=== PATIENT | male | born 1980 | race Caucasian/White ===

== ENCOUNTER → 2020-02-12 | Outpatient (CLI) | payer BC ==
[2020-02-12 13:46] LABS: HCT 36.1 % (39.0-53.0); HGB 11.9 gm/dL (13.0-17.5); MCH 27.1 pg (25.0-35.0); Mean Platelet Volume 7.3; Platelet Count 232 k/uL (150-450); Poikilocytosis Slight; RBC 4.41 m/uL (4.30-5.90); RDW 15.6 % (11.5-15.5); WBC 8.8 k/uL (3.8-10.6)
[2020-02-12 19:16] LABS: ALT 18 U/L (10-49); AST 19 U/L (14-35); African American GFR (CKD) 129.5 (60.0-200.0); Albumin/Globulin Ratio 1.13 (1.60-3.17); Alkaline Phosphatase 65 U/L (41-126); BUN/Creat Ratio 13.75 Ratio (12.00-20.00); C Reactive Protein <0.4 mg/dL (0.0-0.8); Calcium 8.6 mg/dL (8.7-10.3); Carbon Dioxide 27.2 mmol/L (21.6-31.8); Chloride 102 mmol/L (96-109); Chol/HDL Ratio 6.91; Cholesterol 242 mg/dL (0-200); Globulin 3.1 g/dL (1.6-3.3); Glucose 248 mg/dL (70-110); LDL Cholesterol,Calculated 166.8 mg/dL (0.0-131.0); Magnesium 1.7 mg/dL (1.5-2.4); Non-African American GFR(CKD) 111.7 (60.0-200.0); Potassium 4.1 mmol/L (3.5-5.5); Sodium 136 mmol/L (135-145); Total Bilirubin 0.4 mg/dL (0.2-1.2); Total Protein 6.6 g/dL (6.2-8.2)
== END | disposition home or self-care (01) ==
LOC: LABWHC1 12:15
PROVIDERS: ATTEND Family Medicine
DX: T81.89XA Other complications of procedures, not elsewhere classified, initial encounter (principal)
CPT/HCPCS: 36415; 80053; 80061; 83036; 83735; 84443; 84481; 85027; 86038; 86140

== ENCOUNTER 2020-04-01 08:09 | Emergency (ER) | payer BC ==
[2020-04-01 08:17] VITALS: BP 196/96; PULSE 102; RESP 18; TEMP 97.7
[2020-04-01] MEDS ORDERED: HYDROmorphone 1 MG/ML 1 ML SYRINGE IVP STA (08:32)
[2020-04-01] MEDS ORDERED: hydrOXYzine HCL 25 MG TAB PO STA (08:32)
--- NOTE | 2020-04-01 08:36 | ED ---
General Adult HPI - General Chief complaint: Extremity Problem,Nontraumatic Stated complaint: Leg pain Time Seen by Provider: 04/01/20 08:19 Source: patient, RN notes reviewed Mode of arrival: wheelchair Limitations: physical limitation - History of Present Illness Initial comments: Patient is a pleasant 39-year-old male presenting to the emergency Department with complaints of bilateral leg pain. Symptoms have been present for over year. 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 Patient was also recently diagnosed with erythema nodosum. Patient has been on 3 courses of antibiotics now including doxycycline and Augmentin and another. Patient has also recently in the event steroids. Patient complains of discomfort and burning, some itching. No fevers. Bilateral lower legs are involved. - Related Data Allergies Allergy/AdvReac Type Severity Reaction Status Date / Time No Known Allergies Allergy Verified 04/01/20 08:17 Review of Systems ROS Statement: Those systems with pertinent positive or pertinent negative responses have been documented in the HPI. ROS Other: All systems not noted in ROS Statement are negative. Constitutional: Denies: fever Eyes: Denies: eye pain ENT: Denies: ear pain Respiratory: Denies: cough Cardiovascular: Denies: chest pain Endocrine: Denies: fatigue Gastrointestinal: Denies: abdominal pain Genitourinary: Denies: dysuria Musculoskeletal: Denies: back pain Skin: Reports: as per HPI, rash, lesions Neurological: Denies: weakness Past Medical History Past Medical History: Diabetes Mellitus Additional Past Medical History / Comment(s): Behcets disease(auto immune) History of Any Multi-Drug Resistant Organisms: None Reported Additional Past Surgical History / Comment(s): I/D of skin lesions, colostomy reversal Past Psychological History: Anxiety Smoking Status: Never smoker Past Alcohol Use History: None Reported Past Drug Use History: None Reported General Exam Limitations: physical limitation General appearance: alert, in no apparent distress Head exam: Present: normocephalic Eye exam: Present: normal appearance Neck exam: Present: normal inspection Respiratory exam: Present: normal lung sounds bilaterally Cardiovascular Exam: Present: regular rate, normal rhythm GI/Abdominal exam: Present: soft. Absent: tenderness Extremities exam: Present: pedal edema Neurological exam: Present: alert Psychiatric exam: Present: normal affect, normal mood Skin exam: Present: other (Bilateral lower leg with lesions anywhere from mild erythematous macules to stage II ulcers up to 3 cm.) Course Vital Signs 04/01/20 08:11 Temperature 97.7 F Pulse Rate 102 H Respiratory 18 Rate Blood Pressure 196/96 O2 Sat by Pulse 97 Oximetry Medical Decision Making - Medical Decision Making Patient and family aware of plan. Case was discussed with Dr. Dwyer, who will admit for Dr. Velázquez. He does agree with IV steroids and antibiotics. - Lab Data Lab Results 04/01/20 Range/Units 08:42 Plasma Lactic Acid Jamarcus 1.1 (0.7-2.0) mmol/L Disposition Clinical Impression: Vasculitis Disposition: ADMITTED IP TO THIS HOSP Condition: Serious Is patient prescribed a controlled substance at d/c from ED?: No Referrals: Veronica Duarte MD [Primary Care Provider] - 1-2 days Decision Time: 09:32
[2020-04-01] MEDS ORDERED: SODIUM CHLORIDE 0.9% 1,000 ML IV SCH (08:45)
[2020-04-01] MEDS ORDERED: HYDROmorphone 0.5 MG/0.5 ML SYRINGE IVP PRN (09:32)
[2020-04-01] MEDS ORDERED: ACETAMINOPHEN TAB 325 MG TAB PO PRN (09:32)
[2020-04-01] MEDS ORDERED: NALOXONE 0.4 MG/ML 1 ML VIAL IV PRN (09:32)
[2020-04-01] MEDS ORDERED: HYDROmorphone 1 MG/ML 1 ML SYRINGE IVP PRN (09:32)
[2020-04-01 09:37] LABS: INR 0.9 (<1.2); Prothrombin Time 9.5 sec (9.0-12.0)
[2020-04-01 09:38] LABS: Basophils % (A) 0 %; Eosinophils % (A) 0 %; HCT 39.8 % (39.0-53.0); HGB 12.9 gm/dL (13.0-17.5); Lymphocytes # (A) 1.1 k/uL (1.0-4.8); Lymphocytes % (A) 9 %; MCH 28.3 pg (25.0-35.0); MCHC 32.6 g/dL (31.0-37.0); MCV 86.9 fL (80.0-100.0); Mean Platelet Volume 7.1; Monocytes # (A) 0.4 k/uL (0-1.0); Monocytes % (A) 3 %; Neutrophils # (A) 11.5 k/uL (1.3-7.7); Neutrophils % (A) 87 %; Platelet Count 362 k/uL (150-450); RBC 4.57 m/uL (4.30-5.90); RDW 15.6 % (11.5-15.5); WBC 13.1 k/uL (3.8-10.6)
[2020-04-01 09:39] LABS: ALT 23 U/L (4-49); AST 19 U/L (17-59); African American GFR (CKD) >90 (>60 ml/min/1.73 sqM); Alkaline Phosphatase 85 U/L (38-126); Anion Gap 11 mmol/L; Blood Urea Nitrogen 32 mg/dL (9-20); C Reactive Protein 26.4 mg/L (<10.0); Calcium 10.1 mg/dL (8.4-10.2); Carbon Dioxide 21 mmol/L (22-30); Chloride 97 mmol/L (98-107); Non-African American GFR(CKD) >90 (>60 ml/min/1.73 sqM); Potassium 5.1 mmol/L (3.5-5.1); Sodium 129 mmol/L (137-145); Total Bilirubin 0.4 mg/dL (0.2-1.3); Total Protein 8.3 g/dL (6.3-8.2)
[2020-04-01 09:47] LABS: Partial Thromboplastin Time 21.2 sec (22.0-30.0)
[2020-04-01 09:53] LABS: Glucose 625 mg/dL (74-99)
[2020-04-01 10:21] LABS: Erythrocyte Sedimentation Rate 93 mm/hr (0-15)
[2020-04-01] MEDS ORDERED: INSULIN REGULAR 100 UNIT/ML VIAL IV ONE (10:45)
[2020-04-01] MEDS ORDERED: AMPICILLIN-SULBACTAM 3 GM in SODIUM CHLORIDE 0.9% 100 ML IVPB STA (11:00)
[2020-04-01] MEDS ORDERED: VANCOMYCIN IV PER PHARMACY 1 EACH MISC MISCELLANE PRN (11:01)
[2020-04-01] MEDS ORDERED: VANCOMYCIN 1,500 MG in SODIUM CHLORIDE 0.9% 250 ML IVPB ONE (11:15)
[2020-04-01] MEDS ORDERED: methylPREDNISolone SOD SUCCI 125 MG/2 ML VIAL IV SCH (12:00)
[2020-04-01] MEDS ORDERED: INSULIN REGULAR 100 UNIT/ML VIAL SQ ONE (12:15)
[2020-04-01] MEDS ORDERED: INSULIN ASPART (NovoLOG) 100 UNIT/ML VIAL SQ SCH (12:30)
[2020-04-01 12:32] LABS: Glucose,Whole Blood 558 mg/dL (75-99)
[2020-04-01] MEDS ORDERED: hydrOXYzine HCL 25 MG TAB PO SCH (16:00)
[2020-04-01] MEDS ORDERED: AMPICILLIN-SULBACTAM 1.5 GM in SODIUM CHLORIDE 0.9% 50 ML IVPB SCH (18:00)
[2020-04-01] MEDS ORDERED: FAMOTIDINE 20 MG TAB PO SCH (21:00)
== END 2020-04-01 11:17 | disposition left against medical advice (07) ==
LOC: EC 08:09 → 6NMEDSUR 09:33 → UNDOADMIN 09:33 → 6NMEDSUR 10:20 → UNDODISIN 11:17 → EC 11:17
DX: I77.6 Arteritis, unspecified (principal); M35.2 Behcet's disease; L52 Erythema nodosum
CPT/HCPCS: 99284; 96361; 96365; 96375; 36415; 80053; 85652; 82009; 83605; 85025; 85610; 85730; 86140; 87040; 87070; 87205; 87077; 87186; J2930; J1170; J0295

== ENCOUNTER 2020-04-02 13:28 | Inpatient (IN) | payer BC ==
[2020-04-02] MEDS ORDERED: GENTAMICIN PER PHARMACY MISCELLANE SCH (14:00)
[2020-04-02] MEDS ORDERED: VANCOMYCIN IV PER PHARMACY 1 EACH MISC MISCELLANE PRN ×2 (14:00→15:34)
[2020-04-02] MEDS ORDERED: HYDROmorphone 1 MG/ML 1 ML SYRINGE IVP STA (14:02)
--- NOTE | 2020-04-02 14:06 | ED ---
General Adult HPI - General Chief complaint: Skin/Abscess/Foreign Body Stated complaint: Rash Time Seen by Provider: 04/02/20 13:35 Source: patient, family, RN notes reviewed Mode of arrival: ambulatory Limitations: no limitations - History of Present Illness Initial comments: Patient is a pleasant 39-year-old male presenting to the emergency Department with complaints of rash. Symptoms have been ongoing for a year. Patient was recently diagnosed with bechet's vasculitis. Patient is having increased pain with leg swelling and sores. Patient has had some discharge or drainage. No fevers. Pain is severe at this time. Patient did have a fall on the steps this morning with some discomfort to his right ribs. No dyspnea. Patient does not believe he broke anything. No head injury or loss of consciousness. Patient was in the ER yesterday and was advised to stay however left AGAINST MEDICAL ADVICE secondary to personal issues. Those have been taken care of at this time and patient is agreeable to admission at this time. - Related Data Home Medications Medication Instructions Recorded Confirmed Acetaminophen [Tylenol] 975 mg PO Q6H PRN 04/01/20 04/02/20 Doxycycline Hyclate 100 mg PO BID 04/01/20 04/02/20 Gabapentin 300 mg PO TID 04/01/20 04/02/20 Ibuprofen [Motrin Ib] 800 mg PO Q6H PRN 04/01/20 04/02/20 Insulin Glargine,Hum.rec.anlog 30 units SQ HS 04/01/20 04/02/20 [Toujeo Solostar] diphenhydrAMINE HCL [Benadryl] 50 mg PO Q6H PRN 04/01/20 04/02/20 predniSONE [Deltasone] See Taper PO DAILY 04/01/20 04/02/20 Allergies Allergy/AdvReac Type Severity Reaction Status Date / Time No Known Allergies Allergy Verified 04/02/20 13:36 Review of Systems ROS Statement: Those systems with pertinent positive or pertinent negative responses have been documented in the HPI. ROS Other: All systems not noted in ROS Statement are negative. Constitutional: Denies: fever Eyes: Denies: eye pain ENT: Denies: ear pain Respiratory: Denies: cough, dyspnea Cardiovascular: Reports: as per HPI Endocrine: Denies: fatigue Gastrointestinal: Denies: abdominal pain Genitourinary: Denies: urgency Musculoskeletal: Denies: back pain Skin: Reports: rash, lesions Neurological: Denies: weakness Past Medical History Past Medical History: Diabetes Mellitus Additional Past Medical History / Comment(s): Behcets disease(auto immune) History of Any Multi-Drug Resistant Organisms: None Reported Additional Past Surgical History / Comment(s): I/D of skin lesions, colostomy reversal Past Psychological History: Anxiety Smoking Status: Never smoker Past Alcohol Use History: None Reported Past Drug Use History: None Reported General Exam Limitations: no limitations General appearance: alert, in no apparent distress Head exam: Present: atraumatic Eye exam: Present: normal appearance Neck exam: Present: normal inspection. Absent: tenderness Respiratory exam: Present: normal lung sounds bilaterally. Absent: chest wall tenderness Cardiovascular Exam: Present: regular rate, normal rhythm GI/Abdominal exam: Present: soft. Absent: tenderness Extremities exam: Present: other (Bilateral lower leg wounds) Back exam: Present: normal inspection. Absent: vertebral tenderness Neurological exam: Present: alert. Absent: motor sensory deficit Psychiatric exam: Present: normal affect, normal mood Skin exam: Present: other (Bilateral lower legs with multiple lesions of varying sizes, up to 3-4 cm stage II ulcers with dark discoloration. There are also multiple small macular papules) Course Vital Signs 04/02/20 13:34 Temperature 97.9 F Pulse Rate 87 Respiratory 20 Rate Blood Pressure 101/77 O2 Sat by Pulse 99 Oximetry EKG Findings - EKG Comments: EKG Findings:: Sinus tachycardia 1:15. NH 154. QRS 88. QT 322. QTC 445. Normal axis. Normal QRS. No acute ST change. Medical Decision Making - Medical Decision Making Dr. Gonzalez was notified who requests admission to [facility] for the weekend. Case was discussed with Dr. del cid, who will admit. - Lab Data Lab Results 04/02/20 04/02/20 Range/Units 14:07 14:08 POC Glucose (mg/dL) >600 H >600 H (75-99) mg/dL POC Glu Routing Machine Operator ID Rosalina Argueta Alisha - Radiology Data Radiology results: image reviewed (Chest x-ray shows no acute process) Disposition Clinical Impression: Vasculitis, Cellulitis, Hyperglycemia Disposition: ADMITTED IP TO THIS HOSP Is patient prescribed a controlled substance at d/c from ED?: No Referrals: Veronica Duarte MD [Primary Care Provider] - 1-2 days Decision Time: 14:28
[2020-04-02 14:09] LABS: Glucose,Whole Blood >600 mg/dL (75-99)
[2020-04-02 14:09] LABS: Glucose,Whole Blood >600 mg/dL (75-99)
[2020-04-02] MEDS ORDERED: INSULIN REGULAR 100 UNIT/ML VIAL IV ONE (14:09)
[2020-04-02] MEDS ORDERED: VANCOMYCIN 1,750 MG in SODIUM CHLORIDE 0.9% 500 ML 500 ML IVPB STA (14:13)
[2020-04-02] MEDS ORDERED: VANCOMYCIN 1,750 MG in SODIUM CHLORIDE 0.9% 250 ML IVPB ONE (14:15)
--- NOTE | 2020-04-02 14:21 | XR ---
EXAMINATION TYPE: XR chest 2V DATE OF EXAM: 04/02/2020 COMPARISON: NONE HISTORY: Falling injury today with pain. TECHNIQUE: Frontal and lateral views of the chest are obtained. FINDINGS: Low lung volumes are present. There is no focal air space opacity, pleural effusion, or pne umothorax seen. The cardiac silhouette size is within normal limits. The osseous structures are in tact. IMPRESSION: No acute cardiopulmonary process.
[2020-04-02] MEDS: INSULIN ASPART (NovoLOG) 100 UNIT/ML VIAL SQ SCH ×2 (14:26→18:43)
[2020-04-02] MEDS ORDERED: HYDROmorphone 0.5 MG/0.5 ML SYRINGE IVP PRN (14:29)
[2020-04-02] MEDS ORDERED: NALOXONE 0.4 MG/ML 1 ML VIAL IV PRN (14:29)
[2020-04-02] MEDS ORDERED: ACETAMINOPHEN TAB 325 MG TAB PO PRN (14:29)
[2020-04-02] MEDS ORDERED: methylPREDNISolone SOD SUCCI 125 MG/2 ML VIAL IV STA (14:30)
[2020-04-02] MEDS: SODIUM CHLORIDE 0.9% 1,000 ML IV SCH (14:32)
[2020-04-02] MEDS ORDERED: GENTAMICIN 560 MG in SODIUM CHLORIDE 0.9% 100 ML IVPB ONE (15:00)
[2020-04-02 15:05] LABS: Basophils # (A) 0.1 k/uL (0-0.2); Basophils % (A) 1 %; Eosinophils % (A) 0 %; HCT 39.3 % (39.0-53.0); HGB 13.1 gm/dL (13.0-17.5); Lymphocytes # (A) 0.9 k/uL (1.0-4.8); Lymphocytes % (A) 7 %; MCH 29.1 pg (25.0-35.0); MCHC 33.2 g/dL (31.0-37.0); MCV 87.5 fL (80.0-100.0); Mean Platelet Volume 7.1; Monocytes # (A) 0.3 k/uL (0-1.0); Monocytes % (A) 2 %; Neutrophils # (A) 11.4 k/uL (1.3-7.7); Neutrophils % (A) 90 %; Platelet Count 319 k/uL (150-450); RBC 4.49 m/uL (4.30-5.90); RDW 15.4 % (11.5-15.5); WBC 12.8 k/uL (3.8-10.6)
[2020-04-02 15:13] LABS: ALT 21 U/L (4-49); AST 19 U/L (17-59); African American GFR (CKD) >90 (>60 ml/min/1.73 sqM); Albumin 3.6 g/dL (3.5-5.0); Alkaline Phosphatase 73 U/L (38-126); Calcium 9.8 mg/dL (8.4-10.2); Carbon Dioxide 21 mmol/L (22-30); Non-African American GFR(CKD) >90 (>60 ml/min/1.73 sqM); Potassium 5.4 mmol/L (3.5-5.1); Total Bilirubin 0.4 mg/dL (0.2-1.3)
[2020-04-02 15:22] LABS: Glucose,Whole Blood 563 mg/dL (75-99)
[2020-04-02 15:22] LABS: INR 0.9 (<1.2); Prothrombin Time 9.6 sec (9.0-12.0)
[2020-04-02 15:24] LABS: Partial Thromboplastin Time 20.6 sec (22.0-30.0)
[2020-04-02 15:30] LABS: Anion Gap 11 mmol/L; Blood Urea Nitrogen 38 mg/dL (9-20); Chloride 96 mmol/L (98-107); Sodium 128 mmol/L (137-145); Total Protein 7.5 g/dL (6.3-8.2)
--- NOTE | 2020-04-02 15:33 | P.HPIM ---
History of Present Illness On-call hospitalist covering for Dr. Gonzalez This is a pleasant 39 years old male with past medical history of Bahget disease, diagnosed and treated by his PCP nicci Ivey. 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 He follow-up with his PCP who started him on steroids about 2 weeks ago, his sugars now is uncontrolled Also at home he was going down stairs when he tripped and fell and he hurt the right side of his chest when he has pain and tenderness, however he denies headache trauma, he denies pain anywhere else, he has history of injury to his left foot few weeks ago, with trauma to the left big toe and the second toe there is some ulceration with purulent discharge. Patient is hemodynamically stable and vitals looks stable, patient is afebrile.Labs from yesterday and today were reviewedShowing mild leukocytosis of 13.1 and 12.8 K, rest of CBC is unremarkable, elevated ESR of 93, INR is normal, sugars elevated more than 600, sodium is 129 probably pseudohyponatremia secondary to high glucose. Creatinine is normal at 0.92, potassium 5.1, liver enzymes not elevated. C-reactive protein is elevated at 26.4 Once culture from yesterday showing group D enterococcus, final results is pending Chest x-ray showing no acute process. EKG showing sinus tachycardia at 1:[address]-T changes and QTC 45. Other chronic medical problems including diabetes on Trajento , he got postural lesions frequently, some of them in the left shoulder and left neck which are healed scar tissue, also in the groin Patient has been complaining of from blurry vision and floating spots for about a month and he was referred to supposed to follow up with an senior housekeeper He denies smoking, alcohol or illicit drugs, he feels somewhat depressed however he denies suicidal ideation and he does not think he needs to see a psychiatrist In the emergency room patient received IV vancomycin and IV gentamicin, also he was started on Solu-Medrol, normal saline at 1 30 mL/h. Review of Systems CONSTITUTIONAL: No fever, no malaise, no fatigue. HEENT: No recent hearing problems. Denied any sore throat. CARDIOVASCULAR: No orthopnea, PND, no palpitations, no syncope. PULMONARY: No shortness of breath, no cough, no hemoptysis. GASTROINTESTINAL: No diarrhea, no nausea, no vomiting, no abdominal pain. Normoactive bowel sounds. NEUROLOGICAL: No headaches, no weakness, no numbness. HEMATOLOGICAL: Denies any bleeding or petechiae. GENITOURINARY: Denies any burning micturition, frequency, or urgency. MUSCULOSKELETAL/RHEUMATOLOGICAL: Denies any joint pain, swelling, or any muscle pain. ENDOCRINE: Denies any polyuria or polydipsia. Past Medical History Past Medical History: Diabetes Mellitus Additional Past Medical History / Comment(s): Behcets disease(auto immune) History of Any Multi-Drug Resistant Organisms: None Reported Additional Past Surgical History / Comment(s): I/D of skin lesions, colostomy reversal Past Psychological History: Anxiety Smoking Status: Never smoker Past Alcohol Use History: None Reported Past Drug Use History: None Reported Medications and Allergies Home Medications Medication Instructions Recorded Confirmed Type Acetaminophen [Tylenol] 975 mg PO Q6H PRN 04/01/20 04/02/20 History Doxycycline Hyclate 100 mg PO BID 04/01/20 04/02/20 History Gabapentin 300 mg PO TID 04/01/20 04/02/20 History Ibuprofen [Motrin Ib] 800 mg PO Q6H PRN 04/01/20 04/02/20 History Insulin Glargine,Hum.rec.anlog 30 units SQ HS 04/01/20 04/02/20 History [Toujeo Solostar] diphenhydrAMINE HCL [Benadryl] 50 mg PO Q6H PRN 04/01/20 04/02/20 History predniSONE [Deltasone] See Taper PO DAILY 04/01/20 04/02/20 History Allergies Allergy/AdvReac Type Severity Reaction Status Date / Time No Known Allergies Allergy Verified 04/02/20 13:36 Physical Exam Vitals: Vital Signs Temp Pulse Resp BP Pulse Ox 04/02/20 13:34 97.9 F 87 20 101/77 99 Intake and Output 04/02/20 04/02/20 04/02/20 06:59 14:59 22:59 Other: Weight 102.965 kg GENERAL: The patient is alert and oriented x3, not in any acute distress. Well developed, well nourished. HEENT: Pupils are round and equally reacting to light. EOMI. No scleral icterus. No conjunctival pallor. Normocephalic, atraumatic. No pharyngeal erythema. No thyromegaly. CARDIOVASCULAR: S1 and S2 present. No murmurs, rubs, or gallops. -PULMONARY: Chest is clear to auscultation, no wheezing or crackles. Lateral chest wall tenderness ABDOMEN: Soft, nontender, nondistended, normoactive bowel sounds. No palpable organomegaly. MUSCULOSKELETAL: No joint swelling or deformity. -EXTREMITIES: No cyanosis, clubbing, or pedal edema. About (15+/-) Multiple circular cutaneous ulceration on both legs, about 0.5-2 inches in diameter, some of them are open with purulent base, others are with black eschar, mild surrounding erythema in between them. Also there is ulceration of the left second toe and first toe from recent trauma. Both legs are very sensitive to touch causing pain NEUROLOGICAL: Gross neurological examination did not reveal any focal deficits. SKIN: No rashes. No petechiae Results CBC & Chem 7: 04/02/20 14:35 Labs: Abnormal Lab Results - Last 24 Hours (Table) 04/02/20 04/02/20 04/02/20 Range/Units 14:07 14:08 14:35 WBC 12.8 H (3.8-10.6) k/uL Neutrophils # 11.4 H (1.3-7.7) k/uL Lymphocytes # 0.9 L (1.0-4.8) k/uL POC Glucose (mg/dL) >600 H >600 H (75-99) mg/dL Assessment and Plan Assessment: Bilateral lower extremity multiple ulceration and cellulitis Bahget disease, on steroids at home prior to admission to the hospital with complications including frequent skin pustules, and bilateral lower extremity ulceration, with blurred vision significant pain of both legs, his skin is very sensitive to touch causing pain 1 month history of blurred vision and floating spots Fall with right chest trauma Recent history of left foot trauma, mainly involving the left first toes Diabetes mellitus, uncontrolled with hyperglycemia Plan: This is a pleasant 39 years old male who presents with bilateral lower extremity ulceration and cellulitis, fall with trauma to the right chest and left foot, hyperglycemia and pain. We'll continue with IV vancomycin, follow-up once culture final results, we will call infectious disease consult however is not available today or over the weekend. Continue with steroids. Pain management Because of uncontrolled diabetes and patient is started on steroids, we will start the patient on insulin drip for now We'll check ultrasound of the lower extremity to rule out DVT We'll consult ophthalmology service Labs and medication were reviewed.. Continue same treatment. Continue with symptomatic treatment. Resume home medication. Monitor lytes and vitals. DVT and GI prophylaxis. Further recommendations depends on the clinical course of the patient DVT prophylaxis: SubcutaneouLovenox GI Prophylaxis: Pepcid PT/OT: Pending Prognosis is guarded patient was instructed to follow up with her special effects specialist upon discharge, he agrees and contact information for Dr. sim was provided
[2020-04-02 15:47] LABS: Glucose 671 mg/dL (74-99)
[2020-04-02 17:28] LABS: Glucose,Whole Blood 512 mg/dL (75-99)
--- NOTE | 2020-04-02 17:31 | US ---
EXAMINATION TYPE: US venous doppler duplex LE DATE OF EXAM: 04/02/2020 3:56 PM COMPARISON: NONE CLINICAL HISTORY: Rule out DVT Bilateral swelling. Behcet's disease. SIDE PERFORMED: Bilateral TECHNIQUE: The lower extremity deep venous system is examined utilizing real time linear array sonog ankita with graded compression, doppler sonography and color-flow sonography. VESSELS IMAGED: External Iliac Vein (EIV) Common Femoral Vein Deep Femoral Vein Greater Saphenous Vein * Femoral Vein Popliteal Vein Small Saphenous Vein * Proximal Calf Veins (* superficial vessels) Right Leg: Negative for DVT Left Leg: Negative for DVT IMPRESSION: No sign of deep vein thrombosis in both legs.
--- NOTE | 2020-04-02 17:46 | P.CON ---
Consult Note - . Consult date: 04/02/20 Assessment/Plan:: This is a 39 y/o male who's been recently diagnosed with Bechet's disease. He's been experiencing a number of vasculopathies which not seem to be totally answered by his long stand and poorly controlled diabetes. He has been experiencing poor vision since at least December 2019. He realizes taht he's not had an appropriate eye exam for many years and simply uses OTC readers as his get-by for vision. There is no known surgical interventions on the eyes and hs is unawware of any uveitis problems caused by the Bechet's disease itself. Va: uncorrected 20/25 -3 OD, 20/40 OS EOM full Pupils w/o APD Nondilated examination: Eyelid/adnexa unremarkable Cornea clear Conjunctiva white & clear AC Deep & quiet Iris no pathology Lens clear Vitreous clear Optic nerve S/F/P C:D 0.30 x 0.40 OU Retina multiple dot and blot and preproliferative findings throughout OU with CSME especially involving OS foveola A: poorly controlled DM with preproliferative and early proliferative findings with clinically significant macular edema OS>OD Hx Bechet's without overt ocular findings, needs full dilated examination with good peripheral examination and IVFA. P: recommend on release to seek ophthalmological care to begin proper diagnosis and interventional treatment as needed to preserve remaining vision. Additionally, needs to drop A-1-C < 7.0; stated was 9 now and recently 13 - most likely cause of current eye findings. Once the A-1-C is better stabilized recommend updated glasses about 3 months after stabilization. Thank yo for this consultation.
[2020-04-02] MEDS: HYDROmorphone 1 MG/ML 1 ML SYRINGE IVP PRN ×2 (17:59→20:49)
[2020-04-02] MEDS: INSULIN REGULAR 100 UNIT in SODIUM CHLORIDE 0.9% 100 ML IV SCH (18:02)
[2020-04-02] MEDS: methylPREDNISolone SOD SUCCI 125 MG/2 ML VIAL IV SCH (18:10)
[2020-04-02 19:30] LABS: Glucose,Whole Blood 457 mg/dL (75-99)
[2020-04-02] MEDS: FAMOTIDINE 20 MG TAB PO SCH (20:47)
[2020-04-02 21:10] LABS: Glucose,Whole Blood 391 mg/dL (75-99)
[2020-04-02 21:38] LABS: Glucose,Whole Blood 410 mg/dL (75-99)
--- NOTE | 2020-04-02 21:43 | XR ---
EXAMINATION TYPE: XR foot limited LT DATE OF EXAM: 04/02/2020 COMPARISON: NONE HISTORY: Foot infection. Pain. TECHNIQUE: 2 views FINDINGS: There is soft tissue swelling of the forefoot. I see no fracture nor dislocation. Metatarsa ls are intact. There is Achilles calcaneal spurring. IMPRESSION: Soft tissue swelling. No fracture seen.
[2020-04-02 23:33] LABS: Glucose,Whole Blood 333 mg/dL (75-99)
[2020-04-03] MEDS: HYDROmorphone 1 MG/ML 1 ML SYRINGE IVP PRN ×7 (00:22→21:51)
[2020-04-03] MEDS: methylPREDNISolone SOD SUCCI 125 MG/2 ML VIAL IV SCH ×4 (00:26→17:27)
[2020-04-03] MEDS: SODIUM CHLORIDE 0.9% 1,000 ML IV SCH ×3 (00:28→12:30)
[2020-04-03 01:23] LABS: Glucose,Whole Blood 280 mg/dL (75-99)
[2020-04-03] MEDS ORDERED: GENTAMICIN TROUGH DUE 1 EACH MISC MISCELLANE ONE (02:00)
[2020-04-03 02:58] LABS: Basophils % (A) 0 %; Eosinophils # (A) 0.1 k/uL (0-0.7); Eosinophils % (A) 1 %; HCT 34.2 % (39.0-53.0); Lymphocytes % (A) 10 %; MCH 28.1 pg (25.0-35.0); MCHC 32.3 g/dL (31.0-37.0); MCV 86.9 fL (80.0-100.0); Monocytes # (A) 0.2 k/uL (0-1.0); Monocytes % (A) 2 %; Neutrophils # (A) 8.3 k/uL (1.3-7.7); Neutrophils % (A) 86 %; Platelet Count 290 k/uL (150-450); RBC 3.93 m/uL (4.30-5.90); RDW 15.9 % (11.5-15.5); WBC 9.7 k/uL (3.8-10.6)
[2020-04-03] MEDS ORDERED: VANCOMYCIN 1,750 MG in SODIUM CHLORIDE 0.9% 250 ML IVPB SCH (03:00)
[2020-04-03 03:40] LABS: Glucose,Whole Blood 220 mg/dL (75-99)
[2020-04-03] MEDS: VANCOMYCIN 1,750 MG in SODIUM CHLORIDE 0.9% 500 ML 500 ML IVPB SCH ×2 (03:46→14:21)
[2020-04-03] MEDS: INSULIN REGULAR 100 UNIT in SODIUM CHLORIDE 0.9% 100 ML IV SCH (04:32)
[2020-04-03 04:48] LABS: Glucose,Whole Blood 212 mg/dL (75-99)
[2020-04-03 06:30] LABS: Glucose,Whole Blood 188 mg/dL (75-99)
--- NOTE | 2020-04-03 06:55 | XR ---
EXAMINATION TYPE: XR ribs RT DATE OF EXAM: 04/03/2020 COMPARISON: Chest x-ray from yesterday. HISTORY: Fall injury with right-sided rib pain. TECHNIQUE: A frontal and oblique images right-sided ribs. FINDINGS: No acute displaced right-sided rib fracture is seen. Visualized right lung remains clear. O verlying soft tissue is unremarkable. IMPRESSION: No acute displaced right-sided rib fracture.
[2020-04-03 07:39] LABS: Glucose,Whole Blood 183 mg/dL (75-99)
[2020-04-03 08:57] LABS: African American GFR (CKD) 129.5 (60.0-200.0); Anion Gap 8.2 mmol/L (4.00-12.00); BUN/Creat Ratio 42.5 Ratio (12.00-20.00); Calcium 8.5 mg/dL (8.7-10.3); Carbon Dioxide 21.8 mmol/L (21.6-31.8); Non-African American GFR(CKD) 111.7 (60.0-200.0)
[2020-04-03] MEDS: FAMOTIDINE 20 MG TAB PO SCH ×2 (10:00→20:02)
[2020-04-03 10:23] LABS: Glucose,Whole Blood 251 mg/dL (75-99)
[2020-04-03 11:55] LABS: Glucose,Whole Blood 213 mg/dL (75-99)
[2020-04-03] MEDS: ENOXAPARIN 40 MG/0.4 ML SYRINGE SQ SCH (12:19)
[2020-04-03] MEDS: INSULIN ASPART (NovoLOG) 100 UNIT/ML VIAL SQ SCH ×3 (12:19→21:11)
[2020-04-03 17:18] LABS: Glucose,Whole Blood 327 mg/dL (75-99)
[2020-04-03] MEDS: GENTAMICIN 560 MG in SODIUM CHLORIDE 0.9% 100 ML IVPB SCH (17:27)
[2020-04-03 20:51] LABS: Glucose,Whole Blood 376 mg/dL (75-99)
[2020-04-04] MEDS: HYDROmorphone 1 MG/ML 1 ML SYRINGE IVP PRN ×8 (00:49→22:18)
[2020-04-04] MEDS: methylPREDNISolone SOD SUCCI 125 MG/2 ML VIAL IV SCH ×3 (00:52→11:36)
[2020-04-04] MEDS: SODIUM CHLORIDE 0.9% 1,000 ML IV SCH ×4 (00:54→19:17)
--- NOTE | 2020-04-04 01:15 | P.PN ---
Subjective Progress Note Date: 04/03/20 Principal diagnosis: Infected LE ulcers Mr. 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 Patient was also recently started on steroids for worsening of his ulcers and so his blood sugars have been uncontrolled. Patient also had a fall at home when he tripped and hurt on the right side of the chest. Patient had x-rays of his ribs and foot that was not showing any acute fractures patient also had lower extremity Dopplers done that was negative for DVT. Patient's wound culture from 1028 is shown to grow Enterococcus faecalis. Blood cultures from no growth till date. On 04/03/2020-patient is comfortably lying in bed. He states that his also has a painful. He also has some purulent discharge from his lower extremity ulcers. Patient does not complain of any any fevers chills or rigors. No chest pain or palpitations. No cough or difficulty in breathing. No not been nausea vomiting or diarrhea. No dysuria or hematuria. Patient's vitals have been reviewed temperature 97.7 heart rate 79 respiratory rate 18, blood pressure 128/74, saturating at 98% on room air. Patient's labs have been reviewed from this morning showing white count of 9.7 hemoglobin of 11 platelets of 190. Sodium 133, potassium 4, chloride 103, BUN 34, creatinine 0.8. Blood sugars have been running between 200s to 300s. Active Medications Acetaminophen (Acetaminophen Tab 325 Mg Tab) 650 mg PO Q6HR PRN PRN Reason: Mild Pain or Fever > 100.5 Enoxaparin Sodium (Enoxaparin 40 Mg/0.4 Ml Syringe) 40 mg SQ DAILY [facility] Last Admin: 04/03/20 12:19 Dose: 40 mg Documented by: Famotidine (Famotidine 20 Mg Tab) 20 mg PO BID [facility] Last Admin: 04/03/20 20:02 Dose: 20 mg Documented by: Hydromorphone HCl (Hydromorphone 0.5 Mg/0.5 Ml Syringe) 0.5 mg IVP Q3HR PRN PRN Reason: Moderate Pain Hydromorphone HCl (Hydromorphone 1 Mg/Ml 1 Ml Syringe) 1 mg IVP Q3HR PRN PRN Reason: Severe Pain Last Admin: 04/04/20 00:49 Dose: 1 mg Documented by: Sodium Chloride (Saline 0.9%) 1,000 mls @ 130 mls/hr IV .Q7H42M [facility] Last Admin: 04/04/20 00:54 Dose: 130 mls/hr Documented by: Vancomycin HCl 1,750 mg/ (Sodium Chloride) 500 mls @ 167 mls/hr IVPB Q12H [facility] Last Admin: 04/03/20 14:21 Dose: 167 mls/hr Documented by: Gentamicin Sulfate 560 mg/ (Sodium Chloride) 114 mls @ 114 mls/hr IVPB Q24H [facility] Last Admin: 04/03/20 17:27 Dose: 114 mls/hr Documented by: Insulin Aspart (Insulin Aspart (Novolog) 100 Unit/Ml Vial) 0 unit SQ [facility]; Protocol Last Admin: 04/03/20 21:11 Dose: 11 unit Documented by: Methylprednisolone Sodium Succinate (Methylprednisolone Sod Succi 125 Mg/2 Ml Vial) 60 mg IV Q6HR [facility] Last Admin: 04/04/20 00:52 Dose: 60 mg Documented by: Miscellaneous Information (Vancomycin Trough Due 1 Each Misc) 1 each MISCELLANE ONCE ONE Stop: 04/04/20 14:01 Naloxone HCl (Naloxone 0.4 Mg/Ml 1 Ml Vial) 0.2 mg IV Q2M PRN PRN Reason: Opioid Reversal Objective - Vital Signs Vital signs: Vital Signs Temp 97.5 F L 04/03/20 04:43 Pulse 75 04/03/20 04:43 Resp 16 04/03/20 04:43 BP 128/74 04/03/20 04:43 Pulse Ox 98 04/03/20 04:43 Intake & Output 04/02/20 04/03/20 04/03/20 18:59 06:59 18:59 Intake Total 528.938 16.652 Balance 528.938 16.652 Weight 102.965 kg Intake: Intake, IV Titration 528.938 16.652 Amount Gentamicin 560 mg In 20.6 Sodium Chloride 0.9% 100 ml @ 114 mls/hr IVPB Q24H [facility] Rx#:[id number] Insulin Regular 100 unit 118.338 16.652 In Sodium Chloride 0.9% 100 ml @ 0.1 UNITS/KG/HR 10.399 mls/hr IV .Q9H43M [facility] Rx#:[id number] Sodium Chloride 0.9% 1, 390 000 ml @ 130 mls/hr IV . Q7H42M [facility] Rx#:[id number] Other: # Bowel Movements 0 - Exam GENERAL: The patient is alert and oriented x3, not in any acute distress. Well developed, well nourished. HEENT: Pupils are round and equally reacting to light. EOMI. No scleral icterus. No conjunctival pallor. Normocephalic, atraumatic. No pharyngeal erythema. No thyromegaly. No oral ulcers . CARDIOVASCULAR: S1 and S2 present. No murmurs, rubs, or gallops. -PULMONARY: Chest is clear to auscultation, no wheezing or crackles. Lateral chest wall tenderness ABDOMEN: Soft, nontender, nondistended, normoactive bowel sounds. No palpable organomegaly. MUSCULOSKELETAL: No joint swelling or deformity. -EXTREMITIES: No cyanosis, clubbing, or pedal edema. Multiple circular cutaneous ulceration on both legs, about 0.5-2 inches in diameter, some of them are open with purulent base, others are with black eschar, mild surrounding erythema in between them. Also there is ulceration of the left second toe and first toe from recent trauma. Both legs are very sensitive to touch causing pain NEUROLOGICAL: Gross neurological examination did not reveal any focal deficits. - Labs CBC & Chem 7: 04/03/20 02:40 04/03/20 02:40 Labs: Abnormal Lab Results - Last 24 Hours (Table) 04/02/20 04/02/20 04/02/20 Range/Units 14:07 14:08 14:35 WBC 12.8 H (3.8-10.6) k/uL RBC (4.30-5.90) m/uL Hgb (13.0-17.5) gm/dL Hct (39.0-53.0) % RDW (11.5-15.5) % Neutrophils # 11.4 H (1.3-7.7) k/uL Lymphocytes # 0.9 L (1.0-4.8) k/uL APTT (22.0-30.0) sec Sodium (137-145) mmol/L Potassium (3.5-5.1) mmol/L Chloride (98-107) mmol/L Carbon Dioxide (22-30) mmol/L BUN (9-20) mg/dL BUN/Creatinine Ratio (12.00-20.00) Ratio Glucose (74-99) mg/dL POC Glucose (mg/dL) >600 H >600 H (75-99) mg/dL Calcium (8.7-10.3) mg/dL 04/02/20 04/02/20 04/02/20 Range/Units 14:35 14:35 15:21 WBC (3.8-10.6) k/uL RBC (4.30-5.90) m/uL Hgb (13.0-17.5) gm/dL Hct (39.0-53.0) % RDW (11.5-15.5) % Neutrophils # (1.3-7.7) k/uL Lymphocytes # (1.0-4.8) k/uL APTT 20.6 L (22.0-30.0) sec Sodium 128 L (137-145) mmol/L Potassium 5.4 H (3.5-5.1) mmol/L Chloride 96 L (98-107) mmol/L Carbon Dioxide 21 L (22-30) mmol/L BUN 38 H (9-20) mg/dL BUN/Creatinine Ratio (12.00-20.00) Ratio Glucose 671 H* (74-99) mg/dL POC Glucose (mg/dL) 563 H (75-99) mg/dL Calcium (8.7-10.3) mg/dL 04/02/20 04/02/20 04/02/20 Range/Units 17:20 19:28 20:50 WBC (3.8-10.6) k/uL RBC (4.30-5.90) m/uL Hgb (13.0-17.5) gm/dL Hct (39.0-53.0) % RDW (11.5-15.5) % Neutrophils # (1.3-7.7) k/uL Lymphocytes # (1.0-4.8) k/uL APTT (22.0-30.0) sec Sodium (137-145) mmol/L Potassium (3.5-5.1) mmol/L Chloride (98-107) mmol/L Carbon Dioxide (22-30) mmol/L BUN (9-20) mg/dL BUN/Creatinine Ratio (12.00-20.00) Ratio Glucose (74-99) mg/dL POC Glucose (mg/dL) 512 H 457 H 391 H (75-99) mg/dL Calcium (8.7-10.3) mg/dL 04/02/20 04/02/20 04/03/20 Range/Units 21:25 23:31 01:22 WBC (3.8-10.6) k/uL RBC (4.30-5.90) m/uL Hgb (13.0-17.5) gm/dL Hct (39.0-53.0) % RDW (11.5-15.5) % Neutrophils # (1.3-7.7) k/uL Lymphocytes # (1.0-4.8) k/uL APTT (22.0-30.0) sec Sodium (137-145) mmol/L Potassium (3.5-5.1) mmol/L Chloride (98-107) mmol/L Carbon Dioxide (22-30) mmol/L BUN (9-20) mg/dL BUN/Creatinine Ratio (12.00-20.00) Ratio Glucose (74-99) mg/dL POC Glucose (mg/dL) 410 H 333 H 280 H (75-99) mg/dL Calcium (8.7-10.3) mg/dL 04/03/20 04/03/20 04/03/20 Range/Units 02:40 02:40 03:20 WBC (3.8-10.6) k/uL RBC 3.93 L (4.30-5.90) m/uL Hgb 11.0 L (13.0-17.5) gm/dL Hct 34.2 L (39.0-53.0) % RDW 15.9 H (11.5-15.5) % Neutrophils # 8.3 H (1.3-7.7) k/uL Lymphocytes # (1.0-4.8) k/uL APTT (22.0-30.0) sec Sodium 133 L (137-145) mmol/L Potassium (3.5-5.1) mmol/L Chloride (98-107) mmol/L Carbon Dioxide (22-30) mmol/L BUN 34.0 H (9-20) mg/dL BUN/Creatinine Ratio 42.50 H (12.00-20.00) Ratio Glucose 243 H (74-99) mg/dL POC Glucose (mg/dL) 220 H (75-99) mg/dL Calcium 8.5 L (8.7-10.3) mg/dL 04/03/20 04/03/20 04/03/20 Range/Units 04:45 06:11 07:37 WBC (3.8-10.6) k/uL RBC (4.30-5.90) m/uL Hgb (13.0-17.5) gm/dL Hct (39.0-53.0) % RDW (11.5-15.5) % Neutrophils # (1.3-7.7) k/uL Lymphocytes # (1.0-4.8) k/uL APTT (22.0-30.0) sec Sodium (137-145) mmol/L Potassium (3.5-5.1) mmol/L Chloride (98-107) mmol/L Carbon Dioxide (22-30) mmol/L BUN (9-20) mg/dL BUN/Creatinine Ratio (12.00-20.00) Ratio Glucose (74-99) mg/dL POC Glucose (mg/dL) 212 H 188 H 183 H (75-99) mg/dL Calcium (8.7-10.3) mg/dL 04/03/20 04/03/20 Range/Units 10:21 11:54 WBC (3.8-10.6) k/uL RBC (4.30-5.90) m/uL Hgb (13.0-17.5) gm/dL Hct (39.0-53.0) % RDW (11.5-15.5) % Neutrophils # (1.3-7.7) k/uL Lymphocytes # (1.0-4.8) k/uL APTT (22.0-30.0) sec Sodium (137-145) mmol/L Potassium (3.5-5.1) mmol/L Chloride (98-107) mmol/L Carbon Dioxide (22-30) mmol/L BUN (9-20) mg/dL BUN/Creatinine Ratio (12.00-20.00) Ratio Glucose (74-99) mg/dL POC Glucose (mg/dL) 251 H 213 H (75-99) mg/dL Calcium (8.7-10.3) mg/dL Assessment and Plan Assessment: ASSESSMENT Bilateral lower extremity multiple ulceration and cellulitis Bahcet's disease, on steroids Significant pain of both legs, his skin is very sensitive to touch causing pain Blurred vision and floating spots Fall with right chest trauma Recent history of left foot trauma, mainly involving the left first toes Diabetes mellitus, uncontrolled with hyperglycemia PLAN: Patient's wound cultures from 1029 growing Enterococcus faecalis. Patient is on vancomycin and gentamicin. Wound care has been consulted for debridement as few of the ulcers serous discharge few of them have eschar formation. Patient was evaluated by ophthalmology and recommended outpatient follow-up for a dilated retinal exam. Patient's blood sugars continue to be running high, will continue on insulin drip for now. Patient had lower extremity Doppler that was negative for DVT. Continue with the current medication regimen. Further recommendations depending on the progress of the patient.
[2020-04-04 02:00] LABS: Glucose,Whole Blood 319 mg/dL (75-99)
[2020-04-04] MEDS: VANCOMYCIN 1,750 MG in SODIUM CHLORIDE 0.9% 500 ML 500 ML IVPB SCH (02:47)
[2020-04-04 07:12] LABS: Glucose,Whole Blood 330 mg/dL (75-99)
[2020-04-04 07:15] LABS: Basophils % (A) 0 %; Eosinophils % (A) 0 %; HCT 39.1 % (39.0-53.0); HGB 12.6 gm/dL (13.0-17.5); Lymphocytes # (A) 0.9 k/uL (1.0-4.8); Lymphocytes % (A) 6 %; MCH 28.5 pg (25.0-35.0); MCHC 32.3 g/dL (31.0-37.0); MCV 88.2 fL (80.0-100.0); Mean Platelet Volume 6.8; Monocytes # (A) 0.5 k/uL (0-1.0); Monocytes % (A) 4 %; Neutrophils % (A) 89 %; Platelet Count 359 k/uL (150-450); RBC 4.44 m/uL (4.30-5.90); RDW 15.6 % (11.5-15.5); WBC 14.6 k/uL (3.8-10.6)
[2020-04-04] MEDS: ENOXAPARIN 40 MG/0.4 ML SYRINGE SQ SCH (08:16)
[2020-04-04] MEDS: INSULIN ASPART (NovoLOG) 100 UNIT/ML VIAL SQ SCH ×3 (08:17→17:49)
[2020-04-04] MEDS: FAMOTIDINE 20 MG TAB PO SCH ×2 (08:17→20:20)
[2020-04-04 10:42] LABS: African American GFR (CKD) 129.5 (60.0-200.0); Anion Gap 7.6 mmol/L (4.00-12.00); BUN/Creat Ratio 37.5 Ratio (12.00-20.00); Calcium 8.4 mg/dL (8.7-10.3); Carbon Dioxide 25.4 mmol/L (21.6-31.8); Non-African American GFR(CKD) 111.7 (60.0-200.0); Potassium 4.5 mmol/L (3.5-5.5)
[2020-04-04 11:10] LABS: Glucose,Whole Blood 319 mg/dL (75-99)
[2020-04-04] MEDS: INSULIN DETEMIR (LEVEMIR) 100 UNIT/ML SYR SQ SCH (11:36)
[2020-04-04] MEDS: predniSONE 20 MG TAB PO SCH (11:48)
--- NOTE | 2020-04-04 11:49 | P.PN ---
Subjective Progress Note Date: 04/04/20 Principal diagnosis: Infected LE ulcers Mr. 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 Patient was also recently started on steroids for worsening of his ulcers and so his blood sugars have been uncontrolled. Patient also had a fall at home when he tripped and hurt on the right side of the chest. Patient had x-rays of his ribs and foot that was not showing any acute fractures patient also had lower extremity Dopplers done that was negative for DVT. Patient's wound culture from 1028 is shown to grow Enterococcus faecalis. Blood cultures from no growth till date. On 04/03/2020-patient is comfortably lying in bed. He states that his also has a painful. He also has some purulent discharge from his lower extremity ulcers. Patient does not complain of any any fevers chills or rigors. No chest pain or palpitations. No cough or difficulty in breathing. No not been nausea vomiting or diarrhea. No dysuria or hematuria. Patient's vitals have been reviewed temperature 97.7 heart rate 79 respiratory rate 18, blood pressure 128/74, saturating at 98% on room air. Patient's labs have been reviewed from this morning showing white count of 9.7 hemoglobin of 11 platelets of 190. Sodium 133, potassium 4, chloride 103, BUN 34, creatinine 0.8. Blood sugars have been running between 200s to 300s. On 04/04/2020 - patient is comfortably sitting up in the bed. He complains of pain in both of his lower extremities. He still has some discharge coming out f rom his lower extremity ulcers. Patient denies having any fevers chills or rigors. No chest pain or palpitations. No cough or difficulty in breathing. No abdominal pain nausea vomiting or diarrhea. No dysuria or hematuria. On reviewing the patient's vitals his temperature is 97.5, heart rate 92, respiratory rate 16, blood pressure 174/93, saturating at 97% on room air. On reviewing his labs from this morning white count of 14.6, hemoglobin 12.6. Sodium 135, potassium 4.5, periorbital, but 25, BUN 30, creatinine 0.8 blood sugars have been running high around 300s to 350s. Active Medications Acetaminophen (Acetaminophen Tab 325 Mg Tab) 650 mg PO Q6HR PRN PRN Reason: Mild Pain or Fever > 100.5 Enoxaparin Sodium (Enoxaparin 40 Mg/0.4 Ml Syringe) 40 mg SQ DAILY [facility] Last Admin: 04/04/20 08:16 Dose: 40 mg Documented by: Famotidine (Famotidine 20 Mg Tab) 20 mg PO BID [facility] Last Admin: 04/04/20 08:17 Dose: 20 mg Documented by: Hydromorphone HCl (Hydromorphone 0.5 Mg/0.5 Ml Syringe) 0.5 mg IVP Q3HR PRN PRN Reason: Moderate Pain Hydromorphone HCl (Hydromorphone 1 Mg/Ml 1 Ml Syringe) 1 mg IVP Q3HR PRN PRN Reason: Severe Pain Last Admin: 04/04/20 09:57 Dose: 1 mg Documented by: Sodium Chloride (Saline 0.9%) 1,000 mls @ 130 mls/hr IV .Q7H42M [facility] Last Admin: 04/04/20 05:38 Dose: Not Given Documented by: Gentamicin Sulfate 560 mg/ (Sodium Chloride) 114 mls @ 114 mls/hr IVPB Q24H [facility] Last Admin: 04/03/20 17:27 Dose: 114 mls/hr Documented by: Insulin Aspart (Insulin Aspart (Novolog) 100 Unit/Ml Vial) 0 unit SQ AC-TID [facility]; Protocol Last Admin: 04/04/20 11:35 Dose: 8 unit Documented by: Insulin Detemir (Insulin Detemir (Levemir) 100 Unit/Ml Syr) 20 unit SQ DAILY@0700 [facility] Last Admin: 04/04/20 11:36 Dose: 20 unit Documented by: Miscellaneous Information (Vancomycin Trough Due 1 Each Misc) 1 each MISCELLANE ONCE ONE Stop: 04/04/20 14:01 Naloxone HCl (Naloxone 0.4 Mg/Ml 1 Ml Vial) 0.2 mg IV Q2M PRN PRN Reason: Opioid Reversal Prednisone (Prednisone 20 Mg Tab) 40 mg PO DAILY [facility] Objective - Vital Signs Vital signs: Vital Signs Temp 97.5 F L 04/04/20 05:00 Pulse 92 04/04/20 05:00 Resp 16 04/04/20 05:00 BP 174/93 04/04/20 05:00 Pulse Ox 97 04/04/20 05:00 Intake & Output 04/03/20 04/04/20 04/04/20 19:59 06:59 18:59 Intake Total Balance Intake: Intake, IV Titration Amount Sodium Chloride 0.9% 1, 000 ml @ 130 mls/hr IV . Q7H42M [facility] Rx#:[id number] Oral Other: # Voids # Bowel Movements - Exam GENERAL: The patient is alert and oriented x3, not in any acute distress. Well developed, well nourished. HEENT: Pupils are round and equally reacting to light. EOMI. No scleral icterus. No conjunctival pallor. Normocephalic, atraumatic. No pharyngeal erythema. No thyromegaly. No oral ulcers . CARDIOVASCULAR: S1 and S2 present. No murmurs, rubs, or gallops. -PULMONARY: Chest is clear to auscultation, no wheezing or crackles. Lateral chest wall tenderness ABDOMEN: Soft, nontender, nondistended, normoactive bowel sounds. No palpable organomegaly. MUSCULOSKELETAL: No joint swelling or deformity. -EXTREMITIES: No cyanosis, clubbing, or pedal edema. Multiple circular cutaneous ulceration on both legs, about 0.5-2 inches in diameter, some of them are open with purulent base, others are with black eschar, mild surrounding erythema in between them. Also there is ulceration of the left second toe and first toe from recent trauma. Both legs are very sensitive to touch causing pain. NEUROLOGICAL: Gross neurological examination did not reveal any focal deficits. - Labs CBC & Chem 7: 04/04/20 06:29 04/04/20 06:29 Labs: Abnormal Lab Results - Last 24 Hours (Table) 04/03/20 04/03/20 04/04/20 Range/Units 17:15 20:49 01:53 EST WBC (3.8-10.6) k/uL Hgb (13.0-17.5) gm/dL RDW (11.5-15.5) % Neutrophils # (1.3-7.7) k/uL Lymphocytes # (1.0-4.8) k/uL BUN (9.0-27.0) mg/dL BUN/Creatinine Ratio (12.00-20.00) Ratio Glucose (70-110) mg/dL POC Glucose (mg/dL) 327 H 376 H 319 H (75-99) mg/dL Calcium (8.7-10.3) mg/dL 04/04/20 04/04/20 04/04/20 Range/Units 06:29 06:29 07:10 WBC 14.6 H (3.8-10.6) k/uL Hgb 12.6 L (13.0-17.5) gm/dL RDW 15.6 H (11.5-15.5) % Neutrophils # 13.0 H (1.3-7.7) k/uL Lymphocytes # 0.9 L (1.0-4.8) k/uL BUN 30.0 H (9.0-27.0) mg/dL BUN/Creatinine Ratio 37.50 H (12.00-20.00) Ratio Glucose 357 H (70-110) mg/dL POC Glucose (mg/dL) 330 H (75-99) mg/dL Calcium 8.4 L (8.7-10.3) mg/dL 04/04/20 Range/Units 11:09 WBC (3.8-10.6) k/uL Hgb (13.0-17.5) gm/dL RDW (11.5-15.5) % Neutrophils # (1.3-7.7) k/uL Lymphocytes # (1.0-4.8) k/uL BUN (9.0-27.0) mg/dL BUN/Creatinine Ratio (12.00-20.00) Ratio Glucose (70-110) mg/dL POC Glucose (mg/dL) 319 H (75-99) mg/dL Calcium (8.7-10.3) mg/dL Microbiology - Last 24 Hours (Table) 04/02/20 14:35 Blood Culture - Preliminary Blood No Growth after 24 hours 04/02/20 14:35 Blood Culture - Preliminary Blood No Growth after 24 hours Assessment and Plan Assessment: ASSESSMENT Bilateral lower extremity multiple ulceration and cellulitis Behcet's disease, on steroids Significant pain of both legs, his skin is very sensitive to touch causing pain Blurred vision and floating spots Fall with right chest trauma Recent history of left foot trauma, mainly involving the left first toes Diabetes mellitus, uncontrolled with hyperglycemia PLAN: Patient's wound cultures from 04/01 growing Enterococcus faecalis. We will discontinue vancomycin, continue the patient on gentamicin for now. Patient has been getting the high dose steroids, will taper it to prednisone 40 mg today. We will obtain a surgical consult for possible debridement of the ulcers. Patient was evaluated by ophthalmology and recommended outpatient follow-up for a dilated retinal exam. Patient's blood sugars continue to be running high, will start him on 20 units of Lantus with sliding scale of insulin coverage. Patient had lower extremity Doppler that was negative for DVT. Co ntinue with GI DVT prophylaxis. Continue with the current medication regimen. Further recommendations depending on the progress of the patient.
[2020-04-04] MEDS ORDERED: VANCOMYCIN TROUGH DUE 1 EACH MISC MISCELLANE ONE (14:00)
--- NOTE | 2020-04-04 14:33 | P.GSCN ---
History of Present Illness Consult date: 04/04/20 History of present illness: Patient is 39 y/o male with complaints of leg pain related to autoimmune lesions on bilateral lower ext. He has had these for some time, he states that they come and go. Past Medical History Past Medical History: Diabetes Mellitus Additional Past Medical History / Comment(s): Behcets disease(auto immune) History of Any Multi-Drug Resistant Organisms: None Reported Additional Past Surgical History / Comment(s): I/D of skin lesions, colostomy reversal Past Anesthesia/Blood Transfusion Reactions: No Reported Reaction Past Psychological History: Anxiety Smoking Status: Never smoker Past Alcohol Use History: None Reported Past Drug Use History: None Reported Medications and Allergies Home Medications Medication Instructions Recorded Confirmed Type Acetaminophen [Tylenol] 975 mg PO Q6H PRN 04/01/20 04/02/20 History Doxycycline Hyclate 100 mg PO BID 04/01/20 04/02/20 History Gabapentin 300 mg PO TID 04/01/20 04/02/20 History Ibuprofen [Motrin Ib] 800 mg PO Q6H PRN 04/01/20 04/02/20 History Insulin Glargine,Hum.rec.anlog 30 units SQ HS 04/01/20 04/02/20 History [Toujeo Solostar] diphenhydrAMINE HCL [Benadryl] 50 mg PO Q6H PRN 04/01/20 04/02/20 History predniSONE [Deltasone] See Taper PO DAILY 04/01/20 04/02/20 History Allergies Allergy/AdvReac Type Severity Reaction Status Date / Time No Known Allergies Allergy Verified 04/02/20 13:36 Surgical - Exam Osteopathic Statement: *. No significant issues noted on an osteopathic structural exam other than those noted in the History and Physical/Consult. Vital Signs Temp Pulse Resp BP Pulse Ox 97.9 F 87 20 101/77 99 04/02/20 13:34 04/02/20 13:34 04/02/20 13:34 04/02/20 13:34 04/02/20 13:34 - General well developed, well nourished - Eyes PERRL - Neck trachea midline - Respiratory normal expansion, normal respiratory effort - Abdomen Abdomen: soft, non tender - Integumentary multiple lesions/ulcerations on lower ext. no signs of infection - Psychiatric oriented to time, oriented to person, oriented to place Results - Labs 04/04/20 06:29 04/04/20 06:29 Abnormal Lab Results - Last 24 Hours (Table) 04/03/20 04/03/20 04/04/20 Range/Units 17:15 20:49 01:53 EST WBC (3.8-10.6) k/uL Hgb (13.0-17.5) gm/dL RDW (11.5-15.5) % Neutrophils # (1.3-7.7) k/uL Lymphocytes # (1.0-4.8) k/uL BUN (9.0-27.0) mg/dL BUN/Creatinine Ratio (12.00-20.00) Ratio Glucose (70-110) mg/dL POC Glucose (mg/dL) 327 H 376 H 319 H (75-99) mg/dL Calcium (8.7-10.3) mg/dL 04/04/20 04/04/20 04/04/20 Range/Units 06:29 06:29 07:10 WBC 14.6 H (3.8-10.6) k/uL Hgb 12.6 L (13.0-17.5) gm/dL RDW 15.6 H (11.5-15.5) % Neutrophils # 13.0 H (1.3-7.7) k/uL Lymphocytes # 0.9 L (1.0-4.8) k/uL BUN 30.0 H (9.0-27.0) mg/dL BUN/Creatinine Ratio 37.50 H (12.00-20.00) Ratio Glucose 357 H (70-110) mg/dL POC Glucose (mg/dL) 330 H (75-99) mg/dL Calcium 8.4 L (8.7-10.3) mg/dL 04/04/20 Range/Units 11:09 WBC (3.8-10.6) k/uL Hgb (13.0-17.5) gm/dL RDW (11.5-15.5) % Neutrophils # (1.3-7.7) k/uL Lymphocytes # (1.0-4.8) k/uL BUN (9.0-27.0) mg/dL BUN/Creatinine Ratio (12.00-20.00) Ratio Glucose (70-110) mg/dL POC Glucose (mg/dL) 319 H (75-99) mg/dL Calcium (8.7-10.3) mg/dL Microbiology - Last 24 Hours (Table) 04/02/20 14:35 Blood Culture - Preliminary Blood No Growth after 24 hours 04/02/20 14:35 Blood Culture - Preliminary Blood No Growth after 24 hours Diabetes panel 04/04/20 Range/Units 06:29 Sodium 135 (135-145) mmol/L Potassium 4.5 (3.5-5.5) mmol/L Chloride 102 (96-109) mmol/L Carbon Dioxide 25.4 (21.6-31.8) mmol/L BUN 30.0 H (9.0-27.0) mg/dL Creatinine 0.8 (0.6-1.5) mg/dL Glucose 357 H (70-110) mg/dL Calcium 8.4 L (8.7-10.3) mg/dL Calcium panel 04/04/20 Range/Units 06:29 Calcium 8.4 L (8.7-10.3) mg/dL Pituitary panel 04/04/20 Range/Units 06:29 Sodium 135 (135-145) mmol/L Potassium 4.5 (3.5-5.5) mmol/L Chloride 102 (96-109) mmol/L Carbon Dioxide 25.4 (21.6-31.8) mmol/L BUN 30.0 H (9.0-27.0) mg/dL Creatinine 0.8 (0.6-1.5) mg/dL Glucose 357 H (70-110) mg/dL Calcium 8.4 L (8.7-10.3) mg/dL Adrenal panel 04/04/20 Range/Units 06:29 Sodium 135 (135-145) mmol/L Potassium 4.5 (3.5-5.5) mmol/L Chloride 102 (96-109) mmol/L Carbon Dioxide 25.4 (21.6-31.8) mmol/L BUN 30.0 H (9.0-27.0) mg/dL Creatinine 0.8 (0.6-1.5) mg/dL Glucose 357 H (70-110) mg/dL Calcium 8.4 L (8.7-10.3) mg/dL Assessment and Plan Assessment: 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 There is no surgical intervention is not recommended at this time, recommend treating underlying autoimmune disorder.
[2020-04-04 17:00] LABS: Glucose,Whole Blood 248 mg/dL (75-99)
[2020-04-04] MEDS: GENTAMICIN 560 MG in SODIUM CHLORIDE 0.9% 100 ML IVPB SCH (17:49)
[2020-04-04 20:50] LABS: Glucose,Whole Blood 290 mg/dL (75-99)
[2020-04-05] MEDS: HYDROmorphone 1 MG/ML 1 ML SYRINGE IVP PRN ×4 (01:18→10:18)
[2020-04-05] MEDS: SODIUM CHLORIDE 0.9% 1,000 ML IV SCH ×3 (01:21→16:33)
[2020-04-05 06:14] LABS: Basophils % (A) 0 %; Eosinophils # (A) 0.1 k/uL (0-0.7); Eosinophils % (A) 1 %; HGB 11.8 gm/dL (13.0-17.5); Lymphocytes # (A) 1.8 k/uL (1.0-4.8); Lymphocytes % (A) 16 %; MCH 28.9 pg (25.0-35.0); MCHC 32.7 g/dL (31.0-37.0); MCV 88.3 fL (80.0-100.0); Mean Platelet Volume 6.8; Monocytes # (A) 1.1 k/uL (0-1.0); Monocytes % (A) 10 %; Neutrophils # (A) 7.9 k/uL (1.3-7.7); Neutrophils % (A) 72 %; Platelet Count 271 k/uL (150-450); RBC 4.08 m/uL (4.30-5.90); RDW 15.7 % (11.5-15.5)
[2020-04-05 07:12] LABS: Glucose,Whole Blood 200 mg/dL (75-99)
[2020-04-05] MEDS: INSULIN DETEMIR (LEVEMIR) 100 UNIT/ML SYR SQ SCH (08:59)
[2020-04-05] MEDS: ENOXAPARIN 40 MG/0.4 ML SYRINGE SQ SCH (08:59)
[2020-04-05] MEDS: INSULIN ASPART (NovoLOG) 100 UNIT/ML VIAL SQ SCH ×4 (08:59→20:37)
[2020-04-05] MEDS: predniSONE 20 MG TAB PO SCH (09:00)
[2020-04-05] MEDS: FAMOTIDINE 20 MG TAB PO SCH ×2 (09:00→20:37)
[2020-04-05 09:25] LABS: African American GFR (CKD) 145.8 (60.0-200.0); Anion Gap 4.5 mmol/L (4.00-12.00); BUN/Creat Ratio 41.67 Ratio (12.00-20.00); Calcium 7.8 mg/dL (8.7-10.3); Carbon Dioxide 25.5 mmol/L (21.6-31.8); Non-African American GFR(CKD) 125.8 (60.0-200.0); Potassium 4.1 mmol/L (3.5-5.5)
[2020-04-05 11:30] LABS: Glucose,Whole Blood 194 mg/dL (75-99)
[2020-04-05] MEDS ORDERED: INSULIN DETEMIR (LEVEMIR) 100 UNIT/ML SYR SQ SCH (11:30)
[2020-04-05] MEDS: lisinopriL 10 MG TAB PO SCH (11:33)
--- NOTE | 2020-04-05 11:35 | P.PN ---
Subjective Progress Note Date: 04/05/20 This is a 39-year-old gentleman admitted with vasculitis, history of Behcet's disease, uncontrolled diabetes mellitus multiple other medical issues. Maintained on IV fluid hydrations, steroids, antibiotics of gentamicin. Reports his vasculitis has been on and off 1 year. Reports lower extremity burning with "steel Wool" sensation on lesions. In the past, patient attempted Neurontin but did not receive pain control and was taking very high doses which made him too drowsy. Afebrile, WBC trending down to 11. Maintained on Levemir, hyperglycemic, blood sugars improving. 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 Objective - Vital Signs Vital signs: Vital Signs Temp 97.6 F 04/05/20 05:00 Pulse 93 04/05/20 05:00 Resp 16 04/05/20 05:00 BP 164/82 04/05/20 05:00 Pulse Ox 98 04/05/20 05:00 Intake & Output 04/04/20 04/05/20 04/05/20 18:59 06:59 18:59 Intake Total 1040 2740 Balance 1040 2740 Intake: Intake, IV Titration 1040 1560 Amount Sodium Chloride 0.9% 1, 1040 1560 000 ml @ 130 mls/hr IV . Q7H42M [facility] Rx#:[id number] Oral 1180 Other: # Voids 1 1 - Exam PHYSICAL EXAM: VITAL SIGNS: As above GENERAL: Alert and oriented 3, Sitting up in bed, no acute distress HEENT: Conjunctivae normal. eyes round and equal, NECK: No JVD. No thyroid enlargement. CARDIOVASCULAR: S1, S2 regular. No murmur RESPIRATION: Breath sounds diminished in the bases. No rhonchi or crackles. No bronchial breathing. ABDOMEN: Soft, nontender . No guarding. no masses palpable. No ascites, No h epatosplenomegaly.Bowel sounds heard. LEGS: Bilateral lower leg dressings clean dry and intact, positive edema NERVOUS SYSTEM: Cranial N 2-12 grossly normal. Moves all 4 limbs. Diffuse weakness No focal deficits. Strength and sensation grossly intact.. - Labs CBC & Chem 7: 04/05/20 05:16 04/05/20 05:16 Labs: Abnormal Lab Results - Last 24 Hours (Table) 04/04/20 04/04/20 04/04/20 Range/Units 11:09 16:59 20:49 WBC (3.8-10.6) k/uL RBC (4.30-5.90) m/uL Hgb (13.0-17.5) gm/dL Hct (39.0-53.0) % RDW (11.5-15.5) % Neutrophils # (1.3-7.7) k/uL Monocytes # (0-1.0) k/uL BUN/Creatinine Ratio (12.00-20.00) Ratio Glucose (70-110) mg/dL POC Glucose (mg/dL) 319 H 248 H 290 H (75-99) mg/dL Calcium (8.7-10.3) mg/dL 04/05/20 04/05/20 04/05/20 Range/Units 05:16 05:16 07:09 WBC 11.0 H (3.8-10.6) k/uL RBC 4.08 L (4.30-5.90) m/uL Hgb 11.8 L (13.0-17.5) gm/dL Hct 36.0 L (39.0-53.0) % RDW 15.7 H (11.5-15.5) % Neutrophils # 7.9 H (1.3-7.7) k/uL Monocytes # 1.1 H (0-1.0) k/uL BUN/Creatinine Ratio 41.67 H (12.00-20.00) Ratio Glucose 217 H (70-110) mg/dL POC Glucose (mg/dL) 200 H (75-99) mg/dL Calcium 7.8 L (8.7-10.3) mg/dL Microbiology - Last 24 Hours (Table) 04/02/20 14:35 Blood Culture - Preliminary Blood No Growth after 48 hours 04/02/20 14:35 Blood Culture - Preliminary Blood No Growth after 48 hours Assessment and Plan Assessment: 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 Continue on antibiotics, steroids and IV fluid hydration. Levemir insulin dose increased with close monitoring of Accu-Cheks. Patient reports he had followed up with a labour market economist prior to moving but did not receive results from all the testing completed. Discussed with patient following up with labour market economist as well as ophthalmology after discharge. Public Health Nurse recommendations noted and appreciated. Pain management. Discharge planning in the next 24-48 hours. The impression and plan of care has been dictated as directed. : I performed a history and examination of this patient, discussed the same with the dictator. I agree with the dictator's note ,documented as a scribe. Any additional findings or plans will be noted.
[2020-04-05] MEDS ORDERED: INSULIN DETEMIR (LEVEMIR) 100 UNIT/ML SYR SQ ONE (12:00)
[2020-04-05] MEDS: HYDROcodone/APAP 10-325MG 1 EACH TAB PO PRN ×3 (12:57→20:38)
--- NOTE | 2020-04-05 13:43 | P.CONS ---
History of Present Illness - Reason for Consult Consult date: 04/05/20 Wound care - History of Present Illness this is a 39-year-old pleasant male with a past medical history of behcet's disease with multiple ulcerations to bilateral lower extremities. Patient states that he isn't doing this for at least one year. The ulcerations come and go. He typically uses Neosporin and dry gauze however these last ulcerations have been there for about 2 weeks. Patient states that they are uncomfortable causing significant amount of pain and discomfort. Patient was seen in the ER where he had a culture that was positive however he is unable to stay and went home AMA he returned for treatment over the weekend. Asians past medical history includes diabetes. Review of Systems Review Of Systems: Constitutional: No fever, no chills, no night sweats. No weight change. No weakness, fatigue or lethargy. No daytime sleepiness. Integumentary:reports wounds, no lesions. No rash or pruritus. No unusual bruising. No change in hair or nails. Past Medical History Past Medical History: Diabetes Mellitus Additional Past Medical History / Comment(s): Behcets disease(auto immune) History of Any Multi-Drug Resistant Organisms: None Reported Additional Past Surgical History / Comment(s): I/D of skin lesions, colostomy reversal Past Anesthesia/Blood Transfusion Reactions: No Reported Reaction Past Psychological History: Anxiety Smoking Status: Never smoker Past Alcohol Use History: None Reported Past Drug Use History: None Reported Medications and Allergies Home Medications Medication Instructions Recorded Confirmed Type Acetaminophen [Tylenol] 975 mg PO Q6H PRN 04/01/20 04/02/20 History Doxycycline Hyclate 100 mg PO BID 04/01/20 04/02/20 History Gabapentin 300 mg PO TID 04/01/20 04/02/20 History Ibuprofen [Motrin Ib] 800 mg PO Q6H PRN 04/01/20 04/02/20 History Insulin Glargine,Hum.rec.anlog 30 units SQ HS 04/01/20 04/02/20 History [Tojoya Solostar] diphenhydrAMINE HCL [Benadryl] 50 mg PO Q6H PRN 04/01/20 04/02/20 History predniSONE [Deltasone] See Taper PO DAILY 04/01/20 04/02/20 History Allergies Allergy/AdvReac Type Severity Reaction Status Date / Time No Known Allergies Allergy Verified 04/02/20 13:36 Physical Exam Vitals: Vital Signs Temp Pulse Resp BP Pulse Ox 04/05/20 13:00 97.6 F 83 18 161/88 97 04/05/20 05:00 97.6 F 93 16 164/82 98 04/05/20 00:00 16 04/04/20 20:46 98.4 F 88 16 149/88 97 Intake and Output 04/04/20 04/05/20 04/05/20 22:59 06:59 14:59 Intake Total 1700 1040 Balance 1700 1040 Intake: Intake, IV Titration 520 1040 Amount Sodium Chloride 0.9% 1, 520 1040 000 ml @ 130 mls/hr IV . Q7H42M [facility] Rx#:[id number] Oral 1180 Other: # Voids 1 1 1 Physical exam: General Appearance: Alert, cooperative, no distress, appears stated age. Skin: multiple ulcerations to bilateral lower extremities and various stages of healing mostly with eschar's. Purulent thick yellow drainage noted. No granulation seen through any of the ulcerations.all other Skin color, texture, tugor normal, no rashes or lesions. Neurologic: Alert oriented x3 Results CBC & Chem 7: 04/05/20 05:16 04/05/20 05:16 Labs: Abnormal Lab Results - Last 24 Hours (Table) 04/04/20 04/04/20 04/05/20 Range/Units 16:59 20:49 05:16 WBC 11.0 H (3.8-10.6) k/uL RBC 4.08 L (4.30-5.90) m/uL Hgb 11.8 L (13.0-17.5) gm/dL Hct 36.0 L (39.0-53.0) % RDW 15.7 H (11.5-15.5) % Neutrophils # 7.9 H (1.3-7.7) k/uL Monocytes # 1.1 H (0-1.0) k/uL BUN/Creatinine Ratio (12.00-20.00) Ratio Glucose (70-110) mg/dL POC Glucose (mg/dL) 248 H 290 H (75-99) mg/dL Calcium (8.7-10.3) mg/dL 11/02/20 11/02/20 11/02/20 Range/Units 05:16 07:09 11:18 WBC (3.8-10.6) k/uL RBC (4.30-5.90) m/uL Hgb (13.0-17.5) gm/dL Hct (39.0-53.0) % RDW (11.5-15.5) % Neutrophils # (1.3-7.7) k/uL Monocytes # (0-1.0) k/uL BUN/Creatinine Ratio 41.67 H (12.00-20.00) Ratio Glucose 217 H (70-110) mg/dL POC Glucose (mg/dL) 200 H 194 H (75-99) mg/dL Calcium 7.8 L (8.7-10.3) mg/dL Microbiology - Last 24 Hours (Table) 04/02/20 14:35 Blood Culture - Preliminary Blood No Growth after 48 hours 04/02/20 14:35 Blood Culture - Preliminary Blood No Growth after 48 hours Assessment and Plan (1) Nonhealing ulcer of multiple sites of left lower extremity with fat layer exposed Current Visit: Yes Status: Acute Code(s): L97.922 - NON-PRS CHR ULC UNSP PRT OF L LOW LEG W FAT LAYER EXPOSED SNOMED Code(s): 39555299 (2) Nonhealing ulcer of multiple sites of right lower extremity with fat layer exposed Current Visit: Yes Status: Acute Code(s): L97.912 - NON-PRS CHR ULC UNSP PRT OF R LOW LEG W FAT LAYER EXPOSED SNOMED Code(s): 58337675 (3) Diabetes mellitus with skin ulcer Current Visit: Yes Status: Acute Code(s): E11.622 - TYPE 2 DIABETES MELLITUS WITH OTHER SKIN ULCER; L98.499 - NON-PRESSURE CHRONIC ULCER OF SKIN OF SITES W UNSP SEVERITY SNOMED Code(s): 49839388 Plan: apply Santyl, saline was gauze, dry gauze, rolled gauze secured paper tape. C hange daily. Patient would not benefit from debridement due to theetiology of the ulceration being an inflammatory process. Continued mechanical debridement may worsen the ulcerations. discussed with patient's utilizing wound care upon discharge which she is agreeable. thank you For the Consultation Contact the [facility] with any questions. DNP note has been reviewed and discussed with Dr. Cherry and the impression and plan of care has been directed as dictated.
[2020-04-05] MEDS: COLLAGENASE 250 UNIT/GM OINTMENT 30 GM TUBE TOPICAL SCH (14:26)
[2020-04-05 17:39] LABS: Glucose,Whole Blood 348 mg/dL (75-99)
[2020-04-05] MEDS: GENTAMICIN 560 MG in SODIUM CHLORIDE 0.9% 100 ML IVPB SCH (18:16)
[2020-04-05 20:11] LABS: Glucose,Whole Blood 322 mg/dL (75-99)
[2020-04-06] MEDS: SODIUM CHLORIDE 0.9% 1,000 ML IV SCH ×3 (00:35→14:49)
[2020-04-06] MEDS: HYDROcodone/APAP 10-325MG 1 EACH TAB PO PRN ×6 (00:35→20:53)
[2020-04-06] MEDS: lisinopriL 10 MG TAB PO SCH (04:52)
[2020-04-06 07:18] LABS: Glucose,Whole Blood 203 mg/dL (75-99)
[2020-04-06] MEDS: ENOXAPARIN 40 MG/0.4 ML SYRINGE SQ SCH (07:37)
[2020-04-06] MEDS: FAMOTIDINE 20 MG TAB PO SCH ×2 (07:37→20:53)
[2020-04-06] MEDS: predniSONE 20 MG TAB PO SCH (07:37)
[2020-04-06] MEDS: INSULIN ASPART (NovoLOG) 100 UNIT/ML VIAL SQ SCH ×4 (07:38→20:52)
[2020-04-06 09:07] LABS: African American GFR (CKD) 136.8 (60.0-200.0)
[2020-04-06] MEDS ORDERED: HYDROmorphone 0.5 MG/0.5 ML SYRINGE IVP STA (09:30)
[2020-04-06] MEDS: GABAPENTIN 400 MG CAP PO SCH ×3 (09:46→21:26)
[2020-04-06 11:18] LABS: Glucose,Whole Blood 223 mg/dL (75-99)
[2020-04-06] MEDS: INSULIN DETEMIR (LEVEMIR) 100 UNIT/ML SYR SQ SCH (12:42)
[2020-04-06 16:58] LABS: Glucose,Whole Blood 269 mg/dL (75-99)
[2020-04-06] MEDS: GENTAMICIN 560 MG in SODIUM CHLORIDE 0.9% 100 ML IVPB SCH (17:45)
[2020-04-06] MEDS: COLLAGENASE 250 UNIT/GM OINTMENT 30 GM TUBE TOPICAL SCH (19:06)
[2020-04-06 20:50] LABS: Glucose,Whole Blood 210 mg/dL (75-99)
--- NOTE | 2020-04-06 23:05 | P.PN ---
Subjective Progress Note Date: 04/06/20 Principal diagnosis: vasculitis This is a 39-year-old gentleman admitted with vasculitis, history of Behcet's disease, uncontrolled diabetes mellitus multiple other medical issues. Maintained on IV fluid hydrations, steroids, antibiotics of gentamicin. Reports his vasculitis has been on and off 1 year. 04/06: He continues on gentamycin and prednisone, culture growing enterococcus fecalis. He does feel the legs are slightly improved but continues to complain of constant pain and states his lesions feel like 'steel wool' rubbing on them with light touch. Blood cultures with no growth. Objective - Vital Signs Vital signs: Vital Signs Temp 97.5 F L 04/06/20 12:25 Pulse 76 04/06/20 12:25 Resp 20 04/06/20 12:25 BP 152/83 04/06/20 12:25 Pulse Ox 99 04/06/20 12:25 Intake & Output 04/06/20 04/06/20 04/07/20 06:59 18:59 06:59 Intake Total 1560 Balance 1560 Intake: Intake, IV Titration 1560 Amount Sodium Chloride 0.9% 1, 1560 000 ml @ 130 mls/hr IV . Q7H42M [facility] Rx#:[id number] Other: Voiding Method Toilet Toilet # Voids 1 3 - Exam General: well nourished, well developed, NAD. Vitals reviewed Lungs: normal respiratory effort, no wheezes or rales CV: Regular rate and rhythm, no murmur. Peripheral pulses 2+ Abdomen: soft, nondistended, no organomegaly Skin: Bilateral shins with 1-2 cm diameter granulomatous lesions with overlying eschar. Minimal surrounding erythema - Labs CBC & Chem 7: 04/05/20 05:16 04/06/20 05:51 Labs: Abnormal Lab Results - Last 24 Hours (Table) 04/05/20 04/06/20 04/06/20 Range/Units 20:10 07:11 11:14 POC Glucose (mg/dL) 322 H 203 H 223 H (75-99) mg/dL 04/06/20 Range/Units 16:50 POC Glucose (mg/dL) 269 H (75-99) mg/dL Microbiology - Last 24 Hours (Table) 04/02/20 14:35 Blood Culture - Preliminary Blood No Growth after 96 hours 04/02/20 14:35 Blood Culture - Preliminary Blood No Growth after 96 hours Assessment and Plan (1) Behcet's disease Current Visit: Yes Status: Acute Code(s): M35.2 - BEHCET'S DISEASE SNOMED Code(s): 018491043 (2) Cellulitis Current Visit: Yes Status: Acute Code(s): L03.90 - CELLULITIS, UNSPECIFIED SNOMED Code(s): 890270066 (3) Nonhealing ulcer of multiple sites of left lower extremity with fat layer exposed Current Visit: Yes Status: Acute Code(s): L97.922 - NON-PRS CHR ULC UNSP PRT OF L LOW LEG W FAT LAYER EXPOSED SNOMED Code(s): 81986070 (4) Nonhealing ulcer of multiple sites of right lower extremity with fat layer exposed Current Visit: Yes Status: Acute Code(s): L97.912 - NON-PRS CHR ULC UNSP PRT OF R LOW LEG W FAT LAYER EXPOSED SNOMED Code(s): 75780943 (5) Vasculitis Current Visit: Yes Status: Acute Code(s): I77.6 - ARTERITIS, UNSPECIFIED SNOMED Code(s): 37322145 Plan: 1. Vasculitis and cellulitis of both lower extremities. Suspect behcet disease. Continue with IV gentamycin today and prednisone. Pain control with [place] and dilaudid. Continue santyl and gabapentin, plan to transition to PO antibiotic and recommend he follow up with Rheumatology outpatient 2. T2DM. Continue accucheck, sliding scale
[2020-04-07] MEDS: SODIUM CHLORIDE 0.9% 1,000 ML IV SCH ×2 (00:39→06:05)
[2020-04-07] MEDS: HYDROcodone/APAP 10-325MG 1 EACH TAB PO PRN ×3 (00:40→09:33)
[2020-04-07] MEDS ORDERED: GENTAMICIN TROUGH DUE 1 EACH MISC MISCELLANE ONE (02:00)
[2020-04-07 03:17] LABS: Anisocytosis Slight; Basophils % (A) 0 %; Eosinophils # (A) 0.3 k/uL (0-0.7); Eosinophils % (A) 3 %; HCT 32.3 % (39.0-53.0); HGB 10.3 gm/dL (13.0-17.5); Lymphocytes % (A) 22 %; MCH 28.5 pg (25.0-35.0); MCV 89.2 fL (80.0-100.0); Mean Platelet Volume 6.6; Monocytes # (A) 0.5 k/uL (0-1.0); Monocytes % (A) 6 %; Neutrophils # (A) 6.2 k/uL (1.3-7.7); Neutrophils % (A) 68 %; Platelet Count 224 k/uL (150-450); RBC 3.62 m/uL (4.30-5.90); RDW 16.4 % (11.5-15.5); WBC 9.1 k/uL (3.8-10.6)
[2020-04-07] MEDS: lisinopriL 10 MG TAB PO SCH (06:04)
[2020-04-07 06:36] VITALS: BP 173/99; TEMP 97.6
[2020-04-07 07:17] LABS: Glucose,Whole Blood 187 mg/dL (75-99)
[2020-04-07] MEDS: INSULIN DETEMIR (LEVEMIR) 100 UNIT/ML SYR SQ SCH (08:08)
[2020-04-07] MEDS: GABAPENTIN 400 MG CAP PO SCH (08:08)
[2020-04-07] MEDS: FAMOTIDINE 20 MG TAB PO SCH (08:08)
[2020-04-07] MEDS: INSULIN ASPART (NovoLOG) 100 UNIT/ML VIAL SQ SCH (08:08)
[2020-04-07] MEDS: predniSONE 20 MG TAB PO SCH (08:08)
[2020-04-07] MEDS: ENOXAPARIN 40 MG/0.4 ML SYRINGE SQ SCH (08:08)
[2020-04-07 10:07] LABS: African American GFR (CKD) 129.5 (60.0-200.0); Non-African American GFR(CKD) 111.7 (60.0-200.0)
[2020-04-07 10:17] VITALS: PULSE 85; RESP 14
== END 2020-04-07 13:14 | disposition home or self-care (01) | DRG 603 ==
LOC: EC 13:28 → 6NMEDSUR 14:30
PROVIDERS: ADMIT Family Medicine; ATTEND Family Medicine
DX: L03.116 Cellulitis of left lower limb (principal); M35.2 Behcet's disease; L97.922 Non-pressure chronic ulcer of unspecified part of left lower leg with fat layer exposed; L97.912 Non-pressure chronic ulcer of unspecified part of right lower leg with fat layer exposed; L03.115 Cellulitis of right lower limb; B95.2 Enterococcus as the cause of diseases classified elsewhere; E11.311 Type 2 diabetes mellitus with unspecified diabetic retinopathy with macular edema; E11.622 Type 2 diabetes mellitus with other skin ulcer; E11.65 Type 2 diabetes mellitus with hyperglycemia; F41.9 Anxiety disorder, unspecified; H54.7 Unspecified visual loss; H43.399 Other vitreous opacities, unspecified eye; I77.6 Arteritis, unspecified; L52 Erythema nodosum; Z79.4 Long term (current) use of insulin; S99.922A Unspecified injury of left foot, initial encounter; S29.9XXA Unspecified injury of thorax, initial encounter; W10.9XXA Fall (on) (from) unspecified stairs and steps, initial encounter; Y92.009 Unspecified place in unspecified non-institutional (private) residence as the place of occurrence of the external cause; Z79.899 Other long term (current) drug therapy; H53.8 Other visual disturbances; Z79.52 Long term (current) use of systemic steroids
CPT/HCPCS: 36415; 71046; 80048; 80053; 80170; 82009; 82565; 83605; 85025; 85610; 85730; 87040; 93005; 93970; 96365; 96366; 96375; 99285

== ENCOUNTER → 2020-04-23 | Outpatient (CLI) | payer BC ==
[2020-04-23 16:55] LABS: Basophils % (A) 0 %; Eosinophils # (A) 0.2 k/uL (0-0.7); Eosinophils % (A) 2 %; HGB 11.8 gm/dL (13.0-17.5); Lymphocytes # (A) 1.3 k/uL (1.0-4.8); Lymphocytes % (A) 14 %; MCH 28.3 pg (25.0-35.0); MCHC 32.8 g/dL (31.0-37.0); MCV 86.2 fL (80.0-100.0); Monocytes # (A) 0.4 k/uL (0-1.0); Monocytes % (A) 5 %; Neutrophils # (A) 7.4 k/uL (1.3-7.7); Neutrophils % (A) 78 %; Platelet Count 190 k/uL (150-450); RBC 4.18 m/uL (4.30-5.90); RDW 15.7 % (11.5-15.5); WBC 9.5 k/uL (3.8-10.6)
[2020-04-24 00:39] LABS: African American GFR (CKD) 123.4 (60.0-200.0); Magnesium 1.7 mg/dL (1.5-2.4); Non-African American GFR(CKD) 106.5 (60.0-200.0)
[2020-04-24 01:23] LABS: Hepatitis B Surface AB- Quant 3.5 mIU/mL; Hepatitis B Surface Antibody Non-Reactive (Non-Reactive); Hepatitis B Surface Antigen Non-Reactive (Non-Reactive); Hepatitis C IgG Antibody Non-Reactive (Non-Reactive)
== END | disposition home or self-care (01) ==
LOC: LABWHC1 15:38
PROVIDERS: ATTEND Dermatology Procedural Dermatology
DX: D48.5 Neoplasm of uncertain behavior of skin (principal); L30.9 Dermatitis, unspecified
CPT/HCPCS: 36415; 82465; 82565; 83735; 84450; 84460; 84478; 85025; 86706; 86803; 87340

== ENCOUNTER → 2020-05-19 | Outpatient (CLI) | payer BC ==
[2020-05-19 16:30] LABS: ALT 17 U/L (4-49); AST 20 U/L (17-59); African American GFR (CKD) >90 (>60 ml/min/1.73 sqM); Magnesium 1.6 mg/dL (1.6-2.3); Non-African American GFR(CKD) 85 (>60 ml/min/1.73 sqM)
[2020-05-19 16:55] LABS: Cholesterol 262 mg/dL (<200); Triglycerides 414 mg/dL (<150)
[2020-05-19 20:33] LABS: Basophils # (A) 0.1 k/uL (0-0.2); Basophils % (A) 1 %; Eosinophils # (A) 0.3 k/uL (0-0.7); Eosinophils % (A) 3 %; HCT 38.1 % (39.0-53.0); HGB 12.4 gm/dL (13.0-17.5); Hypochromasia Slight; Lymphocytes % (A) 19 %; MCH 29.3 pg (25.0-35.0); MCHC 32.5 g/dL (31.0-37.0); MCV 90.1 fL (80.0-100.0); Mean Platelet Volume 8.5; Monocytes # (A) 0.5 k/uL (0-1.0); Monocytes % (A) 5 %; Neutrophils # (A) 7.3 k/uL (1.3-7.7); Neutrophils % (A) 70 %; Platelet Count 223 k/uL (150-450); Poikilocytosis Slight; RBC 4.23 m/uL (4.30-5.90); RDW 15.6 % (11.5-15.5); WBC 10.4 k/uL (3.8-10.6)
[2020-05-20 03:44] LABS: Hepatitis B Surface AB- Quant 3.5 mIU/mL; Hepatitis B Surface Antibody Non-Reactive (Non-Reactive); Hepatitis B Surface Antigen Non-Reactive (Non-Reactive); Hepatitis C IgG Antibody Non-Reactive (Non-Reactive)
[2020-05-20 11:44] LABS: Immunoglobulin M 54.1 mg/dL (40.0-280.0)
[2020-05-20 12:53] LABS: Albumin 3.86 g/dL (3.80-4.90); Gamma Globulin 0.99 g/dL (0.70-1.50)
== END | disposition home or self-care (01) ==
LOC: LABWHC1 15:42
PROVIDERS: ATTEND Dermatology Procedural Dermatology
DX: L30.9 Dermatitis, unspecified (principal)
CPT/HCPCS: 36415; 82465; 82565; 82784; 82785; 83516; 83735; 84165; 84450; 84460; 84478; 85025; 86038; 86255; 86706; 86803; 87340

== ENCOUNTER 2020-07-16 09:39 | Inpatient (IN) | payer BC ==
[2020-07-16] MEDS ORDERED: SODIUM CHLORIDE 0.9% 1,000 ML IV STA (10:15)
[2020-07-16] MEDS ORDERED: HYDROmorphone 0.5 MG/0.5 ML SYRINGE IVP STA (10:15)
[2020-07-16] MEDS ORDERED: ONDANSETRON 4 MG/2 ML VIAL IVP STA (10:15)
--- NOTE | 2020-07-16 10:19 | ED ---
Abdominal Pain HPI - General Chief Complaint: Abdominal Pain Stated Complaint: Constipation, Abd Pain, Vomiting Time Seen by Provider: 07/16/20 10:09 Source: patient, RN notes reviewed Mode of arrival: ambulatory Limitations: no limitations - History of Present Illness Initial Comments: Patient is a 39-year-old male that presents to emergency department with his complaining of abdominal pain. Patient was in a significant amount of pain stating it was an 8 out of 10 but spikes every time he vomits. gave most of the history saying that patient has been complaining of epigastric left lower quadrant and low back pain for several days. She noted that he is only had a small bowel movement with the last couple days. She does have a history of a colostomy with reversal done January 2020. She noted that they're following up with [facility] doctors to figure out what autoimmune disease he has, but she believes that they didn't follow up well enough after reversal with ultrasounds to make sure there was okay. He has been vomiting for last couple days and it's black and bilious, without much food particles due to patient not being able to hold anything down. He did state that he has been able to take any of his medications keep it down. He denied any chest pain shortness of breath headache constipation diarrhea fever fatigue chills. - Related Data Home Medications Medication Instructions Recorded Confirmed Cyclosporine, Modified [Neoral] 100 mg PO QID 07/16/20 07/16/20 Dulaglutide [Trulicity] 1.5 mg SQ WE 07/16/20 07/16/20 Gabapentin [Neurontin] 1,200 mg PO TID 07/16/20 07/16/20 traMADol HCL 50 mg PO BID-W/MEALS 07/16/20 07/16/20 traMADol HCL 100 mg PO HS 07/16/20 07/16/20 Allergies Allergy/AdvReac Type Severity Reaction Status Date / Time No Known Allergies Allergy Verified 07/16/20 11:43 Review of Systems ROS Statement: Those systems with pertinent positive or pertinent negative responses have been documented in the HPI. ROS Other: All systems not noted in ROS Statement are negative. Past Medical History Past Medical History: Diabetes Mellitus Additional Past Medical History / Comment(s): Behcets disease(auto immune) History of Any Multi-Drug Resistant Organisms: None Reported Additional Past Surgical History / Comment(s): I/D of skin lesions, colostomy reversal Past Anesthesia/Blood Transfusion Reactions: No Reported Reaction Past Psychological History: Anxiety Smoking Status: Never smoker Past Alcohol Use History: None Reported Past Drug Use History: None Reported General Exam Limitations: no limitations General appearance: alert, in no apparent distress Head exam: Present: atraumatic, normocephalic, normal inspection Eye exam: Present: normal appearance, PERRL, EOMI. Absent: scleral icterus, conjunctival injection, periorbital swelling ENT exam: Present: normal exam, mucous membranes moist Neck exam: Present: normal inspection. Absent: tenderness, meningismus, lymphadenopathy Respiratory exam: Present: normal lung sounds bilaterally. Absent: respiratory distress, wheezes, rales, rhonchi, stridor Cardiovascular Exam: Present: regular rate, normal rhythm, normal heart sounds. Absent: systolic murmur, diastolic murmur, rubs, gallop, clicks GI/Abdominal exam: Present: soft, tenderness (Left lower quadrant and epigastric region), rigid (Epigastric region), hypoactive bowel sounds. Absent: distended, guarding, rebound Extremities exam: Present: normal inspection, full ROM, normal capillary refill. Absent: tenderness, pedal edema, joint swelling, calf tenderness Neurological exam: Present: alert, oriented X3, CN II-XII intact Psychiatric exam: Present: normal affect, normal mood Skin exam: Present: warm, dry, intact, normal color, other (Well-healed scar in left lower quadrant from reversal of colostomy.). Absent: rash Course Vital Signs 07/16/20 07/16/20 07/16/20 09:45 10:56 11:30 Temperature Pulse Rate 129 H 125 H 120 H Respiratory 18 18 24 Rate Blood Pressure 178/105 147/109 166/87 O2 Sat by Pulse 99 98 98 Oximetry 07/16/20 07/16/20 11:40 13:04 Temperature 99.9 F H 100.5 F H Pulse Rate 120 H 114 H Respiratory 24 18 Rate Blood Pressure 166/87 178/102 O2 Sat by Pulse 98 97 Oximetry - Reevaluation(s) Reevaluation #1: 07/16/20 11:50 Sepsis called at 11:50 AM due to elevated white count and tachycardia. Medical Decision Making - Medical Decision Making 39-year-old male complaining of abdominal pain with nausea and vomiting. Labs, pain medication, computed tomography scan ordered. Pain medication was administered. 1 L of normal saline given as bolus. More pain medication was given. Blood cultures ordered Case discussed with Dr. Tan, was decided to admit patient to hospital. - Lab Data Result diagrams: 07/16/20 10:24 07/16/20 10:24 Lab Results 07/16/20 07/16/20 07/16/20 Range/Units 10:24 10:24 10:24 WBC 20.6 H (3.8-10.6) k/uL RBC 5.02 (4.30-5.90) m/uL Hgb 13.9 (13.0-17.5) gm/dL Hct 41.3 (39.0-53.0) % MCV 82.4 D (80.0-100.0) fL MCH 27.8 (25.0-35.0) pg MCHC 33.7 (31.0-37.0) g/dL RDW 14.1 (11.5-15.5) % Plt Count 248 (150-450) k/uL MPV 7.7 Neutrophils % 88 % Lymphocytes % 5 % Monocytes % 6 % Eosinophils % 1 % Basophils % 0 % Neutrophils # 18.0 H (1.3-7.7) k/uL Lymphocytes # 1.0 (1.0-4.8) k/uL Monocytes # 1.2 H (0-1.0) k/uL Eosinophils # 0.2 (0-0.7) k/uL Basophils # 0.1 (0-0.2) k/uL Poikilocytosis Slight Sodium 136 L (137-145) mmol/L Potassium 4.9 (3.5-5.1) mmol/L Chloride 99 (98-107) mmol/L Carbon Dioxide 20 L (22-30) mmol/L Anion Gap 17 mmol/L BUN 12 (9-20) mg/dL Creatinine 0.74 (0.66-1.25) mg/dL Est GFR (CKD-EPI)AfAm >90 (>60 ml/min/1.73 sqM) Est GFR (CKD-EPI)NonAf >90 (>60 ml/min/1.73 sqM) Glucose 289 H (74-99) mg/dL Plasma Lactic Acid Jamarcus 2.0 (0.7-2.0) mmol/L Calcium 9.4 (8.4-10.2) mg/dL Total Bilirubin 1.0 (0.2-1.3) mg/dL AST 35 (17-59) U/L ALT 23 (4-49) U/L Alkaline Phosphatase 78 (38-126) U/L Total Protein 7.8 (6.3-8.2) g/dL Albumin 4.3 (3.5-5.0) g/dL Amylase 53 (30-110) U/L Lipase 40 (23-300) U/L Blood Type Recheck Bld Type Recheck Status Spec Expiration Date 07/16/20 Range/Units 12:45 WBC (3.8-10.6) k/uL RBC (4.30-5.90) m/uL Hgb (13.0-17.5) gm/dL Hct (39.0-53.0) % MCV (80.0-100.0) fL MCH (25.0-35.0) pg MCHC (31.0-37.0) g/dL RDW (11.5-15.5) % Plt Count (150-450) k/uL MPV Neutrophils % % Lymphocytes % % Monocytes % % Eosinophils % % Basophils % % Neutrophils # (1.3-7.7) k/uL Lymphocytes # (1.0-4.8) k/uL Monocytes # (0-1.0) k/uL Eosinophils # (0-0.7) k/uL Basophils # (0-0.2) k/uL Poikilocytosis Sodium (137-145) mmol/L Potassium (3.5-5.1) mmol/L Chloride (98-107) mmol/L Carbon Dioxide (22-30) mmol/L Anion Gap mmol/L BUN (9-20) mg/dL Creatinine (0.66-1.25) mg/dL Est GFR (CKD-EPI)AfAm (>60 ml/min/1.73 sqM) Est GFR (CKD-EPI)NonAf (>60 ml/min/1.73 sqM) Glucose (74-99) mg/dL Plasma Lactic Acid Jamarcus (0.7-2.0) mmol/L Calcium (8.4-10.2) mg/dL Total Bilirubin (0.2-1.3) mg/dL AST (17-59) U/L ALT (4-49) U/L Alkaline Phosphatase (38-126) U/L Total Protein (6.3-8.2) g/dL Albumin (3.5-5.0) g/dL Amylase (30-110) U/L Lipase (23-300) U/L Blood Type Recheck No Previous Record Bld Type Recheck Status CABO Indicated Spec Expiration Date 07/19/20202357 - Radiology Data Radiology results: report reviewed, image reviewed Small amount of fluid adjacent to the liver. Periumbilical hernia containing nonobstructive loops of bowel extent of the pelvis. A second mesenteric fat containing hernias within the left anterior upper pelvis. Anastomosis with small bowel: Appears nonobstructed. Some minimal subsegmental atelectasis may be at the right base. Disposition Clinical Impression: Abdominal pain Disposition: ADMITTED IP TO [facility] Condition: Fair Is patient prescribed a controlled substance at d/c from ED?: No Referrals: Veronica Duarte MD [Primary Care Provider] - 1-2 days Time of Disposition: 14:41
[2020-07-16 10:48] LABS: ALT 23 U/L (4-49); AST 35 U/L (17-59); African American GFR (CKD) >90 (>60 ml/min/1.73 sqM); Albumin 4.3 g/dL (3.5-5.0); Alkaline Phosphatase 78 U/L (38-126); Amylase 53 U/L (30-110); Anion Gap 17 mmol/L; Blood Urea Nitrogen 12 mg/dL (9-20); Calcium 9.4 mg/dL (8.4-10.2); Carbon Dioxide 20 mmol/L (22-30); Chloride 99 mmol/L (98-107); Glucose 289 mg/dL (74-99); Lipase 40 U/L (23-300); Non-African American GFR(CKD) >90 (>60 ml/min/1.73 sqM); Sodium 136 mmol/L (137-145); Total Protein 7.8 g/dL (6.3-8.2)
[2020-07-16 10:53] LABS: Basophils # (A) 0.1 k/uL (0-0.2); Basophils % (A) 0 %; Eosinophils # (A) 0.2 k/uL (0-0.7); Eosinophils % (A) 1 %; HCT 41.3 % (39.0-53.0); HGB 13.9 gm/dL (13.0-17.5); Lymphocytes % (A) 5 %; MCH 27.8 pg (25.0-35.0); MCHC 33.7 g/dL (31.0-37.0); Mean Platelet Volume 7.7; Monocytes # (A) 1.2 k/uL (0-1.0); Monocytes % (A) 6 %; Neutrophils % (A) 88 %; Platelet Count 248 k/uL (150-450); Poikilocytosis Slight; RBC 5.02 m/uL (4.30-5.90); RDW 14.1 % (11.5-15.5); WBC 20.6 k/uL (3.8-10.6)
[2020-07-16 10:59] LABS: MCV 82.4 fL (80.0-100.0)
[2020-07-16 11:01] LABS: Potassium 4.9 mmol/L (3.5-5.1)
[2020-07-16] MEDS ORDERED: PIPERACILLIN-TAZOBACTAM 3.375 GM in SODIUM CHLORIDE 0.9% 100 ML IVPB STA (11:54)
[2020-07-16] MEDS ORDERED: HYDROmorphone 1 MG/ML 1 ML SYRINGE IVP STA (12:33)
--- NOTE | 2020-07-16 13:38 | CT ---
EXAMINATION TYPE: CT abdomen pelvis w con DATE OF EXAM: 07/16/2020 COMPARISON: None INDICATION: pain DLP: 1592 mGycm, Automated exposure control for dose reduction was used. CONTRAST: 100 mL of Isovue 300. Study performed without Oral Contrast TECHNIQUE: Axial images were obtained from above the diaphragm to the pubic rami in the axial plane a t 5 mm thick sections. Reconstructed images are reviewed on the computer in the coronal plane. FINDINGS: Limited CT sections are obtained the lung bases. Mild infiltrate is in the posterior right lung base may be some mild atelectasis.. CT ABDOMEN: Small amount fluid is adjacent to the liver. There is an anterior abdominal wall hernia c ontaining loops of bowel. Periumbilical hernia has a wide opening of 6.7 cm. No obstruction is eviden t. This hernia opening extends inferior to the pelvis. An additional left flank hernia containing mes enteric fat is present within the upper pelvis with an opening of 3.0 cm. Liver: Normal Spleen: Normal Pancreas: Normal Adrenal glands: The adrenal glands are normal. Gallbladder: Distended. Kidneys: No masses are evident. No hydronephrosis is present. No cysts are present. Delayed images were obtained through the kidneys, which remain unremarkable. The right renal artery is posterior to the inferior vena cava. Aorta: Normal Inferior vena cava: Normal. CT PELVIS: There is a right hemicolectomy. The anastomosis within the left midabdomen appears patent with small bowel. Fecal debris is within the colon. This study is without oral contrast limiting bowel evaluatio n. Appendix: Not visualized, surgically absent. Urinary bladder: Normal. Genitourinary structures: Prostate is normal. Osseous structures: No suspicious lytic or sclerotic lesions are evident. IMPRESSIONS: 1. Small amount of fluid adjacent to the liver. 2. Periumbilical hernia containing nonobstructed loops of bowel extending into the pelvis. A second m esenteric fat containing hernia is within the left anterior upper pelvis. 3. Anastomosis with small bowel with colon appears nonobstructed. 4. Some minimal subsegmental atelectasis may be at the right base.
[2020-07-16] MEDS ORDERED: NALOXONE 0.4 MG/ML 1 ML VIAL IV PRN (14:25)
[2020-07-16] MEDS: SODIUM CHLORIDE 0.9% 1,000 ML IV SCH (15:00)
[2020-07-16 15:16] LABS: Appearance,Urine Clear (Clear); Bilirubin,Urine Negative (Negative); Blood,Urine Moderate (Negative); Color,Urine Yellow; Glucose,Urine (UA) 4+ (Negative); Leukocyte Esterase,Urine Negative (Negative); Mucus,Urine Rare /hpf; Nitrite,Urine Negative (Negative); Protein,Urine 3+ (Negative); RBC,Urine 6 /hpf (0-5); Squamous Epithelial Cell,Urine <1 /hpf (0-4); Urobilinogen,Urine <2.0 mg/dL (<2.0); WBC,Urine 1 /hpf (0-5)
--- NOTE | 2020-07-16 15:23 | P.HPIM ---
History of Present Illness This is a pleasant 39 years old male with past medical history of Bahget disease, diagnosed and treated by his PCP nicci Ivey. 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 Patient is complaining of from constipation of 10 day duration and vomiting once however yesterday he had nonstop and vomiting and associated with upper abdominal pain, mainly in the epigastric and radiating to the right side and was some radiation also to the back. His pain is 67/10 now after he got Dilaudid. He felt like fullness which started last night and at times also like stabbing the pain increases with mo vement and by eating. With the total On admission he has a fever of 100.5, his tachycardic 114-125. Blood pressure 168/80 during and oxygen is good. Labs showing worsening leukocytosis to 20.6 K, previously was normal. Just of CBC, BMP, liver enzymes were unremarkable. Lipase is normal. bilirubin is normal. CT of the abdomen and pelvis with contrast : Mild infiltrate in the posterior right lung may represent atelectasis. Small amount of fluid adjacent to the liver. Anterior abdominal wall hernia containing loops of bowel. Periumbilical hernia about 6.7 cm Amanda no obstruction is evident., Left flank hernia containing mesenteric fat In the emergency room patient was started on Zosyn and received 1 L of normal saline and Dilaudid. Past Medical History Past Medical History: Diabetes Mellitus Additional Past Medical History / Comment(s): Behcets disease(auto immune) History of Any Multi-Drug Resistant Organisms: None Reported Additional Past Surgical History / Comment(s): I/D of skin lesions, colostomy reversal Past Anesthesia/Blood Transfusion Reactions: No Reported Reaction Past Psychological History: Anxiety Smoking Status: Never smoker Past Alcohol Use History: None Reported Past Drug Use History: None Reported Medications and Allergies Home Medications Medication Instructions Recorded Confirmed Type Cyclosporine, Modified [Neoral] 100 mg PO QID 07/16/20 07/16/20 History Dulaglutide [Trulicity] 1.5 mg SQ WE 07/16/20 07/16/20 History Gabapentin [Neurontin] 1,200 mg PO TID 07/16/20 07/16/20 History traMADol HCL 50 mg PO BID-W/MEALS 07/16/20 07/16/20 History traMADol HCL 100 mg PO HS 07/16/20 07/16/20 History Allergies Allergy/AdvReac Type Severity Reaction Status Date / Time No Known Allergies Allergy Verified 07/16/20 11:43 Physical Exam Vitals: Vital Signs Temp Pulse Resp BP Pulse Ox 07/16/20 14:01 114 H 17 168/89 95 07/16/20 13:04 100.5 F H 114 H 18 178/102 97 07/16/20 11:40 99.9 F H 120 H 24 166/87 98 07/16/20 11:30 120 H 24 166/87 98 07/16/20 10:56 125 H 18 147/109 98 07/16/20 09:45 129 H 18 178/105 99 Intake and Output 07/15/20 07/16/20 07/16/20 22:59 06:59 14:59 Other: Weight 99.79 kg Results CBC & Chem 7: 07/16/20 10:24 07/16/20 10:24 Labs: Abnormal Lab Results - Last 24 Hours (Table) 07/16/20 07/16/20 Range/Units 10:24 10:24 WBC 20.6 H (3.8-10.6) k/uL Neutrophils # 18.0 H (1.3-7.7) k/uL Monocytes # 1.2 H (0-1.0) k/uL Sodium 136 L (137-145) mmol/L Carbon Dioxide 20 L (22-30) mmol/L Glucose 289 H (74-99) mg/dL Assessment and Plan Assessment: Abdominal pain, with nonobstructive hernia Sepsis with fever and leukocytosis Bilateral lower extremity multiple ulceration and cellulitis Multiple hernias including anterior abdominal wall hernia containing loops of bowel, periumbilical hernia about 6.7 cm, Left flank hernia containing mesenteric fat Bahget disease,was on steroids , currently. 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 Where it was reversed by November 2019 History of Fall with right chest trauma history of left foot trauma, mainly involving the left first toes Diabetes mellitus, uncontrolled with hyperglycemia Plan: This is a pleasant 39 years old male who presents with terminal pain, hernia and sepsis. He with Zosyn, follow-up culture results. Consult infectious disease. Also call surgery for his abdominal pain and hernia. Check liver ultrasound and start patient on Protonix. Zofran as needed Also continue with IV fluid. check chest x-ray, urinalysis and blood culture. Check portcalcitonin. Pain management Labs and medication were reviewed.. Continue same treatment. Continue with symptomatic treatment. Resume home medication. Monitor lytes and vitals. DVT and GI prophylaxis. Further recommendations depends on the clinical course of the patient DVT prophylaxis: Subcutaneous heparin GI Prophylaxis: Ppi Prognosis is guarded
[2020-07-16 15:33] LABS: Ketones,Urine 3+ (Negative)
[2020-07-16] MEDS: PANTOPRAZOLE 40 MG/10 ML VIAL IVP SCH (15:58)
[2020-07-16] MEDS: HYDROmorphone 1 MG/ML 1 ML SYRINGE IVP PRN ×2 (15:58→20:41)
[2020-07-16] MEDS: GABAPENTIN 400 MG CAP PO SCH ×2 (16:06→20:49)
--- NOTE | 2020-07-16 16:43 | XR ---
EXAMINATION TYPE: XR chest 2V DATE OF EXAM: 07/16/2020 COMPARISON: 04/02/2020. HISTORY: Fever. TECHNIQUE: Frontal and lateral views of the chest are obtained. FINDINGS: The lungs are hypoaerated. There is mild bibasilar streaky opacity. No pleural effusion, o r pneumothorax seen. The cardiac silhouette size is within normal limits. The osseous structures a re intact. IMPRESSION: Mild bibasilar opacity, favor atelectasis.
--- NOTE | 2020-07-16 17:11 | US ---
EXAMINATION TYPE: US liver DATE OF EXAM: 07/16/2020 COMPARISON: CT 2020 CLINICAL HISTORY: RUQ tenderness. RUQ pain and N/V EXAM MEASUREMENTS: Liver Length: 15.1 cm Gallbladder Wall: 0.6 cm CBD: N/A Right Kidney: 10.7 x 5.6 x 5.0 cm Patient in a large amount of pain during exam, unable to do entire exam Pancreas: obscured by overlying midline bowel gas Liver: limited visualization, mildly heterogeneous, suggestive of steatosis. No definite focal lesio n seen Gallbladder: only partially evaluated due to above limitations, appears hydropic with internal echoe s and echogenic foci and thickened wall Evidence for sonographic Archibald's sign: yes CBD: not evaluated due to above limitations Right Kidney: wnl IMPRESSION: Distended gallbladder with suggestion of biliary sludge and/or gallstones. Also wall thickening and r eported positive sonographic Archibald's sign. Constellation of findings are concerning for acute cholec ystitis.
[2020-07-16 19:51] LABS: Glucose,Whole Blood 269 mg/dL (75-99)
[2020-07-16] MEDS: ONDANSETRON 4 MG/2 ML VIAL IVP PRN (20:40)
[2020-07-16] MEDS: PIPERACILLIN-TAZOBACTAM 3.375 GM in SODIUM CHLORIDE 0.9% 100 ML IVPB SCH (20:44)
[2020-07-16] MEDS: HEPARIN SODIUM,PORCINE 5,000 UNIT/ML 1 ML VIAL SQ SCH (20:44)
[2020-07-16] MEDS: INSULIN ASPART (NovoLOG) 100 UNIT/ML VIAL SQ SCH (20:45)
[2020-07-16] MEDS ORDERED: FAMOTIDINE 20 MG/2 ML VIAL IV SCH (21:00)
--- NOTE | 2020-07-16 23:30 | CONS ---
CONSULTATION DATE OF SERVICE: 07/16/2020 REASON FOR CONSULTATION: Possible infection. HISTORY OF PRESENT ILLNESS: The patient is a 39-year-old male with a past medical history significant for possible autoimmune disease in this patient with a history of colostomy with subsequent reversal 2019. The patient also has a chronic ulceration to the lower extremity that has been biopsied and the biopsy has been inconclusive. 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 The patient is now presenting to the hospital this morning for evaluation of abdominal pain and vomiting. The patient's pain had been going on for a day or two before presentation to the hospital. The pain is mostly in the right upper quadrant area and epigastric area described to be sharp, almost 10/10, and no radiation, associated with nausea and multiple episodes of vomiting. The patient was also constipated and did have any bowel movement for the last weeks and a small one 2 days ago. With these symptoms, the patient presented to the hospital. On arrival in the ER, the patient did have a fever of 100.5 degrees Fahrenheit. He did have elevated white count of 20,000 with a left shift. The patient did have normal liver enzymes. Urine was negative. Chest x-ray report was negative for any acute infiltrate; some atelectasis. CT of abdomen and pelvis did show some fluid around the liver but no other abnormality, and no evidence of any colitis. Subsequently he did have an ultrasound of the liver that was suspicious for cholecystitis. The patient has been treated with Zosyn. Surgery has been consulted. Infectious Disease was consulted for further management of antibiotic therapy. REVIEW OF SYSTEMS: Positive points have been mentioned in the HPI. Rest of the systems are negative, PAST MEDICAL HISTORY: Diabetes mellitus, autoimmune disorder, lower extremity ulcers and a question of , history of anxiety. PAST SURGICAL HISTORY: I and D of the skin lesion with biopsy, colostomy with subsequent reversal. SOCIAL HISTORY: No history of smoking, drinking or drug use. and lives with his . FAMILY HISTORY: No pertinent findings noted. ALLERGIES: NO KNOWN DRUG ALLERGIES. MEDICATIONS: The patient is currently on Zosyn, Protonix, Zofran, Narcan, NovoLog, Dilaudid, heparin and Neurontin. PHYSICAL EXAMINATION: Blood pressure 120/86, pulse of 90, temperature 98.4. He is 99% on room air. General description is a middle-aged male lying in bed in no distress. No tachypnea or accessory muscle of respiration use. HEENT: Examination shows no pallor or scleral icterus. Oral mucous membrane is dry. NECK: Trachea is central. No thyromegaly. LUNGS: Unlabored breathing. Clear to auscultation anteriorly. No wheeze or crackle. HEART: S1, S2. Regular rate and rhythm. ABDOMEN: Soft. Mildly tender. No guarding or rigidity. No organomegaly. EXTREMITIES: No edema of the feet. Superficial ulcer on the left leg, but no evidence of any swelling, redness or any purulent drainage. Neurologically the patient is awake, alert, oriented x3. Mood and affect normal. LABS: Hemoglobin is 13.9, white count over 20,000. BUN of 12, creatinine 0.74. Urine is negative. CT, ultrasound and chest x-ray report as mentioned above. DIAGNOSTIC IMPRESSION AND PLAN: Patient admitted to hospital with acute abdominal pain, vomiting and tenderness in the right upper quadrant area; did have normal liver enzymes. The patient did have fever and elevated white count, tachycardia, meeting criteria for SIRS-like sepsis with concern for possible cholecystitis to be the likely source. We will need to cover for enteric Gram-negative, both aerobes and anaerobes. PLAN: 1. Zosyn 3.75 mg q.8 hours to continue. 2. Continue IV fluid. 3. General Surgery evaluation. 4. Will follow his clinical condition and further adjust medication if needed. Thank you for this consultation. Will follow this patient along with you. MMODL / IJN: [id number] /
[2020-07-17] MEDS ORDERED: HYDROmorphone 1 MG/ML 1 ML SYRINGE IVP PRN (00:31)
[2020-07-17] MEDS: HYDROmorphone 1 MG/ML 1 ML SYRINGE IVP PRN ×4 (01:56→19:43)
[2020-07-17] MEDS: PIPERACILLIN-TAZOBACTAM 3.375 GM in SODIUM CHLORIDE 0.9% 100 ML IVPB SCH ×3 (03:59→20:27)
[2020-07-17] MEDS: SODIUM CHLORIDE 0.9% 1,000 ML IV SCH ×2 (03:59→15:47)
[2020-07-17 07:18] LABS: Glucose,Whole Blood 305 mg/dL (75-99)
[2020-07-17] MEDS: ONDANSETRON 4 MG/2 ML VIAL IVP PRN (07:43)
[2020-07-17] MEDS: INSULIN ASPART (NovoLOG) 100 UNIT/ML VIAL SQ SCH ×4 (07:48→20:28)
[2020-07-17 08:48] LABS: HCT 35.9 % (39.6-50.0); HGB 11.5 g/dL (13.0-17.0); MCH 28.3 pg (27.0-32.0); MCV 88.2 fL (80.0-97.0); Mean Platelet Volume 10.9 fL (9.5-12.2); Platelet Count 226 X 10*3/uL (140-440); RBC 4.07 X 10*6/uL (4.40-5.60); WBC 22.74 X 10*3/uL (4.50-10.00)
[2020-07-17] MEDS: PANTOPRAZOLE 40 MG/10 ML VIAL IVP SCH (09:31)
[2020-07-17] MEDS: HEPARIN SODIUM,PORCINE 5,000 UNIT/ML 1 ML VIAL SQ SCH ×2 (09:32→20:27)
[2020-07-17] MEDS: GABAPENTIN 400 MG CAP PO SCH ×3 (09:34→20:27)
[2020-07-17 09:59] LABS: African American GFR (CKD) 53.4 (60.0-200.0); Albumin 3.6 g/dL (3.80-4.90); Albumin/Globulin Ratio 1.5 (1.60-3.17); BUN/Creat Ratio 13.33 Ratio (12.00-20.00); Calcium 7.9 mg/dL (8.7-10.3); Globulin 2.4 g/dL (1.6-3.3); Non-African American GFR(CKD) 46.1 (60.0-200.0); Potassium 4.1 mmol/L (3.5-5.5); Total Bilirubin 0.7 mg/dL (0.3-1.2)
--- NOTE | 2020-07-17 11:43 | P.GSCN ---
History of Present Illness Consult date: 07/17/20 Reason for Consult: Abdominal pain History of present illness: Is a 39-year-old male with multiple medical problems. Patient was admitted thro [facility] the emergency room with complaints of abdominal pain. Patient underwent workup was found have evidence of cholecystitis with cholelithiasis and thickened gallbladder wall. Past Medical History Past Medical History: Diabetes Mellitus Additional Past Medical History / Comment(s): Behcets disease(auto immune) History of Any Multi-Drug Resistant Organisms: None Reported Additional Past Surgical History / Comment(s): I/D of skin lesions, colostomy reversal Past Anesthesia/Blood Transfusion Reactions: No Reported Reaction Past Psychological History: Anxiety Smoking Status: Never smoker Past Alcohol Use History: None Reported Past Drug Use History: None Reported Medications and Allergies Home Medications Medication Instructions Recorded Confirmed Type Cyclosporine, Modified [Neoral] 100 mg PO QID 07/16/20 07/16/20 History Dulaglutide [Trulicity] 1.5 mg SQ WE 07/16/20 07/16/20 History Gabapentin [Neurontin] 1,200 mg PO TID 07/16/20 07/16/20 History traMADol HCL 50 mg PO BID-W/MEALS 07/16/20 07/16/20 History traMADol HCL 100 mg PO HS 07/16/20 07/16/20 History Allergies Allergy/AdvReac Type Severity Reaction Status Date / Time No Known Allergies Allergy Verified 07/16/20 11:43 Surgical - Exam Vital Signs Pulse Resp BP Pulse Ox 129 H 18 178/105 99 07/16/20 09:45 07/16/20 09:45 07/16/20 09:45 07/16/20 09:45 - General well developed, well nourished, no distress - Eyes PERRL - ENT normal pinna - Neck no masses - Respiratory normal expansion - Cardiovascular Rhythm: regular - Abdomen Mild right upper quadrant pain Abdomen: soft Results - Labs 07/17/20 05:17 07/17/20 05:17 Abnormal Lab Results - Last 24 Hours (Table) 07/16/20 07/16/20 07/17/20 Range/Units 15:00 19:50 05:17 WBC 22.74 H (4.50-10.00) X 10*3/uL RBC 4.07 L (4.40-5.60) X 10*6/uL Hgb 11.5 L (13.0-17.0) g/dL Hct 35.9 L (39.6-50.0) % Creatinine (0.6-1.5) mg/dL Est GFR (CKD-EPI)AfAm (60.0-200.0) Est GFR (CKD-EPI)NonAf (60.0-200.0) Glucose (70-110) mg/dL POC Glucose (mg/dL) 269 H (75-99) mg/dL Calcium (8.7-10.3) mg/dL Total Protein (6.2-8.2) g/dL Albumin (3.80-4.90) g/dL Albumin/Globulin Ratio (1.60-3.17) g/dL Ur Specific [place] 1.050 H (1.001-1.035) Urine Protein 3+ H (Negative) Urine Glucose (UA) 4+ H (Negative) Urine Ketones 3+ H (Negative) Urine Blood Moderate H (Negative) Urine RBC 6 H (0-5) /hpf Urine Mucus Rare H (None) /hpf 07/17/20 07/17/20 Range/Units 05:17 07:16 WBC (4.50-10.00) X 10*3/uL RBC (4.40-5.60) X 10*6/uL Hgb (13.0-17.0) g/dL Hct (39.6-50.0) % Creatinine 1.8 H (0.6-1.5) mg/dL Est GFR (CKD-EPI)AfAm 53.4 L (60.0-200.0) Est GFR (CKD-EPI)NonAf 46.1 L (60.0-200.0) Glucose 306 H (70-110) mg/dL POC Glucose (mg/dL) 305 H (75-99) mg/dL Calcium 7.9 L (8.7-10.3) mg/dL Total Protein 6.0 L (6.2-8.2) g/dL Albumin 3.60 L (3.80-4.90) g/dL Albumin/Globulin Ratio 1.50 L (1.60-3.17) g/dL Ur Specific [place] (1.001-1.035) Urine Protein (Negative) Urine Glucose (UA) (Negative) Urine Ketones (Negative) Urine Blood (Negative) Urine RBC (0-5) /hpf Urine Mucus (None) /hpf Diabetes panel 07/17/20 Range/Units 05:17 Sodium 139 (135-145) mmol/L Potassium 4.1 (3.5-5.5) mmol/L Chloride 104 (96-109) mmol/L Carbon Dioxide 23.0 (21.6-31.8) mmol/L BUN 24.0 (9.0-27.0) mg/dL Creatinine 1.8 H (0.6-1.5) mg/dL Glucose 306 H (70-110) mg/dL Calcium 7.9 L (8.7-10.3) mg/dL AST 24 (14-35) U/L ALT 23 (10-49) U/L Alkaline Phosphatase 64 (41-126) U/L Total Protein 6.0 L (6.2-8.2) g/dL Albumin 3.60 L (3.80-4.90) g/dL Calcium panel 07/17/20 Range/Units 05:17 Calcium 7.9 L (8.7-10.3) mg/dL Albumin 3.60 L (3.80-4.90) g/dL Pituitary panel 07/17/20 Range/Units 05:17 Sodium 139 (135-145) mmol/L Potassium 4.1 (3.5-5.5) mmol/L Chloride 104 (96-109) mmol/L Carbon Dioxide 23.0 (21.6-31.8) mmol/L BUN 24.0 (9.0-27.0) mg/dL Creatinine 1.8 H (0.6-1.5) mg/dL Glucose 306 H (70-110) mg/dL Calcium 7.9 L (8.7-10.3) mg/dL Adrenal panel 07/17/20 Range/Units 05:17 Sodium 139 (135-145) mmol/L Potassium 4.1 (3.5-5.5) mmol/L Chloride 104 (96-109) mmol/L Carbon Dioxide 23.0 (21.6-31.8) mmol/L BUN 24.0 (9.0-27.0) mg/dL Creatinine 1.8 H (0.6-1.5) mg/dL Glucose 306 H (70-110) mg/dL Calcium 7.9 L (8.7-10.3) mg/dL Total Bilirubin 0.7 (0.3-1.2) mg/dL AST 24 (14-35) U/L ALT 23 (10-49) U/L Alkaline Phosphatase 64 (41-126) U/L Total Protein 6.0 L (6.2-8.2) g/dL Albumin 3.60 L (3.80-4.90) g/dL Assessment and Plan Assessment: Acute cholecystitis. Patient undergo laparoscopic cholecystectomy in the a.m.
[2020-07-17 11:51] LABS: Basophils # (A) 0.05 X 10*3/uL (0.00-0.10); Basophils % (A) 0.2 %; Eosinophils # (A) 0.02 X 10*3/uL (0.04-0.35); Eosinophils % (A) 0.1 %; Lymphocytes # (A) 1.04 X 10*3/uL (0.90-5.00); Lymphocytes % (A) 4.6 %; Monocytes # (A) 2.08 X 10*3/uL (0.20-1.00); Monocytes % (A) 9.1 %; Neutrophils # (A) 19.35 X 10*3/uL (1.80-7.70); Neutrophils % (A) 85.1 %
[2020-07-17 12:04] LABS: Glucose,Whole Blood 299 mg/dL (75-99)
[2020-07-17] MEDS: INSULIN DETEMIR (LEVEMIR) 100 UNIT/ML SYR SQ SCH (14:58)
--- NOTE | 2020-07-17 16:44 | PN ---
PROGRESS NOTE DATE OF SERVICE: 07/17/2020 I am covering for Dr. Gonzalez. INTERVAL HISTORY: This is a 39-year-old gentleman who was admitted with abdominal pain and as well as known history of hernia. Also had features of cholecystitis and cholelithiasis and thickened gallbladder watts. The patient is scheduled to undergo cholecystectomy tomorrow by Dr. Oglesby. The CT scan of the abdomen which is reviewed personally showed periumbilical hernia containing nonobstructing loops of the bowel extending to the pelvis. Segmental atelectasis also noted. LABORATORY DATA: White count is 22.74 and creatinine is 1.8. UA noted. PAST MEDICAL HISTORY: Reviewed. REVIEW OF SYSTEMS: CARDIOVASCULAR: No angina. RESPIRATORY: As mentioned earlier. GI: As mentioned earlier. : No dysuria. NERVOUS SYSTEM: No numbness or weakness. CURRENT MEDICATIONS: Are reviewed and include Neurontin, heparin, NovoLog, Narcan, Zofran, Protonix, Zosyn IV. PHYSICAL EXAMINATION: GENERAL: Alert and oriented x3. VITAL SIGNS: Pulse 92, blood pressure is 130/74, respiration 18, temperature 100.2, pulse ox 93% on room air. HEENT: Conjunctivae normal. NECK: No jugular venous distention. LUNGS: Breath sounds diminished at the bases, a few scattered rhonchi, no crackles. ABDOMEN: Soft, obese, mild diffuse tenderness. LEGS: No edema. No swelling. NERVOUS SYSTEM: No focal deficits. LABS: WBC 22.7, hemoglobin 11.5. ASSESSMENT: 1. Abdominal pain with possible acute cholecystitis with sepsis, present on admission. 2. Possible bibasilar pneumonia or infiltrate or atelectasis. 3. Increased WBC. 4. Anemia, normocytic. 5. Increased creatinine with mild acute renal failure. 6. Diabetes mellitus type 2 uncontrolled. 7. History of bechets_ disease. 8. History of anxiety. 9. FULL CODE. RECOMMENDATIONS AND DISCUSSION: In this 39-year-old gentleman who presented with multiple complex medical issues, we will monitor the patient closely. Continue the current management, continue with symptomatic treatment. The patient is on broad-spectrum IV antibiotics. I will recommend cultures of urine and blood and also recommend infectious disease evaluation with Dr. Aragon as well for possible sepsis. Guarded prognosis because of multiple complex medical issues. Further recommendations to follow. I would also recommend COVID-19 testing. MMODL / IJN: [id number] / MTDD
[2020-07-17 17:22] LABS: Glucose,Whole Blood 249 mg/dL (75-99)
[2020-07-17 19:43] LABS: Glucose,Whole Blood 232 mg/dL (75-99)
[2020-07-17 19:52] LABS: D-Dimer 3.18 mg/L FEU (<0.60); INR 1.2 (<1.2); Prothrombin Time 12.8 sec (9.0-12.0)
--- NOTE | 2020-07-18 00:01 | PN ---
PROGRESS NOTE DATE OF SERVICE: 07/17/2020 REASON FOR FOLLOW UP: Fever and likely cholecystitis. INTERVAL HISTORY: The patient overall fever pattern has improved. The patient abdominal pain slightly decreased. Did have some retching but no vomiting. Denies having any chest pain. No shortness of breath. No cough. No diarrhea. PHYSICAL EXAMINATION: Blood pressure is 116/76, pulse of 123, temperature 98.4. He is 93% on room air. General description is a middle-aged male lying in bed in no distress. Respiratory system: Unlabored breathing. Clear to auscultation anteriorly. Heart S1, S2. Regular rate and rhythm. ABDOMEN: Soft, mildly tender right upper quadrant. No guarding. No rigidity. LABS: Hemoglobin is 11.5, white count 2.74, BUN of 24, creatinine 1.8. Blood culture so far negative. DIAGNOSTIC IMPRESSION AND PLAN: Patient with fever, abdominal pain concerning for cholecystitis. General Surgery is on the case and is planned for cholecystectomy in the morning. The patient is currently covered on [employer] to continue and monitor clinical course closely. MMODL / IJN: [id number] /
[2020-07-18] MEDS: SODIUM CHLORIDE 0.9% 1,000 ML IV SCH ×3 (03:11→20:46)
[2020-07-18] MEDS: PIPERACILLIN-TAZOBACTAM 3.375 GM in SODIUM CHLORIDE 0.9% 100 ML IVPB SCH ×3 (03:12→20:45)
[2020-07-18] MEDS: HYDROmorphone 1 MG/ML 1 ML SYRINGE IVP PRN ×4 (03:12→20:57)
[2020-07-18 07:32] LABS: Glucose,Whole Blood 276 mg/dL (75-99)
[2020-07-18] MEDS ORDERED: ONDANSETRON 4 MG/2 ML VIAL ONE (08:00)
[2020-07-18] MEDS ORDERED: MIDAZOLAM 2 MG/2 ML VIAL ONE (08:00)
[2020-07-18] MEDS ORDERED: INSULIN REGULAR 100 UNIT/ML VIAL ONE (08:00)
[2020-07-18] MEDS ORDERED: SUCCINYLCHOLINE CHLORIDE 100 MG/5 ML SYR IV ONE (08:00)
[2020-07-18] MEDS ORDERED: LIDOCAINE 1% INJ 10MG/ML (20 ML MDV) ONE (08:00)
[2020-07-18] MEDS ORDERED: ROCURONIUM 10 MG/ML (5 ML VIAL) IV ONE (08:00)
[2020-07-18] MEDS ORDERED: KETOROLAC 15 MG/ML 1 ML VIAL ONE (08:00)
[2020-07-18] MEDS ORDERED: IV FLUID CONTINUATION 900 ML IV ONE (08:00)
[2020-07-18] MEDS ORDERED: PROPOFOL 10 MG/ML 20 ML VIAL IV ONE (08:00)
[2020-07-18] MEDS ORDERED: fentaNYL (PF) 50 MCG/ML 2 ML AMP ONE (08:00)
[2020-07-18] MEDS ORDERED: BUPIVACAIN-EPI 0.5%-1:200,000 30 ML VIAL SQ ONE ×2 (08:25→08:33)
[2020-07-18] MEDS ORDERED: SODIUM CHLORIDE 0.9% 1,000 ML IV ONE (09:02)
[2020-07-18 09:29] LABS: Glucose,Whole Blood 261 mg/dL (75-99)
--- NOTE | 2020-07-18 09:36 | P.OP ---
Date of Procedure: 07/18/20 Preoperative Diagnosis: Cholecystitis Postoperative Diagnosis: Cholecystitis Procedure(s) Performed: Laparoscopic cholecystectomy Anesthesia: MARKEL Surgeon: Chucho Oglesby Estimated Blood Loss (ml): 25 Pathology: other (Gallbladder) Condition: stable Disposition: PACU Operative Findings: Necrotic gallbladder Description of Procedure: The patient was placed on the operating table. The patient received a general endotracheal tube anesthesia. The patients abdomen was prepped and draped in the usual sterile fashion. Through an infraumbilical stab incision, the fascia of the anterior abdominal wall was grasped with a pair of Kochers and then the Veress needle was placed in the peritoneal cavity. Position of the Veress needle was confirmed with positive drop test. The abdomen was then insufflated. After adequate insufflation, the 10 mm trocar was placed in the peritoneal cavity. Following this the laparoscope was placed in the peritoneal cavity. The patient was placed in the head-up, right side up position and then a 5 mm trocar was placed in the right lateral and right subcostal position under direct visualization. A 8 mm trocar was placed in the epigastric position. The gallbladder was thickened with patchy necrosis. The gallbladder was grasped in the fundus and infundibulum. Traction on the gallbladder was placed in the lateral and the cephalad positions. The triangle of Calot was visualized.. The cystic duct was bluntly dissected until the union of the cystic duct and common bile duct was seen. A critical view of safety was achieved. The cystic duct was then divided and sealed with the Harmonic scissors. A PDS Endoloop was then placed throughout the cystic duct stump. The cystic artery divided and sealed with the Harmonic scissors. The gallbladder was then removed from the liver bed using Harmonic scissors. The gallbladder was then extracted through the epigastric port site. A QUENTIN drains placed in the gallbladder fossa and brought through the right lateral trocar site Operative field was checked for any bleeding spots and Harmonic scissors was used to coagulate the liver bed. The abdomen was irrigated. The trocars were removed. The skin was closed using interrupted 3-0 Vicryl suture. Dermabond dressing were applied. The patient tolerated the procedure well.
[2020-07-18] MEDS ORDERED: ONDANSETRON 4 MG/2 ML VIAL IVP ONE (10:00)
[2020-07-18] MEDS ORDERED: INSULIN ASPART (NovoLOG) 100 UNIT/ML VIAL SQ ONE (10:15)
[2020-07-18] MEDS: INSULIN ASPART (NovoLOG) 100 UNIT/ML VIAL SQ SCH ×4 (11:04→20:46)
[2020-07-18] MEDS: INSULIN DETEMIR (LEVEMIR) 100 UNIT/ML SYR SQ SCH (11:05)
[2020-07-18] MEDS: PANTOPRAZOLE 40 MG/10 ML VIAL IVP SCH (11:05)
[2020-07-18] MEDS: GABAPENTIN 400 MG CAP PO SCH ×3 (11:05→20:47)
[2020-07-18] MEDS: HEPARIN SODIUM,PORCINE 5,000 UNIT/ML 1 ML VIAL SQ SCH (11:05)
[2020-07-18 11:52] LABS: African American GFR (CKD) 32.7 (60.0-200.0); Anion Gap 13.5 mmol/L (4.00-12.00); BUN/Creat Ratio 17.04 Ratio (12.00-20.00); Calcium 7.6 mg/dL (8.7-10.3); Carbon Dioxide 21.5 mmol/L (21.6-31.8); Non-African American GFR(CKD) 28.2 (60.0-200.0); Potassium 4.8 mmol/L (3.5-5.5)
[2020-07-18 11:57] LABS: Basophils # (A) 0.08 X 10*3/uL (0.00-0.10); Basophils % (A) 0.4 %; Eosinophils # (A) 0.07 X 10*3/uL (0.04-0.35); Eosinophils % (A) 0.3 %; HCT 32.5 % (39.6-50.0); HGB 10.2 g/dL (13.0-17.0); Lymphocytes # (A) 1.53 X 10*3/uL (0.90-5.00); Lymphocytes % (A) 6.9 %; MCH 28.3 pg (27.0-32.0); MCHC 31.4 g/dL (32.0-37.0); MCV 90.3 fL (80.0-97.0); Mean Platelet Volume 11.2 fL (9.5-12.2); Monocytes # (A) 1.53 X 10*3/uL (0.20-1.00); Monocytes % (A) 6.9 %; Neutrophils # (A) 18.59 X 10*3/uL (1.80-7.70); Neutrophils % (A) 84.5 %; Platelet Count 206 X 10*3/uL (140-440); RDW 14.1 % (11.5-14.5); WBC 22.02 X 10*3/uL (4.50-10.00)
[2020-07-18 12:21] LABS: Glucose,Whole Blood 222 mg/dL (75-99)
--- NOTE | 2020-07-18 15:20 | XR ---
EXAMINATION TYPE: XR chest 1V portable DATE OF EXAM: 07/18/2020 COMPARISON: 07/16/2020. HISTORY: Fever status post cholecystectomy. TECHNIQUE: Single frontal view of the chest is obtained. FINDINGS: There is increased small left basilar opacity. No significant pleural effusion, or pneumot horax seen. The cardiac silhouette size is within normal limits. The osseous structures are intact . IMPRESSION: Left basilar infiltrate versus atelectasis.
--- NOTE | 2020-07-18 16:59 | PN ---
PROGRESS NOTE DATE OF SERVICE: 07/18/2020 I am covering for Dr. Gonzalez. This 39-year-old gentleman was admitted with abdominal pain, possibly acute cholecystitis/ sepsis, is being closely monitored. The patient underwent laparoscopic cholecystectomy today by Dr. Oglesby. The patient also had elevated D-dimer at 3.18. CT angio chest was also ordered. The patient also had multiple abnormal labs including worsening renal failure with creatinine 2.7. Dr. Aragon has also seen the patient and following the patient closely. Past medical history reviewed. REVIEW OF SYSTEM: Cardiovascular: No angina. Respiration: As mentioned earlier. GI: As mentioned earlier. : No dysuria. NERVOUS SYSTEM: No numbness, weakness. CURRENT MEDICATIONS: Reviewed and include: Lovenox, Neurontin, Narcan, Zosyn IV. PHYSICAL EXAMINATION: Patient is alert and oriented times three. Pulse 112, blood pressure 107/66. Respirations 20. Temperature 99.2, pulse ox 93% on room air. HEENT: Conjunctivae normal. NECK: No JVD. CARDIOVASCULAR: S1, S2. RESPIRATORY SYSTEM: Breath sounds diminished at the bases. A few scattered rhonchi and crackles. ABDOMEN: Soft. Status post surgery. LEGS are no edema. No swelling. NERVOUS SYSTEM: No focal deficits. LABS: WBC 22.2, sodium 133. ASSESSMENT: 1. Abdominal pain with possible acute cholecystitis, sepsis present on admission, status post laparoscopic cholecystectomy. 2. Possible bibasilar pneumonia, infiltrate, atelectasis. 3. Elevated D-dimer. 4. Increased WBC. 5. Worsening acute renal failure, acute tubular necrosis. 6. Anemia, normocytic. 7. Diabetes mellitus type 2 uncontrolled. 8. History of Bechets disease. 9. History of anxiety. 10.FULL CODE. RECOMMENDATIONS AND DISCUSSION: I recommend to continue current medications, management, monitoring, symptomatic treatment. Continue antibiotics. Avoid nephrotoxic medications. DVT prophylaxis. CT angio of the chest. I would also recommend nephrology consultation. Closely follow with Dr. Aragon and Dr. Oglesby. Prognosis guarded. Dr. Gonzalez will follow the patient in the morning. MMODL / IJN: [id number] /
[2020-07-18 17:32] LABS: Glucose,Whole Blood 200 mg/dL (75-99)
[2020-07-18 20:28] LABS: Glucose,Whole Blood 191 mg/dL (75-99)
--- NOTE | 2020-07-18 23:10 | PN ---
PROGRESS NOTE DATE OF SERVICE: 07/18/2020. REASON FOR FOLLOWUP: Acute cholecystitis. INTERVAL HISTORY: The patient is currently afebrile. The patient is status post laparoscopic cholecystectomy this morning. The patient tolerated the procedure. Pain is currently controlled. Denies having any chest pain. No shortness of breath. No cough. No abdominal pain. No diarrhea. PHYSICAL EXAMINATION: Blood pressure 107/72 with a pulse of 109, temperature 99.2. He is 99% on 2 L nasal cannula. General description: The patient is a middle-aged male lying in bed in no distress. Respiratory system: Unlabored breathing. Clear to auscultation anteriorly. Heart is S1, S2. Regular rate and rhythm. ABDOMEN: Soft. No tenderness. LABS: No new labs have been obtained today. Blood culture has been negative. DIAGNOSTIC IMPRESSION AND PLAN: Patient admitted to hospital with abdominal pain and vomiting diagnosed with acute cholecystitis, status post cholecystectomy. Patient is covered with Zosyn to continue while monitoring clinical course closely. MMODL / IJN: [id number] /
[2020-07-19] MEDS: HYDROmorphone 1 MG/ML 1 ML SYRINGE IVP PRN ×5 (00:12→20:21)
[2020-07-19] MEDS: PIPERACILLIN-TAZOBACTAM 3.375 GM in SODIUM CHLORIDE 0.9% 100 ML IVPB SCH ×3 (04:24→20:22)
[2020-07-19] MEDS: SODIUM CHLORIDE 0.9% 1,000 ML IV SCH ×2 (06:40→17:01)
[2020-07-19 07:01] LABS: Glucose,Whole Blood 191 mg/dL (75-99)
[2020-07-19] MEDS: PANTOPRAZOLE 40 MG/10 ML VIAL IVP SCH (08:36)
[2020-07-19] MEDS: ENOXAPARIN 40 MG/0.4 ML SYRINGE SQ SCH (08:40)
[2020-07-19] MEDS: INSULIN ASPART (NovoLOG) 100 UNIT/ML VIAL SQ SCH ×4 (08:41→20:21)
[2020-07-19] MEDS: GABAPENTIN 300 MG CAP PO SCH ×3 (08:41→21:20)
[2020-07-19] MEDS: INSULIN DETEMIR (LEVEMIR) 100 UNIT/ML SYR SQ SCH (08:42)
[2020-07-19 09:31] LABS: Basophils # (A) 0.07 X 10*3/uL (0.00-0.10); Basophils % (A) 0.5 %; Eosinophils # (A) 0.07 X 10*3/uL (0.04-0.35); Eosinophils % (A) 0.5 %; HCT 29.7 % (39.6-50.0); HGB 9.4 g/dL (13.0-17.0); Lymphocytes % (A) 11.3 %; MCH 28.1 pg (27.0-32.0); MCHC 31.6 g/dL (32.0-37.0); MCV 88.9 fL (80.0-97.0); Mean Platelet Volume 11.2 fL (9.5-12.2); Neutrophils # (A) 11.93 X 10*3/uL (1.80-7.70); Neutrophils % (A) 79.2 %; Platelet Count 197 X 10*3/uL (140-440); RBC 3.34 X 10*6/uL (4.40-5.60); RDW 13.9 % (11.5-14.5); WBC 15.05 X 10*3/uL (4.50-10.00)
[2020-07-19 09:52] LABS: Anion Gap 5.4 mmol/L (4.00-12.00); BUN/Creat Ratio 23.16 Ratio (12.00-20.00); Calcium 7.1 mg/dL (8.7-10.3); Carbon Dioxide 22.6 mmol/L (21.6-31.8); Non-African American GFR(CKD) 43.1 (60.0-200.0); Potassium 4.1 mmol/L (3.5-5.5)
--- NOTE | 2020-07-19 10:41 | P.PN ---
Subjective Progress Note Date: 07/19/20 CHIEF COMPLAINT: Acute cholecystitis HISTORY OF PRESENT ILLNESS: Patient is status post laparoscopic cholecystectomy. Postop day #1. Patient is complaining of epigastric pain and pain at incision site in the epigastric area. Incision is clean dry and intact. Patient denies any nausea or vomiting. Denies any chest pain or shortness of breath. He was tachycardic yesterday and had been requiring oxygen. VQ scan ordered by primary care service. He does report having bowel movements and passing gas. Denies any nausea or vomiting. He was requiring the IV Dilaudid for pain. Oral pain medication has been ordered. Chest x-ray from yesterday shows a left basilar infiltrate versus atelectasis. Incentive spirometer ordered. WBC 15.05 hemoglobin 9.4 creatinine has come down from 2.7-1.9. He is on a regular diet. He is afebrile. PHYSICAL EXAM: VITAL SIGNS: Reviewed. GENERAL: Well-developed in no acute distress. HEENT: No sclera icterus. Extraocular movements grossly intact. Moist buccal mucosa. Head is atraumatic, normocephalic. ABDOMEN: Soft. Nondistended. Tenderness with palpation of epigastric area. Incision sites are clean dry and intact. Patient does have tenderness around the epigastric incision site. The incision site is clean dry and intact. NEUROLOGIC: Alert and oriented. Cranial nerves II through XII grossly intact. ASSESSMENT: 1. Acute cholecystitis status post laparoscopic cholecystectomy 2. Abdominal pain 3. Atelectasis 4. Leukocytosis possibly due to atelectasis PLAN: -Add [place] as needed for pain -Check lipase due to epigastric pain -Order incentive spirometer -Encourage patient to ambulate -GI prophylaxis Protonix and DVT prophylaxis Lovenox Physician Needle Punch Machine Operator note has been reviewed by physician. Signing provider agrees with the documented findings, assessment, and plan of care. Objective - Vital Signs Vital signs: Vital Signs Temp 98.1 F 07/19/20 07:00 Pulse 99 07/19/20 07:00 Resp 16 07/19/20 07:00 BP 127/79 07/19/20 07:00 Pulse Ox 99 07/19/20 07:00 Intake & Output 07/18/20 07/19/20 07/19/20 18:59 06:59 18:59 Intake Total 1200 Output Total 350 525 72 Balance 850 -525 -72 Intake: IV 1200 Output: Drainage 320 225 72 Right Abdomen 320 225 72 Urine 300 Estimated Blood Loss 30 Other: Voiding Method Urinal # Voids 2 1 # Bowel Movements 1 - Labs CBC & Chem 7: 07/19/20 04:55 07/19/20 04:55 Labs: Abnormal Lab Results - Last 24 Hours (Table) 07/18/20 07/18/20 07/18/20 Range/Units 06:51 06:51 12:10 WBC 22.02 H (4.50-10.00) X 10*3/uL RBC 3.60 L (4.40-5.60) X 10*6/uL Hgb 10.2 L (13.0-17.0) g/dL Hct 32.5 L (39.6-50.0) % MCHC 31.4 L (32.0-37.0) g/dL Immature Gran # 0.22 H (0.00-0.04) X 10*3/uL Neutrophils # 18.59 H (1.80-7.70) X 10*3/uL Monocytes # 1.53 H (0.20-1.00) X 10*3/uL Sodium 133 L (135-145) mmol/L Carbon Dioxide 21.5 L (21.6-31.8) mmol/L Anion Gap 13.50 H (4.00-12.00) mmol/L BUN 46.0 H (9.0-27.0) mg/dL Creatinine 2.7 H (0.6-1.5) mg/dL Est GFR (CKD-EPI)AfAm 32.7 L (60.0-200.0) Est GFR (CKD-EPI)NonAf 28.2 L (60.0-200.0) BUN/Creatinine Ratio (12.00-20.00) Ratio Glucose 263 H (70-110) mg/dL POC Glucose (mg/dL) 222 H (75-99) mg/dL Calcium 7.6 L (8.7-10.3) mg/dL 07/18/20 07/18/20 07/19/20 Range/Units 17:22 20:16 04:55 WBC 15.05 H (4.50-10.00) X 10*3/uL RBC 3.34 L (4.40-5.60) X 10*6/uL Hgb 9.4 L (13.0-17.0) g/dL Hct 29.7 L (39.6-50.0) % MCHC 31.6 L (32.0-37.0) g/dL Immature Gran # 0.08 H (0.00-0.04) X 10*3/uL Neutrophils # 11.93 H (1.80-7.70) X 10*3/uL Monocytes # 1.20 H (0.20-1.00) X 10*3/uL Sodium (135-145) mmol/L Carbon Dioxide (21.6-31.8) mmol/L Anion Gap (4.00-12.00) mmol/L BUN (9.0-27.0) mg/dL Creatinine (0.6-1.5) mg/dL Est GFR (CKD-EPI)AfAm (60.0-200.0) Est GFR (CKD-EPI)NonAf (60.0-200.0) BUN/Creatinine Ratio (12.00-20.00) Ratio Glucose (70-110) mg/dL POC Glucose (mg/dL) 200 H 191 H (75-99) mg/dL Calcium (8.7-10.3) mg/dL 07/19/20 07/19/20 Range/Units 04:55 06:59 WBC (4.50-10.00) X 10*3/uL RBC (4.40-5.60) X 10*6/uL Hgb (13.0-17.0) g/dL Hct (39.6-50.0) % MCHC (32.0-37.0) g/dL Immature Gran # (0.00-0.04) X 10*3/uL Neutrophils # (1.80-7.70) X 10*3/uL Monocytes # (0.20-1.00) X 10*3/uL Sodium 132 L (135-145) mmol/L Carbon Dioxide (21.6-31.8) mmol/L Anion Gap (4.00-12.00) mmol/L BUN 44.0 H (9.0-27.0) mg/dL Creatinine 1.9 H (0.6-1.5) mg/dL Est GFR (CKD-EPI)AfAm 50.0 L (60.0-200.0) Est GFR (CKD-EPI)NonAf 43.1 L (60.0-200.0) BUN/Creatinine Ratio 23.16 H (12.00-20.00) Ratio Glucose 179 H (70-110) mg/dL POC Glucose (mg/dL) 191 H (75-99) mg/dL Calcium 7.1 L (8.7-10.3) mg/dL Microbiology - Last 24 Hours (Table) 07/17/20 18:00 Urine Culture - Final Urine,Voided 07/17/20 14:45 Blood Culture - Preliminary Blood No Growth after 24 hours 07/16/20 12:58 Blood Culture - Preliminary Blood No Growth after 48 hours
--- NOTE | 2020-07-19 10:50 | P.NPCON ---
History of Present Illness - Reason for Consult acute renal failure - History of Present Illness Reason for consultation: Acute kidney injury History of present illness: The patient is a 39-year-old male seen in renal consultation for acute kidney injury. Patient's creatinine as of 07/16/2020 was 0.74 and peaked at 2.7 as of yesterday. It is down to 1.9 today. Patient's blood pressure has been fairly stable although it did dip down to the systolic 90s yesterday morning. This morning bp was 127/79. No edema. Has been voiding. No hematuria or dysuria. She presented to the hospital on 07/16/2020 with abdominal pain. He underwent CAT scan of the abdomen and pelvis with IV contrast which revealed no evidence of hydronephrosis. Small amount of fluid adjacent to the liver was present. Subsequently he was diagnosed with cholecystitis and underwent laparoscopic cholecystectomy on July 18. He also has a QUENTIN drain in place. He is receiving IV fluids. Patient states he has long-standing history of diabetes mellitus. He is currently receiving IV fluids. No vomiting or diarrhea. No fever or chills. He does have proteinuria on UA and states he's been told of this in the past when he saw nephrology at [facility]. Vital signs are stable. General: The patient appeared well nourished and normally developed. HEENT: Head exam is unremarkable. Neck is without jugular venous distension. LUNGS: Breath sounds decreased. HEART: Rate and Rhythm are regular. ABDOMEN: Soft, generalized tenderness present. QUENTIN drain noted. EXTREMITITES: No clubbing, cyanosis, or edema. Past Medical History Past Medical History: Diabetes Mellitus Additional Past Medical History / Comment(s): Behcets disease(auto immune) History of Any Multi-Drug Resistant Organisms: None Reported Additional Past Surgical History / Comment(s): I/D of skin lesions, colostomy reversal Past Anesthesia/Blood Transfusion Reactions: No Reported Reaction Past Psychological History: Anxiety Smoking Status: Never smoker Past Alcohol Use History: None Reported Past Drug Use History: None Reported Medications and Allergies Home Medications Medication Instructions Recorded Confirmed Type Cyclosporine, Modified [Neoral] 100 mg PO QID 07/16/20 07/16/20 History Dulaglutide [Trulicity] 1.5 mg SQ WE 07/16/20 07/16/20 History Gabapentin [Neurontin] 1,200 mg PO TID 07/16/20 07/16/20 History traMADol HCL 50 mg PO BID-W/MEALS 07/16/20 07/16/20 History traMADol HCL 100 mg PO HS 07/16/20 07/16/20 History Allergies Allergy/AdvReac Type Severity Reaction Status Date / Time No Known Allergies Allergy Verified 07/16/20 11:43 Physical Exam Vitals: Vital Signs Temp Pulse Resp BP Pulse Ox 07/19/20 07:00 98.1 F 99 16 127/79 99 07/19/20 02:00 98.1 F 100 18 105/69 97 07/18/20 20:00 99.3 F 121 H 18 116/71 93 L 07/18/20 14:59 99.8 F H 109 H 18 107/72 99 07/18/20 13:28 116 H 20 103/67 97 07/18/20 12:56 99.7 F H 111 H 20 110/71 97 07/18/20 12:26 109 H 18 109/76 97 07/18/20 12:07 112 H 20 107/66 07/18/20 11:41 113 H 20 107/67 07/18/20 11:26 113 H 22 113/70 07/18/20 11:12 99.2 F 113 H 22 116/63 96 07/18/20 10:56 99.3 F 111 H 18 118/74 97 Intake and Output 07/18/20 07/19/20 07/19/20 22:59 06:59 14:59 Output Total 440 155 72 Balance -440 -155 -72 Output: Drainage 140 155 72 Right Abdomen 140 155 72 Urine 300 Other: Voiding Method Urinal # Voids 1 # Bowel Movements 1 Results - Lab Results Most recent lab results Calcium 7.1 mg/dL (8.7-10.3) L 07/19/20 04:55 07/19/20 04:55 07/19/20 04:55 Assessment and Plan Plan: Assessment: 1. Acute kidney injury secondary to ATN secondary to hemodynamic instability. Baseline creatinine near 1 and peaked at 2.7 this admission. It is 1.9 today. 2. Acute cholecystitis status post upper septic cholecystectomy on 07/18/2020. 3. Hyponatremia secondary to acute kidney injury. 4. Diabetes mellitus. 5. 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 Patient follows at [facility]. Plan: Maintain IV fluids. Avoid nephrotoxins. Encourage oral intake. Decrease dose of gabapentin. Check renal ultrasound. Continue to monitor renal function and urine output. Thank you for the consultation. I will continue to follow the patient with you during his hospital stay.
[2020-07-19 11:36] LABS: Glucose,Whole Blood 236 mg/dL (75-99)
[2020-07-19] MEDS: HYDROcodone/APAP 5-325MG 1 EACH TAB PO PRN (12:18)
--- NOTE | 2020-07-19 14:42 | P.PN ---
Subjective Progress Note Date: 07/19/20 HISTORY OF PRESENT ILLNESS This is a 39-year-old male patient followed for acute cholecystitis. He is cur rently covered with Zosyn. Patient states his surgery pain is okay. He does have some pain in the center of his abdomen. He denies having any nausea or vomiting. No chest pain, shortness of breath or cough. We will add in incentive spirometry. WBC 15, hemoglobin 9.4, platelet count 197. Creatinine 1.9. Urine culture finalized with no growth. Blood culture no growth at 24 and 48 hours. Renal ultrasound report is pending. VQ scan pending. Pulse ox 99% on room air, heart rate 99, blood pressure 127/79, afebrile. PHYSICAL EXAMINATION Gen: This is a 39-year-old male patient. He is in bed and appears to be comfortable. No acute distress noted. HEENT: Head is atraumatic, normocephalic. Pupils equal, round. Sclerae is anicteric. NECK: Supple. No JVD. LUNGS: Clear to auscultation. No wheezes or rhonchi. No intercostal retractions. HEART: Regular rate and rhythm. ABDOMEN: Soft. Bowel sounds are present. No masses. EXTREMITIES: No pedal edema. No calf tenderness. NEUROLOGICAL: Patient is awake, alert and oriented x3. ASSESSMENT Acute cholecystitis status post cholecystectomy PLAN Continue Zosyn The above dictated assessment and findings were discussed with Dr. Aragon. The impression and plan of care have been directed as dictated. Alice Pugh nurse practitioner acting as scribe for Dr. Aragon. Objective - Vital Signs Vital signs: Vital Signs Temp 98.1 F 07/19/20 07:00 Pulse 99 07/19/20 07:00 Resp 16 07/19/20 07:00 BP 127/79 07/19/20 07:00 Pulse Ox 99 07/19/20 07:00 Intake & Output 07/18/20 07/19/20 07/19/20 18:59 06:59 18:59 Intake Total 1200 Output Total 350 525 72 Balance 850 -525 -72 Intake: IV 1200 Output: Drainage 320 225 72 Right Abdomen 320 225 72 Urine 300 Estimated Blood Loss 30 Other: Voiding Method Urinal # Voids 2 1 # Bowel Movements 1 - Labs CBC & Chem 7: 07/19/20 04:55 07/19/20 04:55 Labs: Abnormal Lab Results - Last 24 Hours (Table) 07/18/20 07/18/20 07/18/20 Range/Units 06:51 06:51 12:10 WBC 22.02 H (4.50-10.00) X 10*3/uL RBC 3.60 L (4.40-5.60) X 10*6/uL Hgb 10.2 L (13.0-17.0) g/dL Hct 32.5 L (39.6-50.0) % MCHC 31.4 L (32.0-37.0) g/dL Immature Gran # 0.22 H (0.00-0.04) X 10*3/uL Neutrophils # 18.59 H (1.80-7.70) X 10*3/uL Monocytes # 1.53 H (0.20-1.00) X 10*3/uL Sodium 133 L (135-145) mmol/L Carbon Dioxide 21.5 L (21.6-31.8) mmol/L Anion Gap 13.50 H (4.00-12.00) mmol/L BUN 46.0 H (9.0-27.0) mg/dL Creatinine 2.7 H (0.6-1.5) mg/dL Est GFR (CKD-EPI)AfAm 32.7 L (60.0-200.0) Est GFR (CKD-EPI)NonAf 28.2 L (60.0-200.0) BUN/Creatinine Ratio (12.00-20.00) Ratio Glucose 263 H (70-110) mg/dL POC Glucose (mg/dL) 222 H (75-99) mg/dL Calcium 7.6 L (8.7-10.3) mg/dL Lipase (23-300) U/L 07/18/20 07/18/20 07/19/20 Range/Units 17:22 20:16 04:55 WBC 15.05 H (4.50-10.00) X 10*3/uL RBC 3.34 L (4.40-5.60) X 10*6/uL Hgb 9.4 L (13.0-17.0) g/dL Hct 29.7 L (39.6-50.0) % MCHC 31.6 L (32.0-37.0) g/dL Immature Gran # 0.08 H (0.00-0.04) X 10*3/uL Neutrophils # 11.93 H (1.80-7.70) X 10*3/uL Monocytes # 1.20 H (0.20-1.00) X 10*3/uL Sodium (135-145) mmol/L Carbon Dioxide (21.6-31.8) mmol/L Anion Gap (4.00-12.00) mmol/L BUN (9.0-27.0) mg/dL Creatinine (0.6-1.5) mg/dL Est GFR (CKD-EPI)AfAm (60.0-200.0) Est GFR (CKD-EPI)NonAf (60.0-200.0) BUN/Creatinine Ratio (12.00-20.00) Ratio Glucose (70-110) mg/dL POC Glucose (mg/dL) 200 H 191 H (75-99) mg/dL Calcium (8.7-10.3) mg/dL Lipase (23-300) U/L 07/19/20 07/19/20 07/19/20 Range/Units 04:55 06:59 10:37 WBC (4.50-10.00) X 10*3/uL RBC (4.40-5.60) X 10*6/uL Hgb (13.0-17.0) g/dL Hct (39.6-50.0) % MCHC (32.0-37.0) g/dL Immature Gran # (0.00-0.04) X 10*3/uL Neutrophils # (1.80-7.70) X 10*3/uL Monocytes # (0.20-1.00) X 10*3/uL Sodium 132 L (135-145) mmol/L Carbon Dioxide (21.6-31.8) mmol/L Anion Gap (4.00-12.00) mmol/L BUN 44.0 H (9.0-27.0) mg/dL Creatinine 1.9 H (0.6-1.5) mg/dL Est GFR (CKD-EPI)AfAm 50.0 L (60.0-200.0) Est GFR (CKD-EPI)NonAf 43.1 L (60.0-200.0) BUN/Creatinine Ratio 23.16 H (12.00-20.00) Ratio Glucose 179 H (70-110) mg/dL POC Glucose (mg/dL) 191 H (75-99) mg/dL Calcium 7.1 L (8.7-10.3) mg/dL Lipase 14 L (23-300) U/L Microbiology - Last 24 Hours (Table) 07/17/20 18:00 Urine Culture - Final Urine,Voided 07/17/20 14:45 Blood Culture - Preliminary Blood No Growth after 24 hours 07/16/20 12:58 Blood Culture - Preliminary Blood No Growth after 48 hours
--- NOTE | 2020-07-19 14:43 | NM ---
Very low probability for pulmonary embolus. EXAMINATION TYPE: NM pul vent and perfuse DATE OF EXAM: 07/19/2020 COMPARISON: Radiograph 07/18/2020 HISTORY: 39-year-old male positive d-dimer, unable to perform CT, shortness of breath. TECHNIQUE: Utilizing inhalation of 65.7 mCi Tc 99m DTPA aerosol and intravenous injection of 4.8 mCi of Tc 99m MAA, ventilation and perfusion images are acquired post injection in multiple projections. FINDINGS: Normal radiotracer distribution is noted in the lungs. There is no evidence of mismatched defects. IMPRESSION: Very low probability for pulmonary embolus.
--- NOTE | 2020-07-19 15:35 | P.PN ---
Subjective Progress Note Date: 07/19/20 This is a 39-year-old gentleman admitted with abdominal pain, sepsis, status post laparoscopic cholecystectomy and multiple other medical issues. Reports one week ago is followed at [facility] regarding renal failure. Creatinine improving down to 1.9. Elevated d-dimer, VQ scan ordered. Lipase within normal limits. Passing flatus and bowel movement. Positive pain, pain management as per surgery; currently receiving Dilaudid. Maintained on Zosyn and IV fluids, T-max 99.8, WBC trending down to 15. Urine culture finalized, reported no growth, preliminary blood cultures no growth. Renal ultrasound report pending. Currentlystable, maintaining O2 sats in the 90s on room air. Objective - Vital Signs Vital signs: Vital Signs Temp 98.1 F 07/19/20 07:00 Pulse 99 07/19/20 07:00 Resp 16 07/19/20 07:00 BP 127/79 07/19/20 07:00 Pulse Ox 99 07/19/20 07:00 Intake & Output 07/18/20 07/19/20 07/19/20 18:59 06:59 18:59 Intake Total 1200 Output Total 350 525 72 Balance 850 -525 -72 Intake: IV 1200 Output: Drainage 320 225 72 Right Abdomen 320 225 72 Urine 300 Estimated Blood Loss 30 Other: Voiding Method Urinal # Voids 2 1 # Bowel Movements 1 - Exam PHYSICAL EXAM: VITAL SIGNS: As above GENERAL: Sitting up in bed, no acute HEENT: Conjunctivae normal. eyes normal. NECK: No JVD. No thyroid enlargement. No LNs CARDIOVASCULAR: S1, S2 regular.. No murmur RESPIRATION: Breath sounds diminished in the bases. No rhonchi or crackles. No bronchial breathing. ABDOMEN: Soft, status post surgery ,Bowel sounds heard. LEGS: No edema. no swelling PSYCHIATRY: Alert and oriented X3, mood and affect normal. NERVOUS SYSTEM: Cranial N 2-12 grossly normal. Moves all 4 limbs. No focal deficits. Strength and sensation grossly intact. Skin: Warm and dry, no rash - Labs CBC & Chem 7: 07/19/20 04:55 07/19/20 04:55 Labs: Abnormal Lab Results - Last 24 Hours (Table) 07/18/20 07/18/20 07/18/20 Range/Units 06:51 06:51 12:10 WBC 22.02 H (4.50-10.00) X 10*3/uL RBC 3.60 L (4.40-5.60) X 10*6/uL Hgb 10.2 L (13.0-17.0) g/dL Hct 32.5 L (39.6-50.0) % MCHC 31.4 L (32.0-37.0) g/dL Immature Gran # 0.22 H (0.00-0.04) X 10*3/uL Neutrophils # 18.59 H (1.80-7.70) X 10*3/uL Monocytes # 1.53 H (0.20-1.00) X 10*3/uL Sodium 133 L (135-145) mmol/L Carbon Dioxide 21.5 L (21.6-31.8) mmol/L Anion Gap 13.50 H (4.00-12.00) mmol/L BUN 46.0 H (9.0-27.0) mg/dL Creatinine 2.7 H (0.6-1.5) mg/dL Est GFR (CKD-EPI)AfAm 32.7 L (60.0-200.0) Est GFR (CKD-EPI)NonAf 28.2 L (60.0-200.0) BUN/Creatinine Ratio (12.00-20.00) Ratio Glucose 263 H (70-110) mg/dL POC Glucose (mg/dL) 222 H (75-99) mg/dL Calcium 7.6 L (8.7-10.3) mg/dL 07/18/20 07/18/20 07/19/20 Range/Units 17:22 20:16 04:55 WBC 15.05 H (4.50-10.00) X 10*3/uL RBC 3.34 L (4.40-5.60) X 10*6/uL Hgb 9.4 L (13.0-17.0) g/dL Hct 29.7 L (39.6-50.0) % MCHC 31.6 L (32.0-37.0) g/dL Immature Gran # 0.08 H (0.00-0.04) X 10*3/uL Neutrophils # 11.93 H (1.80-7.70) X 10*3/uL Monocytes # 1.20 H (0.20-1.00) X 10*3/uL Sodium (135-145) mmol/L Carbon Dioxide (21.6-31.8) mmol/L Anion Gap (4.00-12.00) mmol/L BUN (9.0-27.0) mg/dL Creatinine (0.6-1.5) mg/dL Est GFR (CKD-EPI)AfAm (60.0-200.0) Est GFR (CKD-EPI)NonAf (60.0-200.0) BUN/Creatinine Ratio (12.00-20.00) Ratio Glucose (70-110) mg/dL POC Glucose (mg/dL) 200 H 191 H (75-99) mg/dL Calcium (8.7-10.3) mg/dL 07/19/20 07/19/20 Range/Units 04:55 06:59 WBC (4.50-10.00) X 10*3/uL RBC (4.40-5.60) X 10*6/uL Hgb (13.0-17.0) g/dL Hct (39.6-50.0) % MCHC (32.0-37.0) g/dL Immature Gran # (0.00-0.04) X 10*3/uL Neutrophils # (1.80-7.70) X 10*3/uL Monocytes # (0.20-1.00) X 10*3/uL Sodium 132 L (135-145) mmol/L Carbon Dioxide (21.6-31.8) mmol/L Anion Gap (4.00-12.00) mmol/L BUN 44.0 H (9.0-27.0) mg/dL Creatinine 1.9 H (0.6-1.5) mg/dL Est GFR (CKD-EPI)AfAm 50.0 L (60.0-200.0) Est GFR (CKD-EPI)NonAf 43.1 L (60.0-200.0) BUN/Creatinine Ratio 23.16 H (12.00-20.00) Ratio Glucose 179 H (70-110) mg/dL POC Glucose (mg/dL) 191 H (75-99) mg/dL Calcium 7.1 L (8.7-10.3) mg/dL Microbiology - Last 24 Hours (Table) 07/17/20 18:00 Urine Culture - Final Urine,Voided 07/17/20 14:45 Blood Culture - Preliminary Blood No Growth after 24 hours 07/16/20 12:58 Blood Culture - Preliminary Blood No Growth after 48 hours Assessment and Plan Assessment: Abdominal pain with acute cholecystitis, sepsis present on admission, status post laparoscopic cholecystectomy Atelectasis with Possible left basilar pneumonia, infiltrate. Acute renal failure ATN, nephrology following. Chronic renal failure, stage II. Reports he followed with [facility] nephrology one week ago Hyponatremia secondary to acute renal failure Anemia of possibly chronic disease, normocytic Diabetes mellitus type 2 Multiple hernias including anterior abdominal wall hernia containing loops of bowel, periumbilical hernia about 6.7 cm, Left flank hernia containing mesenteric fat Bahget disease,was on steroids , currently. 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 Where it was reversed by November 2019 History of Fall with right chest trauma history of left foot trauma, mainly involving the left first toes Diabetes mellitus, uncontrolled with hyperglycemia Plan: Continue on current medication regime, monitoring and symptomatically treatment. Maintain Zosyn as per ID, IV fluid hydration. VQ scan pending, renal ultrasound results pending. Nephrology consult in place, recommendations pending. Pain management as per surgery. Increase ambulation as tolerated. Aggressive pulmonary toileting with incentive spirometer ordered. The impression and plan of care has been dictated as directed. : I performed a history and examination of this patient, discussed the same with the dictator. I agree with the dictator's note ,documented as a scribe. Any additional findings or plans will be noted.
--- NOTE | 2020-07-19 16:30 | US ---
EXAMINATION TYPE: US kidneys/renal and bladder DATE OF EXAM: 07/19/2020 COMPARISON: NONE CLINICAL HISTORY: 39-year-old male with acute kidney injury TECHNIQUE: Multiple sonographic images of the kidneys and bladder are obtained. FINDINGS: EXAM MEASUREMENTS: Right Kidney: 11.9 x 6.5 x 5.4 cm Left Kidney: 13.8 x 6.1 x 4.8 cm No hydronephrosis on either side. Bladder: wnl Bilateral Jets seen: No IMPRESSION: No hydronephrosis.
[2020-07-19 16:52] LABS: Glucose,Whole Blood 205 mg/dL (75-99)
[2020-07-19 19:58] LABS: Glucose,Whole Blood 216 mg/dL (75-99)
[2020-07-20] MEDS: HYDROmorphone 1 MG/ML 1 ML SYRINGE IVP PRN ×6 (00:33→23:59)
[2020-07-20] MEDS: SODIUM CHLORIDE 0.9% 1,000 ML IV SCH ×3 (03:36→23:40)
[2020-07-20] MEDS: PIPERACILLIN-TAZOBACTAM 3.375 GM in SODIUM CHLORIDE 0.9% 100 ML IVPB SCH ×3 (03:40→21:03)
[2020-07-20 06:56] LABS: Glucose,Whole Blood 180 mg/dL (75-99)
[2020-07-20] MEDS: INSULIN DETEMIR (LEVEMIR) 100 UNIT/ML SYR SQ SCH (07:41)
[2020-07-20] MEDS: GABAPENTIN 300 MG CAP PO SCH ×3 (07:41→21:04)
[2020-07-20] MEDS: PANTOPRAZOLE 40 MG/10 ML VIAL IVP SCH ×2 (07:41→21:03)
[2020-07-20] MEDS: ENOXAPARIN 40 MG/0.4 ML SYRINGE SQ SCH (07:41)
[2020-07-20] MEDS: INSULIN ASPART (NovoLOG) 100 UNIT/ML VIAL SQ SCH ×4 (07:42→21:03)
[2020-07-20] MEDS: ONDANSETRON 4 MG/2 ML VIAL IVP PRN (07:58)
[2020-07-20] MEDS: MORPHINE SULFATE ER 15 MG TABLET PO SCH (10:17)
[2020-07-20] MEDS: methylPREDNISolone SOD SUCCI 40 MG/ML 1 ML VIAL IV SCH ×3 (10:17→23:59)
--- NOTE | 2020-07-20 10:29 | P.PN ---
Subjective Progress Note Date: 07/20/20 This is a 39-year-old gentleman admitted with abdominal pain, sepsis, status post laparoscopic cholecystectomy and multiple other medical issues. Reports one week ago is followed at [facility] regarding renal failure. Creatinine improving down to 1.9. Elevated d-dimer, VQ scan ordered. Lipase within normal limits. Passing flatus and bowel movement. Positive pain, pain management as per surgery; currently receiving Dilaudid. Maintained on Zosyn and IV fluids, T-max 99.8, WBC trending down to 15. Urine culture finalized, reported no growth, preliminary blood cultures no growth. Renal ultrasound report pending. Currentlystable, maintaining O2 sats in the 90s on room air. 07/20/2020 maintained on IV fluid hydration, Zosyn. VQ scan reported no evidence of mismatch deficits, very low probability for PE. Reporting midepigastric pain, unrelieved by current med regimen as well as chronic pain. on phone and reports patient is being worked up for unspecific autoimmune disorder at [facility]. Positive nausea and vomiting this morning on regular diet. Renal ultrasound reported no hydronephrosis. T-max 99, WBC pending-labs pending. Objective - Vital Signs Vital signs: Vital Signs Temp 99.0 F 07/20/20 07:38 Pulse 102 H 07/20/20 07:38 Resp 14 07/20/20 07:38 BP 149/74 07/20/20 07:38 Pulse Ox 95 07/20/20 09:37 Intake & Output 07/19/20 07/20/20 07/20/20 18:59 06:59 18:59 Intake Total 1120 1080 Output Total 162 500 41 Balance 958 580 -41 Intake: Intake, IV Titration 700 Amount Sodium Chloride 0.9% 1, 700 000 ml @ 100 mls/hr IV . Q10H [facility] Rx#:[id number] Oral 420 1080 Output: Drainage 162 50 40 Right Abdomen 162 50 40 Urine 450 Emesis 1 Other: Voiding Method Urinal Toilet Urinal # Voids 2 2 # Bowel Movements 1 1 - Exam PHYSICAL EXAM: VITAL SIGNS: As above GENERAL: Sitting up in bed, currently in pain HEENT: Conjunctivae normal. eyes normal. NECK: No JVD. No thyroid enlargement. No LNs CARDIOVASCULAR: S1, S2 regular..No murmur RESPIRATION: Respiratory effort is unlabored, Breath sounds diminished in the bases. ABDOMEN: Soft, status post surgery ,Bowel sounds heard. LEGS: No edema. no swelling PSYCHIATRY: Alert and oriented X3, mood and affect normal. NERVOUS SYSTEM: Cranial N 2-12 grossly normal. No focal deficits. Strength and sensation grossly intact. - Labs CBC & Chem 7: 07/19/20 04:55 07/19/20 04:55 Labs: Abnormal Lab Results - Last 24 Hours (Table) 07/19/20 07/19/20 07/19/20 Range/Units 10:37 11:33 16:50 POC Glucose (mg/dL) 236 H 205 H (75-99) mg/dL Lipase 14 L (23-300) U/L 07/19/20 07/20/20 Range/Units 19:58 06:55 POC Glucose (mg/dL) 216 H 180 H (75-99) mg/dL Lipase (23-300) U/L Microbiology - Last 24 Hours (Table) 07/17/20 14:45 Blood Culture - Preliminary Blood No Growth after 48 hours 07/16/20 12:58 Blood Culture - Preliminary Blood No Growth after 72 hours Assessment and Plan Assessment: Abdominal pain with acute cholecystitis, sepsis present on admission, status post laparoscopic cholecystectomy for necrotic gallbladder Atelectasis ,Possible left basilar pneumonia, [id number] no cough, no shortness of breath, no congestion. Acute renal failure AT, nephrology following. Chronic renal failure, stage II. 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 Where it was reversed by November 2019 History of Fall with right chest trauma history of left foot trauma, mainly involving the left first toes Diabetes mellitus, uncontrolled with hyperglycemia Plan: Continue on current medication regime, monitoring and symptomatically treatment. Labs pending .Continue IV fluid hydration, Zosyn . Pathology pending. MS Contin daily added to med regimen secondary to chronic pain in addition to patient's acute pain management by surgery. GI consulted for persistent midepigastric pain. Patient advised to increase ambulation, c omplaining also of gas pain. low-dose IV steroids added to med regimen for potential exacerbation of unspecific autoimmune disorder. Steroid sliding scale. Aggressive pulmonary toileting with incentive spirometer reinforced. Plan of care also discussed with at bedside via phone. The impression and plan of care has been dictated as directed. : I performed a history and examination of this patient, discussed the same with the dictator. I agree with the dictator's note ,documented as a scribe. Any additional findings or plans will be noted.
[2020-07-20 10:53] LABS: Amylase <30 U/L (30-110); Lipase 28 U/L (23-300)
[2020-07-20 11:11] LABS: African American GFR (CKD) >90 (>60 ml/min/1.73 sqM); Anion Gap 6 mmol/L; Blood Urea Nitrogen 30 mg/dL (9-20); Calcium 7.3 mg/dL (8.4-10.2); Carbon Dioxide 25 mmol/L (22-30); Chloride 103 mmol/L (98-107); Glucose 161 mg/dL (74-99); Non-African American GFR(CKD) 80 (>60 ml/min/1.73 sqM); Potassium 4.1 mmol/L (3.5-5.1); Sodium 134 mmol/L (137-145)
[2020-07-20 11:34] LABS: Glucose,Whole Blood 160 mg/dL (75-99)
[2020-07-20 11:50] LABS: Basophils # (A) 0.06 X 10*3/uL (0.00-0.10); Basophils % (A) 0.8 %; Eosinophils % (A) 4.1 %; HCT 29.8 % (39.6-50.0); HGB 9.3 g/dL (13.0-17.0); Lymphocytes # (A) 0.89 X 10*3/uL (0.90-5.00); Lymphocytes % (A) 12.1 %; MCH 27.8 pg (27.0-32.0); MCHC 31.2 g/dL (32.0-37.0); Mean Platelet Volume 11.2 fL (9.5-12.2); Monocytes # (A) 0.69 X 10*3/uL (0.20-1.00); Monocytes % (A) 9.4 %; Neutrophils % (A) 73.3 %; Platelet Count 185 X 10*3/uL (140-440); RBC 3.35 X 10*6/uL (4.40-5.60); RDW 13.6 % (11.5-14.5); WBC 7.36 X 10*3/uL (4.50-10.00)
--- NOTE | 2020-07-20 12:11 | P.PN ---
Subjective Patient is seen in follow-up for acute kidney injury. Renal function improving. Did vomit this morning. No chest pain or shortness of breath. Has been voiding. Hemodynamically stable. Vital signs are stable. General: The patient appeared well nourished and normally developed. HEENT: Head exam is unremarkable. Neck is without jugular venous distension. LUNGS: Breath sounds decreased. HEART: Rate and Rhythm are regular. ABDOMEN: Soft. Generalized tenderness. EXTREMITITES: Trace edema. Objective - Vital Signs Vital signs: Vital Signs Temp 99.0 F 07/20/20 07:38 Pulse 102 H 07/20/20 07:38 Resp 14 07/20/20 07:38 BP 149/74 07/20/20 07:38 Pulse Ox 95 07/20/20 09:37 Intake & Output 07/19/20 07/20/20 07/20/20 18:59 06:59 18:59 Intake Total 1120 1080 Output Total 162 500 81 Balance 958 580 -81 Intake: Intake, IV Titration 700 Amount Sodium Chloride 0.9% 1, 700 000 ml @ 100 mls/hr IV . Q10H [facility] Rx#:[id number] Oral 420 1080 Output: Drainage 162 50 80 Right Abdomen 162 50 80 Urine 450 Emesis 1 Other: Voiding Method Urinal Toilet Urinal # Voids 2 2 # Bowel Movements 1 1 - Labs CBC & Chem 7: 07/20/20 05:19 07/20/20 09:59 Labs: Abnormal Lab Results - Last 24 Hours (Table) 07/19/20 07/19/20 07/20/20 Range/Units 16:50 19:58 05:19 RBC 3.35 L (4.40-5.60) X 10*6/uL Hgb 9.3 L (13.0-17.0) g/dL Hct 29.8 L (39.6-50.0) % MCHC 31.2 L (32.0-37.0) g/dL Lymphocytes # 0.89 L (0.90-5.00) X 10*3/uL Sodium (137-145) mmol/L BUN (9-20) mg/dL Glucose (74-99) mg/dL POC Glucose (mg/dL) 205 H 216 H (75-99) mg/dL Calcium (8.4-10.2) mg/dL Amylase (30-110) U/L 07/20/20 07/20/20 07/20/20 Range/Units 06:55 09:59 09:59 RBC (4.40-5.60) X 10*6/uL Hgb (13.0-17.0) g/dL Hct (39.6-50.0) % MCHC (32.0-37.0) g/dL Lymphocytes # (0.90-5.00) X 10*3/uL Sodium 134 L (137-145) mmol/L BUN 30 H (9-20) mg/dL Glucose 161 H (74-99) mg/dL POC Glucose (mg/dL) 180 H (75-99) mg/dL Calcium 7.3 L (8.4-10.2) mg/dL Amylase <30 L (30-110) U/L 07/20/20 Range/Units 11:32 RBC (4.40-5.60) X 10*6/uL Hgb (13.0-17.0) g/dL Hct (39.6-50.0) % MCHC (32.0-37.0) g/dL Lymphocytes # (0.90-5.00) X 10*3/uL Sodium (137-145) mmol/L BUN (9-20) mg/dL Glucose (74-99) mg/dL POC Glucose (mg/dL) 160 H (75-99) mg/dL Calcium (8.4-10.2) mg/dL Amylase (30-110) U/L Microbiology - Last 24 Hours (Table) 07/17/20 14:45 Blood Culture - Preliminary Blood No Growth after 48 hours 07/16/20 12:58 Blood Culture - Preliminary Blood No Growth after 72 hours Assessment and Plan Plan: Assessment: 1. Acute kidney injury secondary to ATN secondary to hemodynamic instability. Baseline creatinine near 1 and peaked at 2.7 this admission. It is 1.15 today. No hydronephrosis noted on kidney ultrasound. 2. Acute cholecystitis status post upper septic cholecystectomy on 07/18/2020. 3. Hyponatremia secondary to acute kidney injury. Better. 4. Diabetes mellitus. 5. 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 Patient follows at [facility]. Plan: Maintain IV fluids. Avoid nephrotoxins. Encourage oral intake.
[2020-07-20 12:13] LABS: African American GFR (CKD) 72.3 (60.0-200.0); Anion Gap 8.7 mmol/L (4.00-12.00); BUN/Creat Ratio 22.86 Ratio (12.00-20.00); Calcium 7.4 mg/dL (8.7-10.3); Carbon Dioxide 24.3 mmol/L (21.6-31.8); Magnesium 2.3 mg/dL (1.5-2.4); Non-African American GFR(CKD) 62.4 (60.0-200.0); Potassium 3.9 mmol/L (3.5-5.5)
[2020-07-20 13:11] LABS: Albumin 2.5 g/dL (3.5-5.0); Albumin/Globulin Ratio 0.9; Bilirubin,Unconjugated 0.2 mg/dL (0.0-1.1); Globulin 2.9 g/dL; Total Bilirubin 0.4 mg/dL (0.2-1.3); Total Protein 5.4 g/dL (6.3-8.2)
--- NOTE | 2020-07-20 13:22 | P.PN ---
Subjective Progress Note Date: 07/20/20 CHIEF COMPLAINT: Acute cholecystitis HISTORY OF PRESENT ILLNESS: Patient is status post laparoscopic cholecystectomy. Postop day #2. patient is still complaining of epigastric pain. He is still requiring IV pain medication. He has been having nausea and vomiting. He did have a bowel movement this morning. VQ scan showed low probability of PE. Renal ultrasound showed no evidence of hydronephrosis. Patient Donna regular diet. He is on IV Zosyn. Discussed case with medicine service they have o rdered a consult for GI service there is concern for unspecified autoimmune disorder. WBC 7.36 has normalized hemoglobin 9.3 creatinine 1.15 lipase 28 PHYSICAL EXAM: VITAL SIGNS: Reviewed. GENERAL: Well-developed in no acute distress. HEENT: No sclera icterus. Extraocular movements grossly intact. Moist buccal mucosa. Head is atraumatic, normocephalic. ABDOMEN: Soft. Nondistended. Tenderness with palpation of epigastric area. Incision sites are clean dry and intact. Patient does have tenderness around the epigastric incision site. The incision site is clean dry and intact. NEUROLOGIC: Alert and oriented. Cranial nerves II through XII grossly intact. ASSESSMENT: 1. Acute cholecystitis with necrotic gallbladder status post laparoscopic cholecystectomy 2. Abdominal pain 3. Atelectasis PLAN: -Continue pain medication as needed -Encourage patient to use incentive spirometer -Encourage patient to ambulate -GI prophylaxis Protonix and DVT prophylaxis Lovenox Physician Cider Maker note has been reviewed by physician. Signing provider agrees with the documented findings, assessment, and plan of care. Objective - Vital Signs Vital signs: Vital Signs Temp 99.0 F 07/20/20 07:38 Pulse 102 H 07/20/20 07:38 Resp 14 07/20/20 07:38 BP 149/74 07/20/20 07:38 Pulse Ox 95 07/20/20 09:37 Intake & Output 07/19/20 07/20/20 07/20/20 18:59 06:59 18:59 Intake Total 1120 1080 Output Total 162 500 81 Balance 958 580 -81 Intake: Intake, IV Titration 700 Amount Sodium Chloride 0.9% 1, 700 000 ml @ 100 mls/hr IV . Q10H [facility] Rx#:[id number] Oral 420 1080 Output: Drainage 162 50 80 Right Abdomen 162 50 80 Urine 450 Emesis 1 Other: Voiding Method Urinal Toilet Urinal # Voids 2 2 # Bowel Movements 1 1 - Labs CBC & Chem 7: 07/20/20 05:19 07/20/20 09:59 Labs: Abnormal Lab Results - Last 24 Hours (Table) 07/19/20 07/19/20 07/20/20 Range/Units 16:50 19:58 05:19 RBC 3.35 L (4.40-5.60) X 10*6/uL Hgb 9.3 L (13.0-17.0) g/dL Hct 29.8 L (39.6-50.0) % MCHC 31.2 L (32.0-37.0) g/dL Lymphocytes # 0.89 L (0.90-5.00) X 10*3/uL Sodium (137-145) mmol/L BUN (9.0-27.0) mg/dL BUN/Creatinine Ratio (12.00-20.00) Ratio Glucose (70-110) mg/dL POC Glucose (mg/dL) 205 H 216 H (75-99) mg/dL Calcium (8.7-10.3) mg/dL Total Protein (6.3-8.2) g/dL Albumin (3.5-5.0) g/dL Amylase (30-110) U/L 07/20/20 07/20/20 07/20/20 Range/Units 05:19 06:55 09:59 RBC (4.40-5.60) X 10*6/uL Hgb (13.0-17.0) g/dL Hct (39.6-50.0) % MCHC (32.0-37.0) g/dL Lymphocytes # (0.90-5.00) X 10*3/uL Sodium (137-145) mmol/L BUN 32.0 H (9.0-27.0) mg/dL BUN/Creatinine Ratio 22.86 H (12.00-20.00) Ratio Glucose 173 H (70-110) mg/dL POC Glucose (mg/dL) 180 H (75-99) mg/dL Calcium 7.4 L (8.7-10.3) mg/dL Total Protein (6.3-8.2) g/dL Albumin (3.5-5.0) g/dL Amylase <30 L (30-110) U/L 07/20/20 07/20/20 07/20/20 Range/Units 09:59 09:59 11:32 RBC (4.40-5.60) X 10*6/uL Hgb (13.0-17.0) g/dL Hct (39.6-50.0) % MCHC (32.0-37.0) g/dL Lymphocytes # (0.90-5.00) X 10*3/uL Sodium 134 L (137-145) mmol/L BUN 30 H (9.0-27.0) mg/dL BUN/Creatinine Ratio (12.00-20.00) Ratio Glucose 161 H (70-110) mg/dL POC Glucose (mg/dL) 160 H (75-99) mg/dL Calcium 7.3 L (8.7-10.3) mg/dL Total Protein 5.4 L (6.3-8.2) g/dL Albumin 2.5 L (3.5-5.0) g/dL Amylase (30-110) U/L Microbiology - Last 24 Hours (Table) 07/17/20 14:45 Blood Culture - Preliminary Blood No Growth after 48 hours 07/16/20 12:58 Blood Culture - Preliminary Blood No Growth after 72 hours
[2020-07-20] MEDS: polyethylene glycoL 3350 17 GM POWD.PACK PO SCH (16:04)
[2020-07-20 16:41] LABS: Glucose,Whole Blood 167 mg/dL (75-99)
--- NOTE | 2020-07-20 17:06 | CONS ---
CONSULTATION DATE OF DICTATION: 07/20/2020 REASON FOR CONSULTATION: Chronic epigastric pain. HISTORY OF PRESENT ILLNESS: The patient is a 39-year-old pleasant white male with history of Behcet's disease who was admitted to the hospital with severe epigastric pain and constipation that started about a week prior to hospitalization. The patient had persistent epigastric pain and was not having any bowel movements, took some laxatives at home with no help. The pain continued to progressively get worse and he subsequently started having some nausea and vomiting and hence came into the emergency room and subsequently was diagnosed with acute cholecystitis and underwent gallbladder surgery by Dr. Oglesby 2 days ago. He still continues to have persistent epigastric pain and hence we are consulted in regard to this issue. The patient never had any peptic ulcer disease in the past. Denies any recent NSAID use. He does recall having an upper endoscopy several years ago. In the ER he did have a CT of the abdomen and pelvis done that showed mild infiltration in the posterior right lung suggestive of atelectasis, small anterior abdominal wall hernia, periumbilical hernia and left flank hernia noted. The patient still continues to have constipation. He did not have any bowel movement since being in the hospital. He reports no rectal bleeding. Denies any lower abdominal pain. PAST MEDICAL HISTORY: Significant for diabetes mellitus and Behcet's disease. 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 MEDICATIONS: Medications at home include Neoral, Trulicity, Neurontin, tramadol. ALLERGIES: NONE. SOCIAL HISTORY: No smoking. No alcohol use. FAMILY HISTORY: Unremarkable. REVIEW OF SYSTEMS: CARDIOPULMONARY: No chest pain or shortness of breath. GENITOURINARY: No dysuria or hematuria. MUSCULOSKELETAL: Unremarkable. 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 He follows at [facility]. HEMATOLOGY: Unremarkable. PSYCHIATRIC: Unremarkable. ENT/VISION: Unremarkable. CONSTITUTIONAL: No recent weight loss. No fever, chills, night sweats. PHYSICAL EXAMINATION: He appears comfortable. No apparent distress. VITAL SIGNS: Stable. Blood pressure is 128/82, pulse rate 92 per minute, and afebrile. HEENT examination unremarkable. Conjunctivae pink. Sclerae anicteric. Oral cavity no lesions. NECK: No JVD or lymph node enlargement. HEART: Regular rate and rhythm. ABDOMEN: Soft. There was tenderness in the epigastric area. There was a QUENTIN drain in place which had serosanguineous fluid. Some dalila noted from recent gallbladder surgery. Lower abdomen was benign. EXTREMITIES: Multiple scars from skin rash on both lower extremities. No pedal edema. NEUROLOGIC: Alert and oriented x3. No focal deficits. LABS: Labs done today show WBC 7.3, hemoglobin 9.3, platelets normal. Basic metabolic panel is within normal limits. BUN is 30, creatinine 1.15. Lipase is normal. AST, ALT, T- bilirubin and alkaline phosphatase are within normal limits. Coronavirus PCR is negative. IMPRESSION: 1. Severe epigastric pain for the last one week's duration. Patient underwent gallbladder surgery for possible acute cholecystitis, day #3, and continues to have persistent epigastric pain. LFTs are within normal limits. He did have a CT of the abdomen as well as ultrasound of the abdomen done at the time of admission to the hospital that showed distended gallbladder with suggestion of biliary sludge and gallstones and some thickening of the gallbladder wall with Archibald sign noted. He continues to have persistent epigastric pain despite the gallbladder surgery, and at this time other possibilities such as peptic ulcer disease or upper GI pathology need to be considered. 2. History of elevated BUN and creatinine consistent with acute acute tubular necrosis, for which Nephrology is following, and BUN and creatinine have improved. 3. History of diabetes mellitus. 4. History of Behcet's disease, for which presently on steroids and Neoral and follows at [facility]. 5. 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 6. Severe constipation. RECOMMENDATIONS: 1. Continue with Protonix 40 mg twice daily. 2. Continue with broad-spectrum antibiotics. 3. We will start him on MiraLAX one scoop twice daily to see if the constipation improves and if the abdominal pain improves. 4. Continue with symptomatic and supportive care. 5. Monitor labs closely. 6. If he continues to have persistent epigastric pain despite treating the constipation, we will consider proceeding with an upper endoscopy during this hospitalization. The plan was discussed with the patient. He is agreeable to it. Thank you for this consultation. MMODL / IJN: [id number] /
[2020-07-20 20:39] LABS: Glucose,Whole Blood 248 mg/dL (75-99)
--- NOTE | 2020-07-20 23:11 | PN ---
PROGRESS NOTE DATE OF SERVICE: 07/20/2020 REASON FOR FOLLOWUP: Fever and cholecystitis. INTERVAL HISTORY: The patient is currently afebrile, has been breathing comfortably. Complaining of some retching but no vomiting. Denies having any chest pain or cough. Abdominal pain is currently controlled. No diarrhea. PHYSICAL EXAMINATION: Blood pressure 144/86, pulse of 91, temperature 97.7. He is 97% on room air. General description is a middle-aged male lying in bed in no distress. RESPIRATORY SYSTEM: Unlabored breathing. Clear to auscultation anteriorly. HEART: S1, S2. Regular rate and rhythm. ABDOMEN: Soft. Mildly distended. No guarding or rigidity. LABS: BUN of 30, creatinine is 1.15. DIAGNOSTIC IMPRESSION AND PLAN: Patient with a fever with acute cholecystitis, status post cholecystectomy. Patient is covered with Zosyn. Culture has been negative so far. Transition to oral antibiotic on discharge. Continue with supportive care. MMODL / IJN: [id number] /
[2020-07-21] MEDS: HYDROmorphone 1 MG/ML 1 ML SYRINGE IVP PRN ×4 (04:05→21:08)
[2020-07-21] MEDS: PIPERACILLIN-TAZOBACTAM 3.375 GM in SODIUM CHLORIDE 0.9% 100 ML IVPB SCH ×3 (04:06→20:08)
[2020-07-21 07:35] LABS: Glucose,Whole Blood 226 mg/dL (75-99)
[2020-07-21] MEDS: INSULIN ASPART (NovoLOG) 100 UNIT/ML VIAL SQ SCH ×4 (08:13→20:07)
[2020-07-21] MEDS: ENOXAPARIN 40 MG/0.4 ML SYRINGE SQ SCH (08:13)
[2020-07-21] MEDS: GABAPENTIN 300 MG CAP PO SCH ×3 (08:13→21:08)
[2020-07-21] MEDS: INSULIN DETEMIR (LEVEMIR) 100 UNIT/ML SYR SQ SCH (08:13)
[2020-07-21] MEDS: polyethylene glycoL 3350 17 GM POWD.PACK PO SCH (08:14)
[2020-07-21] MEDS: methylPREDNISolone SOD SUCCI 40 MG/ML 1 ML VIAL IV SCH ×3 (08:14→23:20)
[2020-07-21] MEDS: PANTOPRAZOLE 40 MG/10 ML VIAL IVP SCH (08:14)
[2020-07-21] MEDS: SODIUM CHLORIDE 0.9% 1,000 ML IV SCH ×2 (08:47→16:11)
[2020-07-21 10:25] LABS: African American GFR (CKD) 87.1 (60.0-200.0); Anion Gap 7.2 mmol/L (4.00-12.00); BUN/Creat Ratio 20.83 Ratio (12.00-20.00); Calcium 7.3 mg/dL (8.7-10.3); Carbon Dioxide 23.8 mmol/L (21.6-31.8); Magnesium 2.4 mg/dL (1.5-2.4); Non-African American GFR(CKD) 75.2 (60.0-200.0); Potassium 4.6 mmol/L (3.5-5.5)
--- NOTE | 2020-07-21 10:28 | P.PN ---
Subjective Patient is seen in follow-up for acute kidney injury. Renal function stable. No vomiting today. No chest pain or shortness of breath. Has been voiding. Hemodynamically stable. Vital signs are stable. General: The patient appeared well nourished and normally developed. HEENT: Head exam is unremarkable. Neck is without jugular venous distension. LUNGS: Breath sounds decreased. HEART: Rate and Rhythm are regular. ABDOMEN: Soft. Generalized tenderness. EXTREMITITES: Trace edema. Objective - Vital Signs Vital signs: Vital Signs Temp 98.8 F 07/21/20 07:25 Pulse 78 07/21/20 07:25 Resp 14 07/21/20 07:25 BP 146/81 07/21/20 07:25 Pulse Ox 98 07/21/20 07:25 Intake & Output 07/20/20 07/21/20 07/21/20 18:59 06:59 18:59 Intake Total 200 236 Output Total 131 30 20 Balance 69 -30 216 Intake: Oral 200 236 Output: Drainage 130 30 20 Right Abdomen 130 30 20 Emesis 1 Other: Voiding Method Toilet Urinal # Voids 2 # Bowel Movements 1 - Labs CBC & Chem 7: 07/20/20 05:19 07/21/20 05:22 Labs: Abnormal Lab Results - Last 24 Hours (Table) 07/20/20 07/20/20 07/20/20 Range/Units 05:19 05:19 09:59 RBC 3.35 L (4.40-5.60) X 10*6/uL Hgb 9.3 L (13.0-17.0) g/dL Hct 29.8 L (39.6-50.0) % MCHC 31.2 L (32.0-37.0) g/dL Lymphocytes # 0.89 L (0.90-5.00) X 10*3/uL Sodium (137-145) mmol/L BUN 32.0 H (9.0-27.0) mg/dL BUN/Creatinine Ratio 22.86 H (12.00-20.00) Ratio Glucose 173 H (70-110) mg/dL POC Glucose (mg/dL) (75-99) mg/dL Calcium 7.4 L (8.7-10.3) mg/dL Total Protein (6.3-8.2) g/dL Albumin (3.5-5.0) g/dL Amylase <30 L (30-110) U/L 07/20/20 07/20/20 07/20/20 Range/Units 09:59 09:59 11:32 RBC (4.40-5.60) X 10*6/uL Hgb (13.0-17.0) g/dL Hct (39.6-50.0) % MCHC (32.0-37.0) g/dL Lymphocytes # (0.90-5.00) X 10*3/uL Sodium 134 L (137-145) mmol/L BUN 30 H (9.0-27.0) mg/dL BUN/Creatinine Ratio (12.00-20.00) Ratio Glucose 161 H (70-110) mg/dL POC Glucose (mg/dL) 160 H (75-99) mg/dL Calcium 7.3 L (8.7-10.3) mg/dL Total Protein 5.4 L (6.3-8.2) g/dL Albumin 2.5 L (3.5-5.0) g/dL Amylase (30-110) U/L 07/20/20 07/20/20 07/21/20 Range/Units 16:39 20:38 05:22 RBC (4.40-5.60) X 10*6/uL Hgb (13.0-17.0) g/dL Hct (39.6-50.0) % MCHC (32.0-37.0) g/dL Lymphocytes # (0.90-5.00) X 10*3/uL Sodium (137-145) mmol/L BUN (9.0-27.0) mg/dL BUN/Creatinine Ratio 20.83 H (12.00-20.00) Ratio Glucose 249 H (70-110) mg/dL POC Glucose (mg/dL) 167 H 248 H (75-99) mg/dL Calcium 7.3 L (8.7-10.3) mg/dL Total Protein (6.3-8.2) g/dL Albumin (3.5-5.0) g/dL Amylase (30-110) U/L 07/21/20 Range/Units 07:25 RBC (4.40-5.60) X 10*6/uL Hgb (13.0-17.0) g/dL Hct (39.6-50.0) % MCHC (32.0-37.0) g/dL Lymphocytes # (0.90-5.00) X 10*3/uL Sodium (137-145) mmol/L BUN (9.0-27.0) mg/dL BUN/Creatinine Ratio (12.00-20.00) Ratio Glucose (70-110) mg/dL POC Glucose (mg/dL) 226 H (75-99) mg/dL Calcium (8.7-10.3) mg/dL Total Protein (6.3-8.2) g/dL Albumin (3.5-5.0) g/dL Amylase (30-110) U/L Microbiology - Last 24 Hours (Table) 07/17/20 14:45 Blood Culture - Preliminary Blood No Growth after 72 hours 07/16/20 12:58 Blood Culture - Preliminary Blood No Growth after 96 hours Assessment and Plan Plan: Assessment: 1. Acute kidney injury secondary to ATN secondary to hemodynamic instability. Baseline creatinine near 1 and peaked at 2.7 this admission - stable at 1.2 today. No hydronephrosis noted on kidney ultrasound. 2. Acute cholecystitis status post laparoscopic cholecystectomy on 07/18/2020. 3. Hyponatremia secondary to acute kidney injury. Better. 4. Diabetes mellitus. 5. 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 Patient follows at [facility]. Plan: Decrease rate of normal saline to 50 mL an hour. Avoid nephrotoxins. Encourage oral intake.
[2020-07-21] MEDS: MORPHINE SULFATE ER 15 MG TABLET PO SCH (10:31)
--- NOTE | 2020-07-21 11:21 | P.PN ---
Subjective Progress Note Date: 07/21/20 CHIEF COMPLAINT: Acute cholecystitis HISTORY OF PRESENT ILLNESS: Patient is status post laparoscopic cholecystectomy. Postop day #3. Patient is still complaining of epigastric pain. He is still requiring IV pain medication. He has been having nausea. Patient reports no further vomiting. Per nursing nausea appears to be after the Dilaudid is given. He was able to have bowel movements. However, he does not feel any improvement in his abdominal pain after the bowel movements. Patient followed by GI service and they will be considering an endoscopy. Afebrile. PHYSICAL EXAM: VITAL SIGNS: Reviewed. GENERAL: Well-developed in no acute distress. HEENT: No sclera icterus. Extraocular movements grossly intact. Moist buccal mucosa. Head is atraumatic, normocephalic. ABDOMEN: Soft. Nondistended. Tenderness with palpation of epigastric area. Incision sites are clean dry and intact. NEUROLOGIC: Alert and oriented. Cranial nerves II through XII grossly intact. ASSESSMENT: 1. Acute cholecystitis with gangrenous gallbladder status post laparoscopic cholecystectomy 2. Epigastric Abdominal pain PLAN: -Awaiting further GI recommendations -Continue pain medication as needed -Continue antibiotics -Encourage patient to use incentive spirometer -Encourage patient to ambulate -GI prophylaxis Protonix and DVT prophylaxis Lovenox Physician Meat Butcher note has been reviewed by physician. Signing provider agrees with the documented findings, assessment, and plan of care. Objective - Vital Signs Vital signs: Vital Signs Temp 98.8 F 07/21/20 07:25 Pulse 78 07/21/20 07:25 Resp 14 07/21/20 07:25 BP 146/81 07/21/20 07:25 Pulse Ox 98 07/21/20 07:25 Intake & Output 07/20/20 07/21/20 07/21/20 18:59 06:59 18:59 Intake Total 200 236 Output Total 131 30 20 Balance 69 -30 216 Intake: Oral 200 236 Output: Drainage 130 30 20 Right Abdomen 130 30 20 Emesis 1 Other: Voiding Method Toilet Urinal # Voids 2 # Bowel Movements 1 - Labs CBC & Chem 7: 07/20/20 05:19 07/21/20 05:22 Labs: Abnormal Lab Results - Last 24 Hours (Table) 07/20/20 07/20/20 07/20/20 Range/Units 05:19 05:19 09:59 RBC 3.35 L (4.40-5.60) X 10*6/uL Hgb 9.3 L (13.0-17.0) g/dL Hct 29.8 L (39.6-50.0) % MCHC 31.2 L (32.0-37.0) g/dL Lymphocytes # 0.89 L (0.90-5.00) X 10*3/uL BUN 32.0 H (9.0-27.0) mg/dL BUN/Creatinine Ratio 22.86 H (12.00-20.00) Ratio Glucose 173 H (70-110) mg/dL POC Glucose (mg/dL) (75-99) mg/dL Calcium 7.4 L (8.7-10.3) mg/dL Total Protein 5.4 L (6.3-8.2) g/dL Albumin 2.5 L (3.5-5.0) g/dL 07/20/20 07/20/20 07/20/20 Range/Units 11:32 16:39 20:38 RBC (4.40-5.60) X 10*6/uL Hgb (13.0-17.0) g/dL Hct (39.6-50.0) % MCHC (32.0-37.0) g/dL Lymphocytes # (0.90-5.00) X 10*3/uL BUN (9.0-27.0) mg/dL BUN/Creatinine Ratio (12.00-20.00) Ratio Glucose (70-110) mg/dL POC Glucose (mg/dL) 160 H 167 H 248 H (75-99) mg/dL Calcium (8.7-10.3) mg/dL Total Protein (6.3-8.2) g/dL Albumin (3.5-5.0) g/dL 07/21/20 07/21/20 Range/Units 05:22 07:25 RBC (4.40-5.60) X 10*6/uL Hgb (13.0-17.0) g/dL Hct (39.6-50.0) % MCHC (32.0-37.0) g/dL Lymphocytes # (0.90-5.00) X 10*3/uL BUN (9.0-27.0) mg/dL BUN/Creatinine Ratio 20.83 H (12.00-20.00) Ratio Glucose 249 H (70-110) mg/dL POC Glucose (mg/dL) 226 H (75-99) mg/dL Calcium 7.3 L (8.7-10.3) mg/dL Total Protein (6.3-8.2) g/dL Albumin (3.5-5.0) g/dL Microbiology - Last 24 Hours (Table) 07/17/20 14:45 Blood Culture - Preliminary Blood No Growth after 72 hours 07/16/20 12:58 Blood Culture - Preliminary Blood No Growth after 96 hours
[2020-07-21 11:51] LABS: Glucose,Whole Blood 296 mg/dL (75-99)
--- NOTE | 2020-07-21 13:19 | P.PN ---
Subjective Progress Note Date: 07/21/20 Principal diagnosis: Epigastric pain This patient is a 39-year-old pleasant white male who was admitted to the hospital with severe epigastric pain and constipation that started about 1-2 weeks prior to hospitalization. His been having persistent epigastric pain. He is status post acute cholecystitis and underwent gallbladder surgery with Dr. Oglesby days ago. Today he states he continues to have this epigastric pain, however he states that it worsens with movement and twisting. He was given MiraLAX yesterday and has had several bowel movements through the night. He denies any nausea or vomiting. He states he is tolerating his diet well. Objective - Vital Signs Vital signs: Vital Signs Temp 98.8 F 07/21/20 07:25 Pulse 78 07/21/20 07:25 Resp 14 07/21/20 07:25 BP 146/81 07/21/20 07:25 Pulse Ox 98 07/21/20 07:25 Intake & Output 07/20/20 07/21/20 07/21/20 18:59 06:59 18:59 Intake Total 200 236 Output Total 131 30 20 Balance 69 -30 216 Intake: Oral 200 236 Output: Drainage 130 30 20 Right Abdomen 130 30 20 Emesis 1 Other: Voiding Method Toilet Urinal # Voids 2 # Bowel Movements 1 - Exam General appearance: The patient is alert, oriented, appears in no acute distress. Obese. HET: Head is normocephalic and atraumatic. Conjunctiva pink. Sclera anicteric. Neck: Supple without lymphadenopathy. Abdomen: Soft, nontender, nondistended with bowel sounds. No guarding or rigidity. Extremities: Normal skin color and turgor. No pedal edema Skin: Rashes to bilateral lower extremities, no jaundice Neurological: No focal deficits. Alert and oriented 3. - Labs CBC & Chem 7: 07/20/20 05:19 07/21/20 05:22 Labs: Abnormal Lab Results - Last 24 Hours (Table) 07/20/20 07/20/20 07/20/20 Range/Units 05:19 05:19 09:59 RBC 3.35 L (4.40-5.60) X 10*6/uL Hgb 9.3 L (13.0-17.0) g/dL Hct 29.8 L (39.6-50.0) % MCHC 31.2 L (32.0-37.0) g/dL Lymphocytes # 0.89 L (0.90-5.00) X 10*3/uL Sodium (137-145) mmol/L BUN 32.0 H (9.0-27.0) mg/dL BUN/Creatinine Ratio 22.86 H (12.00-20.00) Ratio Glucose 173 H (70-110) mg/dL POC Glucose (mg/dL) (75-99) mg/dL Calcium 7.4 L (8.7-10.3) mg/dL Total Protein (6.3-8.2) g/dL Albumin (3.5-5.0) g/dL Amylase <30 L (30-110) U/L 07/20/20 07/20/20 07/20/20 Range/Units 09:59 09:59 11:32 RBC (4.40-5.60) X 10*6/uL Hgb (13.0-17.0) g/dL Hct (39.6-50.0) % MCHC (32.0-37.0) g/dL Lymphocytes # (0.90-5.00) X 10*3/uL Sodium 134 L (137-145) mmol/L BUN 30 H (9.0-27.0) mg/dL BUN/Creatinine Ratio (12.00-20.00) Ratio Glucose 161 H (70-110) mg/dL POC Glucose (mg/dL) 160 H (75-99) mg/dL Calcium 7.3 L (8.7-10.3) mg/dL Total Protein 5.4 L (6.3-8.2) g/dL Albumin 2.5 L (3.5-5.0) g/dL Amylase (30-110) U/L 07/20/20 07/20/20 07/21/20 Range/Units 16:39 20:38 07:25 RBC (4.40-5.60) X 10*6/uL Hgb (13.0-17.0) g/dL Hct (39.6-50.0) % MCHC (32.0-37.0) g/dL Lymphocytes # (0.90-5.00) X 10*3/uL Sodium (137-145) mmol/L BUN (9.0-27.0) mg/dL BUN/Creatinine Ratio (12.00-20.00) Ratio Glucose (70-110) mg/dL POC Glucose (mg/dL) 167 H 248 H 226 H (75-99) mg/dL Calcium (8.7-10.3) mg/dL Total Protein (6.3-8.2) g/dL Albumin (3.5-5.0) g/dL Amylase (30-110) U/L Microbiology - Last 24 Hours (Table) 07/17/20 14:45 Blood Culture - Preliminary Blood No Growth after 72 hours 07/16/20 12:58 Blood Culture - Preliminary Blood No Growth after 96 hours Assessment and Plan (1) Epigastric pain Narrative/Plan: This is a gentleman who came in with complaints of severe epigastric pain for the last 1 week's duration. Patient underwent gallbladder surgery for possible acute cholecystitis and is postop day 3. He continues to have persistent epigastric pain. LFTs are within normal limits. He did have a CT of the abdomen as well as ultrasound abdomen done at the time of admission to the hospital that showed distended gallbladder with suggestion of biliary sludge and gallstones and some thickening of the gallbladder wall with a positive Archibald sign noted. He continues to have persistent epigastric pain despite the gallbladder surgery at this time other possibilities such as peptic ulcer disease or upper GI pathology need to be considered. She was continued epigastric pain. Will proceed with EGD tomorrow. Current Visit: Yes Status: Acute Code(s): R10.13 - EPIGASTRIC PAIN SNOMED Code(s): 79861922 (2) Constipation Narrative/Plan: Patient was started on MiraLAX, constipation improved. He had several bowel movements through the evening. 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 Continue Protonix 40 mg twice daily 2. Continue broad-spectrum antibiotics 3. MiraLAX twice a day ordered, may titrate according to bowel movement 4. Continue with symptomatic supportive care 5. Nothing by mouth after midnight 6. Will proceed with upper endoscopy tomorrow for continued epigastric pain, discussed with patient risks of procedure. Patient is agreeable to proceed with upper endoscopy tomorrow. THank you for this consultation we will continue to follow Dr. Madi Garcia I agree with the dictator's note, documented as a scribe by Veronica Burnett.
[2020-07-21] MEDS: HYDROcodone/APAP 5-325MG 1 EACH TAB PO PRN (14:13)
--- NOTE | 2020-07-21 15:27 | PN ---
PROGRESS NOTE DATE OF SERVICE: 07/21/2020 REASON FOR FOLLOWUP: Cholecystitis and fever. INTERVAL HISTORY: The patient is currently afebrile. The patient is feeling better today. He is breathing comfortably. The patient's pain to the right upper quadrant area has improved. Some pain to the epigastric area. Some nausea but no vomiting. Denies having any chest pain or shortness of breath or cough. PHYSICAL EXAMINATION: Blood pressure 146/81, pulse of 78, temperature 98.8. He is 98% on room air. General description is a middle-aged male up in the chair in no distress. RESPIRATORY SYSTEM: Unlabored breathing. Clear to auscultation anteriorly. HEART: S1, S2. Regular rate and rhythm. ABDOMEN: Soft. No tenderness. LABS: BUN of 25, creatinine is 1.2. DIAGNOSTIC IMPRESSION AND PLAN: Patient admitted to hospital with fever concerning for cholecystitis, status post cholecystectomy. He is covered with Zosyn. Transition to oral antibiotic on discharge. Continue with supportive care. MMODL / IJN: [id number] /
--- NOTE | 2020-07-21 16:10 | P.PN ---
Subjective Progress Note Date: 07/21/20 This is a 39-year-old gentleman admitted with abdominal pain, sepsis, status post laparoscopic cholecystectomy and multiple other medical issues. Reports one week ago is followed at [facility] regarding renal failure. Creatinine improving down to 1.9. Elevated d-dimer, VQ scan ordered. Lipase within normal limits. Passing flatus and bowel movement. Positive pain, pain management as per surgery; currently receiving Dilaudid. Maintained on Zosyn and IV fluids, T-max 99.8, WBC trending down to 15. Urine culture finalized, reported no growth, preliminary blood cultures no growth. Renal ultrasound report pending. Currentlystable, maintaining O2 sats in the 90s on room air. 07/20/2020 maintained on IV fluid hydration, Zosyn. VQ scan reported no evidence of mismatch deficits, very low probability for PE. Reporting midepigastric pain, unrelieved by current med regimen as well as chronic pain. on phone and reports patient is being worked up for unspecific autoimmune disorder at [facility]. Positive nausea and vomiting this morning on regular diet. Renal ultrasound reported no hydronephrosis. T-max 99, WBC pending-labs pending. 07/21/2019 pain improved, sitting up in chair, eating breakfast, tolerating well. Denies nausea vomiting. Evaluated by GI yesterday, discussing potential EGD, received MiraLAX with multiple bowel movements throughout the night. Reports mid epigastric pain still present. Creatinine stable, IV fluids decreased. Continues on Zosyn, Afebrile. Pathology reporting gangrenous acute cholecystitis with cholelithiasis, benign. Cystic lymph node. Objective - Vital Signs Vital signs: Vital Signs Temp 98.0 F 07/21/20 14:08 Pulse 84 07/21/20 14:08 Resp 16 07/21/20 14:08 BP 156/82 07/21/20 14:08 Pulse Ox 97 07/21/20 14:08 Intake & Output 07/20/20 07/21/20 07/21/20 18:59 06:59 18:59 Intake Total 200 236 Output Total 131 30 20 Balance 69 -30 216 Intake: Oral 200 236 Output: Drainage 130 30 20 Right Abdomen 130 30 20 Emesis 1 Other: Voiding Method Toilet Urinal # Voids 2 # Bowel Movements 1 - Exam PHYSICAL EXAM: VITAL SIGNS: As above GENERAL: Alert and oriented 3, Sitting up in chair, NAD HEENT: Conjunctivae normal. eyes normal. Oral mucosa moist. NECK: No JVD. No thyroid enlargement. CARDIOVASCULAR: S1, S2 regular.No murmur RESPIRATION: Respiratory effort unlabored, bilateral bases diminished ABDOMEN: Soft, nondistended, status post surgery ,Bowel sounds heard. LEGS: No edema. no swelling NERVOUS SYSTEM: Cranial N 2-12 grossly normal. No focal deficits. Strength and sensation grossly intact. - Labs CBC & Chem 7: 07/20/20 05:19 07/21/20 05:22 Labs: Abnormal Lab Results - Last 24 Hours (Table) 07/20/20 07/20/20 07/21/20 Range/Units 16:39 20:38 05:22 BUN/Creatinine Ratio 20.83 H (12.00-20.00) Ratio Glucose 249 H (70-110) mg/dL POC Glucose (mg/dL) 167 H 248 H (75-99) mg/dL Calcium 7.3 L (8.7-10.3) mg/dL 07/21/20 07/21/20 Range/Units 07:25 11:48 BUN/Creatinine Ratio (12.00-20.00) Ratio Glucose (70-110) mg/dL POC Glucose (mg/dL) 226 H 296 H (75-99) mg/dL Calcium (8.7-10.3) mg/dL Microbiology - Last 24 Hours (Table) 07/16/20 12:58 Blood Culture - Preliminary Blood No Growth after 120 hours 07/17/20 14:45 Blood Culture - Preliminary Blood No Growth after 72 hours Assessment and Plan Assessment: Abdominal pain with acute cholecystitis, sepsis present on admission, status post laparoscopic cholecystectomy for necrotic gallbladder. Pathology reporting gangrenous acute cholecystitis with cholelithiasis. Benign pericystic lymph node. Atelectasis ,Possible left basilar pneumonia, [id number] no cough, no shortness of breath, no congestion. Acute renal failure AT, nephrology following. Chronic renal failure, stage II. Reports he followed with [facility] nephrology one week ago Hyponatremia secondary to acute renal failure Anemia of possibly chronic disease, normocytic Diabetes mellitus type 2 Possible exacerbation of unspecific autoimmune disorder- reports currently being worked up at [facility]. 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 Where it was reversed by November 2019 History of Fall with right chest trauma history of left foot trauma, mainly involving the left first toes Diabetes mellitus, uncontrolled with hyperglycemia Plan: Continue on current medication regime, monitoring and symptomatically treatment. IV fluid hydration and antibiotics. GI has scheduled patient for EGD tomorrow. Increase ambulation, continue aggressive pulmonary toileting with incentive spirometer reinforced. This afternoon staff reports patient eating "Arbys". The impression and plan of care has been dictated as directed. : I performed a history and examination of this patient, discussed the same with the dictator. I agree with the dictator's note ,documented as a scribe. Any additional findings or plans will be noted.
[2020-07-21] MEDS: ONDANSETRON 4 MG/2 ML VIAL IVP PRN (17:00)
[2020-07-21 17:03] LABS: Glucose,Whole Blood 265 mg/dL (75-99)
[2020-07-21 19:57] LABS: Glucose,Whole Blood 247 mg/dL (75-99)
[2020-07-21] MEDS: PANTOPRAZOLE 40 MG TABLET PO SCH (20:08)
[2020-07-22] MEDS: HYDROmorphone 1 MG/ML 1 ML SYRINGE IVP PRN ×5 (00:15→21:45)
[2020-07-22] MEDS: PIPERACILLIN-TAZOBACTAM 3.375 GM in SODIUM CHLORIDE 0.9% 100 ML IVPB SCH ×3 (04:06→21:09)
[2020-07-22 07:03] LABS: Glucose,Whole Blood 222 mg/dL (75-99)
[2020-07-22] MEDS: INSULIN DETEMIR (LEVEMIR) 100 UNIT/ML SYR SQ SCH (07:25)
[2020-07-22] MEDS: INSULIN ASPART (NovoLOG) 100 UNIT/ML VIAL SQ SCH ×4 (07:48→21:45)
[2020-07-22] MEDS: methylPREDNISolone SOD SUCCI 40 MG/ML 1 ML VIAL IV SCH ×2 (07:50→16:22)
[2020-07-22] MEDS: PANTOPRAZOLE 40 MG TABLET PO SCH ×2 (08:46→21:45)
[2020-07-22] MEDS: ENOXAPARIN 40 MG/0.4 ML SYRINGE SQ SCH (08:46)
[2020-07-22] MEDS: MORPHINE SULFATE ER 15 MG TABLET PO SCH (08:46)
[2020-07-22] MEDS: GABAPENTIN 300 MG CAP PO SCH ×3 (08:46→21:45)
[2020-07-22] MEDS: polyethylene glycoL 3350 17 GM POWD.PACK PO SCH (08:47)
[2020-07-22] MEDS ORDERED: INSULIN DETEMIR (LEVEMIR) 100 UNIT/ML SYR SQ SCH (09:08)
[2020-07-22 09:09] LABS: Basophils # (A) 0.02 X 10*3/uL (0.00-0.10); Basophils % (A) 0.1 %; Eosinophils # (A) 0 X 10*3/uL (0.04-0.35); Eosinophils % (A) 0 %; HCT 33.2 % (39.6-50.0); HGB 10.6 g/dL (13.0-17.0); Lymphocytes # (A) 0.72 X 10*3/uL (0.90-5.00); Lymphocytes % (A) 4.6 %; MCH 27.8 pg (27.0-32.0); MCHC 31.9 g/dL (32.0-37.0); MCV 87.1 fL (80.0-97.0); Mean Platelet Volume 10.7 fL (9.5-12.2); Monocytes % (A) 6.4 %; Neutrophils # (A) 13.79 X 10*3/uL (1.80-7.70); Neutrophils % (A) 88.3 %; Platelet Count 292 X 10*3/uL (140-440); RBC 3.81 X 10*6/uL (4.40-5.60); RDW 13.2 % (11.5-14.5); WBC 15.63 X 10*3/uL (4.50-10.00)
[2020-07-22 10:10] LABS: African American GFR (CKD) 108.6 (60.0-200.0); Anion Gap 10.4 mmol/L (4.00-12.00); Calcium 7.6 mg/dL (8.7-10.3); Carbon Dioxide 20.6 mmol/L (21.6-31.8); Non-African American GFR(CKD) 93.7 (60.0-200.0); Potassium 4.5 mmol/L (3.5-5.5)
[2020-07-22] MEDS ORDERED: ONDANSETRON 4 MG/2 ML VIAL ONE (10:13)
[2020-07-22] MEDS ORDERED: LIDOCAINE 1% INJ 10MG/ML (20 ML MDV) ONE (10:13)
[2020-07-22] MEDS ORDERED: PROPOFOL 10 MG/ML 20 ML VIAL IV ONE (10:13)
[2020-07-22] MEDS ORDERED: IV FLUID CONTINUATION 1,000 ML IV ONE (10:17)
--- NOTE | 2020-07-22 10:31 | P.PCN ---
Date of Procedure: 07/22/20 Description of Procedure: BRIEF HISTORY: Patient is a 39-year-old pleasant white male who was admitted to the hospital with severe epigastric pain and constipation that started about 1-2 weeks prior to hospitalization. His been having persistent epigastric pain. He is status post acute cholecystitis and underwent gallbladder surgery with Dr. Oglesby days ago. Today he states he continues to have this epigastric pain, however he states that it worsens with movement and twisting. He was given MiraLAX yesterday and has had several bowel movements through the night. He denies any nausea or vomiting. He states he is tolerating his diet well. PROCEDURE PERFORMED: Esophagogastroduodenoscopy with biopsy. PREOPERATIVE DIAGNOSIS: Epigastric abdominal pain. ESTIMATED BLOOD LOSS: Minimal. IV sedation per anesthesia. PROCEDURE: After informed consent was obtained, the patient was brought into the endoscopy unit. IV sedation was administered by Anesthesia under continuous monitoring. Initially the Olympus GIF-190 video endoscope was inserted into the mouth. Esophagus intubated without any difficulty. It was gradually advanced into the stomach and duodenum and carefully examined. The bulb and the second part of the duodenum appeared normal, with biopsies taken. The scope at this time was withdrawn to the stomach, adequately insufflated with air, and upon careful examination, mucosa of the antrum, body, cardia and the fundus appeared normal, except for diffuse erythema with some superficial erosions suggestive of moderate gastritis with biopsies of the antrum and body taken. The scope was then withdrawn into the esophagus. The GE junction was located at 39 cm from the incisors and biopsied. The esophagus appeared normal. There were no erosions or ulcerations seen and the patient tolerated the procedure well. IMPRESSION: 1. Moderate gastritis. 2. Diffuse of the duodenum, antrum body and GE junction. RECOMMENDATIONS: The findings of this examination were discussed with the patient.. Okay to resume medication. Okay to resume diet. Continue Protonix twice daily. Will start a short course of sucralfate before meals and at bedtime. Await pathology from biopsies. Okay for discharge from GI standpoint when otherwise medically stable.
[2020-07-22 11:09] LABS: Glucose,Whole Blood 198 mg/dL (75-99)
--- NOTE | 2020-07-22 11:13 | P.PN ---
Subjective Progress Note Date: 07/22/20 CHIEF COMPLAINT: Acute cholecystitis HISTORY OF PRESENT ILLNESS: Patient seen and examined with Dr. Oglesby. Patient is status post laparoscopic cholecystectomy. Postop day #4. Patient is still complaining of epigastric pain. He is still requiring IV pain medication. He has been having nausea. Patient reports no further vomiting. He is having diarrhea type bowel movements. He had EGD this morning which showed moderate gastritis. GI service recommended Protonix and Carafate. Patient is afebrile. WBC is up at 15.63 but he is on IV steroids. PHYSICAL EXAM: VITAL SIGNS: Reviewed. GENERAL: Well-developed in no acute distress. HEENT: No sclera icterus. Extraocular movements grossly intact. Moist buccal mucosa. Head is atraumatic, normocephalic. ABDOMEN: Soft. Nondistended. Tenderness with palpation of epigastric area. Incision sites are clean dry and intact. NEUROLOGIC: Alert and oriented. Cranial nerves II through XII grossly intact. ASSESSMENT: 1. Acute cholecystitis with gangrenous gallbladder status post laparoscopic cholecystectomy 2. Epigastric Abdominal pain status post EGD showing moderate gastritis PLAN: -Check computed tomography scan of the abdomen and pelvis with oral contrast due to patient's continuing abdominal pain. Need to rule out abscess since patient did have a gangrenous gallbladder. -Continue pain medication as needed -Continue antibiotics -Encourage patient to use incentive spirometer -Encourage patient to ambulate -GI prophylaxis Protonix and DVT prophylaxis Lovenox Physician Educational Paraprofessional note has been reviewed by physician. Signing provider agrees with the documented findings, assessment, and plan of care. Objective - Vital Signs Vital signs: Vital Signs Temp 97.3 F L 07/22/20 07:18 Pulse 83 07/22/20 07:18 Resp 20 07/22/20 07:34 BP 154/95 07/22/20 07:18 Pulse Ox 98 07/22/20 07:58 Intake & Output 07/21/20 07/22/20 07/22/20 18:59 06:59 18:59 Intake Total 436 620 50 Output Total 40 160 30 Balance 396 460 20 Intake: IV 50 Oral 236 620 Other 200 Output: Drainage 40 160 30 Right Abdomen 40 160 30 Other: Voiding Method Toilet Toilet # Voids 4 # Bowel Movements 2 - Labs CBC & Chem 7: 07/22/20 06:03 07/22/20 06:03 Labs: Abnormal Lab Results - Last 24 Hours (Table) 07/21/20 07/21/20 07/21/20 Range/Units 11:48 17:02 19:56 WBC (4.50-10.00) X 10*3/uL RBC (4.40-5.60) X 10*6/uL Hgb (13.0-17.0) g/dL Hct (39.6-50.0) % MCHC (32.0-37.0) g/dL Immature Gran # (0.00-0.04) X 10*3/uL Neutrophils # (1.80-7.70) X 10*3/uL Lymphocytes # (0.90-5.00) X 10*3/uL Eosinophils # (0.04-0.35) X 10*3/uL Carbon Dioxide (21.6-31.8) mmol/L BUN/Creatinine Ratio (12.00-20.00) Ratio Glucose (70-110) mg/dL POC Glucose (mg/dL) 296 H 265 H 247 H (75-99) mg/dL Calcium (8.7-10.3) mg/dL 07/22/20 07/22/20 07/22/20 Range/Units 06:03 06:03 06:59 WBC 15.63 H (4.50-10.00) X 10*3/uL RBC 3.81 L (4.40-5.60) X 10*6/uL Hgb 10.6 L (13.0-17.0) g/dL Hct 33.2 L (39.6-50.0) % MCHC 31.9 L (32.0-37.0) g/dL Immature Gran # 0.10 H (0.00-0.04) X 10*3/uL Neutrophils # 13.79 H (1.80-7.70) X 10*3/uL Lymphocytes # 0.72 L (0.90-5.00) X 10*3/uL Eosinophils # 0 L (0.04-0.35) X 10*3/uL Carbon Dioxide 20.6 L (21.6-31.8) mmol/L BUN/Creatinine Ratio 24.00 H (12.00-20.00) Ratio Glucose 226 H (70-110) mg/dL POC Glucose (mg/dL) 222 H (75-99) mg/dL Calcium 7.6 L (8.7-10.3) mg/dL Microbiology - Last 24 Hours (Table) 07/17/20 14:45 Blood Culture - Preliminary Blood No Growth after 96 hours 07/16/20 12:58 Blood Culture - Preliminary Blood No Growth after 120 hours
--- NOTE | 2020-07-22 11:23 | P.PN ---
Subjective Patient is seen in follow-up for acute kidney injury. Renal function improved. No vomiting today. No chest pain or shortness of breath. Has been voiding. Hemodynamically stable. Underwent EGD this morning which revealed moderate gastritis. Vital signs are stable. General: The patient appeared well nourished and normally developed. HEENT: Head exam is unremarkable. Neck is without jugular venous distension. LUNGS: Breath sounds decreased. HEART: Rate and Rhythm are regular. ABDOMEN: Soft. Generalized tenderness. EXTREMITITES: Trace edema. Objective - Vital Signs Vital signs: Vital Signs Temp 97.3 F L 07/22/20 07:18 Pulse 83 07/22/20 07:18 Resp 20 07/22/20 07:34 BP 154/95 07/22/20 07:18 Pulse Ox 98 07/22/20 07:58 Intake & Output 07/21/20 07/22/20 07/22/20 18:59 06:59 18:59 Intake Total 436 620 50 Output Total 40 160 30 Balance 396 460 20 Intake: IV 50 Oral 236 620 Other 200 Output: Drainage 40 160 30 Right Abdomen 40 160 30 Other: Voiding Method Toilet Toilet # Voids 4 # Bowel Movements 2 - Labs CBC & Chem 7: 07/22/20 06:03 07/22/20 06:03 Labs: Abnormal Lab Results - Last 24 Hours (Table) 07/21/20 07/21/20 07/21/20 Range/Units 11:48 17:02 19:56 WBC (4.50-10.00) X 10*3/uL RBC (4.40-5.60) X 10*6/uL Hgb (13.0-17.0) g/dL Hct (39.6-50.0) % MCHC (32.0-37.0) g/dL Immature Gran # (0.00-0.04) X 10*3/uL Neutrophils # (1.80-7.70) X 10*3/uL Lymphocytes # (0.90-5.00) X 10*3/uL Eosinophils # (0.04-0.35) X 10*3/uL Carbon Dioxide (21.6-31.8) mmol/L BUN/Creatinine Ratio (12.00-20.00) Ratio Glucose (70-110) mg/dL POC Glucose (mg/dL) 296 H 265 H 247 H (75-99) mg/dL Calcium (8.7-10.3) mg/dL 07/22/20 07/22/20 07/22/20 Range/Units 06:03 06:03 06:59 WBC 15.63 H (4.50-10.00) X 10*3/uL RBC 3.81 L (4.40-5.60) X 10*6/uL Hgb 10.6 L (13.0-17.0) g/dL Hct 33.2 L (39.6-50.0) % MCHC 31.9 L (32.0-37.0) g/dL Immature Gran # 0.10 H (0.00-0.04) X 10*3/uL Neutrophils # 13.79 H (1.80-7.70) X 10*3/uL Lymphocytes # 0.72 L (0.90-5.00) X 10*3/uL Eosinophils # 0 L (0.04-0.35) X 10*3/uL Carbon Dioxide 20.6 L (21.6-31.8) mmol/L BUN/Creatinine Ratio 24.00 H (12.00-20.00) Ratio Glucose 226 H (70-110) mg/dL POC Glucose (mg/dL) 222 H (75-99) mg/dL Calcium 7.6 L (8.7-10.3) mg/dL 07/22/20 Range/Units 11:08 WBC (4.50-10.00) X 10*3/uL RBC (4.40-5.60) X 10*6/uL Hgb (13.0-17.0) g/dL Hct (39.6-50.0) % MCHC (32.0-37.0) g/dL Immature Gran # (0.00-0.04) X 10*3/uL Neutrophils # (1.80-7.70) X 10*3/uL Lymphocytes # (0.90-5.00) X 10*3/uL Eosinophils # (0.04-0.35) X 10*3/uL Carbon Dioxide (21.6-31.8) mmol/L BUN/Creatinine Ratio (12.00-20.00) Ratio Glucose (70-110) mg/dL POC Glucose (mg/dL) 198 H (75-99) mg/dL Calcium (8.7-10.3) mg/dL Microbiology - Last 24 Hours (Table) 07/17/20 14:45 Blood Culture - Preliminary Blood No Growth after 96 hours 07/16/20 12:58 Blood Culture - Preliminary Blood No Growth after 120 hours Assessment and Plan Plan: Assessment: 1. Acute kidney injury secondary to ATN secondary to hemodynamic instability. Baseline creatinine near 1 and peaked at 2.7 this admission -1.0 today. No hydronephrosis noted on kidney ultrasound. 2. Acute cholecystitis status post laparoscopic cholecystectomy on 07/18/2020. 3. Hyponatremia secondary to acute kidney injury. Better. 4. Diabetes mellitus. 5. 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 Patient follows at [facility]. Plan: Maintain normal saline at 50 mL an hour. Avoid nephrotoxins. Encourage oral intake.
[2020-07-22] MEDS: SUCRALFATE 1 GM TAB PO SCH ×3 (12:29→21:45)
[2020-07-22] MEDS: IOPAMIDOL CONTRAST (ORAL USE) VIAL PO PRN ×2 (13:32→14:28)
[2020-07-22 13:53] VITALS: BMI 33.4
--- NOTE | 2020-07-22 14:46 | P.PN ---
Subjective Progress Note Date: 07/22/20 This is a 39-year-old gentleman admitted with abdominal pain, sepsis, status post laparoscopic cholecystectomy and multiple other medical issues. Reports one week ago is followed at [facility] regarding renal failure. Creatinine improving down to 1.9. Elevated d-dimer, VQ scan ordered. Lipase within normal limits. Passing flatus and bowel movement. Positive pain, pain management as per surgery; currently receiving Dilaudid. Maintained on Zosyn and IV fluids, T-max 99.8, WBC trending down to 15. Urine culture finalized, reported no growth, preliminary blood cultures no growth. Renal ultrasound report pending. Currentlystable, maintaining O2 sats in the 90s on room air. 07/20/2020 maintained on IV fluid hydration, Zosyn. VQ scan reported no evidence of mismatch deficits, very low probability for PE. Reporting midepigastric pain, unrelieved by current med regimen as well as chronic pain. on phone and reports patient is being worked up for unspecific autoimmune disorder at [facility]. Positive nausea and vomiting this morning on regular diet. Renal ultrasound reported no hydronephrosis. T-max 99, WBC pending-labs pending. 07/21/2019 pain improved, sitting up in chair, eating breakfast, tolerating well. Denies nausea vomiting. Evaluated by GI yesterday, discussing potential EGD, received MiraLAX with multiple bowel movements throughout the night. Reports mid epigastric pain still present. Creatinine stable, IV fluids decreased. Continues on Zosyn, Afebrile. Pathology reporting gangrenous acute cholecystitis with cholelithiasis, benign. Cystic lymph node. 07/22/2019 maintained on IV fluid hydration. NPO, scheduled for EGD today. Persistent midepigastric pain , maintained on IV push Dilaudid as per surgery. Complains of nausea, diarrhea. Afebrile, WBC up to 15.63. Objective - Vital Signs Vital signs: Vital Signs Temp 97.3 F L 07/22/20 07:18 Pulse 83 07/22/20 07:18 Resp 20 07/22/20 07:34 BP 154/95 07/22/20 07:18 Pulse Ox 98 07/22/20 07:58 Intake & Output 07/21/20 07/22/20 07/22/20 18:59 06:59 18:59 Intake Total 436 620 Output Total 40 160 30 Balance 396 460 -30 Intake: Oral 236 620 Other 200 Output: Drainage 40 160 30 Right Abdomen 40 160 30 Other: Voiding Method Toilet Toilet # Voids 4 # Bowel Movements 2 - Exam PHYSICAL EXAM: VITAL SIGNS: As above GENERAL: Alert and oriented 3, NAD HEENT: Conjunctivae normal. eyes normal. Oral mucosa moist. NECK: Supple, No JVD. CARDIOVASCULAR: S1, S2 regular.No murmur RESPIRATION: Respiratory effort unlabored, bilateral bases diminished. ABDOMEN: Soft, nondistended, status post surgery ,Bowel sounds heard. LEGS: No edema. no swelling NERVOUS SYSTEM: Cranial N 2-12 grossly normal. No focal deficits. Strength and sensation grossly intact. - Labs CBC & Chem 7: 07/22/20 06:03 07/22/20 06:03 Labs: Abnormal Lab Results - Last 24 Hours (Table) 07/21/20 07/21/20 07/21/20 Range/Units 05:22 11:48 17:02 BUN/Creatinine Ratio 20.83 H (12.00-20.00) Ratio Glucose 249 H (70-110) mg/dL POC Glucose (mg/dL) 296 H 265 H (75-99) mg/dL Calcium 7.3 L (8.7-10.3) mg/dL 07/21/20 07/22/20 Range/Units 19:56 06:59 BUN/Creatinine Ratio (12.00-20.00) Ratio Glucose (70-110) mg/dL POC Glucose (mg/dL) 247 H 222 H (75-99) mg/dL Calcium (8.7-10.3) mg/dL Microbiology - Last 24 Hours (Table) 07/17/20 14:45 Blood Culture - Preliminary Blood No Growth after 96 hours 07/16/20 12:58 Blood Culture - Preliminary Blood No Growth after 120 hours Assessment and Plan Assessment: Abdominal pain with acute cholecystitis, sepsis present on admission, status post laparoscopic cholecystectomy for necrotic gallbladder. Pathology reporting gangrenous acute cholecystitis with cholelithiasis. Benign pericystic lymph node. Status post EGD reporting moderate gastritis, biopsies obtained. CT pending. Atelectasis ,Possible left basilar pneumonia, [id number] no cough, no shortness of breath, no congestion. Acute renal failure ATN, nephrology following. Chronic renal failure, stage II. Reports he followed with [facility] nephrology one week ago Hyponatremia secondary to acute renal failure Anemia of possibly chronic disease, normocytic Diabetes mellitus type 2 Possible exacerbation of unspecific autoimmune disorder- reports currently being worked up at [facility]. 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 Where it was reversed by November 2019 History of Fall with right chest trauma history of left foot trauma, mainly involving the left first toes Diabetes mellitus, uncontrolled with hyperglycemia Plan: Continue on current medication regime, monitoring and symptomatically treatment. Maintain IV fluid hydration, antibiotics. EGD completed reporting moderate gastritis , diffuse erythema, recommending PPI twice a day, Carafate .biopsies obtained.CT of abdomen and pelvis pending, ruling out abscess. Aggressive pulmonary toileting with incentive spirometer reinforced. The impression and plan of care has been dictated as directed. : I performed a history and examination of this patient, discussed the same with the dictator. I agree with the dictator's note ,documented as a scribe. Any additional findings or plans will be noted.
--- NOTE | 2020-07-22 15:35 | CT ---
EXAMINATION TYPE: CT abdomen pelvis wo con DATE OF EXAM: 07/22/2020 COMPARISON: 07/16/2020 HISTORY: Abdominal pain. recent jerzy sx CT DLP: 1293.[address] of the abdomen and pelvis was performed. Examination of the solid and hollow viscera is limited given the lack of contrast. FINDINGS: LUNG BASES: No evidence for nodule. Basilar atelectasis noted. LIVER/GB: There is been interval cholecystectomy. Drainage catheter is noted. No evidence for large c ollection. No space-occupying hepatic lesion. PANCREAS: No pancreatic mass identified. No inflammatory process seen. SPLEEN: No evidence for splenomegaly. No intrasplenic lesions seen. ADRENALS: No adrenal nodules identified. No evidence for thickening. KIDNEYS: No evidence for renal mass. No nephrolithiasis. No hydronephrosis. BOWEL: Appendix has a normal appearance. No evidence of bowel obstruction. No inflammatory process. Lymph nodes: No evidence for adenopathy greater than 1 cm. Abdominal aorta: Atheromatous changes seen. No evidence for aneurysm. Genital organs: No significant abnormality. Other: Midline ventral hernia measuring 8.3 cm contains a segment of small bowel without evidence for incarceration. Stable fat-containing spigelian hernia on the left. IMPRESSION: 1. Status post cholecystectomy with drainage catheter in place. No evidence for collection. 2 left lo wer lobe atelectasis or infiltrate. 3. Tiny amount of fluid within the pelvis. 4. Hernias as discussed.
[2020-07-22] MEDS: SODIUM CHLORIDE 0.9% 1,000 ML IV SCH (16:20)
[2020-07-22 21:26] LABS: Glucose,Whole Blood 225 mg/dL (75-99)
[2020-07-22] MEDS: VANCOMYCIN 125 MG CAPSULE PO SCH (21:45)
--- NOTE | 2020-07-22 23:40 | PN ---
PROGRESS NOTE DATE OF SERVICE: 07/22/2020 REASON FOR FOLLOWUP: Cholecystitis and a fever. INTERVAL HISTORY: The patient is currently afebrile. The patient is breathing comfortably. The patient denies having any chest pain or shortness of breath or cough. No abdominal pain or diarrhea. PHYSICAL EXAMINATION: Blood pressure is 153/93 with a pulse of 87, temperature 97.6. He is 99% on room air. General description is a middle-aged male lying in bed in no distress. RESPIRATORY SYSTEM: Unlabored breathing. Clear to auscultation anteriorly. HEART: S1, S2. Regular rate and rhythm. ABDOMEN: Soft. No tenderness. LABS: Hemoglobin is 10.6, white count 15.63, creatinine 1.0. DIAGNOSTIC IMPRESSION AND PLAN: 1. Patient admitted to hospital with a fever with concern for cholecystitis, status post cholecystectomy. Patient was treated with Zosyn. That was discontinued by primary team. 2. Patient with diarrhea. Stool for C difficile was positive. Vancomycin has been added and the patient will be monitored closely. MMODL / IJN: [id number] /
[2020-07-23] MEDS: HYDROmorphone 1 MG/ML 1 ML SYRINGE IVP PRN ×2 (00:45→06:06)
[2020-07-23] MEDS: methylPREDNISolone SOD SUCCI 40 MG/ML 1 ML VIAL IV SCH ×4 (00:46→23:45)
[2020-07-23 07:07] LABS: Glucose,Whole Blood 174 mg/dL (75-99)
[2020-07-23] MEDS: INSULIN DETEMIR (LEVEMIR) 100 UNIT/ML SYR SQ SCH (07:29)
[2020-07-23] MEDS: INSULIN ASPART (NovoLOG) 100 UNIT/ML VIAL SQ SCH ×4 (07:29→20:13)
[2020-07-23] MEDS: SUCRALFATE 1 GM TAB PO SCH ×4 (07:30→20:13)
[2020-07-23] MEDS: GABAPENTIN 300 MG CAP PO SCH ×3 (08:58→20:13)
[2020-07-23] MEDS: MORPHINE SULFATE ER 15 MG TABLET PO SCH (08:59)
[2020-07-23] MEDS: PANTOPRAZOLE 40 MG TABLET PO SCH ×2 (08:59→20:13)
[2020-07-23] MEDS: ENOXAPARIN 40 MG/0.4 ML SYRINGE SQ SCH (09:00)
[2020-07-23] MEDS: VANCOMYCIN 125 MG CAPSULE PO SCH ×4 (09:01→20:13)
[2020-07-23] MEDS: polyethylene glycoL 3350 17 GM POWD.PACK PO SCH (09:01)
--- NOTE | 2020-07-23 10:07 | P.PN ---
Subjective Patient is seen in follow-up for acute kidney injury. Renal function improved - creatinine 1.0 as of yesterday. No vomiting or diarrhea. No chest pain or shortness of breath. Has been voiding. Hemodynamically stable. He's on oral vancomycin for C. diff. Vital signs are stable. General: The patient appeared well nourished and normally developed. HEENT: Head exam is unremarkable. Neck is without jugular venous distension. LUNGS: Breath sounds decreased. HEART: Rate and Rhythm are regular. ABDOMEN: Soft. Generalized tenderness. EXTREMITITES: Trace edema. Objective - Vital Signs Vital signs: Vital Signs Temp 97.7 F 07/23/20 07:35 Pulse 68 07/23/20 07:35 Resp 18 07/23/20 07:37 BP 175/89 07/23/20 07:35 Pulse Ox 100 07/23/20 07:35 Intake & Output 07/22/20 07/23/20 07/23/20 18:59 06:59 18:59 Intake Total 50 600 Output Total 115 77 30 Balance -65 523 -30 Weight 99.79 kg Intake: IV 50 Intake, IV Titration 600 Amount Sodium Chloride 0.9% 1, 600 000 ml @ 50 mls/hr IV . Q20H [facility] Rx#:[id number] Output: Drainage 115 77 30 Right Abdomen 115 77 30 Other: Voiding Method Toilet Toilet Toilet # Voids 2 # Bowel Movements 2 - Labs CBC & Chem 7: 07/22/20 06:03 07/22/20 06:03 Labs: Abnormal Lab Results - Last 24 Hours (Table) 07/22/20 07/22/20 07/22/20 Range/Units 06:03 11:08 14:38 Carbon Dioxide 20.6 L (21.6-31.8) mmol/L BUN/Creatinine Ratio 24.00 H (12.00-20.00) Ratio Glucose 226 H (70-110) mg/dL POC Glucose (mg/dL) 198 H (75-99) mg/dL Calcium 7.6 L (8.7-10.3) mg/dL C. difficile (EIA) Intrp Positive A (Negative) 07/22/20 07/23/20 Range/Units 21:24 07:04 Carbon Dioxide (21.6-31.8) mmol/L BUN/Creatinine Ratio (12.00-20.00) Ratio Glucose (70-110) mg/dL POC Glucose (mg/dL) 225 H 174 H (75-99) mg/dL Calcium (8.7-10.3) mg/dL C. difficile (EIA) Intrp (Negative) Microbiology - Last 24 Hours (Table) 07/17/20 14:45 Blood Culture - Preliminary Blood No Growth after 120 hours 07/16/20 12:58 Blood Culture - Final Blood No Growth after 144 hours Assessment and Plan Plan: Assessment: 1. Acute kidney injury secondary to ATN secondary to hemodynamic instability. Baseline creatinine near 1 and peaked at 2.7 this admission -1.0 . as of yesterday No hydronephrosis noted on kidney ultrasound. 2. Acute cholecystitis status post laparoscopic cholecystectomy on 07/18/2020. 3. Hyponatremia secondary to acute kidney injury. Better. 4. Diabetes mellitus. 5. 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 Patient follows at [facility]. 6. C. diff colitis maintained on oral vancomycin. Plan: Hep-Lock IV fluids. Avoid nephrotoxins. Encourage oral intake.
--- NOTE | 2020-07-23 10:27 | P.PN ---
Subjective Progress Note Date: 07/23/20 This is a 39-year-old gentleman admitted with abdominal pain, sepsis, status post laparoscopic cholecystectomy and multiple other medical issues. Reports one week ago is followed at [facility] regarding renal failure. Creatinine improving down to 1.9. Elevated d-dimer, VQ scan ordered. Lipase within normal limits. Passing flatus and bowel movement. Positive pain, pain management as per surgery; currently receiving Dilaudid. Maintained on Zosyn and IV fluids, T-max 99.8, WBC trending down to 15. Urine culture finalized, reported no growth, preliminary blood cultures no growth. Renal ultrasound report pending. Currentlystable, maintaining O2 sats in the 90s on room air. 07/20/2020 maintained on IV fluid hydration, Zosyn. VQ scan reported no evidence of mismatch deficits, very low probability for PE. Reporting midepigastric pain, unrelieved by current med regimen as well as chronic pain. on phone and reports patient is being worked up for unspecific autoimmune disorder at [facility]. Positive nausea and vomiting this morning on regular diet. Renal ultrasound reported no hydronephrosis. T-max 99, WBC pending-labs pending. 07/21/2020 pain improved, sitting up in chair, eating breakfast, tolerating well. Denies nausea vomiting. Evaluated by GI yesterday, discussing potential EGD, received MiraLAX with multiple bowel movements throughout the night. Reports mid epigastric pain still present. Creatinine stable, IV fluids decreased. Continues on Zosyn, Afebrile. Pathology reporting gangrenous acute cholecystitis with cholelithiasis, benign. Cystic lymph node. 07/22/2020 maintained on IV fluid hydration. NPO, scheduled for EGD today. Persistent midepigastric pain , maintained on IV push Dilaudid as per surgery. Complains of nausea, diarrhea. Afebrile, WBC up to 15.63. 07/23/2020 CT of abdomen and pelvis reported no evidence of collection, tiny amount of fluid within the pelvis, midline ventral hernia measuring 8.3 cm con taining a segment of small bowel without evidence for incarceration. apparently patient was having diarrhea, tested positive for C. difficile colitis. Vancomycin added to med regimen. Abdominal pain improved. Afebrile. Denies chest pain, palpitations or shortness of breath. Objective - Vital Signs Vital signs: Vital Signs Temp 97.7 F 07/23/20 07:35 Pulse 68 07/23/20 07:35 Resp 18 07/23/20 07:37 BP 175/89 07/23/20 07:35 Pulse Ox 100 07/23/20 07:35 Intake & Output 07/22/20 07/23/20 07/23/20 18:59 06:59 18:59 Intake Total 50 600 Output Total 115 77 30 Balance -65 523 -30 Weight 99.79 kg Intake: IV 50 Intake, IV Titration 600 Amount Sodium Chloride 0.9% 1, 600 000 ml @ 50 mls/hr IV . Q20H [facility] Rx#:[id number] Output: Drainage 115 77 30 Right Abdomen 115 77 30 Other: Voiding Method Toilet Toilet Toilet # Voids 2 # Bowel Movements 2 - Exam PHYSICAL EXAM: VITAL SIGNS: As above GENERAL: Alert and oriented 3, NAD HEENT: Conjunctivae normal. eyes normal. NECK: Supple, No JVD. CARDIOVASCULAR: S1, S2 regular.No murmur RESPIRATION: Unlabored, diminished bilateral bases. ABDOMEN: Soft, nondistended, status post surgery, positive Bowel sounds. LEGS: No edema. no swelling NERVOUS SYSTEM: Cranial N 2-12 grossly normal. No focal deficits. Strength and sensation grossly intact. - Labs CBC & Chem 7: 07/22/20 06:03 07/22/20 06:03 Labs: Abnormal Lab Results - Last 24 Hours (Table) 07/22/20 07/22/20 07/22/20 Range/Units 06:03 11:08 14:38 Carbon Dioxide 20.6 L (21.6-31.8) mmol/L BUN/Creatinine Ratio 24.00 H (12.00-20.00) Ratio Glucose 226 H (70-110) mg/dL POC Glucose (mg/dL) 198 H (75-99) mg/dL Calcium 7.6 L (8.7-10.3) mg/dL C. difficile (EIA) Intrp Positive A (Negative) 07/22/20 07/23/20 Range/Units 21:24 07:04 Carbon Dioxide (21.6-31.8) mmol/L BUN/Creatinine Ratio (12.00-20.00) Ratio Glucose (70-110) mg/dL POC Glucose (mg/dL) 225 H 174 H (75-99) mg/dL Calcium (8.7-10.3) mg/dL C. difficile (EIA) Intrp (Negative) Microbiology - Last 24 Hours (Table) 07/17/20 14:45 Blood Culture - Preliminary Blood No Growth after 120 hours 07/16/20 12:58 Blood Culture - Final Blood No Growth after 144 hours Assessment and Plan Assessment: Abdominal pain with acute cholecystitis, sepsis present on admission, status post laparoscopic cholecystectomy for necrotic gallbladder. Pathology reporting gangrenous acute cholecystitis with cholelithiasis. Benign pericystic lymph node. Status post EGD reporting moderate gastritis, biopsies obtained. Acute C. difficile colitis. Midline ventral hernia measuring 8.3 cm containing a segment of small bowel without evidence for incarceration per CT. Atelectasis ,Possible left basilar pneumonia, [id number] no cough, no shortness of breath, no congestion. Acute renal failure ATN, nephrology following. Chronic renal failure, stage II. Reports he followed with [facility] nephrology one week ago Hyponatremia secondary to acute renal failure Anemia of possibly chronic disease, normocytic Diabetes mellitus type 2 Possible exacerbation of unspecific autoimmune disorder- reports currently being worked up at [facility]. 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 Where it was reversed by November 2019 History of Fall with right chest trauma history of left foot trauma, mainly involving the left first toes Diabetes mellitus, uncontrolled with hyperglycemia Plan: Continue on current medication regime, monitoring and symptomatically treatment. Oral vancomycin had to med regimen .increase ambulation as tolerated .continue aggressive pulmonary toileting with incentive spirometer reinforced. Discharge planning in progress for tomorrow. The impression and plan of care has been dictated as directed. : I performed a history and examination of this patient, discussed the same with the dictator. I agree with the dictator's note ,documented as a scribe. Any additional findings or plans will be noted.
[2020-07-23] MEDS: SODIUM CHLORIDE 0.9% 1,000 ML IV SCH (10:57)
[2020-07-23 11:36] LABS: Glucose,Whole Blood 208 mg/dL (75-99)
--- NOTE | 2020-07-23 13:11 | P.PN ---
Subjective Progress Note Date: 07/23/20 CHIEF COMPLAINT: Acute cholecystitis HISTORY OF PRESENT ILLNESS: Patient seen and examined with Dr. Oglesby. Patient is status post laparoscopic cholecystectomy. Postop day #5. The patient is complaining of diarrhea. Stool for C. diff was positive. Oral vancomycin was started by medicine service. His IV Zosyn was discontinued. Patient has had some improvement in his abdominal pain. Afebrile. No new labs for today Computed tomography scan of the abdomen and pelvis with oral contrast shows st atus post cholecystectomy with drainage catheter in place. No evidence for fluid collection. left lower lobe atelectasis or infiltrate. Tiny amount of fluid within the pelvis. Ventral hernia measuring 8.3 cm contains a segment of small bowel without evidence of for incarceration. Stable fat-containing spigelian hernia on the left PHYSICAL EXAM: VITAL SIGNS: Reviewed. GENERAL: Well-developed in no acute distress. HEENT: No sclera icterus. Extraocular movements grossly intact. Moist buccal mucosa. Head is atraumatic, normocephalic. ABDOMEN: Soft. Nondistended. NEUROLOGIC: Alert and oriented. Cranial nerves II through XII grossly intact. ASSESSMENT: 1. Acute cholecystitis with gangrenous gallbladder status post laparoscopic cholecystectomy 2. Epigastric Abdominal pain status post EGD showing moderate gastritis 3. C. diff colitis PLAN: -Continue oral pain medication as needed -Patient to follow-up outpatient for hernia repair surgery -No further surgical intervention planned during this admission -Encourage patient to use incentive spirometer -Encourage patient to ambulate -GI prophylaxis Protonix and DVT prophylaxis Lovenox Physician Twisting Operator note has been reviewed by physician. Signing provider agrees with the documented findings, assessment, and plan of care. Objective - Vital Signs Vital signs: Vital Signs Temp 97.7 F 07/23/20 07:35 Pulse 68 07/23/20 07:35 Resp 18 07/23/20 07:37 BP 175/89 07/23/20 07:35 Pulse Ox 100 07/23/20 07:35 Intake & Output 07/22/20 07/23/20 07/23/20 18:59 06:59 18:59 Intake Total 50 600 Output Total 115 77 30 Balance -65 523 -30 Weight 99.79 kg Intake: IV 50 Intake, IV Titration 600 Amount Sodium Chloride 0.9% 1, 600 000 ml @ 50 mls/hr IV . Q20H [facility] Rx#:[id number] Output: Drainage 115 77 30 Right Abdomen 115 77 30 Other: Voiding Method Toilet Toilet Toilet # Voids 2 # Bowel Movements 2 - Labs CBC & Chem 7: 07/22/20 06:03 07/22/20 06:03 Labs: Abnormal Lab Results - Last 24 Hours (Table) 07/22/20 07/22/20 07/23/20 Range/Units 14:38 21:24 07:04 POC Glucose (mg/dL) 225 H 174 H (75-99) mg/dL C. difficile (EIA) Intrp Positive A (Negative) 07/23/20 Range/Units 11:34 POC Glucose (mg/dL) 208 H (75-99) mg/dL C. difficile (EIA) Intrp (Negative) Microbiology - Last 24 Hours (Table) 07/17/20 14:45 Blood Culture - Preliminary Blood No Growth after 120 hours 07/16/20 12:58 Blood Culture - Final Blood No Growth after 144 hours
[2020-07-23] MEDS: HYDROcodone/APAP 5-325MG 1 EACH TAB PO PRN ×2 (15:35→20:13)
[2020-07-23 16:43] LABS: Glucose,Whole Blood 180 mg/dL (75-99)
--- NOTE | 2020-07-23 17:45 | PN ---
PROGRESS NOTE DATE OF SERVICE: 07/23/2020 REASON FOR FOLLOWUP: C difficile colitis. INTERVAL HISTORY: The patient is currently afebrile. The patient is feeling better, breathing comfortably. He did have slight epigastric discomfort, but no nausea, no vomiting. The patient did mention he did have significant diarrhea yesterday; however, he had only 2 stools today and slightly forming up. PHYSICAL EXAMINATION: Blood pressure 149/86, pulse of 89, temperature 97.5. He is 98% on room air. General description is a middle-aged male lying in bed in no distress. RESPIRATORY SYSTEM: Unlabored breathing. Clear to auscultation anteriorly. HEART: S1, S2. Regular rate and rhythm. ABDOMEN: Soft. No tenderness. LABS: No new labs have been obtained today. DIAGNOSTIC IMPRESSION AND PLAN: 1. Patient admitted to hospital with fever with initial concern for cholecystitis, status post cholecystectomy. Patient received about a week of IV antibiotic therapy. That should be enough. 2. Patient now with diarrhea, and stool for Clostridium difficile is positive. On oral vancomycin; to continue for 10 days. He was advised to increase his probiotic and yogurt intake. MMODL / IJN: [id number] /
[2020-07-23 20:07] LABS: Glucose,Whole Blood 289 mg/dL (75-99)
[2020-07-24 01:57] VITALS: PULSE 71; RESP 16
[2020-07-24] MEDS: HYDROmorphone 1 MG/ML 1 ML SYRINGE IVP PRN ×2 (02:19→09:10)
[2020-07-24 07:20] LABS: Glucose,Whole Blood 261 mg/dL (75-99)
[2020-07-24 07:58] VITALS: BP 183/93; TEMP 98.6
[2020-07-24] MEDS: INSULIN DETEMIR (LEVEMIR) 100 UNIT/ML SYR SQ SCH (08:58)
[2020-07-24] MEDS: ENOXAPARIN 40 MG/0.4 ML SYRINGE SQ SCH (08:58)
[2020-07-24] MEDS: VANCOMYCIN 125 MG CAPSULE PO SCH ×2 (08:58→13:43)
[2020-07-24] MEDS: methylPREDNISolone SOD SUCCI 40 MG/ML 1 ML VIAL IV SCH (08:58)
[2020-07-24] MEDS: GABAPENTIN 300 MG CAP PO SCH ×2 (08:58→15:27)
[2020-07-24] MEDS: SUCRALFATE 1 GM TAB PO SCH ×2 (08:59→13:33)
[2020-07-24] MEDS: MORPHINE SULFATE ER 15 MG TABLET PO SCH (08:59)
[2020-07-24] MEDS: PANTOPRAZOLE 40 MG TABLET PO SCH (08:59)
[2020-07-24 09:01] LABS: Basophils # (A) 0.05 X 10*3/uL (0.00-0.10); Basophils % (A) 0.4 %; Eosinophils # (A) 0.01 X 10*3/uL (0.04-0.35); Eosinophils % (A) 0.1 %; HCT 37.1 % (39.6-50.0); HGB 11.8 g/dL (13.0-17.0); Lymphocytes # (A) 1.06 X 10*3/uL (0.90-5.00); Lymphocytes % (A) 7.9 %; MCH 27.4 pg (27.0-32.0); MCHC 31.8 g/dL (32.0-37.0); MCV 86.3 fL (80.0-97.0); Mean Platelet Volume 9.8 fL (9.5-12.2); Monocytes # (A) 0.83 X 10*3/uL (0.20-1.00); Monocytes % (A) 6.2 %; Neutrophils # (A) 11.12 X 10*3/uL (1.80-7.70); Neutrophils % (A) 82.3 %; Platelet Count 338 X 10*3/uL (140-440); RDW 13.2 % (11.5-14.5); WBC 13.49 X 10*3/uL (4.50-10.00)
[2020-07-24] MEDS: polyethylene glycoL 3350 17 GM POWD.PACK PO SCH (09:06)
--- NOTE | 2020-07-24 09:07 | P.PN ---
Subjective Progress Note Date: 07/24/20 Principal diagnosis: Cholecystitis Patient feels better today. Pain is improved. Tolerating diet. White blood cell count down to 13. Stools are becoming more formed. Objective - Vital Signs Vital signs: Vital Signs Temp 98.6 F 07/24/20 07:57 Pulse 71 07/24/20 07:57 Resp 16 07/24/20 07:57 BP 183/93 07/24/20 07:57 Pulse Ox 99 07/24/20 07:57 Intake & Output 07/23/20 07/24/20 07/24/20 18:59 06:59 18:59 Intake Total 672 Output Total 180 600 10 Balance 492 -600 -10 Intake: Oral 472 Other 200 Output: Drainage 180 150 10 Right Abdomen 180 150 10 Urine 450 Other: Voiding Method Toilet Toilet # Voids 2 - Exam Abdomen: Soft, nondistended, incisions clean and dry - Labs CBC & Chem 7: 07/24/20 06:09 07/22/20 06:03 Labs: Abnormal Lab Results - Last 24 Hours (Table) 07/23/20 07/23/20 07/23/20 Range/Units 11:34 16:39 20:03 WBC (4.50-10.00) X 10*3/uL RBC (4.40-5.60) X 10*6/uL Hgb (13.0-17.0) g/dL Hct (39.6-50.0) % MCHC (32.0-37.0) g/dL Immature Gran # (0.00-0.04) X 10*3/uL Neutrophils # (1.80-7.70) X 10*3/uL Eosinophils # (0.04-0.35) X 10*3/uL POC Glucose (mg/dL) 208 H 180 H 289 H (75-99) mg/dL 07/24/20 07/24/20 Range/Units 06:09 07:01 WBC 13.49 H (4.50-10.00) X 10*3/uL RBC 4.30 L (4.40-5.60) X 10*6/uL Hgb 11.8 L (13.0-17.0) g/dL Hct 37.1 L (39.6-50.0) % MCHC 31.8 L (32.0-37.0) g/dL Immature Gran # 0.42 H (0.00-0.04) X 10*3/uL Neutrophils # 11.12 H (1.80-7.70) X 10*3/uL Eosinophils # 0.01 L (0.04-0.35) X 10*3/uL POC Glucose (mg/dL) 261 H (75-99) mg/dL Microbiology - Last 24 Hours (Table) 07/17/20 14:45 Blood Culture - Final Blood No Growth after 144 hours Assessment and Plan (1) Cholecystitis Narrative/Plan: Patient clinically improving. He is very anxious to go home today. We'll remove QUENTIN drain in anticipation for possible discharge today. Current Visit: Yes Status: Acute Code(s): K81.9 - CHOLECYSTITIS, UNSPECIFIED SNOMED Code(s): 05923774
[2020-07-24 09:10] LABS: African American GFR (CKD) 123.4 (60.0-200.0); Anion Gap 6.5 mmol/L (4.00-12.00); BUN/Creat Ratio 22.22 Ratio (12.00-20.00); Calcium 8.1 mg/dL (8.7-10.3); Carbon Dioxide 29.5 mmol/L (21.6-31.8); Magnesium 1.9 mg/dL (1.5-2.4); Non-African American GFR(CKD) 106.5 (60.0-200.0); Potassium 4.4 mmol/L (3.5-5.5)
[2020-07-24] MEDS: INSULIN ASPART (NovoLOG) 100 UNIT/ML VIAL SQ SCH ×2 (09:11→13:34)
[2020-07-24 11:17] LABS: Glucose,Whole Blood 285 mg/dL (75-99)
[2020-07-24] MEDS ORDERED: FUROSEMIDE 10 MG/ML 4 ML VIAL IV STA (14:57)
--- NOTE | 2020-07-24 15:29 | PN ---
PROGRESS NOTE Patient is seen for followup for acute kidney injury. Patient's renal function has improved. He remains with significant edema, although seems to have improved. He denies any shortness of breath. He has been voiding well. He is maintained on oral vancomycin for C difficile. EXAMINATION: Today patient is comfortable, awake, alert, oriented x3. Blood pressure is 138/75, heart rate 71 per minute, he is afebrile. Examination of the lower extremities shows significant edema with blisters noted bilaterally. Abdomen is soft, obese, nontender. [employer] exam grossly intact. LAB: Show sodium of 137, potassium 4.4, chloride 101, BUN 20, serum creatinine 0.9, hemoglobin 11.8 g/dL. ASSESSMENT: 1. Acute kidney injury, acute tubular necrosis, significantly improved. Creatinine had peaked at 2.7 during this admission. 2. Acute cholecystitis status post laparoscopic cholecystectomy. 3. Volume overload. 4. Hyponatremia, currently hypervolemic. 5. Chronic kidney disease stage 2 secondary to diabetic kidney disease, follows at [facility]. PLAN: Continue off IV fluids. Lasix x1. Maintain salt restriction. MMODL / IJN: [id number] /
--- NOTE | 2020-07-24 17:25 | PN ---
PROGRESS NOTE DATE OF SERVICE: 07/24/2020 REASON FOR FOLLOWUP: C difficile colitis. INTERVAL HISTORY: The patient is currently afebrile. The patient is breathing comfortably. Patient denies having any chest pain. No shortness of breath or cough. Some epigastric discomfort. Overall improvement. Diarrhea has slowed down. Did have 2 bowel movements slightly forming up and wants to go home. PHYSICAL EXAMINATION: Blood pressure is 138/75 with a pulse of 71, temperature of 98.2. He is 97% on room air. General description is a middle-aged male lying in bed in no distress. Respiratory system: Unlabored breathing. Clear to auscultation anteriorly. Heart S1, S2. Regular rate and rhythm. ABDOMEN: Soft, no tenderness. LABORATORY DATA: Hemoglobin 11.1, white count 13.4. BUN of 20, creatinine 0.9. DIAGNOSTIC IMPRESSION AND PLAN: 1. Patient admitted to the hospital with acute cholecystitis, status post cholecystectomy adequately treated, completed a week of antibiotic. 2. Patient now with C difficile colitis planning for a 10 day course of oral vancomycin and close outpatient followup. had multiple questions. Those were answered. MMODL / IJN: [id number] /
== END 2020-07-24 15:42 | disposition home or self-care (01) | DRG 853 ==
LOC: EC 09:39 → 6NMEDSUR 14:32 → OBSVTOIN 07-17 10:43 → 6NMEDSUR 07-24 01:33
PROVIDERS: ADMIT Family Medicine; ATTEND Family Medicine
PROC: 0FT44ZZ Resection of Gallbladder, Percutaneous Endoscopic Approach (ICD-10-PCS; principal; 2020-07-17)
PROC: 0DB78ZX Excision of Stomach, Pylorus, Via Natural or Artificial Opening Endoscopic, Diagnostic (ICD-10-PCS; 2020-07-22)
PROC: 0DB68ZX Excision of Stomach, Via Natural or Artificial Opening Endoscopic, Diagnostic (ICD-10-PCS; 2020-07-22)
DX: A41.9 Sepsis, unspecified organism (principal); N17.0 Acute kidney failure with tubular necrosis; A04.72 Enterocolitis due to Clostridium difficile, not specified as recurrent; E87.1 Hypo-osmolality and hyponatremia; J98.11 Atelectasis; K80.00 Calculus of gallbladder with acute cholecystitis without obstruction; L97.909 Non-pressure chronic ulcer of unspecified part of unspecified lower leg with unspecified severity; M35.2 Behcet's disease; L03.119 Cellulitis of unspecified part of limb; E11.22 Type 2 diabetes mellitus with diabetic chronic kidney disease; E11.65 Type 2 diabetes mellitus with hyperglycemia; I12.9 Hypertensive chronic kidney disease with stage 1 through stage 4 chronic kidney disease, or unspecified chronic kidney disease; N18.2 Chronic kidney disease, stage 2 (mild); D63.1 Anemia in chronic kidney disease; Z79.84 Long term (current) use of oral hypoglycemic drugs; E66.9 Obesity, unspecified; Z68.33 Body mass index [BMI] 33.0-33.9, adult; E87.70 Fluid overload, unspecified; F41.9 Anxiety disorder, unspecified; G89.29 Other chronic pain; Z20.822 Contact with and (suspected) exposure to COVID-19; K29.70 Gastritis, unspecified, without bleeding; K42.9 Umbilical hernia without obstruction or gangrene; K43.9 Ventral hernia without obstruction or gangrene; K59.00 Constipation, unspecified; K82.8 Other specified diseases of gallbladder; K82.A1 Gangrene of gallbladder in cholecystitis; Z79.899 Other long term (current) drug therapy; R51.9 Headache, unspecified; H43.399 Other vitreous opacities, unspecified eye; H53.8 Other visual disturbances; Z79.891 Long term (current) use of opiate analgesic
CPT/HCPCS: 36415; 43239; 71045; 71046; 74176; 74177; 76705; 76770; 78582; 80048; 80053; 80076; 81001; 82150; 83605; 83615; 83690; 83735; 84145; 85025; 85379; 85610; 85652; 86140; 86850; 86900; 86901; 87040; 87086; 87324; 88304; 88305; 94760; 96361; 96365; 96375; 96376; 99285

== ENCOUNTER → 2020-09-10 | Outpatient (CLI) | payer BC | END | disposition home or self-care (01) | LOC: LABWHC1 16:14 | PROVIDERS: ATTEND Dermatology Procedural Dermatology | DX: L30.9 Dermatitis, unspecified (principal); L73.2 Hidradenitis suppurativa | CPT/HCPCS: 36415; 86480 ==

== ENCOUNTER → 2021-06-16 | Outpatient (CLI) | payer BC ==
[2021-06-16 17:31] LABS: Appearance,Urine Clear (Clear); Bilirubin,Urine Negative (Negative); Blood,Urine Moderate (Negative); Color,Urine Light Yellow; Glucose,Urine (UA) 4+ (Negative); Ketones,Urine Negative (Negative); Leukocyte Esterase,Urine Negative (Negative); Mucus,Urine Rare /hpf; Nitrite,Urine Negative (Negative); Protein,Urine 3+ (Negative); RBC,Urine 5 /hpf (0-5); Specific Gravity,Urine 1.023 (1.001-1.035); Squamous Epithelial Cell,Urine <1 /hpf (0-4); Urobilinogen,Urine <2.0 mg/dL (<2.0); WBC,Urine 1 /hpf (0-5)
[2021-06-16 23:22] LABS: Basophils % (A) 0.9 %; Eosinophils # (A) 0.24 X 10*3/uL (0.04-0.35); Eosinophils % (A) 2.2 %; HCT 35.7 % (39.6-50.0); HGB 11.9 g/dL (13.0-17.0); Lymphocytes # (A) 3.21 X 10*3/uL (0.90-5.00); Lymphocytes % (A) 29.8 %; MCHC 33.3 g/dL (32.0-37.0); MCV 86.9 fL (80.0-97.0); Monocytes # (A) 0.73 X 10*3/uL (0.20-1.00); Monocytes % (A) 6.8 %; Neutrophils # (A) 6.44 X 10*3/uL (1.80-7.70); Neutrophils % (A) 59.7 %; Platelet Count 221 X 10*3/uL (140-440); RBC 4.11 X 10*6/uL (4.40-5.60); RDW 14.6 % (11.5-14.5); WBC 10.78 X 10*3/uL (4.50-10.00)
[2021-06-17 00:41] LABS: Erythrocyte Sedimentation Rate 71 mm/Hr (0-15)
[2021-06-17 01:19] LABS: Creatine Kinase 190 U/L (35-257)
[2021-06-17 01:28] LABS: ALT 33 U/L (10-49); AST 26 U/L (14-35); African American GFR (CKD) 94.1 (60.0-200.0); Albumin 3.1 g/dL (3.8-4.9); Albumin/Globulin Ratio 0.95 (1.60-3.17); Alkaline Phosphatase 48 U/L (41-126); BUN/Creat Ratio 18.39 Ratio (12.00-20.00); Bilirubin, Conjugated <0.20 mg/dL (0.20-0.40); Blood Urea Nitrogen 20.6 mg/dL (9.0-27.0); C Reactive Protein <0.30 mg/dL (0.00-0.80); Calcium 8.9 mg/dL (8.7-10.3); Carbon Dioxide 25.3 mmol/L (20.0-27.5); Chloride 100 mmol/L (96-109); Globulin 3.3 g/dL (1.6-3.3); Glucose 260 mg/dL (70-110); Non-African American GFR(CKD) 81.2 (60.0-200.0); Potassium 4.2 mmol/L (3.5-5.5); Rheumatoid Factor, Qnt <10 IU/mL (0-15); Sodium 137 mmol/L (135-145); Total Bilirubin <0.20 mg/dL (0.30-1.20); Total Protein 6.4 g/dL (6.2-8.2)
[2021-06-17 05:06] LABS: Anti-Smith Ab Interp NEGATIVE (NEGATIVE); Cardiolipin Ab IgG Interp NEGATIVE (NEGATIVE); Cardiolipin Ab IgM Interp NEGATIVE (NEGATIVE); Cardiolipin IgA Antibody <2.0 U/mL; Cardiolipin IgM Antibody <1.5 U/mL; HIV 2 AB Non-Reactive (Non-Reactive); HIV AB P24 Non-Reactive (Non-Reactive); HIV P24 AG Non-Reactive (Non-Reactive)
--- NOTE | 2021-06-17 07:54 | XR ---
EXAMINATION TYPE: XR chest 2V DATE OF EXAM: 06/16/2021 COMPARISON: 07/18/2020 INDICATION: Rash on legs, L 73.2, L 30.9 TECHNIQUE: Frontal and lateral views of the chest are obtained. FINDINGS: The heart size is normal. The pulmonary vasculature is normal. The lungs are clear. IMPRESSION: 1. No acute pulmonary process.
[2021-06-17 14:25] LABS: C-ANCA <1:20 Titer (<1:20)
== END | disposition home or self-care (01) ==
LOC: LABWHC1 16:09
PROVIDERS: ATTEND Dermatology Procedural Dermatology
DX: L30.9 Dermatitis, unspecified (principal); L73.2 Hidradenitis suppurativa
CPT/HCPCS: 36415; 71046; 80053; 81001; 82248; 82550; 82595; 83516; 85025; 85652; 86038; 86140; 86147; 86160; 86162; 86235; 86255; 86431; 86780; 87390

== ENCOUNTER 2021-09-23 05:46 | Inpatient (IN) | payer BC ==
[2021-09-22 09:23] VITALS: BMI 38.0
[~2021-09-23 05:46] MED LIST: ACETAMINOPHEN TAB 500 MG TAB PO PRN; DEXAMETHASONE SOD PHOSPHATE 4 MG/ML 1 ML VIAL IV ONE; HEPARIN SODIUM,PORCINE/PF 5,000 UNIT/0.5 ML SYRINGE SQ PRN; ONDANSETRON 4 MG/2 ML VIAL IVP ONE
[2021-09-23 06:42] LABS: Glucose,Whole Blood 283 mg/dL (75-99)
[2021-09-23] MEDS: LACTATED RINGERS 1,000 ML IV SCH ×2 (06:54→18:48)
[2021-09-23 06:58] LABS: Basophils # (A) 0.1 k/uL (0-0.2); Basophils % (A) 1 %; Eosinophils # (A) 0.3 k/uL (0-0.7); Eosinophils % (A) 3 %; HCT 34.9 % (39.0-53.0); HGB 11.8 gm/dL (13.0-17.5); Lymphocytes # (A) 2.1 k/uL (1.0-4.8); Lymphocytes % (A) 21 %; MCH 30.4 pg (25.0-35.0); MCHC 33.9 g/dL (31.0-37.0); MCV 89.7 fL (80.0-100.0); Mean Platelet Volume 7.9; Monocytes # (A) 0.6 k/uL (0-1.0); Monocytes % (A) 6 %; Neutrophils # (A) 6.8 k/uL (1.3-7.7); Neutrophils % (A) 68 %; Platelet Count 171 k/uL (150-450); Poikilocytosis Slight; RBC 3.89 m/uL (4.30-5.90); RDW 14.9 % (11.5-15.5)
[2021-09-23] MEDS ORDERED: HYDROmorphone 0.5 MG/0.5 ML SYRINGE IVP PRN (07:00)
[2021-09-23 07:07] LABS: ALT 37 U/L (4-49); AST 76 U/L (17-59); African American GFR (CKD) >90 (>60 ml/min/1.73 sqM); Albumin 3.7 g/dL (3.5-5.0); Alkaline Phosphatase 42 U/L (38-126); Anion Gap 8 mmol/L; Blood Urea Nitrogen 22 mg/dL (9-20); Calcium 8.4 mg/dL (8.4-10.2); Carbon Dioxide 23 mmol/L (22-30); Chloride 104 mmol/L (98-107); Glucose 274 mg/dL (74-99); Non-African American GFR(CKD) >90 (>60 ml/min/1.73 sqM); Sodium 135 mmol/L (137-145); Total Bilirubin 1.3 mg/dL (0.2-1.3); Total Protein 7.7 g/dL (6.3-8.2)
[2021-09-23 07:08] LABS: Potassium 5.2 mmol/L (3.5-5.1)
[2021-09-23] MEDS ORDERED: fentaNYL (PF) 50 MCG/ML 2 ML AMP IVP ONE (07:18)
[2021-09-23] MEDS ORDERED: MIDAZOLAM 2 MG/2 ML VIAL IVP ONE (07:18)
[2021-09-23] MEDS ORDERED: INSULIN ASPART (NovoLOG) 100 UNIT/ML VIAL SQ ONE ×2 (07:37→10:28)
[2021-09-23] MEDS ORDERED: HEPARIN SODIUM,PORCINE 5,000 UNIT/ML 1 ML VIAL SQ ONE (07:38)
[2021-09-23] MEDS ORDERED: HYDROmorphone (PF) 1 MG/ML ONE (07:45)
[2021-09-23] MEDS ORDERED: SODIUM CHLORIDE 0.9% (PF) 10 ML VIAL ONE (07:45)
[2021-09-23] MEDS ORDERED: LIDOCAINE 2% INJ 20 MG/ML (2 ML VIAL) ONE (07:45)
[2021-09-23] MEDS ORDERED: fentaNYL (PF) 50 MCG/ML 2 ML AMP ONE (07:45)
[2021-09-23] MEDS ORDERED: MIDAZOLAM 2 MG/2 ML VIAL ONE (07:45)
[2021-09-23] MEDS ORDERED: CLINDAMYCIN 150 MG/ML 4 ML VIAL ONE (07:45)
[2021-09-23] MEDS ORDERED: GLYCOPYRROLATE 0.2 MG/ML 2 ML VIAL ONE (07:45)
[2021-09-23] MEDS ORDERED: NEOSTIGMINE 1 MG/ML 10 ML VIAL ONE (07:45)
[2021-09-23] MEDS ORDERED: SUCCINYLCHOLINE CHLORIDE 100 MG/5 ML SYR IV ONE (07:45)
[2021-09-23] MEDS ORDERED: ROCURONIUM 10 MG/ML (5 ML VIAL) IV ONE (07:45)
[2021-09-23] MEDS ORDERED: PROPOFOL 10 MG/ML 20 ML VIAL IV ONE (07:45)
[2021-09-23] MEDS ORDERED: KETAMINE 10 MG/ML 20 ML VIAL ONE (07:45)
[2021-09-23] MEDS ORDERED: ROPIVACAINE 5 MG/ML 30 ML VIAL ONE (07:45)
[2021-09-23] MEDS ORDERED: LACTATED RINGERS 1,000 ML IV ONE ×2 (08:20→10:14)
--- NOTE | 2021-09-23 10:12 | P.GSHP ---
History of Present Illness H&P Date: 09/23/21 Chief Complaint: Incarcerated incisional hernia This a 41-year-old male who's had complaints of pain due to a chronic incarcerated incisional hernia. 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 She had subsequent reversal of colostomy. This was done in an outside institution. Patient developed an incisional hernia at his midline incision. She has pain at the hernia site. Patient has history of diabetes. Past Medical History Past Medical History: Diabetes Mellitus, Eye Disorder, Hypertension, Renal Disease Additional Past Medical History / Comment(s): Behcets disease(auto immune)- states they are not sure if it is Bechcets disease now or hifradenitis suppurativa., states flare ups with rash lower legs-hx of ulcerations legs & he may have current scabs ., Hx of diverting colostomy and reversal due to surgical wounds near anus., Hernia ., Legally Blind., hx hematuria. History of Any Multi-Drug Resistant Organisms: None Reported Past Surgical History: Cholecystectomy Additional Past Surgical History / Comment(s): I/D of skin lesions, diverting colostomy (2019) & reversal due to wounds near anus. Past Anesthesia/Blood Transfusion Reactions: No Reported Reaction Additional Past Anesthesia/Blood Transfusion Reaction / Comment(s): unknown family hx- pt adopted. Past Psychological History: Anxiety, Depression Smoking Status: Never smoker Past Alcohol Use History: None Reported Past Drug Use History: None Reported - Past Family History Mother Family Medical History: Unable to Obtain Additional Family Medical History / Comment(s): pt adopted. Medications and Allergies Home Medications Medication Instructions Recorded Confirmed Type Dulaglutide [Trulicity] 1.5 mg SQ WEEKLY 07/16/20 09/23/21 History Gabapentin [Neurontin] 600 mg PO TID 07/16/20 09/23/21 History Acetaminophen [Tylenol Extra 1,000 mg PO DIRECTED PRN 09/22/21 09/23/21 History Strength] Adalimumab [Humira(Cf) Pen] 40 mg SQ CHRISTIAN 09/22/21 09/23/21 History Cholecalciferol [Vitamin D3 (25 25 mcg PO DAILY 09/22/21 09/23/21 History Mcg = 1000 Iu)] Doxycycline [Vibramycin] 100 mg PO BID 09/22/21 09/23/21 History [place]-3 Fatty Acids [[place]-3] 1,000 mg PO DAILY 09/22/21 09/23/21 History Sertraline [Zoloft] 100 mg PO HS 09/22/21 09/23/21 History buPROPion [Wellbutrin] 150 mg PO HS 09/22/21 09/23/21 History lisinopriL [Zestril] 20 mg PO DAILY 09/22/21 09/23/21 History traMADol HCL [Ultram] 50 mg PO TID 09/22/21 09/23/21 History Allergies Allergy/AdvReac Type Severity Reaction Status Date / Time No Known Allergies Allergy Verified 09/22/21 08:48 Surgical - Exam Vital Signs Temp Pulse Resp BP Pulse Ox 98.0 F 104 H 20 217/102 97 09/23/21 06:29 09/23/21 06:29 09/23/21 06:29 09/23/21 06:29 09/23/21 06:29 - General well developed, well nourished, no distress - Eyes PERRL - ENT normal pinna - Neck no masses - Respiratory normal expansion - Cardiovascular Rhythm: regular - Abdomen Midline incisional hernia. There is evidence of colostomy scar left lower quadrant Abdomen: soft, non tender Results - Labs 09/23/21 06:42 09/23/21 06:42 Abnormal Lab Results - Last 24 Hours (Table) 09/23/21 09/23/21 09/23/21 Range/Units 06:38 06:42 06:42 RBC 3.89 L (4.30-5.90) m/uL Hgb 11.8 L (13.0-17.5) gm/dL Hct 34.9 L (39.0-53.0) % Sodium 135 L (137-145) mmol/L Potassium 5.2 H (3.5-5.1) mmol/L BUN 22 H (9-20) mg/dL Glucose 274 H (74-99) mg/dL POC Glucose (mg/dL) 283 H (75-99) mg/dL AST 76 H (17-59) U/L Diabetes panel 09/23/21 Range/Units 06:42 Sodium 135 L (137-145) mmol/L Potassium 5.2 H (3.5-5.1) mmol/L Chloride 104 (98-107) mmol/L Carbon Dioxide 23 (22-30) mmol/L BUN 22 H (9-20) mg/dL Creatinine 0.97 (0.66-1.25) mg/dL Glucose 274 H (74-99) mg/dL Calcium 8.4 (8.4-10.2) mg/dL AST 76 H (17-59) U/L ALT 37 (4-49) U/L Alkaline Phosphatase 42 (38-126) U/L Total Protein 7.7 (6.3-8.2) g/dL Albumin 3.7 (3.5-5.0) g/dL Calcium panel 09/23/21 Range/Units 06:42 Calcium 8.4 (8.4-10.2) mg/dL Albumin 3.7 (3.5-5.0) g/dL Pituitary panel 09/23/21 Range/Units 06:42 Sodium 135 L (137-145) mmol/L Potassium 5.2 H (3.5-5.1) mmol/L Chloride 104 (98-107) mmol/L Carbon Dioxide 23 (22-30) mmol/L BUN 22 H (9-20) mg/dL Creatinine 0.97 (0.66-1.25) mg/dL Glucose 274 H (74-99) mg/dL Calcium 8.4 (8.4-10.2) mg/dL Adrenal panel 09/23/21 Range/Units 06:42 Sodium 135 L (137-145) mmol/L Potassium 5.2 H (3.5-5.1) mmol/L Chloride 104 (98-107) mmol/L Carbon Dioxide 23 (22-30) mmol/L BUN 22 H (9-20) mg/dL Creatinine 0.97 (0.66-1.25) mg/dL Glucose 274 H (74-99) mg/dL Calcium 8.4 (8.4-10.2) mg/dL Total Bilirubin 1.3 (0.2-1.3) mg/dL AST 76 H (17-59) U/L ALT 37 (4-49) U/L Alkaline Phosphatase 42 (38-126) U/L Total Protein 7.7 (6.3-8.2) g/dL Albumin 3.7 (3.5-5.0) g/dL Assessment and Plan Assessment: Incarcerated incisional hernia. Patient will undergo open repair. I discussed with the patient is regarding risks of postoperative infection.
[2021-09-23] MEDS ORDERED: Acetaminophen-Codeine 300-30mg TAB PO PRN (10:14)
[2021-09-23] MEDS ORDERED: NALOXONE 0.4 MG/ML 1 ML VIAL IV PRN (10:14)
--- NOTE | 2021-09-23 10:14 | P.OP ---
Date of Procedure: 09/23/21 Preoperative Diagnosis: Incarcerated incisional hernia Postoperative Diagnosis: Incarcerated incisional hernia Procedure(s) Performed: Repair of incarcerated incisional hernia with mesh Anesthesia: MARKEL Surgeon: Chucho Oglesby Estimated Blood Loss (ml): 25 Pathology: none sent Condition: stable Disposition: PACU Description of Procedure: The patient's placed on the operating table in the supine position. He received general endotracheal anesthesia. His abdomen was prepped and draped usual sterile fashion. The patient had a midline scar. There was evidence of incisional hernia located. Portions. This was incised. His left cautery and blunt sharp dissection the hernia sac was dissected free from the subcutaneous tissues. The hernia sac was then opened. The fascia was opened. The incarcerated omentum was placed back peritoneal cavity. The patient's colostomy site was examined there is evidence another incisional hernia there. The fascia around the colostomy site was exposed. This was admitted and sharp and blunt dissection. The colostomy site hernia was then repaired first. This was performed using interrupted #1 Ethibond suture. Once traffic suture was then placed on top of this. Once the colostomy site hernia was closed. The midlines are appro ximated. 0 Ethibond suture. And then #1 Octaviano fix to close) fascia. Next a piece of Prolene mesh was cut to appropriate size. The 10 x 14 mesh was cut. And then secured with secure strap tacker. A QUENTIN drain is placed overtop the mesh and brought through separate stab incision. Emy's fascia closed with 0 Vicryl. Skin was closed dalila. Patient top she will was sent to recovery room in stable condition.
[2021-09-23 10:16] LABS: Glucose,Whole Blood 297 mg/dL (75-99)
--- NOTE | 2021-09-23 11:08 | P.ANPRN ---
Procedure Note - Anesthesia - Nerve Block Performed Bilateral Erector Spinae Single Time Out Performed: Yes ([id number]) Date of Procedure: 09/23/21 Procedure Start Time: :18 Procedure Stop Time: :25 Location of Patient: PreOp Indication: Acute Post-Operative Pain, Requested by Surgeon Specifically requested for management of pain by DrNneka: Chucho Oglesby Sedation Type: Sedate with meaningful contact maintained Preparation: Sterile Prep Position: Prone Catheter: None Needle Types: Pajunk Needle Gauge: 21 Ultrasound used to visualize needle placement: Yes Ultrasound used to observe medication spread: Yes Injectate: 0.5% Ropivacaine (see comment for volume) (15cc+15cc nacl pf each side) Blood Aspirated: No Pain Paresthesia on Injection Noted: No Resistance on Injection: Normal Image Stored and Saved: Yes Events: Uneventful and Well Tolerated
[2021-09-23 12:36] LABS: Glucose,Whole Blood 350 mg/dL (75-99)
[2021-09-23] MEDS: KETOROLAC 15 MG/ML 1 ML VIAL IVP SCH ×2 (12:39→18:20)
[2021-09-23] MEDS: HYDROmorphone 1 MG/ML 1 ML SYRINGE IVP PRN ×4 (12:40→22:14)
--- NOTE | 2021-09-23 16:34 | P.CONS ---
History of Present Illness - Reason for Consult Consult date: 09/23/21 Medical management - Chief Complaint Repair of incarcerated hernia - History of Present Illness Patient is a 41-year-old male with a known history of Behcet's disease, hydradenitis suppurativa, hypertension, diabetes type 2 on Trulicity and prior history of cholecystectomy, Abram's gangrene status post diverting colostomy and reversal admitted to hospital for incisional hernia repair. Patient is s/p repair of incarcerated incisional hernia with mesh. Denied any complaints of abdominal pain. No nausea vomiting or diarrhea. Denied any chest pain or shortness of breath. No fever no chills. No cough or sputum production. Postoperatively blood pressure is 119/63 and pulse 96 respirations 17 and pulse ox 98% on room air. Laboratory data showed WBC 10.0 hemoglobin 11.8 and platelets 171 Sodium 135 potassium 5.2 chloride 104 bicarb is 23 BUN 2020 creatinine 0.97 and blood sugar is 283. A1c 8.2 Review of Systems Constitutional: Patient denies any fever or chills . No generalized weakness or weight loss. Abdomen: Patient denied nausea vomiting and diarrhea and abdominal pain. Cardiovascular: Patient denies any chest pain or short of breath no pal pitations. Respiratory: patient denied any cough or sputum production. No shortness of breath Neurologic: Patient denied any numbness or tingling headache. Musculoskeletal: Patient denies any complaints of joint swelling or deformity. Skin: Negative Psychiatric: Negative Endocrine: No heat or cold intolerance. No recent weight gain. Genitourinary: No dysuria or hematuria. All other 14 point ROS negative except the above Past Medical History Past Medical History: Diabetes Mellitus, Eye Disorder, Hypertension, Renal Disease Additional Past Medical History / Comment(s): Behcets disease(auto immune)- states they are not sure if it is Bechcets disease now or hifradenitis suppurativa., states flare ups with rash lower legs-hx of ulcerations legs & he may have current scabs ., Hx of diverting colostomy and reversal due to surgical wounds near anus., Hernia ., Legally Blind., hx hematuria. History of Any Multi-Drug Resistant Organisms: None Reported Past Surgical History: Cholecystectomy Additional Past Surgical History / Comment(s): I/D of skin lesions, diverting colostomy (2019) & reversal due to wounds near anus. Past Anesthesia/Blood Transfusion Reactions: No Reported Reaction Additional Past Anesthesia/Blood Transfusion Reaction / Comm: unknown family hx- pt adopted. Past Psychological History: Anxiety, Depression Smoking Status: Never smoker Past Alcohol Use History: None Reported Past Drug Use History: None Reported - Past Family History Mother Family Medical History: Unable to Obtain Additional Family Medical History / Comment(s): pt adopted. Medications and Allergies Home Medications Medication Instructions Recorded Confirmed Type Dulaglutide [Trulicity] 1.5 mg SQ WEEKLY 07/16/20 09/23/21 History Gabapentin [Neurontin] 600 mg PO TID 07/16/20 09/23/21 History Acetaminophen [Tylenol Extra 1,000 mg PO DIRECTED PRN 09/22/21 09/23/21 Hi story Strength] Adalimumab [Humira(Cf) Pen] 40 mg SQ CHRISTIAN 09/22/21 09/23/21 History Cholecalciferol [Vitamin D3 (25 25 mcg PO DAILY 09/22/21 09/23/21 History Mcg = 1000 Iu)] Doxycycline [Vibramycin] 100 mg PO BID 09/22/21 09/23/21 History [place]-3 Fatty Acids [[place]-3] 1,000 mg PO DAILY 09/22/21 09/23/21 History Sertraline [Zoloft] 100 mg PO HS 09/22/21 09/23/21 History buPROPion [Wellbutrin] 150 mg PO HS 09/22/21 09/23/21 History lisinopriL [Zestril] 20 mg PO DAILY 09/22/21 09/23/21 History traMADol HCL [Ultram] 50 mg PO TID 09/22/21 09/23/21 History Allergies Allergy/AdvReac Type Severity Reaction Status Date / Time No Known Allergies Allergy Verified 09/22/21 08:48 Physical Exam Vitals: Vital Signs Temp Pulse Pulse Resp BP BP Pulse Ox 09/23/21 14:48 92 128/81 09/23/21 14:10 91 16 113/72 98 09/23/21 12:30 89 16 115/73 96 09/23/21 12:00 93 16 129/73 96 09/23/21 11:44 93 18 137/87 96 09/23/21 11:07 94 16 144/82 96 09/23/21 10:52 95 16 142/84 96 09/23/21 10:37 94 18 142/84 97 09/23/21 10:22 94 16 120/74 99 09/23/21 10:07 97 16 92/53 99 09/23/21 09:52 97.4 F L 100 16 94/49 95 09/23/21 07:32 107 H 18 160/72 99 09/23/21 07:01 173/80 09/23/21 06:29 98.0 F 104 H 20 217/102 97 Intake and Output 09/23/21 09/23/21 09/23/21 06:59 14:59 22:59 Intake Total 300 1350 Output Total 80 Balance 300 1270 Intake: IV 300 1350 Output: Drainage 25 Abdomen 25 Estimated Blood Loss 55 Other: Weight 107.4 kg PHYSICAL EXAMINATION: Patient is lying in the bed comfortably, no acute distress, awake alert and oriented.. HEENT: Normocephalic. Neck is supple. Pupils reactive. Nostrils clear. Oral cavity is moist. Neck reveals no JVD, carotid bruits, or thyromegaly. CHEST EXAMINATION: Trachea is central. Symmetrical expansion. Bibasilar diminished sounds. Lung thornton clear to auscultation and percussion. CARDIAC: Normal S1, S2 with no gallops. No murmurs ABDOMEN: Soft. Bowel sounds present. Surgical site is bandaged.. No organomegaly. No abdominal bruits. Extremities: Trace bilateral pedal edema. No clubbing or cyanosis Neurologically awake, alert, oriented x3 with well-coordinated movements. No focal deficits noted Skin: Patient does have bilateral lower extremity healed lesions. Psychiatric: Cooperative. Nonsuicidal Musculoskeletal: No joint swelling or deformity. Normal range of motion. Results CBC & Chem 7: 09/23/21 06:42 09/23/21 06:42 Labs: Abnormal Lab Results - Last 24 Hours (Table) 09/23/21 09/23/21 09/23/21 Range/Units 06:38 06:42 06:42 RBC 3.89 L (4.30-5.90) m/uL Hgb 11.8 L (13.0-17.5) gm/dL Hct 34.9 L (39.0-53.0) % Sodium 135 L (137-145) mmol/L Potassium 5.2 H (3.5-5.1) mmol/L BUN 22 H (9-20) mg/dL Glucose 274 H (74-99) mg/dL POC Glucose (mg/dL) 283 H (75-99) mg/dL Hemoglobin A1c (0.0-6.0) % AST 76 H (17-59) U/L 09/23/21 09/23/21 09/23/21 Range/Units 06:42 10:14 12:34 RBC (4.30-5.90) m/uL Hgb (13.0-17.5) gm/dL Hct (39.0-53.0) % Sodium (137-145) mmol/L Potassium (3.5-5.1) mmol/L BUN (9-20) mg/dL Glucose (74-99) mg/dL POC Glucose (mg/dL) 297 H 350 H (75-99) mg/dL Hemoglobin A1c 8.2 H (0.0-6.0) % AST (17-59) U/L Assessment and Plan Assessment: Status post incarcerated incisional hernia repair. Postoperative day 0. Hyperglycemia with uncontrolled diabetes type 2 A1c 8.2. Hypertension Behcet's disease, History of Abram's gangrene, diverting colostomy and reversal., History of cholecystectomy Anxiety/depression DVT prophylaxis Plan: Patient will be continued on pain management, bowel regimen and incentive spirometry. Encourage ambulation. Patient will be started on Lantus/Levemir 10 units nightly and insulin sliding scale. Patient will be continued on home blood pressure medications including lisinopril 20 mg daily and follow-up closely. repeat CBC and BMP. We will continue to follow and further recommendations based on the clinical course. Thank you for your consult.
[2021-09-23 17:35] LABS: Glucose,Whole Blood 280 mg/dL (75-99)
[2021-09-23] MEDS: INSULIN ASPART (NovoLOG) 100 UNIT/ML VIAL SQ SCH ×2 (18:20→20:34)
[2021-09-23 20:20] LABS: Glucose,Whole Blood 194 mg/dL (75-99)
[2021-09-23] MEDS: buPROPion 100 MG TAB PO SCH (20:32)
[2021-09-23] MEDS: GABAPENTIN 300 MG CAP PO SCH (20:33)
[2021-09-23] MEDS: SERTRALINE 100 MG TAB PO SCH (20:33)
[2021-09-23] MEDS: INSULIN DETEMIR (LEVEMIR) 100 UNIT/ML SYR SQ SCH (20:34)
[2021-09-24] MEDS: KETOROLAC 15 MG/ML 1 ML VIAL IVP SCH ×3 (00:05→12:46)
[2021-09-24] MEDS: HYDROmorphone 1 MG/ML 1 ML SYRINGE IVP PRN ×3 (03:01→19:23)
[2021-09-24 07:36] LABS: Glucose,Whole Blood 250 mg/dL (75-99)
[2021-09-24] MEDS: ACETAMINOPHEN TAB 325 MG TAB PO PRN (07:55)
[2021-09-24] MEDS: GABAPENTIN 300 MG CAP PO SCH ×3 (07:56→20:58)
[2021-09-24] MEDS: ENOXAPARIN 40 MG/0.4 ML SYRINGE SQ SCH (07:57)
[2021-09-24] MEDS: INSULIN ASPART (NovoLOG) 100 UNIT/ML VIAL SQ SCH ×4 (08:45→20:58)
[2021-09-24] MEDS ORDERED: lisinopriL 20 MG TAB PO SCH (09:00)
[2021-09-24] MEDS ORDERED: SODIUM CHLORIDE 0.9% 1,000 ML IV ONE (10:26)
--- NOTE | 2021-09-24 10:27 | P.PN ---
Progress Note - Text Progress Note Date: 09/24/21 Patient's postoperative day 1 from repair of large incisional hernia. He says complaints of incisional pain. On exam vital signs appear stable. Incisions clean and intact. Patient has had limited urine output. He'll receive IV fluid bolus today. We dysphagia discharged home next 24-48 hours.
[2021-09-24 11:41] LABS: HCT 29.9 % (39.6-50.0); HGB 9.6 g/dL (13.0-17.0); MCH 29.7 pg (27.0-32.0); MCHC 32.1 g/dL (32.0-37.0); MCV 92.6 fL (80.0-97.0); Mean Platelet Volume 11.1 fL (9.5-12.2); NRBC Per 100 WBC 0 /100 WBCS (0.0-0.0); Platelet Count 182 X 10*3/uL (140-440); RBC 3.23 X 10*6/uL (4.40-5.60); RDW 15.9 % (11.5-14.5); WBC 15.18 X 10*3/uL (4.50-10.00)
[2021-09-24 11:48] LABS: African American GFR (CKD) 25.3 (60.0-200.0); Albumin 3.1 g/dL (3.8-4.9); Albumin/Globulin Ratio 1.11 (1.60-3.17); Anion Gap 11.3 mmol/L (10.00-18.00); BUN/Creat Ratio 10.12 Ratio (12.00-20.00); Blood Urea Nitrogen 33.4 mg/dL (9.0-27.0); Calcium 7.9 mg/dL (8.7-10.3); Carbon Dioxide 19.7 mmol/L (20.0-27.5); Globulin 2.8 g/dL (1.6-3.3); Non-African American GFR(CKD) 21.8 (60.0-200.0); Potassium 5.1 mmol/L (3.5-5.5); Total Bilirubin 0.5 mg/dL (0.30-1.20); Total Protein 5.9 g/dL (6.2-8.2)
[2021-09-24 12:06] LABS: Basophils # (A) 0.07 X 10*3/uL (0.00-0.10); Basophils % (A) 0.5 %; Eosinophils % (A) 1.3 %; Immature Grans, Automated 0.5 %; Lymphocytes # (A) 2.14 X 10*3/uL (0.90-5.00); Lymphocytes % (A) 14.1 %; Monocytes # (A) 1.58 X 10*3/uL (0.20-1.00); Monocytes % (A) 10.4 %; Neutrophils # (A) 11.12 X 10*3/uL (1.80-7.70); Neutrophils % (A) 73.2 %
[2021-09-24 12:07] LABS: RBC Morphology NORMAL
[2021-09-24 12:37] LABS: Glucose,Whole Blood 248 mg/dL (75-99)
--- NOTE | 2021-09-24 14:56 | P.NPCON ---
History of Present Illness - Reason for Consult Consult date: 09/24/21 acute renal failure - Chief Complaint Acute renal failure - History of Present Illness This is a 41-year-old male seen in consultation because of acute kidney injury She came in with a creatinine off 0.97 and underwent repair of incarcerated ventral hernia from a previous colostomy reversal site. He received about 5 doses of Toradol. Creatinine went up to 3.3 this morning and. He had straight cath and about 400 mL came out. 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 Currently patient has some nausea and no vomiting had not moved his bowels. Denies any chest pain shortness of breath fever chills or any significant abdom inal pain Past Medical History Past Medical History: Diabetes Mellitus, Eye Disorder, Hypertension, Renal Disease Additional Past Medical History / Comment(s): Behcets disease(auto immune)- states they are not sure if it is Bechcets disease now or hifradenitis suppurativa., states flare ups with rash lower legs-hx of ulcerations legs & he may have current scabs ., Hx of diverting colostomy and reversal due to surgical wounds near anus., Hernia ., Legally Blind., hx hematuria. History of Any Multi-Drug Resistant Organisms: None Reported Past Surgical History: Cholecystectomy Additional Past Surgical History / Comment(s): I/D of skin lesions, diverting colostomy (2019) & reversal due to wounds near anus. Past Anesthesia/Blood Transfusion Reactions: No Reported Reaction Additional Past Anesthesia/Blood Transfusion Reaction / Comment(s): unknown family hx- pt adopted. Past Psychological History: Anxiety, Depression Smoking Status: Never smoker Past Alcohol Use History: None Reported Past Drug Use History: None Reported - Past Family History Mother Family Medical History: Unable to Obtain Additional Family Medical History / Comment(s): pt adopted. Medications and Allergies Home Medications Medication Instructions Recorded Confirmed Type Dulaglutide [Trulicity] 1.5 mg SQ WEEKLY 07/16/20 09/23/21 History Gabapentin [Neurontin] 600 mg PO TID 07/16/20 09/23/21 History Acetaminophen [Tylenol Extra 1,000 mg PO DIRECTED PRN 09/22/21 09/23/21 History Strength] Adalimumab [Humira(Cf) Pen] 40 mg SQ CHRISTIAN 09/22/21 09/23/21 History Cholecalciferol [Vitamin D3 (25 25 mcg PO DAILY 09/22/21 09/23/21 History Mcg = 1000 Iu)] Doxycycline [Vibramycin] 100 mg PO BID 09/22/21 09/23/21 History [place]-3 Fatty Acids [[place]-3] 1,000 mg PO DAILY 09/22/21 09/23/21 History Sertraline [Zoloft] 100 mg PO HS 09/22/21 09/23/21 History buPROPion [Wellbutrin] 150 mg PO HS 09/22/21 09/23/21 History lisinopriL [Zestril] 20 mg PO DAILY 09/22/21 09/23/21 History traMADol HCL [Ultram] 50 mg PO TID 09/22/21 09/23/21 History Allergies Allergy/AdvReac Type Severity Reaction Status Date / Time No Known Allergies Allergy Verified 09/22/21 08:48 Physical Exam Vitals: Vital Signs Temp Pulse Pulse Pulse Resp BP BP 09/24/21 13:45 118 H 89/59 09/24/21 12:37 97.8 F 109 H 18 90/58 81/48 09/24/21 08:20 96 92 81 20 09/24/21 07:40 90 100/67 09/24/21 04:30 99.1 F 81 20 95/60 09/23/21 19:40 98.3 F 103 H 20 100/63 09/23/21 17:36 98.8 F 96 17 109/63 09/23/21 17:29 96 Pulse Ox 09/24/21 13:45 09/24/21 12:37 93 L 09/24/21 08:20 09/24/21 07:40 09/24/21 04:30 94 L 09/23/21 19:40 98 09/23/21 17:36 98 09/23/21 17:29 Intake and Output 09/23/21 09/24/21 09/24/21 22:59 06:59 14:59 Intake Total 1712 2370 800 Output Total 20 570 Balance 1692 2370 230 Intake: Intake, IV Titration 132 240 Amount Lactated Ringers 1,000 ml 132 @ 125 mls/hr IV .Q8H [facility] Rx#:[id number] Lactated Ringers 1,000 ml 240 @ 20 mls/hr IV .Q24H [facility] Rx#:[id number] Oral 1580 2130 800 Output: Drainage 20 60 Abdomen 20 60 Urine 400 Post Void Residual 110 Other: Voiding Method Urinal Urinal # Voids 0 Examined and awake alert oriented comfortable No JVP neck is supple no facial asymmetry Lungs clear to auscultation with air entry bilaterally Heart sounds unremarkable for any murmur rub gallop Abdomen soft nontender dressing binder on. Extreme exam was trace edema Neurologically awake alert oriented. Has had multiple skin bruising and scars Results - Lab Results Most recent lab results Calcium 7.9 mg/dL (8.7-10.3) L 09/24/21 07:50 09/24/21 07:50 09/24/21 07:50 Assessment and Plan Assessment: Impression 1. Acute kidney injury likely from nonsteroidals and from blood pressure being somewhat low. Creatinine went up from 0.9-3 or 24 hours 2. Status postop ventral incarcerated hernia repair. 3. Remote history of colostomy and reversal for 4 years gangrene 4. Significant proteinuria, 3 plus on urinalysis suggestive diabetic nephropathy but creatinine was 0.97 yesterday. Ultrasound shows 11.9 cm and 1 3.8 cm right and left kidney dated 07/19/2020 a year ago Recommendation 1. Maintain IV fluids. 2. Discontinue any nonsteroidals avoid any nephrotoxic medication 3. Check bladder scan 4. Begin him 1 dose of Lasix 20 mg because of the edema 5. Hold the lisinopril given the low blood pressure Thank you for this consultation and continue to follow
[2021-09-24] MEDS ORDERED: FUROSEMIDE 10 MG/ML 2 ML VIAL IV ONE (15:15)
--- NOTE | 2021-09-24 16:09 | US ---
EXAMINATION TYPE: US renals and bladder DATE OF EXAM: 09/24/2021 COMPARISON: CLINICAL HISTORY: renal failure. abnormal labs. Just had recent multiple hernia surgery x yesterday. Patient is still bandaged from surgery, limiting scanning area. EXAM MEASUREMENTS: Right Kidney: 10.6 x 4.9 x 6.1 cm Left Kidney: 10.9 x 4.8 x 5.4 cm Right Kidney: No hydronephrosis or masses seen Left Kidney: No hydronephrosis or masses seen Bladder: distended, anechoic Bilateral Jets not seen IMPRESSION: No evidence of renal mass or obstruction. No evidence of a bladder mass.
[2021-09-24] MEDS: HYDROcodone/APAP 5-325MG 1 EACH TAB PO PRN (17:04)
[2021-09-24 17:20] LABS: Glucose,Whole Blood 292 mg/dL (75-99)
[2021-09-24] MEDS: ONDANSETRON 4 MG/2 ML VIAL IVP PRN (17:53)
[2021-09-24 20:43] LABS: Glucose,Whole Blood 249 mg/dL (75-99)
[2021-09-24] MEDS: INSULIN DETEMIR (LEVEMIR) 100 UNIT/ML SYR SQ SCH (20:57)
[2021-09-24] MEDS: buPROPion 100 MG TAB PO SCH (20:58)
[2021-09-24] MEDS: SERTRALINE 100 MG TAB PO SCH (20:58)
[2021-09-25] MEDS: ONDANSETRON 4 MG/2 ML VIAL IVP PRN ×2 (00:09→20:05)
[2021-09-25] MEDS: HYDROmorphone 1 MG/ML 1 ML SYRINGE IVP PRN ×4 (01:28→20:01)
[2021-09-25] MEDS: ENOXAPARIN 40 MG/0.4 ML SYRINGE SQ SCH (06:51)
[2021-09-25 07:18] LABS: Glucose,Whole Blood 282 mg/dL (75-99)
[2021-09-25] MEDS: GABAPENTIN 300 MG CAP PO SCH ×3 (07:22→21:49)
[2021-09-25] MEDS: INSULIN ASPART (NovoLOG) 100 UNIT/ML VIAL SQ SCH ×4 (08:29→21:44)
[2021-09-25] MEDS ORDERED: ADALIMUMAB 40 MG/0.4 ML SQ SCH (09:00)
[2021-09-25 09:11] LABS: Basophils # (A) 0.09 X 10*3/uL (0.00-0.10); Basophils % (A) 0.6 %; Eosinophils # (A) 0.13 X 10*3/uL (0.04-0.35); Eosinophils % (A) 0.8 %; HCT 29.4 % (39.6-50.0); HGB 9.5 g/dL (13.0-17.0); Immature Grans, Automated 0.7 %; Lymphocytes # (A) 1.16 X 10*3/uL (0.90-5.00); Lymphocytes % (A) 7.3 %; MCH 29.5 pg (27.0-32.0); MCHC 32.3 g/dL (32.0-37.0); MCV 91.3 fL (80.0-97.0); Monocytes # (A) 1.37 X 10*3/uL (0.20-1.00); Monocytes % (A) 8.6 %; NRBC Per 100 WBC 0 /100 WBCS (0.0-0.0); Platelet Count 204 X 10*3/uL (140-440); RBC 3.22 X 10*6/uL (4.40-5.60); RDW 15.7 % (11.5-14.5); WBC 15.86 X 10*3/uL (4.50-10.00)
[2021-09-25 09:22] LABS: African American GFR (CKD) 28.5 (60.0-200.0); Anion Gap 14.7 mmol/L (10.00-18.00); BUN/Creat Ratio 12.94 Ratio (12.00-20.00); Blood Urea Nitrogen 38.7 mg/dL (9.0-27.0); Calcium 8.1 mg/dL (8.7-10.3); Carbon Dioxide 18.5 mmol/L (20.0-27.5); Non-African American GFR(CKD) 24.6 (60.0-200.0)
[2021-09-25] MEDS ORDERED: metroNIDAZOLE-NS PMX 500 MG in SALINE 1 100ML.BAG IVPB SCH (10:45)
--- NOTE | 2021-09-25 11:08 | P.PN ---
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 Patient is s/p repair of incarcerated incisional hernia with mesh. Denied any complaints of abdominal pain. No nausea vomiting or diarrhea. Denied any chest pain or shortness of breath. No fever no chills. No cough or sputum production. Postoperatively blood pressure is 119/63 and pulse 96 respirations 17 and pulse ox 98% on room air. Laboratory data showed WBC 10.0 hemoglobin 11.8 and platelets 171 Sodium 135 potassium 5.2 chloride 104 bicarb is 23 BUN 2020 creatinine 0.97 and blood sugar is 283. A1c 8.2 09/24/2021 Patient is postoperative day 1. Status post incisional hernia repair. Patient is currently lying in bed. Awake alert and oriented. Patient did have decreased urine output since last night. IV Lasix and fluid challenge was given without much urine output increases. Denied any complaints of fever or chills. Abdominal pain is controlled. No complaints of headache or dizziness. No chest pain. No shortness of breath. Patient does have increased leg swelling. Laboratory data showed WBC 15.1 hemoglobin 9.6 and platelets 182 Sodium 128 potassium 5.1 chloride 97 bicarb is 19.7, BUN 33.4 and creatinine 3.3 and blood sugar is 225, all given 2.8, A1c 8.1 Current medications reviewed. Objective - Vital Signs Vital signs: Vital Signs Temp 99.1 F 09/24/21 04:30 Pulse 81 09/24/21 04:30 Resp 20 09/24/21 04:30 BP 95/60 09/24/21 04:30 Pulse Ox 94 L 09/24/21 04:30 Intake & Output 09/23/21 09/24/21 09/24/21 18:59 06:59 18:59 Intake Total 2662 2770 Output Total 80 20 Balance 2582 2750 Intake: IV 1350 Intake, IV Titration 132 240 Amount Lactated Ringers 1,000 ml 132 @ 125 mls/hr IV .Q8H [facility] Rx#:[id number] Lactated Ringers 1,000 ml 240 @ 20 mls/hr IV .Q24H [facility] Rx#:[id number] Oral 1180 2530 Output: Drainage 25 20 Abdomen 25 20 Estimated Blood Loss 55 Other: Voiding Method Urinal Urinal # Voids 0 - Exam PHYSICAL EXAMINATION: Patient is lying in the bed comfortably, no acute distress, awake alert and oriented.. HEENT: Normocephalic. Neck is supple. Pupils reactive. Nostrils clear. Oral cavity is moist. Neck reveals no JVD, carotid bruits, or thyromegaly. CHEST EXAMINATION: Trachea is central. Symmetrical expansion. Bibasilar diminished sounds. Lung thornton clear to auscultation and percussion. CARDIAC: Normal S1, S2 with no gallops. No murmurs ABDOMEN: Soft. Bowel sounds present. Surgical site is bandaged.. No organomegaly. No abdominal bruits. Extremities: Trace bilateral pedal edema. No clubbing or cyanosis Neurologically awake, alert, oriented x3 with well-coordinated movements. No focal deficits noted Skin: Patient does have bilateral lower extremity healed lesions. Psychiatric: Cooperative. Nonsuicidal Musculoskeletal: No joint swelling or deformity. Normal range of motion. - Labs CBC & Chem 7: 09/25/21 03:25 09/25/21 03:21 Labs: Abnormal Lab Results - Last 24 Hours (Table) 09/23/21 09/23/21 09/23/21 Range/Units 06:42 12:34 17:34 POC Glucose (mg/dL) 350 H 280 H (75-99) mg/dL Hemoglobin A1c 8.2 H (0.0-6.0) % 09/23/21 09/24/21 Range/Units 20:19 07:35 POC Glucose (mg/dL) 194 H 250 H (75-99) mg/dL Hemoglobin A1c (0.0-6.0) % Assessment and Plan Assessment: Status post incarcerated incisional hernia repair. Postoperative day 1 Acute kidney injury. Oliguric. Possible ATN due to hypotension and hemodynamic instability. Hyperglycemia with uncontrolled diabetes type 2 A1c 8.2. Hypertension Behcet's disease, History of Abram's gangrene, diverting colostomy and reversal., History of cholecystectomy Anxiety/depression DVT prophylaxis Plan: Patient will be continued on IV hydration. IV Lasix was given 1. Urine lites ordered. Nephrology consult. Bladder scan was ordered and discontinued nonsteroidal anti-inflammatory agents. Blood pressure medications on hold. Continue with pain management, bowel regimen and incentive spirometry. Encourage ambulation. Patient will be started on Lantus/Levemir 10 units nightly and insulin sliding scale. repeat CBC and BMP. We will continue to follow and further recommendations based on the clinical course. Time with Patient: Greater than 30
[2021-09-25] MEDS ORDERED: HYDROmorphone 0.5 MG/0.5 ML SYRINGE IVP STA (11:15)
[2021-09-25] MEDS ORDERED: LIDOCAINE 2% GEL 30 ML TUBE TOPICAL ONE (11:30)
[2021-09-25] MEDS ORDERED: SODIUM CHLORIDE 0.9% 1,000 ML IV ONE (11:36)
--- NOTE | 2021-09-25 11:51 | P.PN ---
Subjective Progress Note Date: 09/25/21 Principal diagnosis: Repair of large incarcerated incisional hernia and parastomal hernia The patient's had some lower urinary output overnight. He states his pain is a 4 out of 10. He is had some decreased blood pressure and some mild tachycardia. Objective - Vital Signs Vital signs: Vital Signs Temp 99.0 F 09/25/21 10:25 Pulse 100 09/25/21 08:42 Resp 20 09/25/21 08:05 BP 104/69 09/25/21 08:42 Pulse Ox 91 L 09/25/21 04:37 Intake & Output 09/24/21 09/25/21 09/25/21 18:59 06:59 18:59 Intake Total 1160 120 Output Total 570 1005 140 Balance 590 -885 -140 Intake: Oral 1160 120 Output: Drainage 60 205 140 Abdomen 60 205 140 Urine 400 0 0 Post Void Residual 110 Emesis 800 Other: Voiding Method Urinal Urinal # Voids 0 0 # Emeses 2 - Gastrointestinal Gastrointestinal Comment(s): Abdomen soft obese there is some mild incisional tenderness. There is no reboun d or guarding. - Labs CBC & Chem 7: 09/25/21 03:25 09/25/21 03:21 Labs: Abnormal Lab Results - Last 24 Hours (Table) 09/24/21 09/24/21 09/24/21 Range/Units 07:50 12:36 17:18 WBC (4.50-10.00) X 10*3/uL RBC (4.40-5.60) X 10*6/uL Hgb (13.0-17.0) g/dL Hct (39.6-50.0) % RDW (11.5-14.5) % Immature Gran # 0.07 H (0.00-0.04) X 10*3/uL Neutrophils # 11.12 H (1.80-7.70) X 10*3/uL Monocytes # 1.58 H (0.20-1.00) X 10*3/uL Sodium (135-145) mmol/L Chloride (96-109) mmol/L Carbon Dioxide (20.0-27.5) mmol/L BUN (9.0-27.0) mg/dL Creatinine (0.6-1.5) mg/dL Est GFR (CKD-EPI)AfAm (60.0-200.0) Est GFR (CKD-EPI)NonAf (60.0-200.0) Glucose (70-110) mg/dL POC Glucose (mg/dL) 248 H 292 H (75-99) mg/dL Hemoglobin A1c (0.0-6.0) % Calcium (8.7-10.3) mg/dL 09/24/21 09/25/21 09/25/21 Range/Units 20:31 03:21 03:25 WBC (4.50-10.00) X 10*3/uL RBC (4.40-5.60) X 10*6/uL Hgb (13.0-17.0) g/dL Hct (39.6-50.0) % RDW (11.5-14.5) % Immature Gran # (0.00-0.04) X 10*3/uL Neutrophils # (1.80-7.70) X 10*3/uL Monocytes # (0.20-1.00) X 10*3/uL Sodium 128 L (135-145) mmol/L Chloride 95 L (96-109) mmol/L Carbon Dioxide 18.5 L (20.0-27.5) mmol/L BUN 38.7 H (9.0-27.0) mg/dL Creatinine 3.0 H (0.6-1.5) mg/dL Est GFR (CKD-EPI)AfAm 28.5 L (60.0-200.0) Est GFR (CKD-EPI)NonAf 24.6 L (60.0-200.0) Glucose 249 H (70-110) mg/dL POC Glucose (mg/dL) 249 H (75-99) mg/dL Hemoglobin A1c 8.1 H (0.0-6.0) % Calcium 8.1 L (8.7-10.3) mg/dL 09/25/21 09/25/21 Range/Units 03:25 07:17 WBC 15.86 H (4.50-10.00) X 10*3/uL RBC 3.22 L (4.40-5.60) X 10*6/uL Hgb 9.5 L (13.0-17.0) g/dL Hct 29.4 L (39.6-50.0) % RDW 15.7 H (11.5-14.5) % Immature Gran # 0.11 H (0.00-0.04) X 10*3/uL Neutrophils # 13.00 H (1.80-7.70) X 10*3/uL Monocytes # 1.37 H (0.20-1.00) X 10*3/uL Sodium (135-145) mmol/L Chloride (96-109) mmol/L Carbon Dioxide (20.0-27.5) mmol/L BUN (9.0-27.0) mg/dL Creatinine (0.6-1.5) mg/dL Est GFR (CKD-EPI)AfAm (60.0-200.0) Est GFR (CKD-EPI)NonAf (60.0-200.0) Glucose (70-110) mg/dL POC Glucose (mg/dL) 282 H (75-99) mg/dL Hemoglobin A1c (0.0-6.0) % Calcium (8.7-10.3) mg/dL Assessment and Plan Plan: Patient will have a Dominguez catheter placed for urinary output monitoring. He is also starting IV antibiotics. His blood sugar has had poor control chronically. His he will need once he is able 0.1. His blood sugars of been ranging in the 250-300 range. He will be observed closely.
[2021-09-25] MEDS: PIPERACILLIN-TAZOBACTAM 3.375 GM in SODIUM CHLORIDE 0.9% 100 ML IVPB SCH ×2 (11:52→16:43)
[2021-09-25 12:33] LABS: Glucose,Whole Blood 299 mg/dL (75-99)
[2021-09-25] MEDS: LACTATED RINGERS 1,000 ML IV SCH ×2 (13:03→21:36)
[2021-09-25 14:09] LABS: Creatinine,Urine Random 203.9 mg/dL; Protein/Creatinine Ratio,Urine 0.795
--- NOTE | 2021-09-25 14:25 | P.PN ---
Subjective Progress Note Date: 09/25/21 Principal diagnosis: This is a 41-year-old male seen in consultation because of acute kidney injury, secondary to nonsteroidals. He is post op incarcerated hernia repair which was a result of a previous colostomy reversal site. Is known with diabetes mellitus possible Behcet's disease, skin lesions with rash all over. His vital signs are stable blood pressure in the 104/69 range 124/74 low-grade temperature 99.4. Heart rate in the 110 to 120s Workup has shown ultrasound which showed 10.6 cm right and 10.97 left kidney hydronephrosis urine output is 15 75 ml with an intake of 12 80 ml. Objective - Vital Signs Vital signs: Vital Signs Temp 99.0 F 09/25/21 10:25 Pulse 100 09/25/21 08:42 Resp 20 09/25/21 08:05 BP 104/69 09/25/21 08:42 Pulse Ox 91 L 09/25/21 04:37 Intake & Output 09/24/21 09/25/21 09/25/21 18:59 06:59 18:59 Intake Total 1160 120 Output Total 570 1005 140 Balance 590 -885 -140 Intake: Oral 1160 120 Output: Drainage 60 205 140 Abdomen 60 205 140 Urine 400 0 0 Post Void Residual 110 Emesis 800 Other: Voiding Method Urinal Urinal # Voids 0 0 # Emeses 2 Awake alert oriented somewhat uncomfortable because of his chronic neuropathy in his legs. No JVP. Neck is supple no facial asymmetry Lungs are clear to auscultation fair air entry bilaterally Heart sounds unremarkable for any murmur rub gallop Abdomen soft bowel sounds are absent he has a drainage coming out of his surgical site. Extremity exam reveals moderate edema with rash all over Neurologically awake alert oriented - Labs CBC & Chem 7: 09/25/21 03:25 09/25/21 03:21 Labs: Abnormal Lab Results - Last 24 Hours (Table) 09/24/21 09/24/21 09/25/21 Range/Units 17:18 20:31 03:21 WBC (4.50-10.00) X 10*3/uL RBC (4.40-5.60) X 10*6/uL Hgb (13.0-17.0) g/dL Hct (39.6-50.0) % RDW (11.5-14.5) % Immature Gran # (0.00-0.04) X 10*3/uL Neutrophils # (1.80-7.70) X 10*3/uL Monocytes # (0.20-1.00) X 10*3/uL Sodium 128 L (135-145) mmol/L Chloride 95 L (96-109) mmol/L Carbon Dioxide 18.5 L (20.0-27.5) mmol/L BUN 38.7 H (9.0-27.0) mg/dL Creatinine 3.0 H (0.6-1.5) mg/dL Est GFR (CKD-EPI)AfAm 28.5 L (60.0-200.0) Est GFR (CKD-EPI)NonAf 24.6 L (60.0-200.0) Glucose 249 H (70-110) mg/dL POC Glucose (mg/dL) 292 H 249 H (75-99) mg/dL Hemoglobin A1c (0.0-6.0) % Calcium 8.1 L (8.7-10.3) mg/dL 09/25/21 09/25/21 09/25/21 Range/Units 03:25 03:25 07:17 WBC 15.86 H (4.50-10.00) X 10*3/uL RBC 3.22 L (4.40-5.60) X 10*6/uL Hgb 9.5 L (13.0-17.0) g/dL Hct 29.4 L (39.6-50.0) % RDW 15.7 H (11.5-14.5) % Immature Gran # 0.11 H (0.00-0.04) X 10*3/uL Neutrophils # 13.00 H (1.80-7.70) X 10*3/uL Monocytes # 1.37 H (0.20-1.00) X 10*3/uL Sodium (135-145) mmol/L Chloride (96-109) mmol/L Carbon Dioxide (20.0-27.5) mmol/L BUN (9.0-27.0) mg/dL Creatinine (0.6-1.5) mg/dL Est GFR (CKD-EPI)AfAm (60.0-200.0) Est GFR (CKD-EPI)NonAf (60.0-200.0) Glucose (70-110) mg/dL POC Glucose (mg/dL) 282 H (75-99) mg/dL Hemoglobin A1c 8.1 H (0.0-6.0) % Calcium (8.7-10.3) mg/dL 09/25/21 Range/Units 12:31 WBC (4.50-10.00) X 10*3/uL RBC (4.40-5.60) X 10*6/uL Hgb (13.0-17.0) g/dL Hct (39.6-50.0) % RDW (11.5-14.5) % Immature Gran # (0.00-0.04) X 10*3/uL Neutrophils # (1.80-7.70) X 10*3/uL Monocytes # (0.20-1.00) X 10*3/uL Sodium (135-145) mmol/L Chloride (96-109) mmol/L Carbon Dioxide (20.0-27.5) mmol/L BUN (9.0-27.0) mg/dL Creatinine (0.6-1.5) mg/dL Est GFR (CKD-EPI)AfAm (60.0-200.0) Est GFR (CKD-EPI)NonAf (60.0-200.0) Glucose (70-110) mg/dL POC Glucose (mg/dL) 299 H (75-99) mg/dL Hemoglobin A1c (0.0-6.0) % Calcium (8.7-10.3) mg/dL Assessment and Plan Assessment: Impression 1. Acute kidney injury likely from nonsteroidals and from blood pressure being somewhat low. Creatinine went up from 0.9-3.3 > 3.0 today with urine output increasing, off of the Toradol. 2. Status postop ventral incarcerated hernia repair. 3. Remote history of colostomy and reversal 4. Significant proteinuria, 3 plus on urinalysis suggestive diabetic nephropathy but creatinine was 0.97 yesterday. Ultrasound shows 11.9 cm and 13.8 cm right and left kidney dated 07/19/2020 a year ago Recommendation 1. Maintain IV fluids, as he is nothing by mouth although he has some edema. 2. Discontinue any nonsteroidals avoid any nephrotoxic medication 3. Maintain off off lisinopril and monitor blood pressure is better Thank you for this consultation and continue to follow
[2021-09-25 15:06] LABS: Glucose,Whole Blood 262 mg/dL (75-99)
[2021-09-25 17:18] LABS: Glucose,Whole Blood 273 mg/dL (75-99)
[2021-09-25] MEDS: ACETAMINOPHEN TAB 325 MG TAB PO PRN (20:07)
[2021-09-25] MEDS ORDERED: INSULIN DETEMIR (LEVEMIR) 100 UNIT/ML SYR SQ SCH (21:00)
[2021-09-25 21:01] LABS: Glucose,Whole Blood 239 mg/dL (75-99)
[2021-09-25] MEDS: SERTRALINE 100 MG TAB PO SCH (21:35)
[2021-09-25] MEDS: buPROPion 100 MG TAB PO SCH (21:35)
[2021-09-26] MEDS: HYDROmorphone 1 MG/ML 1 ML SYRINGE IVP PRN ×3 (00:58→19:23)
[2021-09-26] MEDS: PIPERACILLIN-TAZOBACTAM 3.375 GM in SODIUM CHLORIDE 0.9% 100 ML IVPB SCH ×3 (01:00→16:32)
--- NOTE | 2021-09-26 01:01 | P.PN ---
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 Patient is s/p repair of incarcerated incisional hernia with mesh. Denied any complaints of abdominal pain. No nausea vomiting or diarrhea. Denied any chest pain or shortness of breath. No fever no chills. No cough or sputum production. Postoperatively blood pressure is 119/63 and pulse 96 respirations 17 and pulse ox 98% on room air. Laboratory data showed WBC 10.0 hemoglobin 11.8 and platelets 171 Sodium 135 potassium 5.2 chloride 104 bicarb is 23 BUN 2020 creatinine 0.97 and blood sugar is 283. A1c 8.2 09/24/2021 Patient is postoperative day 1. Status post incisional hernia repair. Patient is currently lying in bed. Awake alert and oriented. Patient did have decreased urine output since last night. IV Lasix and fluid challenge was given without much urine output increases. Denied any complaints of fever or chills. Abdominal pain is controlled. No complaints of headache or dizziness. No chest pain. No shortness of breath. Patient does have increased leg swelling. Laboratory data showed WBC 15.1 hemoglobin 9.6 and platelets 182 Sodium 128 potassium 5.1 chloride 97 bicarb is 19.7, BUN 33.4 and creatinine 3.3 and blood sugar is 225, all given 2.8, A1c 8.1 09 25 2021 Patient is currently resting in bed. Abdominal pain is better. Otherwise patient became febrile and was started on antibiotics in the form of Zosyn. Patient's urine output is increasing. No complaints of nausea vomiting. Laboratory data showed WBC 15.8 hemoglobin 9.5 and platelets 204 Sodium 128 potassium 5.0 chloride 95 bicarb is 18.5 BUN 38.7 creatinine 3.0. Calcium 8.1 and A1c level is also 8.1. Patient's blood sugar is elevated and was started on NovoLog 5 units 3 times daily AC along with Levemir.. Nephrology is on board. Current medications reviewed. Objective - Vital Signs Vital signs: Vital Signs Temp 99.0 F 09/25/21 10:25 Pulse 100 09/25/21 08:42 Resp 20 09/25/21 08:05 BP 104/69 09/25/21 08:42 Pulse Ox 91 L 09/25/21 04:37 Intake & Output 09/24/21 09/25/21 09/25/21 18:59 06:59 18:59 Intake Total 1160 120 Output Total 570 1005 140 Balance 590 -885 -140 Intake: Oral 1160 120 Output: Drainage 60 205 140 Abdomen 60 205 140 Urine 400 0 0 Post Void Residual 110 Emesis 800 Other: Voiding Method Urinal Urinal # Voids 0 0 # Emeses 2 - Exam PHYSICAL EXAMINATION: Patient is lying in the bed comfortably, no acute distress, awake alert and oriented.. HEENT: Normocephalic. Neck is supple. Pupils reactive. Nostrils clear. Oral cavity is moist. Neck reveals no JVD, carotid bruits, or thyromegaly. CHEST EXAMINATION: Trachea is central. Symmetrical expansion. Bibasilar diminished sounds. Lung thornton clear to auscultation and percussion. CARDIAC: Normal S1, S2 with no gallops. No murmurs ABDOMEN: Soft. Bowel sounds present. Surgical site is bandaged.. No organomegaly. No abdominal bruits. Extremities: Trace bilateral pedal edema. No clubbing or cyanosis Neurologically awake, alert, oriented x3 with well-coordinated movements. No focal deficits noted Skin: Patient does have bilateral lower extremity healed lesions. Psychiatric: Cooperative. Nonsuicidal Musculoskeletal: No joint swelling or deformity. Normal range of motion. - Labs CBC & Chem 7: 09/25/21 03:25 09/25/21 03:21 Labs: Abnormal Lab Results - Last 24 Hours (Table) 09/24/21 09/24/21 09/24/21 Range/Units 07:50 07:50 12:36 WBC 15.18 H (4.50-10.00) X 10*3/uL RBC 3.23 L (4.40-5.60) X 10*6/uL Hgb 9.6 L (13.0-17.0) g/dL Hct 29.9 L (39.6-50.0) % RDW 15.9 H (11.5-14.5) % Immature Gran # 0.07 H (0.00-0.04) X 10*3/uL Neutrophils # 11.12 H (1.80-7.70) X 10*3/uL Monocytes # 1.58 H (0.20-1.00) X 10*3/uL Sodium 128 L (135-145) mmol/L Chloride (96-109) mmol/L Carbon Dioxide 19.7 L (20.0-27.5) mmol/L BUN 33.4 H (9.0-27.0) mg/dL Creatinine 3.3 H (0.6-1.5) mg/dL Est GFR (CKD-EPI)AfAm 25.3 L (60.0-200.0) Est GFR (CKD-EPI)NonAf 21.8 L (60.0-200.0) BUN/Creatinine Ratio 10.12 L (12.00-20.00) Ratio Glucose 225 H (70-110) mg/dL POC Glucose (mg/dL) 248 H (75-99) mg/dL Hemoglobin A1c (0.0-6.0) % Calcium 7.9 L (8.7-10.3) mg/dL Alkaline Phosphatase 38 L (41-126) U/L Total Protein 5.9 L (6.2-8.2) g/dL Albumin 3.1 L (3.8-4.9) g/dL Albumin/Globulin Ratio 1.11 L (1.60-3.17) g/dL 09/24/21 09/24/21 09/25/21 Range/Units 17:18 20:31 03:21 WBC (4.50-10.00) X 10*3/uL RBC (4.40-5.60) X 10*6/uL Hgb (13.0-17.0) g/dL Hct (39.6-50.0) % RDW (11.5-14.5) % Immature Gran # (0.00-0.04) X 10*3/uL Neutrophils # (1.80-7.70) X 10*3/uL Monocytes # (0.20-1.00) X 10*3/uL Sodium 128 L (135-145) mmol/L Chloride 95 L (96-109) mmol/L Carbon Dioxide 18.5 L (20.0-27.5) mmol/L BUN 38.7 H (9.0-27.0) mg/dL Creatinine 3.0 H (0.6-1.5) mg/dL Est GFR (CKD-EPI)AfAm 28.5 L (60.0-200.0) Est GFR (CKD-EPI)NonAf 24.6 L (60.0-200.0) BUN/Creatinine Ratio (12.00-20.00) Ratio Glucose 249 H (70-110) mg/dL POC Glucose (mg/dL) 292 H 249 H (75-99) mg/dL Hemoglobin A1c (0.0-6.0) % Calcium 8.1 L (8.7-10.3) mg/dL Alkaline Phosphatase (41-126) U/L Total Protein (6.2-8.2) g/dL Albumin (3.8-4.9) g/dL Albumin/Globulin Ratio (1.60-3.17) g/dL 09/25/21 09/25/21 09/25/21 Range/Units 03:25 03:25 07:17 WBC 15.86 H (4.50-10.00) X 10*3/uL RBC 3.22 L (4.40-5.60) X 10*6/uL Hgb 9.5 L (13.0-17.0) g/dL Hct 29.4 L (39.6-50.0) % RDW 15.7 H (11.5-14.5) % Immature Gran # 0.11 H (0.00-0.04) X 10*3/uL Neutrophils # 13.00 H (1.80-7.70) X 10*3/uL Monocytes # 1.37 H (0.20-1.00) X 10*3/uL Sodium (135-145) mmol/L Chloride (96-109) mmol/L Carbon Dioxide (20.0-27.5) mmol/L BUN (9.0-27.0) mg/dL Creatinine (0.6-1.5) mg/dL Est GFR (CKD-EPI)AfAm (60.0-200.0) Est GFR (CKD-EPI)NonAf (60.0-200.0) BUN/Creatinine Ratio (12.00-20.00) Ratio Glucose (70-110) mg/dL POC Glucose (mg/dL) 282 H (75-99) mg/dL Hemoglobin A1c 8.1 H (0.0-6.0) % Calcium (8.7-10.3) mg/dL Alkaline Phosphatase (41-126) U/L Total Protein (6.2-8.2) g/dL Albumin (3.8-4.9) g/dL Albumin/Globulin Ratio (1.60-3.17) g/dL Assessment and Plan Assessment: Status post incarcerated incisional hernia repair. Postoperative day 2 Acute kidney injury. Possible ATN due to hypotension and hemodynamic instability. Hyperglycemia with uncontrolled diabetes type 2 A1c 8.2. Hypertension Behcet's disease, History of Abram's gangrene, diverting colostomy and reversal., History of cholecystectomy Anxiety/depression DVT prophylaxis Plan: Patient will be continued on IV hydration. IV Lasix was given 1. Bladder scan was ordered and discontinued nonsteroidal anti-inflammatory agents. Blood pressure medications on hold. Continue with pain management, bowel regimen and incentive spirometry. Encourage ambulation. Patient will be started on Levemir and insulin sliding scale. repeat CBC and BMP. We will continue to follow and further recommendations based on the clinical course. Time with Patient: Greater than 30
[2021-09-26] MEDS: LACTATED RINGERS 1,000 ML IV SCH ×3 (05:07→21:46)
[2021-09-26] MEDS ORDERED: ENOXAPARIN 40 MG/0.4 ML SYRINGE SQ ONE (08:00)
[2021-09-26] MEDS ORDERED: GABAPENTIN 300 MG CAP ONE (08:00)
[2021-09-26] MEDS ORDERED: HYDROmorphone 1 MG/ML 1 ML SYRINGE ONE (08:00)
[2021-09-26 08:59] LABS: Basophils # (A) 0.1 k/uL (0-0.2); Basophils % (A) 1 %; Eosinophils # (A) 0.2 k/uL (0-0.7); Eosinophils % (A) 2 %; HCT 28.8 % (39.0-53.0); Lymphocytes # (A) 1.3 k/uL (1.0-4.8); Lymphocytes % (A) 11 %; MCH 31.1 pg (25.0-35.0); MCHC 33.3 g/dL (31.0-37.0); MCV 93.2 fL (80.0-100.0); Mean Platelet Volume 8.3; Monocytes # (A) 0.8 k/uL (0-1.0); Monocytes % (A) 6 %; Neutrophils # (A) 9.5 k/uL (1.3-7.7); Neutrophils % (A) 79 %; Platelet Count 158 k/uL (150-450); Poikilocytosis Slight; RBC 3.09 m/uL (4.30-5.90); RDW 15.4 % (11.5-15.5); WBC 12.1 k/uL (3.8-10.6)
[2021-09-26 09:09] LABS: HGB 9.6 gm/dL (13.0-17.5)
[2021-09-26 09:22] LABS: African American GFR (CKD) 41 (>60 ml/min/1.73 sqM); Anion Gap 9 mmol/L; Blood Urea Nitrogen 48 mg/dL (9-20); Calcium 7.5 mg/dL (8.4-10.2); Carbon Dioxide 21 mmol/L (22-30); Chloride 101 mmol/L (98-107); Glucose 166 mg/dL (74-99); Non-African American GFR(CKD) 36 (>60 ml/min/1.73 sqM); Potassium 4.5 mmol/L (3.5-5.1); Sodium 131 mmol/L (137-145)
[2021-09-26 10:53] LABS: Glucose,Whole Blood 185 mg/dL (75-99)
[2021-09-26] MEDS: ENOXAPARIN 40 MG/0.4 ML SYRINGE SQ SCH (12:13)
[2021-09-26] MEDS: INSULIN ASPART (NovoLOG) 100 UNIT/ML VIAL SQ SCH ×7 (12:13→21:34)
[2021-09-26] MEDS: GABAPENTIN 300 MG CAP PO SCH ×3 (12:13→21:38)
[2021-09-26] MEDS: ONDANSETRON 4 MG/2 ML VIAL IVP PRN (12:17)
[2021-09-26 12:32] LABS: Glucose,Whole Blood 191 mg/dL (75-99)
--- NOTE | 2021-09-26 13:59 | P.PN ---
Subjective Patient is seen in follow-up for acute kidney injury. Receiving IV fluids. Sodium level up to 131. Renal function also better today. Has a Dominguez catheter. Nonoliguric. Blood pressure stable. Denies chest pain or shortness of breath. No vomiting or diarrhea. Vital signs are stable. General: Awake. No acute distress. HEENT: Head exam is unremarkable. LUNGS: Breath sounds decreased. HEART: Rate and Rhythm are regular. ABDOMEN: Soft, no distention. EXTREMITITES: No edema. Objective - Vital Signs Vital signs: Vital Signs Temp 98.3 F 09/26/21 12:45 Pulse 110 H 09/26/21 12:45 Resp 20 09/26/21 12:45 BP 107/75 09/26/21 12:45 Pulse Ox 92 L 09/26/21 12:45 Intake & Output 09/25/21 09/26/21 09/26/21 18:59 06:59 18:59 Intake Total 0 Output Total 1980 35 50 Balance -1979 Intake: Oral 0 Output: Drainage 180 35 50 Abdomen 180 35 50 Urine 1800 Other: Voiding Method Urinal Indwelling Catheter # Voids 0 0 # Bowel Movements 0 - Labs CBC & Chem 7: 09/26/21 06:30 09/26/21 06:23 Labs: Abnormal Lab Results - Last 24 Hours (Table) 09/25/21 09/25/21 09/25/21 Range/Units 15:05 17:16 21:00 WBC (3.8-10.6) k/uL RBC (4.30-5.90) m/uL Hgb (13.0-17.5) gm/dL Hct (39.0-53.0) % Neutrophils # (1.3-7.7) k/uL Sodium (137-145) mmol/L Carbon Dioxide (22-30) mmol/L BUN (9-20) mg/dL Creatinine (0.66-1.25) mg/dL Glucose (74-99) mg/dL POC Glucose (mg/dL) 262 H 273 H 239 H (75-99) mg/dL Calcium (8.4-10.2) mg/dL 09/26/21 09/26/21 09/26/21 Range/Units 06:23 06:30 07:09 WBC 12.1 H (3.8-10.6) k/uL RBC 3.09 L (4.30-5.90) m/uL Hgb 9.6 L D (13.0-17.5) gm/dL Hct 28.8 L (39.0-53.0) % Neutrophils # 9.5 H (1.3-7.7) k/uL Sodium 131 L (137-145) mmol/L Carbon Dioxide 21 L (22-30) mmol/L BUN 48 H (9-20) mg/dL Creatinine 2.19 H (0.66-1.25) mg/dL Glucose 166 H (74-99) mg/dL POC Glucose (mg/dL) 185 H (75-99) mg/dL Calcium 7.5 L (8.4-10.2) mg/dL 09/26/21 Range/Units 12:22 WBC (3.8-10.6) k/uL RBC (4.30-5.90) m/uL Hgb (13.0-17.5) gm/dL Hct (39.0-53.0) % Neutrophils # (1.3-7.7) k/uL Sodium (137-145) mmol/L Carbon Dioxide (22-30) mmol/L BUN (9-20) mg/dL Creatinine (0.66-1.25) mg/dL Glucose (74-99) mg/dL POC Glucose (mg/dL) 191 H (75-99) mg/dL Calcium (8.4-10.2) mg/dL Assessment and Plan Plan: Assessment: 1. Acute kidney injury mostly prerenal secondary to hypotension and nonsteroidals. Baseline creatinine near 1 and peaked at 3.3 this admission. 2.19 today. 2. Proteinuria. Likely secondary to underlying diabetic kidney disease. Further workup outpatient. 3. Diabetes mellitus. Diagnosed over 25 years ago. 4. History of Behcet's disease. 5. Hypovolemic hyponatremia improved with IV hydration. 6. Status post repair of incarcerated hernia on 09/23/2021. Plan: Decrease rate of IV fluids to 75 mL an hour. Encouraged oral intake. Avoid nephrotoxins. Blood sugar control. Check urinalysis. Continue to hold antihypertensives. Advised to follow up outpatient 1-2 weeks post discharge.
--- NOTE | 2021-09-26 14:50 | P.PN ---
Subjective Progress Note Date: 09/26/21 CHIEF COMPLAINT: Large incarcerated incisional hernia HISTORY OF PRESENT ILLNESS: Patient is postop day #3 repair of incarcerated incisional hernia with mesh. Patient reports abdominal pain slipped out and yesterday. He does report that he still feels distended and bloated. He was having vomiting yesterday and last episode was during the night. Denies any flatus or bowel movement. He had been having decreased urine output and had Dominguez catheter placed for monitoring. Urine output showing improvement. Patient seen by nephrology, they have decreased IV fluids. Patient did have a temp of 100.5 last night. Heart rate 110 BP 107/75. Patient did have hypotension. Room Air satting at 92%. WBC 15-12.1 hemoglobin 9.6 platelet 158 sodium 131 potassium 4.5 creatinine 2.19 glucose 191 Patient seen and examined with Dr. Espinosa PHYSICAL EXAM: VITAL SIGNS: Reviewed. GENERAL: Well-developed in no acute distress. HEENT: No sclera icterus. Extraocular movements grossly intact. Moist buccal mucosa. Head is atraumatic, normocephalic. ABDOMEN: Soft. mildly distended. incision site clean, dry, intact. QUENTIN drain with serosanguineous output 50 mL NEUROLOGIC: Alert and oriented. Cranial nerves II through XII grossly intact. ASSESSMENT: 1. incarcerated incisional hernia status post repair with mesh placement PLAN: -keep patient nothing by mouth until he starts having bowel activity -Encourage patient to ambulate -Encourage patient to use incentive spirometer -Continue pain medication as needed -Continue IV fluid -Continue to monitor urine output -Continue Dominguez catheter for another 24 -Continue Zofran as needed -DVT prophylaxis Lovenox Physician Tax Investigator note has been reviewed by physician. Signing provider agrees with the documented findings, assessment, and plan of care. Objective - Vital Signs Vital signs: Vital Signs Temp 98.3 F 09/26/21 12:45 Pulse 110 H 09/26/21 12:45 Resp 20 09/26/21 12:45 BP 107/75 09/26/21 12:45 Pulse Ox 92 L 09/26/21 12:45 Intake & Output 09/25/21 09/26/21 09/26/21 18:59 06:59 18:59 Intake Total 0 Output Total 1979 35 50 Balance -1979 Intake: Oral 0 Output: Drainage 180 35 50 Abdomen 180 35 50 Urine 1800 Other: Voiding Method Urinal Indwelling Catheter # Voids 0 0 # Bowel Movements 0 - Labs CBC & Chem 7: 09/26/21 06:30 09/26/21 06:23 Labs: Abnormal Lab Results - Last 24 Hours (Table) 09/25/21 09/25/21 09/25/21 Range/Units 15:05 17:16 21:00 WBC (3.8-10.6) k/uL RBC (4.30-5.90) m/uL Hgb (13.0-17.5) gm/dL Hct (39.0-53.0) % Neutrophils # (1.3-7.7) k/uL Sodium (137-145) mmol/L Carbon Dioxide (22-30) mmol/L BUN (9-20) mg/dL Creatinine (0.66-1.25) mg/dL Glucose (74-99) mg/dL POC Glucose (mg/dL) 262 H 273 H 239 H (75-99) mg/dL Calcium (8.4-10.2) mg/dL 09/26/21 09/26/21 09/26/21 Range/Units 06:23 06:30 07:09 WBC 12.1 H (3.8-10.6) k/uL RBC 3.09 L (4.30-5.90) m/uL Hgb 9.6 L D (13.0-17.5) gm/dL Hct 28.8 L (39.0-53.0) % Neutrophils # 9.5 H (1.3-7.7) k/uL Sodium 131 L (137-145) mmol/L Carbon Dioxide 21 L (22-30) mmol/L BUN 48 H (9-20) mg/dL Creatinine 2.19 H (0.66-1.25) mg/dL Glucose 166 H (74-99) mg/dL POC Glucose (mg/dL) 185 H (75-99) mg/dL Calcium 7.5 L (8.4-10.2) mg/dL 09/26/21 Range/Units 12:22 WBC (3.8-10.6) k/uL RBC (4.30-5.90) m/uL Hgb (13.0-17.5) gm/dL Hct (39.0-53.0) % Neutrophils # (1.3-7.7) k/uL Sodium (137-145) mmol/L Carbon Dioxide (22-30) mmol/L BUN (9-20) mg/dL Creatinine (0.66-1.25) mg/dL Glucose (74-99) mg/dL POC Glucose (mg/dL) 191 H (75-99) mg/dL Calcium (8.4-10.2) mg/dL
[2021-09-26] MEDS: CLOTRIMAZOLE 1% CREAM 30 GM TUBE TOPICAL SCH ×2 (16:44→21:45)
--- NOTE | 2021-09-26 16:55 | P.PN ---
Subjective Progress Note Date: 09/26/21 Is a 41-year-old gentleman admitted with incarcerated incisional hernia status post repair with mesh placement. Borderline hypotension, antihypertensives on hold. Maintained on IV fluid hydration and Zosyn. Afebrile, T-max 100.5, WBC trending down, 12.1. Creatinine and sodium improving. Reports abdominal pain greatest on the left side. Reports last bowel movement was on Sunday prior to admission. Denies chest pain, palpitations or shortness of breath. Maintaining O2 sats in the low 90s on room air. Reports nausea, no vomiting, no diarrhea. Objective - Vital Signs Vital signs: Vital Signs Temp 98.3 F 09/26/21 12:45 Pulse 110 H 09/26/21 12:45 Resp 20 09/26/21 12:45 BP 107/75 09/26/21 12:45 Pulse Ox 92 L 09/26/21 12:45 Intake & Output 09/25/21 09/26/21 09/26/21 18:59 06:59 18:59 Intake Total 0 Output Total 1979 35 135 Balance -1979135 Intake: Oral 0 Output: Drainage 180 35 135 Abdomen 180 35 135 Urine 1800 Other: Voiding Method Urinal Indwelling Catheter # Voids 0 0 # Bowel Movements 0 - Exam PHYSICAL EXAMINATION: Patient is sitting up in the bed comfortably, no acute distress, awake alert and oriented x 3. HEENT: Normocephalic. Neck is supple. Pupils reactive. Oral mucosa dry Neck: supple, no JVD. CHEST EXAMINATION: Trachea is central. Symmetrical expansion. Bibasilar diminished sounds. Lung thornton clear to auscultation and percussion. CARDIAC: Normal S1, S2 with no gallops. No murmurs ABDOMEN: Soft. Status post surgery, dressing/ binder present .QUENTIN with minimal serosanguineous drainage .no bowel sounds auscultated. Extremities: Trace bilateral pedal edema. No clubbing or cyanosis Neurological: CN 2 through 12 grossly intact. No focal deficits noted Skin: bilateral lower extremity healed lesions. - Labs CBC & Chem 7: 09/26/21 06:30 09/26/21 06:23 Labs: Abnormal Lab Results - Last 24 Hours (Table) 09/25/21 09/25/21 09/26/21 Range/Units 17:16 21:00 06:23 WBC (3.8-10.6) k/uL RBC (4.30-5.90) m/uL Hgb (13.0-17.5) gm/dL Hct (39.0-53.0) % Neutrophils # (1.3-7.7) k/uL Sodium 131 L (137-145) mmol/L Carbon Dioxide 21 L (22-30) mmol/L BUN 48 H (9-20) mg/dL Creatinine 2.19 H (0.66-1.25) mg/dL Glucose 166 H (74-99) mg/dL POC Glucose (mg/dL) 273 H 239 H (75-99) mg/dL Calcium 7.5 L (8.4-10.2) mg/dL 09/26/21 09/26/21 09/26/21 Range/Units 06:30 07:09 12:22 WBC 12.1 H (3.8-10.6) k/uL RBC 3.09 L (4.30-5.90) m/uL Hgb 9.6 L D (13.0-17.5) gm/dL Hct 28.8 L (39.0-53.0) % Neutrophils # 9.5 H (1.3-7.7) k/uL Sodium (137-145) mmol/L Carbon Dioxide (22-30) mmol/L BUN (9-20) mg/dL Creatinine (0.66-1.25) mg/dL Glucose (74-99) mg/dL POC Glucose (mg/dL) 185 H 191 H (75-99) mg/dL Calcium (8.4-10.2) mg/dL Assessment and Plan Assessment: Incarcerated hernia, status post repair with mesh placement, management as per surgery Hypotension Acute renal failure secondary to the above and NSAIDs Hypovolemic hyponatremia Diabetes mellitus, A1c 8.1 History of Behcet's Disease Morbid obesity, BMI 36 Plan: Continue on current medication regime ,monitoring and symptomatic treatm ent. Blood sugars improving, Lantus increased, parameters placed on pre-meal NovoLog, close monitoring of Accu-Cheks. Continue holding antihypertensives .IV fluids as per surgery and nephrology.Clotrimazole cream to folds. Prognosis guarded given multiple complex medical issues. The impression and plan of care has been dictated as directed. : I performed a history and examination of this patient, discussed the same with the dictator. I agree with the dictator's note ,documented as a scribe. Any additional findings or plans will be noted.
[2021-09-26 17:09] LABS: Glucose,Whole Blood 161 mg/dL (75-99)
[2021-09-26 17:33] LABS: Amorphous Sediment,Urine Rare /hpf; Appearance,Urine Turbid (Clear); Bilirubin,Urine Negative (Negative); Blood,Urine Large (Negative); Color,Urine Yellow; Glucose,Urine (UA) 3+ (Negative); Ketones,Urine Negative (Negative); Leukocyte Esterase,Urine Moderate (Negative); Mucus,Urine Rare /hpf; Nitrite,Urine Negative (Negative); PH, Urine 5.5 (5.0-8.0); Protein,Urine 2+ (Negative); RBC,Urine 53 /hpf (0-5); Specific Gravity,Urine 1.021 (1.001-1.035); Squamous Epithelial Cell,Urine 1 /hpf (0-4); Uric Acid Crystals,Urine Few /hpf; Urobilinogen,Urine <2.0 mg/dL (<2.0); WBC,Urine 73 /hpf (0-5)
[2021-09-26 21:21] LABS: Glucose,Whole Blood 158 mg/dL (75-99)
[2021-09-26] MEDS: INSULIN DETEMIR (LEVEMIR) 100 UNIT/ML SYR SQ SCH (21:34)
[2021-09-26] MEDS: SERTRALINE 100 MG TAB PO SCH (21:35)
[2021-09-26] MEDS: buPROPion 100 MG TAB PO SCH (21:35)
[2021-09-27] MEDS: HYDROmorphone 1 MG/ML 1 ML SYRINGE IVP PRN ×5 (00:49→20:39)
[2021-09-27] MEDS: PIPERACILLIN-TAZOBACTAM 3.375 GM in SODIUM CHLORIDE 0.9% 100 ML IVPB SCH ×3 (00:53→16:12)
[2021-09-27 07:16] LABS: Glucose,Whole Blood 136 mg/dL (75-99)
[2021-09-27] MEDS: INSULIN ASPART (NovoLOG) 100 UNIT/ML VIAL SQ SCH ×7 (08:20→20:39)
[2021-09-27] MEDS: ENOXAPARIN 40 MG/0.4 ML SYRINGE SQ SCH (09:04)
[2021-09-27] MEDS: GABAPENTIN 300 MG CAP PO SCH ×3 (09:05→22:13)
[2021-09-27 09:09] LABS: Basophils % (A) 0 %; Eosinophils # (A) 0.2 k/uL (0-0.7); Eosinophils % (A) 3 %; HCT 25.9 % (39.0-53.0); HGB 8.8 gm/dL (13.0-17.5); Lymphocytes % (A) 13 %; MCH 31.3 pg (25.0-35.0); MCHC 33.9 g/dL (31.0-37.0); MCV 92.3 fL (80.0-100.0); Mean Platelet Volume 8.5; Monocytes # (A) 0.5 k/uL (0-1.0); Monocytes % (A) 6 %; Neutrophils # (A) 5.9 k/uL (1.3-7.7); Neutrophils % (A) 76 %; Platelet Count 181 k/uL (150-450); Poikilocytosis Slight; RDW 15.7 % (11.5-15.5); WBC 7.8 k/uL (3.8-10.6)
[2021-09-27] MEDS: CLOTRIMAZOLE 1% CREAM 30 GM TUBE TOPICAL SCH ×2 (09:24→20:47)
[2021-09-27 09:27] LABS: Magnesium 2.5 mg/dL (1.5-2.4)
[2021-09-27 09:31] LABS: African American GFR (CKD) 85.9 (60.0-200.0); Anion Gap 10.6 mmol/L (10.00-18.00); BUN/Creat Ratio 24.92 Ratio (12.00-20.00); Blood Urea Nitrogen 29.9 mg/dL (9.0-27.0); Calcium 7.8 mg/dL (8.7-10.3); Carbon Dioxide 23.4 mmol/L (20.0-27.5); Non-African American GFR(CKD) 74.1 (60.0-200.0); Potassium 4.2 mmol/L (3.5-5.5)
--- NOTE | 2021-09-27 10:32 | P.PN ---
Subjective Patient is seen in follow-up for acute kidney injury. Receiving IV fluids. Sodium level normal. Renal function improved. Has a Dominguez catheter. Nonoliguric. Blood pressure stable. Denies chest pain or shortness of breath. No vomiting or diarrhea. Tolerating oral intake. Vital signs are stable. General: Awake. No acute distress. HEENT: Head exam is unremarkable. LUNGS: Breath sounds decreased. HEART: Rate and Rhythm are regular. ABDOMEN: Soft, no distention. EXTREMITITES: No edema. Objective - Vital Signs Vital signs: Vital Signs Temp 98 F 09/27/21 07:57 Pulse 85 09/27/21 07:57 Resp 18 09/27/21 07:57 BP 120/77 09/27/21 04:22 Pulse Ox 94 L 09/27/21 07:57 Intake & Output 09/26/21 09/27/21 09/27/21 18:59 06:59 18:59 Intake Total 900 1000 Output Total 135 900 Balance 765 100 Intake: Intake, IV Titration 900 1000 Amount Lactated Ringers 1,000 ml 900 900 @ 75 mls/hr IV .[id number] [facility] Rx#:[id number] Piperacillin-Tazobactam 3 100 .375 gm In Sodium Chloride 0.9% 100 ml @ 25 mls/hr IVPB Q8HR [facility] Rx# :[id number] Output: Drainage 135 100 Abdomen 135 100 Urine 800 Other: Voiding Method Indwelling Catheter Indwelling Catheter # Voids 0 - Labs CBC & Chem 7: 09/27/21 05:54 09/27/21 05:54 Labs: Abnormal Lab Results - Last 24 Hours (Table) 09/26/21 09/26/21 09/26/21 Range/Units 06:23 06:30 07:09 WBC 12.1 H (3.8-10.6) k/uL RBC 3.09 L (4.30-5.90) m/uL Hgb 9.6 L D (13.0-17.5) gm/dL Hct 28.8 L (39.0-53.0) % RDW (11.5-15.5) % Neutrophils # 9.5 H (1.3-7.7) k/uL Sodium 131 L (137-145) mmol/L Carbon Dioxide 21 L (22-30) mmol/L BUN 48 H (9-20) mg/dL Creatinine 2.19 H (0.66-1.25) mg/dL BUN/Creatinine Ratio (12.00-20.00) Ratio Glucose 166 H (74-99) mg/dL POC Glucose (mg/dL) 185 H (75-99) mg/dL Calcium 7.5 L (8.4-10.2) mg/dL Magnesium (1.5-2.4) mg/dL Urine Protein (Negative) Urine Glucose (UA) (Negative) Urine Blood (Negative) Ur Leukocyte Esterase (Negative) Urine RBC (0-5) /hpf Urine WBC (0-5) /hpf Uric Acid Crystals (None) /hpf Amorphous Sediment (None) /hpf Urine Mucus (None) /hpf 09/26/21 09/26/21 09/26/21 Range/Units 12:22 17:01 17:04 WBC (3.8-10.6) k/uL RBC (4.30-5.90) m/uL Hgb (13.0-17.5) gm/dL Hct (39.0-53.0) % RDW (11.5-15.5) % Neutrophils # (1.3-7.7) k/uL Sodium (137-145) mmol/L Carbon Dioxide (22-30) mmol/L BUN (9-20) mg/dL Creatinine (0.66-1.25) mg/dL BUN/Creatinine Ratio (12.00-20.00) Ratio Glucose (74-99) mg/dL POC Glucose (mg/dL) 191 H 161 H (75-99) mg/dL Calcium (8.4-10.2) mg/dL Magnesium (1.5-2.4) mg/dL Urine Protein 2+ H (Negative) Urine Glucose (UA) 3+ H (Negative) Urine Blood Large H (Negative) Ur Leukocyte Esterase Moderate H (Negative) Urine RBC 53 H (0-5) /hpf Urine WBC 73 H (0-5) /hpf Uric Acid Crystals Few H (None) /hpf Amorphous Sediment Rare H (None) /hpf Urine Mucus Rare H (None) /hpf 09/26/21 09/27/21 09/27/21 Range/Units 21:17 05:54 05:54 WBC (3.8-10.6) k/uL RBC 2.80 L (4.30-5.90) m/uL Hgb 8.8 L (13.0-17.5) gm/dL Hct 25.9 L (39.0-53.0) % RDW 15.7 H (11.5-15.5) % Neutrophils # (1.3-7.7) k/uL Sodium (137-145) mmol/L Carbon Dioxide (22-30) mmol/L BUN 29.9 H (9-20) mg/dL Creatinine (0.66-1.25) mg/dL BUN/Creatinine Ratio 24.92 H (12.00-20.00) Ratio Glucose 114 H (74-99) mg/dL POC Glucose (mg/dL) 158 H (75-99) mg/dL Calcium 7.8 L (8.4-10.2) mg/dL Magnesium 2.5 H (1.5-2.4) mg/dL Urine Protein (Negative) Urine Glucose (UA) (Negative) Urine Blood (Negative) Ur Leukocyte Esterase (Negative) Urine RBC (0-5) /hpf Urine WBC (0-5) /hpf Uric Acid Crystals (None) /hpf Amorphous Sediment (None) /hpf Urine Mucus (None) /hpf 09/27/21 Range/Units 07:09 WBC (3.8-10.6) k/uL RBC (4.30-5.90) m/uL Hgb (13.0-17.5) gm/dL Hct (39.0-53.0) % RDW (11.5-15.5) % Neutrophils # (1.3-7.7) k/uL Sodium (137-145) mmol/L Carbon Dioxide (22-30) mmol/L BUN (9-20) mg/dL Creatinine (0.66-1.25) mg/dL BUN/Creatinine Ratio (12.00-20.00) Ratio Glucose (74-99) mg/dL POC Glucose (mg/dL) 136 H (75-99) mg/dL Calcium (8.4-10.2) mg/dL Magnesium (1.5-2.4) mg/dL Urine Protein (Negative) Urine Glucose (UA) (Negative) Urine Blood (Negative) Ur Leukocyte Esterase (Negative) Urine RBC (0-5) /hpf Urine WBC (0-5) /hpf Uric Acid Crystals (None) /hpf Amorphous Sediment (None) /hpf Urine Mucus (None) /hpf Assessment and Plan Plan: Assessment: 1. Acute kidney injury mostly prerenal secondary to hypotension and nonsteroidals. Baseline creatinine near 1 and peaked at 3.3 this admission. 1.2 today. 2. Proteinuria. Likely secondary to underlying diabetic kidney disease. Further workup outpatient. 3. Diabetes mellitus. Diagnosed over 25 years ago. 4. History of Behcet's disease. 5. Hypovolemic hyponatremia improved with IV hydration. 6. Status post repair of incarcerated hernia on 09/23/2021. Plan: Maintain IV fluids. Decrease rate to 50 mL an hour. Encouraged oral intake. Avoid nephrotoxins. Blood sugar control. Continue to hold antihypertensives. Check iron studies. Advised to follow up outpatient 1-2 weeks post discharge.
[2021-09-27 11:52] LABS: Glucose,Whole Blood 131 mg/dL (75-99)
[2021-09-27 14:19] LABS: % Iron Saturation 13.18 (15.00-50.00)
--- NOTE | 2021-09-27 14:43 | P.PN ---
Subjective Progress Note Date: 09/27/21 CHIEF COMPLAINT: Large incarcerated incisional hernia HISTORY OF PRESENT ILLNESS: Patient is postop day #4 repair of incarcerated incisional hernia with mesh. Patient reports abdominal pain is about the same. He is having bowel function now with bowel movements and flatus. He did have some nausea earlier. He is on antibiotics for UTI. Urine output has improved. Dominguez catheter will be discontinued today. He's afebrile. WBC is 7.8 hemoglobin 8.8 platelets 181 iron low at 24 creatinine has improved from 2.19 to 1. Patient seen and examined with Dr. Oglesby PHYSICAL EXAM: VITAL SIGNS: Reviewed. GENERAL: Well-developed in no acute distress. HEENT: No sclera icterus. Extraocular movements grossly intact. Moist buccal mucosa. Head is atraumatic, normocephalic. ABDOMEN: Soft. incision site clean, dry, intact. QUENTIN drain with serosanguineous output 100 mL NEUROLOGIC: Alert and oriented. Cranial nerves II through XII grossly intact. ASSESSMENT: 1. incarcerated incisional hernia status post repair with mesh placement PLAN: -Advance diet to full liquids -Discontinue Dominguez catheter -Continue to Monitor strict I's and O's -Encourage patient to ambulate -Encourage patient to use incentive spirometer -Continue pain medication as needed -Continue IV fluid -DVT prophylaxis [facility] Detacher note has been reviewed by physician. Signing provider agrees with the documented findings, assessment, and plan of care. Objective - Vital Signs Vital signs: Vital Signs Temp 98 F 09/27/21 12:01 Pulse 85 09/27/21 12:01 Resp 18 09/27/21 12:01 BP 126/80 09/27/21 12:01 Pulse Ox 94 L 09/27/21 12:01 Intake & Output 09/26/21 09/27/21 09/27/21 18:59 06:59 18:59 Intake Total 900 1000 Output Total 135 900 Balance 765 100 Intake: Intake, IV Titration 900 1000 Amount Lactated Ringers 1,000 ml 900 900 @ 75 mls/hr IV .[id number] [facility] Rx#:[id number] Piperacillin-Tazobactam 3 100 .375 gm In Sodium Chloride 0.9% 100 ml @ 25 mls/hr IVPB Q8HR [facility] Rx# :[id number] Output: Drainage 135 100 Abdomen 135 100 Urine 800 Other: Voiding Method Indwelling Catheter Indwelling Catheter Indwelling Catheter # Voids 0 - Labs CBC & Chem 7: 09/27/21 05:54 09/27/21 05:54 Labs: Abnormal Lab Results - Last 24 Hours (Table) 09/26/21 09/26/21 09/26/21 Range/Units 17:01 17:04 21:17 RBC (4.30-5.90) m/uL Hgb (13.0-17.5) gm/dL Hct (39.0-53.0) % RDW (11.5-15.5) % BUN (9.0-27.0) mg/dL BUN/Creatinine Ratio (12.00-20.00) Ratio Glucose (70-110) mg/dL POC Glucose (mg/dL) 161 H 158 H (75-99) mg/dL Calcium (8.7-10.3) mg/dL Magnesium (1.5-2.4) mg/dL Iron (65-175) ug/dL TIBC (228-460) ug/dL % Saturation (15.00-50.00) Transferrin (204.0-354.0) mg/dL Ferritin (22.0-322.0) ng/mL Urine Protein 2+ H (Negative) Urine Glucose (UA) 3+ H (Negative) Urine Blood Large H (Negative) Ur Leukocyte Esterase Moderate H (Negative) Urine RBC 53 H (0-5) /hpf Urine WBC 73 H (0-5) /hpf Uric Acid Crystals Few H (None) /hpf Amorphous Sediment Rare H (None) /hpf Urine Mucus Rare H (None) /hpf 09/27/21 09/27/21 09/27/21 Range/Units 05:54 05:54 05:54 RBC 2.80 L (4.30-5.90) m/uL Hgb 8.8 L (13.0-17.5) gm/dL Hct 25.9 L (39.0-53.0) % RDW 15.7 H (11.5-15.5) % BUN 29.9 H (9.0-27.0) mg/dL BUN/Creatinine Ratio 24.92 H (12.00-20.00) Ratio Glucose 114 H (70-110) mg/dL POC Glucose (mg/dL) (75-99) mg/dL Calcium 7.8 L (8.7-10.3) mg/dL Magnesium 2.5 H (1.5-2.4) mg/dL Iron 24 L (65-175) ug/dL TIBC 181 L (228-460) ug/dL % Saturation 13.18 L (15.00-50.00) Transferrin 129.0 L (204.0-354.0) mg/dL Ferritin 417.0 H (22.0-322.0) ng/mL Urine Protein (Negative) Urine Glucose (UA) (Negative) Urine Blood (Negative) Ur Leukocyte Esterase (Negative) Urine RBC (0-5) /hpf Urine WBC (0-5) /hpf Uric Acid Crystals (None) /hpf Amorphous Sediment (None) /hpf Urine Mucus (None) /hpf 09/27/21 09/27/21 Range/Units 07:09 11:51 RBC (4.30-5.90) m/uL Hgb (13.0-17.5) gm/dL Hct (39.0-53.0) % RDW (11.5-15.5) % BUN (9.0-27.0) mg/dL BUN/Creatinine Ratio (12.00-20.00) Ratio Glucose (70-110) mg/dL POC Glucose (mg/dL) 136 H 131 H (75-99) mg/dL Calcium (8.7-10.3) mg/dL Magnesium (1.5-2.4) mg/dL Iron (65-175) ug/dL TIBC (228-460) ug/dL % Saturation (15.00-50.00) Transferrin (204.0-354.0) mg/dL Ferritin (22.0-322.0) ng/mL Urine Protein (Negative) Urine Glucose (UA) (Negative) Urine Blood (Negative) Ur Leukocyte Esterase (Negative) Urine RBC (0-5) /hpf Urine WBC (0-5) /hpf Uric Acid Crystals (None) /hpf Amorphous Sediment (None) /hpf Urine Mucus (None) /hpf
--- NOTE | 2021-09-27 16:05 | P.PN ---
Subjective Progress Note Date: 09/27/21 Is a 41-year-old gentleman admitted with incarcerated incisional hernia status post repair with mesh placement. Borderline hypotension, antihypertensives on hold. Maintained on IV fluid hydration and Zosyn. Afebrile, T-max 100.5, WBC trending down, 12.1. Creatinine and sodium improving. Reports abdominal pain greatest on the left side. Reports last bowel movement was on Sunday prior to admission. Denies chest pain, palpitations or shortness of breath. Maintaining O2 sats in the low 90s on room air. Reports nausea, no vomiting, no diarrhea. 09/27/2021 continues on IV fluids, IV antibiotics. tolerating clear diet with no nausea vomiting or diarrhea. Passing flatus. Ambulating, tolerating exertion well. Pain decreasing. Lantus insulin increased yesterday with better blood sugar control this morning. Labs pending. Afebrile. Maintaining O2 sats in the 90s on room air. Objective - Vital Signs Vital signs: Vital Signs Temp 98 F 09/27/21 12:01 Pulse 85 09/27/21 12:01 Resp 18 09/27/21 12:01 BP 126/80 09/27/21 12:01 Pulse Ox 94 L 09/27/21 12:01 Intake & Output 09/26/21 09/27/21 09/27/21 18:59 06:59 18:59 Intake Total 900 1000 Output Total 135 900 780 Balance 765 100 -780 Intake: Intake, IV Titration 900 1000 Amount Lactated Ringers 1,000 ml 900 900 @ 50 mls/hr IV .Q20H [facility] Rx#:[id number] Piperacillin-Tazobactam 3 100 .375 gm In Sodium Chloride 0.9% 100 ml @ 25 mls/hr IVPB Q8HR [facility] Rx# :[id number] Output: Drainage 135 100 80 Abdomen 135 100 80 Urine 800 700 Other: Voiding Method Indwelling Catheter Indwelling Catheter Indwelling Catheter # Voids 0 - Exam PHYSICAL EXAMINATION: Patient is sitting up in the bed comfortably, no acute distress, awake alert and oriented x 3. HEENT: Normocephalic. Neck is supple. Pupils reactive. MMM. Neck: supple, no JVD. CHEST EXAMINATION: Bibasilar diminished sounds. Lung thornton clear to auscultation and percussion. CARDIAC: Normal S1, S2 with no gallops. No murmurs ABDOMEN: Soft. Status post surgery, dressing/ binder present .QUENTIN with serosanguineous drainage . Hypoactive bowel sounds. Scrotal edema. Extremities: Trace bilateral pedal edema. No clubbing or cyanosis Neurological: CN 2 through 12 grossly intact. No focal deficits noted Skin: bilateral lower extremity healed lesions. - Labs CBC & Chem 7: 09/27/21 05:54 09/27/21 05:54 Labs: Abnormal Lab Results - Last 24 Hours (Table) 09/26/21 09/26/21 09/26/21 Range/Units 17:01 17:04 21:17 RBC (4.30-5.90) m/uL Hgb (13.0-17.5) gm/dL Hct (39.0-53.0) % RDW (11.5-15.5) % BUN (9.0-27.0) mg/dL BUN/Creatinine Ratio (12.00-20.00) Ratio Glucose (70-110) mg/dL POC Glucose (mg/dL) 161 H 158 H (75-99) mg/dL Calcium (8.7-10.3) mg/dL Magnesium (1.5-2.4) mg/dL Iron (65-175) ug/dL TIBC (228-460) ug/dL % Saturation (15.00-50.00) Transferrin (204.0-354.0) mg/dL Ferritin (22.0-322.0) ng/mL Urine Protein 2+ H (Negative) Urine Glucose (UA) 3+ H (Negative) Urine Blood Large H (Negative) Ur Leukocyte Esterase Moderate H (Negative) Urine RBC 53 H (0-5) /hpf Urine WBC 73 H (0-5) /hpf Uric Acid Crystals Few H (None) /hpf Amorphous Sediment Rare H (None) /hpf Urine Mucus Rare H (None) /hpf 09/27/21 09/27/21 09/27/21 Range/Units 05:54 05:54 05:54 RBC 2.80 L (4.30-5.90) m/uL Hgb 8.8 L (13.0-17.5) gm/dL Hct 25.9 L (39.0-53.0) % RDW 15.7 H (11.5-15.5) % BUN 29.9 H (9.0-27.0) mg/dL BUN/Creatinine Ratio 24.92 H (12.00-20.00) Ratio Glucose 114 H (70-110) mg/dL POC Glucose (mg/dL) (75-99) mg/dL Calcium 7.8 L (8.7-10.3) mg/dL Magnesium 2.5 H (1.5-2.4) mg/dL Iron 24 L (65-175) ug/dL TIBC 181 L (228-460) ug/dL % Saturation 13.18 L (15.00-50.00) Transferrin 129.0 L (204.0-354.0) mg/dL Ferritin 417.0 H (22.0-322.0) ng/mL Urine Protein (Negative) Urine Glucose (UA) (Negative) Urine Blood (Negative) Ur Leukocyte Esterase (Negative) Urine RBC (0-5) /hpf Urine WBC (0-5) /hpf Uric Acid Crystals (None) /hpf Amorphous Sediment (None) /hpf Urine Mucus (None) /hpf 09/27/21 09/27/21 Range/Units 07:09 11:51 RBC (4.30-5.90) m/uL Hgb (13.0-17.5) gm/dL Hct (39.0-53.0) % RDW (11.5-15.5) % BUN (9.0-27.0) mg/dL BUN/Creatinine Ratio (12.00-20.00) Ratio Glucose (70-110) mg/dL POC Glucose (mg/dL) 136 H 131 H (75-99) mg/dL Calcium (8.7-10.3) mg/dL Magnesium (1.5-2.4) mg/dL Iron (65-175) ug/dL TIBC (228-460) ug/dL % Saturation (15.00-50.00) Transferrin (204.0-354.0) mg/dL Ferritin (22.0-322.0) ng/mL Urine Protein (Negative) Urine Glucose (UA) (Negative) Urine Blood (Negative) Ur Leukocyte Esterase (Negative) Urine RBC (0-5) /hpf Urine WBC (0-5) /hpf Uric Acid Crystals (None) /hpf Amorphous Sediment (None) /hpf Urine Mucus (None) /hpf Assessment and Plan Assessment: Incarcerated hernia, status post repair with mesh placement, management as per surgery Hypotension, improving with IV fluid hydration and antihypertensives on hold Acute renal failure secondary to the above and NSAIDs Hypovolemic hyponatremia Diabetes mellitus, A1c 8.1 History of Behcet's Disease Morbid obesity, BMI 36 Plan: Continue on current medication regime ,monitoring and symptomatic treatment. Labs pending. Diet advancement as per surgery. Continue holding antihypertensives,IV fluids as per surgery and nephrology. Aggressive pulmonary toileting with incentive spirometer reinforced. Increase ambulation as tolerated Prognosis guarded given multiple complex medical issues. The impression and plan of care has been dictated as directed. : I performed a history and examination of this patient, discussed the same with the dictator. I agree with the dictator's note ,documented as a scribe. Any ad ditional findings or plans will be noted.
[2021-09-27] MEDS: LACTATED RINGERS 1,000 ML IV SCH ×2 (16:12→23:14)
[2021-09-27 17:18] LABS: Glucose,Whole Blood 131 mg/dL (75-99)
[2021-09-27 20:06] LABS: Glucose,Whole Blood 142 mg/dL (75-99)
[2021-09-27] MEDS: buPROPion 100 MG TAB PO SCH (20:39)
[2021-09-27] MEDS: SERTRALINE 100 MG TAB PO SCH (20:39)
[2021-09-27] MEDS: INSULIN DETEMIR (LEVEMIR) 100 UNIT/ML SYR SQ SCH (20:47)
[2021-09-28] MEDS: HYDROmorphone 1 MG/ML 1 ML SYRINGE IVP PRN ×5 (00:39→20:13)
[2021-09-28] MEDS: PIPERACILLIN-TAZOBACTAM 3.375 GM in SODIUM CHLORIDE 0.9% 100 ML IVPB SCH ×3 (00:40→16:34)
[2021-09-28] MEDS: HYDROcodone/APAP 5-325MG 1 EACH TAB PO PRN (03:52)
[2021-09-28 07:16] LABS: Glucose,Whole Blood 136 mg/dL (75-99)
[2021-09-28] MEDS: INSULIN ASPART (NovoLOG) 100 UNIT/ML VIAL SQ SCH ×7 (08:05→21:48)
[2021-09-28] MEDS: ENOXAPARIN 40 MG/0.4 ML SYRINGE SQ SCH (09:31)
[2021-09-28] MEDS: GABAPENTIN 300 MG CAP PO SCH ×3 (09:31→21:48)
[2021-09-28] MEDS: CLOTRIMAZOLE 1% CREAM 30 GM TUBE TOPICAL SCH ×2 (10:04→21:54)
[2021-09-28 11:26] LABS: Basophils % (A) 1 %; Eosinophils # (A) 0.2 k/uL (0-0.7); Eosinophils % (A) 4 %; HCT 26.9 % (39.0-53.0); Hypochromasia Slight; Lymphocytes # (A) 1.3 k/uL (1.0-4.8); Lymphocytes % (A) 20 %; MCH 31.3 pg (25.0-35.0); MCHC 33.2 g/dL (31.0-37.0); MCV 94.1 fL (80.0-100.0); Mean Platelet Volume 7.7; Monocytes # (A) 0.4 k/uL (0-1.0); Monocytes % (A) 7 %; Neutrophils # (A) 4.2 k/uL (1.3-7.7); Neutrophils % (A) 67 %; Platelet Count 184 k/uL (150-450); Poikilocytosis Slight; RBC 2.86 m/uL (4.30-5.90); RDW 15.1 % (11.5-15.5); WBC 6.3 k/uL (3.8-10.6)
--- NOTE | 2021-09-28 11:35 | P.PN ---
Subjective Patient is seen in follow-up for acute kidney injury. Tolerating full liquid diet. Morning labs pending. Dominguez catheter removed. Has been voiding. No vomiting or diarrhea. Vital signs are stable. General: Awake. No acute distress. HEENT: Head exam is unremarkable. LUNGS: Breath sounds decreased. HEART: Rate and Rhythm are regular. ABDOMEN: Soft, no distention. EXTREMITITES: No edema. Objective - Vital Signs Vital signs: Vital Signs Temp 97.5 F L 09/28/21 07:50 Pulse 82 09/28/21 07:50 Resp 18 09/28/21 10:51 BP 126/78 09/28/21 07:50 Pulse Ox 97 09/28/21 07:50 Intake & Output 09/27/21 09/28/21 09/28/21 18:59 06:59 18:59 Intake Total 600 600 Output Total 780 60 Balance -180 540 Intake: Intake, IV Titration 600 600 Amount Lactated Ringers 1,000 ml 600 500 @ 50 mls/hr IV .Q20H [facility] Rx#:[id number] Piperacillin-Tazobactam 3 100 .375 gm In Sodium Chloride 0.9% 100 ml @ 25 mls/hr IVPB Q8HR [facility] Rx# :[id number] Output: Drainage 80 60 Abdomen 80 60 Urine 700 Other: Voiding Method Indwelling Catheter Toilet Toilet # Voids 2 # Bowel Movements 1 - Labs CBC & Chem 7: 09/28/21 10:56 09/27/21 05:54 Labs: Abnormal Lab Results - Last 24 Hours (Table) 09/27/21 09/27/21 09/27/21 Range/Units 05:54 11:51 17:17 RBC (4.30-5.90) m/uL Hgb (13.0-17.5) gm/dL Hct (39.0-53.0) % POC Glucose (mg/dL) 131 H 131 H (75-99) mg/dL Iron 24 L (65-175) ug/dL TIBC 181 L (228-460) ug/dL % Saturation 13.18 L (15.00-50.00) Transferrin 129.0 L (204.0-354.0) mg/dL Ferritin 417.0 H (22.0-322.0) ng/mL 09/27/21 09/28/21 09/28/21 Range/Units 20:05 07:15 10:56 RBC 2.86 L (4.30-5.90) m/uL Hgb 9.0 L (13.0-17.5) gm/dL Hct 26.9 L (39.0-53.0) % POC Glucose (mg/dL) 142 H 136 H (75-99) mg/dL Iron (65-175) ug/dL TIBC (228-460) ug/dL % Saturation (15.00-50.00) Transferrin (204.0-354.0) mg/dL Ferritin (22.0-322.0) ng/mL Assessment and Plan Plan: Assessment: 1. Acute kidney injury mostly prerenal secondary to hypotension and nonsteroidals. Baseline creatinine near 1 and peaked at 3.3 this admission. 1.2 yesterday. 2. Proteinuria. Likely secondary to underlying diabetic kidney disease. Further workup outpatient. 3. Diabetes mellitus. Diagnosed over 25 years ago. 4. History of Behcet's disease. 5. Hypovolemic hyponatremia improved with IV hydration. 6. Status post repair of incarcerated hernia on 09/23/2021. 7. Anemia. Iron deficiency noted. Plan: Maintain IV fluids. Encouraged oral intake. Avoid nephrotoxins. Blood sugar control. Add IV iron. Advised to follow up outpatient 1-2 weeks post discharge.
[2021-09-28 11:37] LABS: African American GFR (CKD) >90 (>60 ml/min/1.73 sqM); Anion Gap 6 mmol/L; Blood Urea Nitrogen 22 mg/dL (9-20); Calcium 7.9 mg/dL (8.4-10.2); Carbon Dioxide 24 mmol/L (22-30); Chloride 104 mmol/L (98-107); Glucose 140 mg/dL (74-99); Non-African American GFR(CKD) >90 (>60 ml/min/1.73 sqM); Sodium 134 mmol/L (137-145)
[2021-09-28 12:13] LABS: Glucose,Whole Blood 125 mg/dL (75-99)
[2021-09-28] MEDS: SODIUM FERRIC GLUCONAT-SUCROSE 125 MG in SODIUM CHLORIDE 0.9% 100 ML IVPB SCH (12:37)
--- NOTE | 2021-09-28 13:41 | P.PN ---
Subjective Progress Note Date: 09/28/21 CHIEF COMPLAINT: Large incarcerated incisional hernia HISTORY OF PRESENT ILLNESS: Patient is postop day #5 repair of incarcerated incisional hernia with mesh. Patient does report decrease in abdominal pain. He is having flatus and bowel movements. He denies any nausea or vomiting. He's tolerating full liquids. QUENTIN drain was 60 mL serosanguineous output through the night. Patient reports urinating without difficulty. Dominguez catheter was removed yesterday. Afebrile WBC 6.3 hemoglobin is 9 platelets 184 sodium 134 potassium is 4 creatinine 0.91 iron low at 24. Nephrology has ordered IV iron Patient seen and examined with Dr. Oglesby PHYSICAL EXAM: VITAL SIGNS: Reviewed. GENERAL: Well-developed in no acute distress. HEENT: No sclera icterus. Extraocular movements grossly intact. Moist buccal mucosa. Head is atraumatic, normocephalic. ABDOMEN: Soft. Incision site no drainage. There is bruising noted along the incision. The incision itself is a dark purple in color. QUENTIN drain with serosanguineous output 60 mL NEUROLOGIC: Alert and oriented. Cranial nerves II through XII grossly intact. ASSESSMENT: 1. incarcerated incisional hernia status post repair with mesh placement PLAN: -Advance diet to regular -Encourage patient to ambulate -Encourage patient to use incentive spirometer -Continue pain medication as needed -Continue IV fluids at a decreased rate -We'll have patient shower. Discussed with nursing staff -Anticipate discharge possibly tomorrow -DVT prophylaxis [facility] Patient Scheduler note has been reviewed by physician. Signing provider agrees with the documented findings, assessment, and plan of care. Objective - Vital Signs Vital signs: Vital Signs Temp 98.2 F 09/28/21 11:38 Pulse 81 09/28/21 11:38 Resp 18 09/28/21 11:38 BP 126/78 09/28/21 07:50 Pulse Ox 96 09/28/21 11:38 Intake & Output 09/27/21 09/28/21 09/28/21 18:59 06:59 18:59 Intake Total 600 600 Output Total 780 60 Balance -180 540 Intake: Intake, IV Titration 600 600 Amount Lactated Ringers 1,000 ml 600 500 @ 50 mls/hr IV .Q20H [facility] Rx#:[id number] Piperacillin-Tazobactam 3 100 .375 gm In Sodium Chloride 0.9% 100 ml @ 25 mls/hr IVPB Q8HR [facility] Rx# :[id number] Output: Drainage 80 60 Abdomen 80 60 Urine 700 Other: Voiding Method Indwelling Catheter Toilet Toilet # Voids 2 # Bowel Movements 1 - Labs CBC & Chem 7: 09/28/21 10:56 09/28/21 10:56 Labs: Abnormal Lab Results - Last 24 Hours (Table) 09/27/21 09/27/21 09/27/21 Range/Units 05:54 17:17 20:05 RBC (4.30-5.90) m/uL Hgb (13.0-17.5) gm/dL Hct (39.0-53.0) % Sodium (137-145) mmol/L BUN (9-20) mg/dL Glucose (74-99) mg/dL POC Glucose (mg/dL) 131 H 142 H (75-99) mg/dL Calcium (8.4-10.2) mg/dL Iron 24 L (65-175) ug/dL TIBC 181 L (228-460) ug/dL % Saturation 13.18 L (15.00-50.00) Transferrin 129.0 L (204.0-354.0) mg/dL Ferritin 417.0 H (22.0-322.0) ng/mL 09/28/21 09/28/21 09/28/21 Range/Units 07:15 10:56 10:56 RBC 2.86 L (4.30-5.90) m/uL Hgb 9.0 L (13.0-17.5) gm/dL Hct 26.9 L (39.0-53.0) % Sodium 134 L (137-145) mmol/L BUN 22 H (9-20) mg/dL Glucose 140 H (74-99) mg/dL POC Glucose (mg/dL) 136 H (75-99) mg/dL Calcium 7.9 L (8.4-10.2) mg/dL Iron (65-175) ug/dL TIBC (228-460) ug/dL % Saturation (15.00-50.00) Transferrin (204.0-354.0) mg/dL Ferritin (22.0-322.0) ng/mL 04/27/22 Range/Units 12:11 RBC (4.30-5.90) m/uL Hgb (13.0-17.5) gm/dL Hct (39.0-53.0) % Sodium (137-145) mmol/L BUN (9-20) mg/dL Glucose (74-99) mg/dL POC Glucose (mg/dL) 125 H (75-99) mg/dL Calcium (8.4-10.2) mg/dL Iron (65-175) ug/dL TIBC (228-460) ug/dL % Saturation (15.00-50.00) Transferrin (204.0-354.0) mg/dL Ferritin (22.0-322.0) ng/mL
--- NOTE | 2021-09-28 13:43 | P.PN ---
Subjective Progress Note Date: 09/28/21 Is a 41-year-old gentleman admitted with incarcerated incisional hernia status post repair with mesh placement. Borderline hypotension, antihypertensives on hold. Maintained on IV fluid hydration and Zosyn. Afebrile, T-max 100.5, WBC trending down, 12.1. Creatinine and sodium improving. Reports abdominal pain greatest on the left side. Reports last bowel movement was on Sunday prior to admission. Denies chest pain, palpitations or shortness of breath. Maintaining O2 sats in the low 90s on room air. Reports nausea, no vomiting, no diarrhea. 09/27/2021 continues on IV fluids, IV antibiotics. tolerating clear diet with no nausea vomiting or diarrhea. Passing flatus. Ambulating, tolerating exertion well. Pain decreasing. Lantus insulin increased yesterday with better blood sugar control this morning. Labs pending. Afebrile. Maintaining O2 sats in the 90s on room air. 09/28/2021 Reports feeling better today, positive flatus, positive bowel movements 2. Reports decreased surgical tenderness. Tolerating full liquid diet with no nausea vomiting or diarrhea. Renal function within normal limits with Dominguez catheter discontinued yesterday. Voiding without difficulty. IV iron ordered for iron deficiency anemia. Objective - Vital Signs Vital signs: Vital Signs Temp 98.2 F 09/28/21 11:38 Pulse 81 09/28/21 11:38 Resp 18 09/28/21 11:38 BP 126/78 09/28/21 07:50 Pulse Ox 96 09/28/21 11:38 Intake & Output 09/27/21 09/28/21 09/28/21 18:59 06:59 18:59 Intake Total 600 600 Output Total 780 60 Balance -180 540 Intake: Intake, IV Titration 600 600 Amount Lactated Ringers 1,000 ml 600 500 @ 50 mls/hr IV .Q20H [facility] Rx#:[id number] Piperacillin-Tazobactam 3 100 .375 gm In Sodium Chloride 0.9% 100 ml @ 25 mls/hr IVPB Q8HR [facility] Rx# :[id number] Output: Drainage 80 60 Abdomen 80 60 Urine 700 Other: Voiding Method Indwelling Catheter Toilet Toilet # Voids 2 # Bowel Movements 1 - Exam PHYSICAL EXAMINATION: Patient is sitting up in the bed comfortably, no acute distress, awake alert and oriented x 3. HEENT: Normocephalic. Neck is supple. Pupils reactive. MMM. Neck: supple, no JVD. CHEST EXAMINATION: Bibasilar diminished sounds. Lung thornton clear to auscultation and percussion. CARDIAC: Normal S1, S2 with no gallops. No murmurs ABDOMEN: Soft. Status post surgery, dressing/ binder present .QUENTIN with decreased serosanguineous drainage . Positive bowel sounds. Scrotal edema. Extremities: Trace bilateral pedal edema. No clubbing or cyanosis Neurological: CN 2 through 12 grossly intact. No focal deficits noted Skin: bilateral lower extremity healed lesions. - Labs CBC & Chem 7: 09/28/21 10:56 09/28/21 10:56 Labs: Abnormal Lab Results - Last 24 Hours (Table) 09/27/21 09/27/21 09/27/21 Range/Units 05:54 17:17 20:05 RBC (4.30-5.90) m/uL Hgb (13.0-17.5) gm/dL Hct (39.0-53.0) % Sodium (137-145) mmol/L BUN (9-20) mg/dL Glucose (74-99) mg/dL POC Glucose (mg/dL) 131 H 142 H (75-99) mg/dL Calcium (8.4-10.2) mg/dL Iron 24 L (65-175) ug/dL TIBC 181 L (228-460) ug/dL % Saturation 13.18 L (15.00-50.00) Transferrin 129.0 L (204.0-354.0) mg/dL Ferritin 417.0 H (22.0-322.0) ng/mL 09/28/21 09/28/21 09/28/21 Range/Units 07:15 10:56 10:56 RBC 2.86 L (4.30-5.90) m/uL Hgb 9.0 L (13.0-17.5) gm/dL Hct 26.9 L (39.0-53.0) % Sodium 134 L (137-145) mmol/L BUN 22 H (9-20) mg/dL Glucose 140 H (74-99) mg/dL POC Glucose (mg/dL) 136 H (75-99) mg/dL Calcium 7.9 L (8.4-10.2) mg/dL Iron (65-175) ug/dL TIBC (228-460) ug/dL % Saturation (15.00-50.00) Transferrin (204.0-354.0) mg/dL Ferritin (22.0-322.0) ng/mL 09/28/21 Range/Units 12:11 RBC (4.30-5.90) m/uL Hgb (13.0-17.5) gm/dL Hct (39.0-53.0) % Sodium (137-145) mmol/L BUN (9-20) mg/dL Glucose (74-99) mg/dL POC Glucose (mg/dL) 125 H (75-99) mg/dL Calcium (8.4-10.2) mg/dL Iron (65-175) ug/dL TIBC (228-460) ug/dL % Saturation (15.00-50.00) Transferrin (204.0-354.0) mg/dL Ferritin (22.0-322.0) ng/mL Assessment and Plan Assessment: Incarcerated hernia, status post repair with mesh placement, management as per surgery Hypotension, improving with IV fluid hydration and antihypertensives on hold Acute renal failure secondary to the above and NSAIDs Hypovolemic hyponatremia Diabetes mellitus, A1c 8.1 Iron deficient anemia History of Behcet's Disease Morbid obesity, BMI 36 Plan: Continue on current medication regime ,monitoring and symptomatic treatment. Labs pending. Diet advancement as per surgery. Aggressive pulmonary toileting with incentive spirometer reinforced. Increase ambulation as tolerated Prognosis guarded given multiple complex medical issues. The impression and plan of care has been dictated as directed. : I performed a history and examination of this patient, discussed the same with the dictator. I agree with the dictator's note ,documented as a scribe. Any additional findings or plans will be noted.
[2021-09-28 17:20] LABS: Glucose,Whole Blood 159 mg/dL (75-99)
[2021-09-28 20:11] LABS: Glucose,Whole Blood 191 mg/dL (75-99)
[2021-09-28] MEDS: buPROPion 100 MG TAB PO SCH (21:48)
[2021-09-28] MEDS: INSULIN DETEMIR (LEVEMIR) 100 UNIT/ML SYR SQ SCH (21:48)
[2021-09-28] MEDS: SERTRALINE 100 MG TAB PO SCH (21:48)
[2021-09-29] MEDS: PIPERACILLIN-TAZOBACTAM 3.375 GM in SODIUM CHLORIDE 0.9% 100 ML IVPB SCH ×2 (00:22→08:03)
[2021-09-29] MEDS: LACTATED RINGERS 1,000 ML IV SCH (00:23)
[2021-09-29] MEDS: HYDROmorphone 1 MG/ML 1 ML SYRINGE IVP PRN ×2 (02:37→08:03)
[2021-09-29] MEDS: HYDROcodone/APAP 5-325MG 1 EACH TAB PO PRN ×2 (06:02→13:08)
[2021-09-29 07:50] LABS: Glucose,Whole Blood 141 mg/dL (75-99)
[2021-09-29] MEDS: INSULIN ASPART (NovoLOG) 100 UNIT/ML VIAL SQ SCH ×4 (08:02→13:05)
[2021-09-29] MEDS: GABAPENTIN 300 MG CAP PO SCH (08:03)
[2021-09-29] MEDS: ENOXAPARIN 40 MG/0.4 ML SYRINGE SQ SCH (08:03)
[2021-09-29] MEDS: CLOTRIMAZOLE 1% CREAM 30 GM TUBE TOPICAL SCH (08:08)
[2021-09-29] MEDS: SODIUM FERRIC GLUCONAT-SUCROSE 125 MG in SODIUM CHLORIDE 0.9% 100 ML IVPB SCH (09:19)
[2021-09-29 10:52] LABS: Basophils # (A) 0.04 X 10*3/uL (0.00-0.10); Basophils % (A) 0.6 %; Eosinophils # (A) 0.24 X 10*3/uL (0.04-0.35); Eosinophils % (A) 3.6 %; HCT 26.3 % (39.6-50.0); HGB 8.4 g/dL (13.0-17.0); Immature Grans, Automated 1.3 %; Lymphocytes # (A) 1.14 X 10*3/uL (0.90-5.00); Lymphocytes % (A) 16.9 %; MCH 29.6 pg (27.0-32.0); MCHC 31.9 g/dL (32.0-37.0); MCV 92.6 fL (80.0-97.0); Mean Platelet Volume 10.4 fL (9.5-12.2); Monocytes # (A) 0.62 X 10*3/uL (0.20-1.00); Monocytes % (A) 9.2 %; NRBC Per 100 WBC 0.3 /100 WBCS (0.0-0.0); Neutrophils # (A) 4.61 X 10*3/uL (1.80-7.70); Neutrophils % (A) 68.4 %; Platelet Count 200 X 10*3/uL (140-440); RBC 2.84 X 10*6/uL (4.40-5.60); WBC 6.74 X 10*3/uL (4.50-10.00)
[2021-09-29 11:06] LABS: African American GFR (CKD) 121.7 (60.0-200.0); Anion Gap 9.5 mmol/L (10.00-18.00); BUN/Creat Ratio 15.22 Ratio (12.00-20.00); Blood Urea Nitrogen 13.7 mg/dL (9.0-27.0); Calcium 8.3 mg/dL (8.7-10.3); Carbon Dioxide 24.5 mmol/L (20.0-27.5); Magnesium 2.3 mg/dL (1.5-2.4); Potassium 4.3 mmol/L (3.5-5.5)
--- NOTE | 2021-09-29 12:12 | P.PN ---
Subjective Progress Note Date: 09/29/21 Is a 41-year-old gentleman admitted with incarcerated incisional hernia status post repair with mesh placement. Borderline hypotension, antihypertensives on hold. Maintained on IV fluid hydration and Zosyn. Afebrile, T-max 100.5, WBC trending down, 12.1. Creatinine and sodium improving. Reports abdominal pain greatest on the left side. Reports last bowel movement was on Sunday prior to admission. Denies chest pain, palpitations or shortness of breath. Maintaining O2 sats in the low 90s on room air. Reports nausea, no vomiting, no diarrhea. 09/27/2021 continues on IV fluids, IV antibiotics. tolerating clear diet with no nausea vomiting or diarrhea. Passing flatus. Ambulating, tolerating exertion well. Pain decreasing. Lantus insulin increased yesterday with better blood sugar control this morning. Labs pending. Afebrile. Maintaining O2 sats in the 90s on room air. 09/28/2021 Reports feeling better today, positive flatus, positive bowel movements 2. Reports decreased surgical tenderness. Tolerating full liquid diet with no nausea vomiting or diarrhea. Renal function within normal limits with Dominguez catheter discontinued yesterday. Voiding without difficulty. IV iron ordered for iron deficiency anemia. 09/29/21 pain controlled, tolerating diet advancement to consistent carb with no nausea vomiting. Diet Dr. Patel at bedside. Blood sugars controlled Receivi ng IV iron. Ambulating, tolerating exertion well. Electrolytes within normal limits, renal function stable. Afebrile, normal WBC. Hemoglobin 8.4, platelets 200. Objective - Vital Signs Vital signs: Vital Signs Temp 97.9 F 09/29/21 05:00 Pulse 85 09/29/21 08:00 Resp 16 09/29/21 08:00 BP 155/84 09/29/21 05:00 Pulse Ox 98 09/29/21 05:00 Intake & Output 09/28/21 09/29/21 09/29/21 18:59 06:59 18:59 Intake Total 600 0 Output Total 60 Balance 600 2009 Intake: Intake, IV Titration 600 400 Amount Lactated Ringers 1,000 ml 600 300 @ 50 mls/hr IV .Q20H [facility] Rx#:[id number] Piperacillin-Tazobactam 3 100 .375 gm In Sodium Chloride 0.9% 100 ml @ 25 mls/hr IVPB Q8HR [facility] Rx# :[id number] Oral 1670 Output: Drainage 60 Abdomen 60 Other: Voiding Method Toilet Toilet Toilet # Voids 2 1 - Exam PHYSICAL EXAMINATION: GENERAL: A & O X 3, sitting up in the bed, NAD. HEENT: Normocephalic. Neck is supple. Pupils reactive. MMM. CHEST EXAMINATION: CTA CARDIAC: Normal S1, S2 with no gallops. No murmurs ABDOMEN: Soft. Status post surgery, dressing/ binder present .QUENTIN with decreased serosanguineous drainage . Positive bowel sounds. Scrotal edema. Extremities: Trace bilateral pedal edema. No clubbing or cyanosis Neurological: CN 2 through 12 grossly intact. No focal deficits noted Skin: bilateral lower extremity healed lesions. - Labs CBC & Chem 7: 09/29/21 07:34 09/29/21 07:34 Labs: Abnormal Lab Results - Last 24 Hours (Table) 09/28/21 09/28/21 09/28/21 Range/Units 12:11 17:19 20:09 RBC (4.40-5.60) X 10*6/uL Hgb (13.0-17.0) g/dL Hct (39.6-50.0) % MCHC (32.0-37.0) g/dL RDW (11.5-14.5) % Absolute Nucleated RBC (0.00-0.00) X 10*3/uL Immature Gran # (0.00-0.04) X 10*3/uL NRBC/100 WBC Diff (0.0-0.0) /100 WBCS Anion Gap (10.00-18.00) mmol/L Glucose (70-110) mg/dL POC Glucose (mg/dL) 125 H 159 H 191 H (75-99) mg/dL Calcium (8.7-10.3) mg/dL 09/29/21 09/29/21 09/29/21 Range/Units 07:34 07:34 07:47 RBC 2.84 L (4.40-5.60) X 10*6/uL Hgb 8.4 L (13.0-17.0) g/dL Hct 26.3 L (39.6-50.0) % MCHC 31.9 L (32.0-37.0) g/dL RDW 15.0 H (11.5-14.5) % Absolute Nucleated RBC 0.02 H (0.00-0.00) X 10*3/uL Immature Gran # 0.09 H (0.00-0.04) X 10*3/uL NRBC/100 WBC Diff 0.3 H (0.0-0.0) /100 WBCS Anion Gap 9.50 L (10.00-18.00) mmol/L Glucose 133 H (70-110) mg/dL POC Glucose (mg/dL) 141 H (75-99) mg/dL Calcium 8.3 L (8.7-10.3) mg/dL Assessment and Plan Assessment: Incarcerated hernia, status post repair with mesh placement, management as per surgery Hypotension, improving with IV fluid hydration and antihypertensives on hold Acute renal failure secondary to the above and NSAIDs Hypovolemic hyponatremia Diabetes mellitus, A1c 8.1 Iron deficient anemia History of Behcet's Disease Morbid obesity, BMI 36 Plan: Continue on current medication regime ,monitoring and symptomatic treatment. Medically cleared for discharge .Resume his KANDICE inhibitor at discharge .Patient has been instructed to continue with aggressive pulmonary toileting using his incentive spirometer at home. Follow-up with PCP in 1 week. The impression and plan of care has been dictated as directed. : I performed a history and examination of this patient, discussed the same with the dictator. I agree with the dictator's note ,documented as a scribe. Any additional findings or plans will be noted.
[2021-09-29 12:17] LABS: Glucose,Whole Blood 154 mg/dL (75-99)
[2021-09-29 12:49] VITALS: BP 136/81; PULSE 88; RESP 15; TEMP 97.7
--- NOTE | 2021-09-29 12:55 | P.DS ---
Providers Date of admission: 09/26/21 13:14 Expected date of discharge: 09/29/21 Attending physician: Chucho Oglesby Consults: 09/23/21 10:16 Consult Physician Routine Consulting Provider: Mustapha Gonzalez Consult Reason/Comments: Medical management Do you want consulting provider notified?: Yes 09/24/21 06:11 Consult Physician Urgent Consulting Provider: Daisha Buckner Consult Reason/Comments: Low urine output Do you want consulting provider notified?: Yes Primary care physician: Veronica Duarte Hospital Course: Discharge diagnosis 1. incarcerated incisional hernia status post repair with mesh placement 2. Iron deficiency anemia 3. Acute kidney injury due to hypotension and NSAIDs. Now resolved Hospital course This a 41-year-old male who's had complaints of pain due to a chronic incarcerated incisional hernia. Patient status post repair of incarcerated incisional hernia with mesh placement. Patient followed by nephrology and medicine service during this admission. Patient did have evidence of acute kidney injury and also by nephrology. Improved with IV fluids. Patient is tolerating diet. Reports that his pain is controlled. He is having bowel movements. He is up and ambulating. He is afebrile. He is still for discharge. Patient will be discharged with antibiotics. Please refer to chart for any further details. Physician Building Construction Foreman note has been reviewed by physician. Signing provider agrees with the documented findings, assessment, and plan of care. Patient Condition at Discharge: Stable Plan - Discharge Summary Discharge Rx Participant: Yes New Discharge Prescriptions: New metroNIDAZOLE [Flagyl] 500 mg PO TID #30 tab Levofloxacin [Levaquin] 500 mg PO DAILY 7 Days #7 tab HYDROcodone/APAP 5-325MG [[place] 5-325] 1 tab PO Q6HR PRN 3 Days #12 tab PRN Reason: Pain Continue Gabapentin [Neurontin] 600 mg PO TID Dulaglutide [Trulicity] 1.5 mg SQ WEEKLY lisinopriL [Zestril] 20 mg PO DAILY Cholecalciferol [Vitamin D3 (25 Mcg = 1000 Iu)] 25 mcg PO DAILY buPROPion [Wellbutrin] 150 mg PO HS Sertraline [Zoloft] 100 mg PO HS Adalimumab [Humira(Cf) Pen] 40 mg SQ CHRISTIAN [place]-3 Fatty Acids [[place]-3] 1,000 mg PO DAILY Discontinued traMADol HCL [Ultram] 50 mg PO TID Doxycycline [Vibramycin] 100 mg PO BID Acetaminophen [Tylenol Extra Strength] 1,000 mg PO DIRECTED PRN PRN Reason: Pain Discharge Medication List Dulaglutide [Trulicity] 1.5 mg SQ WEEKLY 07/16/20 [History] Gabapentin [Neurontin] 600 mg PO TID 07/16/20 [History] Adalimumab [Humira(Cf) Pen] 40 mg SQ CHRISTIAN 09/22/21 [History] Cholecalciferol [Vitamin D3 (25 Mcg = 1000 Iu)] 25 mcg PO DAILY 09/22/21 [History] [place]-3 Fatty Acids [[place]-3] 1,000 mg PO DAILY 09/22/21 [History] Sertraline [Zoloft] 100 mg PO HS 09/22/21 [History] buPROPion [Wellbutrin] 150 mg PO HS 09/22/21 [History] lisinopriL [Zestril] 20 mg PO DAILY 09/22/21 [History] HYDROcodone/APAP 5-325MG [[place] 5-325] 1 tab PO Q6HR PRN 3 Days #12 tab 09/29/21 [Rx] Levofloxacin [Levaquin] 500 mg PO DAILY 7 Days #7 tab 09/29/21 [Rx] metroNIDAZOLE [Flagyl] 500 mg PO TID #30 tab 09/29/21 [Rx] Follow up Appointment(s)/Referral(s): Mustapha Gonzalez MD [STAFF PHYSICIAN] - 1 Week Care,Kirk Kaye [NON-STAFF] - 1 Week Chucho Oglesby MD [STAFF PHYSICIAN] - 1 Week Activity/Diet/Wound Care/Special Instructions: for your blind cane - go to [employer] for their free white cane program - fill out the form on line No driving while taking Leland No lifting over 10 pounds Shower daily. No soaking or tub baths for 2 weeks Very light activity until you are reevaluated at your follow up appointment with your surgeon Keep a log of QUENTIN drain output and bring with you to your follow-up appointment Milk/strip drains 2-3 times a day Discharge Disposition: HOME WITH HOME HEALTH SERVICES
== END 2021-09-29 16:00 | disposition home health service (06) | DRG 660 ==
LOC: OR 05:46 → 5NMEDONC 09:58 → OR 19:10 → OBSVTOIN 09-26 13:14
PROVIDERS: ADMIT Surgery; ATTEND Surgery
PROC: 0WUF0JZ Supplement Abdominal Wall with Synthetic Substitute, Open Approach (ICD-10-PCS; principal; 2021-09-23 07:40)
PROC: 0WQF0ZZ Repair Abdominal Wall, Open Approach (ICD-10-PCS; principal; 2021-09-23 07:40)
DX: N17.9 Acute kidney failure, unspecified (principal); K43.0 Incisional hernia with obstruction, without gangrene; M35.2 Behcet's disease; E87.1 Hypo-osmolality and hyponatremia; D50.9 Iron deficiency anemia, unspecified; E11.65 Type 2 diabetes mellitus with hyperglycemia; I95.9 Hypotension, unspecified; N13.6 Pyonephrosis; E66.01 Morbid (severe) obesity due to excess calories; F32.A Depression, unspecified; F41.9 Anxiety disorder, unspecified; Z68.36 Body mass index [BMI] 36.0-36.9, adult; E86.1 Hypovolemia; E11.29 Type 2 diabetes mellitus with other diabetic kidney complication; E11.21 Type 2 diabetes mellitus with diabetic nephropathy; I10 Essential (primary) hypertension; E11.40 Type 2 diabetes mellitus with diabetic neuropathy, unspecified; H54.8 Legal blindness, as defined in USA; K43.5 Parastomal hernia without obstruction or gangrene; T39.395A Adverse effect of other nonsteroidal anti-inflammatory drugs [NSAID], initial encounter; G89.18 Other acute postprocedural pain; R80.9 Proteinuria, unspecified; N28.9 Disorder of kidney and ureter, unspecified; R00.0 Tachycardia, unspecified; L73.2 Hidradenitis suppurativa; Z87.440 Personal history of urinary (tract) infections; Z79.899 Other long term (current) drug therapy; Z87.2 Personal history of diseases of the skin and subcutaneous tissue; Z90.49 Acquired absence of other specified parts of digestive tract; Z98.890 Other specified postprocedural states
CPT/HCPCS: 64999; 76770; 80048; 80053; 81001; 82570; 82728; 83036; 83540; 83550; 83605; 83735; 84156; 85025

== ENCOUNTER 2021-11-01 09:28 | Observation (INO) | payer BC ==
[2021-10-28 09:12] VITALS: BMI 35.9
[~2021-11-01 09:28] MED LIST changes: +LIDOCAINE 1% (10MG/ML) FOR IV START INTRADERMA PRN; +METOCLOPRAMIDE 5 MG/ML 2 ML VIAL IVP PRN; +Pre Op ABX Message 1 EACH MISC MISCELLANE ONE
[2021-11-01] MEDS ORDERED: LACTATED RINGERS 1,000 ML IV ONE ×3 (09:52→11:27)
--- NOTE | 2021-11-01 09:54 | P.GSHP ---
History of Present Illness H&P Date: 11/01/21 Chief Complaint: Abdominal wall necrosis This a 41-year-old male who underwent previous incisional hernia repair. Patient developed necrosis has standpoint. Today for colonoscopy. And possible placement of wound VAC Past Medical History Past Medical History: Diabetes Mellitus, Eye Disorder, Hypertension Additional Past Medical History / Comment(s): Behcets disease(auto immune)- states they are not sure if it is Bechcets disease now or Hifradenitis Suppurativa, states flare ups with rash lower legs-hx of ulcerations/scabs on legs. Hx of diverting colostomy and reversal due to surgical wounds near anus. Hernia. Legally Blind. Hx hematuria. History of Any Multi-Drug Resistant Organisms: None Reported Past Surgical History: Cholecystectomy Additional Past Surgical History / Comment(s): Incision and drainage of skin lesions, diverting colostomy (2019) & reversal due to wounds near anus, incisional hernia repair. Past Anesthesia/Blood Transfusion Reactions: No Reported Reaction Additional Past Anesthesia/Blood Transfusion Reaction / Comment(s): Unknown family hx- pt adopted. Past Psychological History: Anxiety, Depression Smoking Status: Never smoker Past Alcohol Use History: None Reported Past Drug Use History: None Reported - Past Family History Mother History Unknown: Yes Family Medical History: Unable to Obtain Additional Family Medical History / Comment(s): Patient adopted. Medications and Allergies Home Medications Medication Instructions Recorded Confirmed Type Dulaglutide [Trulicity] 1.5 mg SQ WEEKLY 07/16/20 10/28/21 History Gabapentin [Neurontin] 600 mg PO TID 07/16/20 10/28/21 History Adalimumab [Humira(Cf) Pen] 40 mg SQ CHRISTIAN 09/22/21 10/28/21 History Cholecalciferol [Vitamin D3 (25 25 mcg PO DAILY 09/22/21 10/28/21 History Mcg = 1000 Iu)] [place]-3 Fatty Acids [[place]-3] 1,000 mg PO DAILY 09/22/21 10/28/21 History Sertraline [Zoloft] 100 mg PO HS 09/22/21 10/28/21 History buPROPion [Wellbutrin] 150 mg PO HS 09/22/21 10/28/21 History lisinopriL [Zestril] 20 mg PO DAILY 09/22/21 10/28/21 History Doxycycline (Unknown Dose) 1 tab PO DIRECTED 10/28/21 10/28/21 History traMADol HCL 50 mg PO TID 10/28/21 10/28/21 History Allergies Allergy/AdvReac Type Severity Reaction Status Date / Time No Known Allergies Allergy Verified 10/28/21 08:54 Surgical - Exam - General well developed, well nourished, no distress - Eyes PERRL - ENT normal pinna - Neck no masses - Respiratory normal expansion - Cardiovascular Rhythm: regular - Abdomen Necrosis along staple line. The area of necrosis measures approximately 2 cm x 12 cm long Abdomen: soft, non tender Assessment and Plan Assessment: Abdominal wall necrosis. Patient will undergo debridement and possible placement of wound VAC.
[2021-11-01 10:01] LABS: Glucose,Whole Blood 112 mg/dL (75-99)
[2021-11-01] MEDS ORDERED: PHENYLEPHRINE-0.9% NACL SYG 1,000 MCG/10 ML SYRINGE ONE (10:26)
[2021-11-01] MEDS ORDERED: LIDOCAINE 2% INJ 20 MG/ML (2 ML VIAL) ONE (10:26)
[2021-11-01] MEDS ORDERED: MIDAZOLAM 2 MG/2 ML VIAL ONE (10:26)
[2021-11-01] MEDS ORDERED: ROCURONIUM 10 MG/ML (5 ML VIAL) IV ONE (10:26)
[2021-11-01] MEDS ORDERED: fentaNYL (PF) 50 MCG/ML 2 ML AMP ONE (10:26)
[2021-11-01] MEDS ORDERED: PROPOFOL 10 MG/ML 20 ML VIAL IV ONE (10:26)
[2021-11-01] MEDS ORDERED: SUCCINYLCHOLINE CHLORIDE 100 MG/5 ML SYR IV ONE (10:26)
[2021-11-01] MEDS ORDERED: SODIUM CHLORIDE 0.9% 50 ML with ceFAZolin 2,000 MG IV ONE ×2 (10:47)
[2021-11-01] MEDS ORDERED: ONDANSETRON 4 MG/2 ML VIAL IVP PRN (11:27)
[2021-11-01] MEDS ORDERED: NALOXONE 0.4 MG/ML 1 ML VIAL IV PRN (11:27)
[2021-11-01] MEDS ORDERED: oxyCODONE-APAP 5-325MG 1 EACH TAB PO PRN (11:27)
[2021-11-01] MEDS ORDERED: ACETAMINOPHEN TAB 325 MG TAB PO PRN (11:27)
--- NOTE | 2021-11-01 11:32 | P.OP ---
Date of Procedure: 11/01/21 Preoperative Diagnosis: Abdominal wall necrosis Postoperative Diagnosis: Abdominal wall necrosis Procedure(s) Performed: Debridement of abdominal wall Anesthesia: MARKEL Surgeon: Chucho Oglesby Estimated Blood Loss (ml): 25 Pathology: other (Wound culture) Condition: stable Disposition: PACU Operative Findings: Wound measures 22 x 15 x 5 cm Description of Procedure: The patient's placed on the operative table in the supine position. The patient evidence of skin necrosis along the staple line. The dalila removed. Using a 10 blade the area of abdominal wall necrosis was excised. Initially the skin was cut along the necrotic skin edge. However the fat below this appeared to be ischemic as well. At this point using a 15 blade the abdominal wall were sharply debrided. Electrocautery used for hemostasis. A portion of the wound was sent for tissue culture.We'll achieve electrocautery. The wound measured 22 x 15 x 5 cm. After adequate hemostasis. The black wound VAC foam was placed a wound. In the form was cut to appropriate length. The wound VAC was applied. Patient top she will he was sent to recovery room stable condition.
[2021-11-01] MEDS: HYDROmorphone 0.5 MG/0.5 ML SYRINGE IVP PRN ×2 (11:49→12:41)
[2021-11-01 12:00] LABS: Glucose,Whole Blood 155 mg/dL (75-99)
[2021-11-01] MEDS: LACTATED RINGERS 1,000 ML IV SCH (14:04)
[2021-11-01] MEDS: lisinopriL 20 MG TAB PO SCH (15:51)
[2021-11-01 16:44] LABS: Glucose,Whole Blood 315 mg/dL (75-99)
[2021-11-01] MEDS: GABAPENTIN 300 MG CAP PO SCH ×2 (17:11→22:55)
[2021-11-01] MEDS: traMADol 50 MG TAB PO SCH ×2 (17:11→22:46)
[2021-11-01] MEDS: INSULIN ASPART (NovoLOG) 100 UNIT/ML VIAL SQ SCH ×2 (17:12→22:54)
--- NOTE | 2021-11-01 18:29 | CONS ---
CONSULTATION REASON FOR CONSULTATION: Advice regarding diabetes and other medical issues requested by Dr. Oglesby. HISTORY OF PRESENT ILLNESS: This 41-year-old gentleman with a past medical history of multiple medical problems, diabetes type 2, history of hypertension being followed Dr. Gonzalez in the outpatient setting, underwent debridement of the abdominal wall necrosis and as well as wound VAC placement. The patient was also evaluated for vasculitis by Rheumatology as well as from Dermatology. Biopsies also been done. The patient is on doxycycline currently. There is no history of fever, rigors or chills. PAST MEDICAL HISTORY: Diabetes, hypertension, history of Behcet's disease. HOME MEDICATIONS: Reviewed and include Ultram. Dose reviewed. ALLERGIES: None. FAMILY HISTORY: The patient is adopted. SOCIAL HISTORY: No history of smoking. REVIEW OF SYSTEM: 14 point review of systems is negative as mentioned earlier. PHYSICAL EXAMINATION: Pulse is 100, blood pressure 130/70, respirations 16. NECK is no jugular venous distention. CARDIOVASCULAR system: S1, S2. RESPIRATION: No rhonchi, no crackles. ABDOMEN: Soft status post wound VAC placement. LEGS: No edema. No swelling. Healed scars of vasculitis. NERVOUS SYSTEM: No focal deficits. SKIN as mentioned earlier. LABS: Accu-Cheks 151. ASSESSMENT: 1. Status post debridement of the abdominal wall and wound VAC placement for abdominal wall necrosis. 2. Diabetes mellitus, type 2. 3. Hypertension. 4. Behcet's disease. 5. Rule out autoimmune vasculitis. RECOMMENDATIONS AND DISCUSSION: This 41-year-old gentleman who presented with multiple complex medical issues. I recommend to continue, resume the home medication. Monitor blood sugars closely. Otherwise, follow the cultures. Resume the home medications. DVT prophylaxis. We will follow the patient closely and further recommendations to follow. See orders for details. Thank you Dr. Oglesby, for letting us participate in the care of this patient. MMODL / IJN: [id number] / ANA
[2021-11-01 20:42] LABS: Glucose,Whole Blood 310 mg/dL (75-99)
[2021-11-01 22:49] LABS: Glucose,Whole Blood 156 mg/dL (75-99)
[2021-11-01] MEDS: buPROPion 75 MG TAB PO SCH (22:54)
[2021-11-01] MEDS: DOXYCYCLINE 100 MG CAP PO SCH (22:54)
[2021-11-01] MEDS: SERTRALINE 100 MG TAB PO SCH (22:55)
[2021-11-01 23:02] LABS: INR 0.99 (0.90-1.11); Prothrombin Time 10.9 sec (9.9-11.9)
[2021-11-02] MEDS: HYDROmorphone 0.5 MG/0.5 ML SYRINGE IVP PRN ×3 (00:03→15:09)
[2021-11-02 06:55] LABS: Glucose,Whole Blood 149 mg/dL (75-99)
[2021-11-02] MEDS: traMADol 50 MG TAB PO SCH ×3 (07:23→21:48)
[2021-11-02] MEDS: lisinopriL 20 MG TAB PO SCH (07:24)
[2021-11-02] MEDS: GABAPENTIN 300 MG CAP PO SCH ×3 (07:24→21:48)
[2021-11-02] MEDS: CHOLECALCIFEROL 25 MCG (1000 IU) TABLET PO SCH (07:24)
[2021-11-02] MEDS: DOXYCYCLINE 100 MG CAP PO SCH ×2 (07:27→20:46)
[2021-11-02] MEDS: ENOXAPARIN 40 MG/0.4 ML SYRINGE SQ SCH (07:27)
[2021-11-02] MEDS: INSULIN ASPART (NovoLOG) 100 UNIT/ML VIAL SQ SCH ×4 (07:27→20:46)
[2021-11-02] MEDS: LACTATED RINGERS 1,000 ML IV SCH (07:28)
[2021-11-02] MEDS ORDERED: NON FORMULARY DRUG (Omega-3 Fatty Acids [Omega-3] 1,000 MG Capsule) PO SCH (09:00)
[2021-11-02 09:14] LABS: Basophils # (A) 0.03 X 10*3/uL (0.00-0.10); Basophils % (A) 0.3 %; Eosinophils # (A) 0.08 X 10*3/uL (0.04-0.35); Eosinophils % (A) 0.9 %; HCT 27.7 % (39.6-50.0); HGB 8.5 g/dL (13.0-17.0); Immature Grans, Automated 0.3 %; Lymphocytes # (A) 2.03 X 10*3/uL (0.90-5.00); Lymphocytes % (A) 23.1 %; MCH 27.8 pg (27.0-32.0); MCHC 30.7 g/dL (32.0-37.0); MCV 90.5 fL (80.0-97.0); Mean Platelet Volume 10.8 fL (9.5-12.2); Monocytes # (A) 0.66 X 10*3/uL (0.20-1.00); Monocytes % (A) 7.5 %; NRBC Per 100 WBC 0 /100 WBCS (0.0-0.0); Neutrophils # (A) 5.97 X 10*3/uL (1.80-7.70); Neutrophils % (A) 67.9 %; Platelet Count 204 X 10*3/uL (140-440); RBC 3.06 X 10*6/uL (4.40-5.60); RDW 15.1 % (11.5-14.5)
[2021-11-02 09:30] LABS: ALT 65 U/L (10-49); AST 51 U/L (14-35); African American GFR (CKD) 95.5 (60.0-200.0); Albumin/Globulin Ratio 0.94 (1.60-3.17); Alkaline Phosphatase 69 U/L (41-126); BUN/Creat Ratio 20.36 Ratio (12.00-20.00); Blood Urea Nitrogen 22.4 mg/dL (9.0-27.0); Calcium 8.5 mg/dL (8.7-10.3); Carbon Dioxide 26.1 mmol/L (20.0-27.5); Chloride 101 mmol/L (96-109); Globulin 3.2 g/dL (1.6-3.3); Glucose 148 mg/dL (70-110); Non-African American GFR(CKD) 82.4 (60.0-200.0); Potassium 4.6 mmol/L (3.5-5.5); Sodium 136 mmol/L (135-145); Total Bilirubin <0.15 mg/dL (0.30-1.20); Total Protein 6.2 g/dL (6.2-8.2)
[2021-11-02 11:16] LABS: Glucose,Whole Blood 120 mg/dL (75-99)
--- NOTE | 2021-11-02 11:16 | P.CONS ---
History of Present Illness - Reason for Consult Consult date: 11/02/21 wound vac - History of Present Illness This is a 41 yo male being seen on 4s for non-healing ulceration to abd. Patient previously under went a incisional hernia repair about one month ago, developed necrosis underwent colonoscopy and a abdominal wall debridement. Patient has a ulceration measuring 22 x 15 x 5 cm. Negative pressure wound VAC with black foam and 125 mmHg suction presents to the site. Patient does not have any tenderness or pain at this time. She is utilizing an abdominal binder. She testicle history significant for diabetes, hypertension he is lifelong nonsmoker. Review Of Systems: Constitutional: No fever, no chills, no night sweats. No weight change. No weakness, fatigue or lethargy. No daytime sleepiness. Integumentary:reports wounds, no lesions. No rash or pruritus. No unusual bruising. No change in hair or nails. Physical exam: General Appearance: Alert, cooperative, no distress, appears stated age. Skin: See HPI all other Skin color, texture, tugor normal, no rashes or lesions. Neurologic: Alert oriented x3 Assessment: 1. Surgical wound dehiscence 2. Nonhealing ulceration of the abdomen with muscle involvement with necrosis 3. Diabetes with skin ulceration Plan: 1. Continue with negative pressure wound VAC. When patient is discharge may apply absorptive silver kerlix for packing and ABD. Change Sunday. We will be happy to see the patient in the wound care center next week. Please call to set up an appointment. Thank you for the consultation any questions to contact the wound center DNP note has been reviewed and discussed with Dr. Cherry and the impression and plan of care has been directed as dictated. Past Medical History Past Medical History: Diabetes Mellitus, Eye Disorder, Hypertension Additional Past Medical History / Comment(s): Behcets disease(auto immune)- states they are not sure if it is Bechcets disease now or Hifradenitis Suppurativa, states flare ups with rash lower legs-hx of ulcerations/scabs on legs. Hx of diverting colostomy and reversal due to surgical wounds near anus. Hernia. Legally Blind. Hx hematuria. History of Any Multi-Drug Resistant Organisms: None Reported Past Surgical History: Cholecystectomy Additional Past Surgical History / Comment(s): Incision and drainage of skin lesions, diverting colostomy (2019) & reversal due to wounds near anus, incisional hernia repair. Past Anesthesia/Blood Transfusion Reactions: No Reported Reaction Additional Past Anesthesia/Blood Transfusion Reaction / Comm: Unknown family hx- pt adopted. Smoking Status: Never smoker - Past Family History Mother History Unknown: Yes Family Medical History: Unable to Obtain Additional Family Medical History / Comment(s): Patient adopted. Medications and Allergies Home Medications Medication Instructions Recorded Confirmed Type Dulaglutide [Trulicity] 1.5 mg SQ WEEKLY 07/16/20 10/28/21 History Gabapentin [Neurontin] 600 mg PO TID 07/16/20 10/28/21 History Adalimumab [Humira(Cf) Pen] 40 mg SQ CHRISTIAN 09/22/21 10/28/21 History Cholecalciferol [Vitamin D3 (25 25 mcg PO DAILY 09/22/21 10/28/21 History Mcg = 1000 Iu)] [place]-3 Fatty Acids [[place]-3] 1,000 mg PO DAILY 09/22/21 10/28/21 History Sertraline [Zoloft] 100 mg PO HS 09/22/21 10/28/21 History buPROPion [Wellbutrin] 150 mg PO HS 09/22/21 10/28/21 History lisinopriL [Zestril] 20 mg PO DAILY 09/22/21 10/28/21 History Doxycycline (Unknown Dose) 1 tab PO DIRECTED 10/28/21 10/28/21 History traMADol HCL 50 mg PO TID 10/28/21 10/28/21 History Allergies Allergy/AdvReac Type Severity Reaction Status Date / Time No Known Allergies Allergy Verified 10/28/21 08:54 Physical Exam Vitals: Vital Signs Temp Pulse Pulse Resp BP BP Pulse Ox 11/02/21 07:45 19 11/02/21 07:06 98 F 97 19 134/82 97 11/02/21 02:00 97.6 F 91 18 138/87 99 11/01/21 19:52 97.7 F 102 H 18 118/66 98 11/01/21 15:05 97.9 F 102 H 18 139/85 99 11/01/21 13:48 97 122/66 98 11/01/21 13:28 100 16 133/73 99 11/01/21 13:14 96 16 129/67 100 11/01/21 12:59 97 128/69 99 11/01/21 12:44 104 H 18 134/72 99 11/01/21 12:39 109 H 18 132/68 99 11/01/21 12:24 95 18 117/62 100 11/01/21 12:09 102 H 18 130/71 96 11/01/21 11:54 100 18 134/77 95 11/01/21 11:39 97 18 158/66 100 11/01/21 11:24 97.9 F 92 16 177/82 93 L Intake and Output 11/01/21 11/02/21 11/02/21 22:59 06:59 14:59 Intake Total 180 Balance 180 Intake: Oral 180 Other: # Voids 1 1 Weight 101.7 kg Results CBC & Chem 7: 11/02/21 04:32 11/02/21 04:32 Labs: Abnormal Lab Results - Last 24 Hours (Table) 11/01/21 11/01/21 11/01/21 Range/Units 11:58 16:40 20:41 RBC (4.40-5.60) X 10*6/uL Hgb (13.0-17.0) g/dL Hct (39.6-50.0) % MCHC (32.0-37.0) g/dL RDW (11.5-14.5) % Anion Gap (10.00-18.00) mmol/L BUN/Creatinine Ratio (12.00-20.00) Ratio Glucose (70-110) mg/dL POC Glucose (mg/dL) 155 H 315 H 310 H (75-99) mg/dL Hemoglobin A1c (0.0-6.0) % Calcium (8.7-10.3) mg/dL Total Bilirubin (0.30-1.20) mg/dL AST (14-35) U/L ALT (10-49) U/L Albumin (3.8-4.9) g/dL Albumin/Globulin Ratio (1.60-3.17) g/dL 11/01/21 11/02/21 11/02/21 Range/Units 22:46 04:32 04:32 RBC 3.06 L (4.40-5.60) X 10*6/uL Hgb 8.5 L (13.0-17.0) g/dL Hct 27.7 L (39.6-50.0) % MCHC 30.7 L (32.0-37.0) g/dL RDW 15.1 H (11.5-14.5) % Anion Gap (10.00-18.00) mmol/L BUN/Creatinine Ratio (12.00-20.00) Ratio Glucose (70-110) mg/dL POC Glucose (mg/dL) 156 H (75-99) mg/dL Hemoglobin A1c 6.5 H (0.0-6.0) % Calcium (8.7-10.3) mg/dL Total Bilirubin (0.30-1.20) mg/dL AST (14-35) U/L ALT (10-49) U/L Albumin (3.8-4.9) g/dL Albumin/Globulin Ratio (1.60-3.17) g/dL 11/02/21 11/02/21 Range/Units 04:32 06:53 RBC (4.40-5.60) X 10*6/uL Hgb (13.0-17.0) g/dL Hct (39.6-50.0) % MCHC (32.0-37.0) g/dL RDW (11.5-14.5) % Anion Gap 8.90 L (10.00-18.00) mmol/L BUN/Creatinine Ratio 20.36 H (12.00-20.00) Ratio Glucose 148 H (70-110) mg/dL POC Glucose (mg/dL) 149 H (75-99) mg/dL Hemoglobin A1c (0.0-6.0) % Calcium 8.5 L (8.7-10.3) mg/dL Total Bilirubin <0.15 L (0.30-1.20) mg/dL AST 51 H (14-35) U/L ALT 65 H (10-49) U/L Albumin 3.0 L (3.8-4.9) g/dL Albumin/Globulin Ratio 0.94 L (1.60-3.17) g/dL Microbiology - Last 24 Hours (Table) 11/01/21 11:19 Gram Stain - Preliminary Abdomen Tissue Culture - Preliminary 11/01/21 11:19 Anaerobic Culture - Preliminary Abdomen Assessment and Plan (1) 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
--- NOTE | 2021-11-02 13:27 | P.PN ---
Subjective Progress Note Date: 11/02/21 CHIEF COMPLAINT: Abdominal wall necrosis HISTORY OF PRESENT ILLNESS: Patient is status post debridement of abdominal wall necrosis. He has wound VAC in place. Patient seen by wound care service. Patient reports his pain is controlled. Denies any nausea or vomiting. Tolerating regular diet. Afebrile. Culture results pending. WBC is 8.80 hemoglobin 8.5 platelets 204 sodium 136 potassium 4.6 creatinine 1.1 A1c 6.5 ALT 65 AST 51 Patient seen and examined with Dr. garcia PHYSICAL EXAM: VITAL SIGNS: Reviewed. GENERAL: Well-developed in no acute distress. HEENT: No sclera icterus. Extraocular movements grossly intact. Moist buccal mucosa. Head is atraumatic, normocephalic. ABDOMEN: Soft. Nondistended. Abdominal wound VAC in place NEUROLOGIC: Alert and oriented. Cranial nerves II through XII grossly intact. ASSESSMENT: 1. 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 Signing provider agrees with the documented findings, assessment, and plan of care. Objective - Vital Signs Vital signs: Vital Signs Temp 98 F 11/02/21 07:06 Pulse 97 11/02/21 07:06 Resp 19 11/02/21 07:45 BP 134/82 11/02/21 07:06 Pulse Ox 97 11/02/21 07:06 FiO2 Intake & Output 11/01/21 11/02/21 11/02/21 18:59 06:59 18:59 Intake Total 1850 180 Output Total 10 Balance 1840 180 Weight 101.7 kg Intake: IV 1850 Oral 180 Output: Estimated Blood Loss 10 Other: # Voids 1 1 - Labs CBC & Chem 7: 11/02/21 04:32 11/02/21 04:32 Labs: Abnormal Lab Results - Last 24 Hours (Table) 11/01/21 11/01/21 11/01/21 Range/Units 16:40 20:41 22:46 RBC (4.40-5.60) X 10*6/uL Hgb (13.0-17.0) g/dL Hct (39.6-50.0) % MCHC (32.0-37.0) g/dL RDW (11.5-14.5) % Anion Gap (10.00-18.00) mmol/L BUN/Creatinine Ratio (12.00-20.00) Ratio Glucose (70-110) mg/dL POC Glucose (mg/dL) 315 H 310 H 156 H (75-99) mg/dL Hemoglobin A1c (0.0-6.0) % Calcium (8.7-10.3) mg/dL Total Bilirubin (0.30-1.20) mg/dL AST (14-35) U/L ALT (10-49) U/L Albumin (3.8-4.9) g/dL Albumin/Globulin Ratio (1.60-3.17) g/dL 11/02/21 11/02/21 11/02/21 Range/Units 04:32 04:32 04:32 RBC 3.06 L (4.40-5.60) X 10*6/uL Hgb 8.5 L (13.0-17.0) g/dL Hct 27.7 L (39.6-50.0) % MCHC 30.7 L (32.0-37.0) g/dL RDW 15.1 H (11.5-14.5) % Anion Gap 8.90 L (10.00-18.00) mmol/L BUN/Creatinine Ratio 20.36 H (12.00-20.00) Ratio Glucose 148 H (70-110) mg/dL POC Glucose (mg/dL) (75-99) mg/dL Hemoglobin A1c 6.5 H (0.0-6.0) % Calcium 8.5 L (8.7-10.3) mg/dL Total Bilirubin <0.15 L (0.30-1.20) mg/dL AST 51 H (14-35) U/L ALT 65 H (10-49) U/L Albumin 3.0 L (3.8-4.9) g/dL Albumin/Globulin Ratio 0.94 L (1.60-3.17) g/dL 11/02/21 11/02/21 Range/Units 06:53 11:15 RBC (4.40-5.60) X 10*6/uL Hgb (13.0-17.0) g/dL Hct (39.6-50.0) % MCHC (32.0-37.0) g/dL RDW (11.5-14.5) % Anion Gap (10.00-18.00) mmol/L BUN/Creatinine Ratio (12.00-20.00) Ratio Glucose (70-110) mg/dL POC Glucose (mg/dL) 149 H 120 H (75-99) mg/dL Hemoglobin A1c (0.0-6.0) % Calcium (8.7-10.3) mg/dL Total Bilirubin (0.30-1.20) mg/dL AST (14-35) U/L ALT (10-49) U/L Albumin (3.8-4.9) g/dL Albumin/Globulin Ratio (1.60-3.17) g/dL Microbiology - Last 24 Hours (Table) 11/01/21 11:19 Gram Stain - Preliminary Abdomen Tissue Culture - Preliminary 11/01/21 11:19 Anaerobic Culture - Preliminary Abdomen
--- NOTE | 2021-11-02 13:35 | PN ---
PROGRESS NOTE DATE OF SERVICE: 11/02/2021 This 41-year-old gentleman who was admitted after abdominal wall debridement is being closely monitored. The patient is being evaluated for Behcet's disease or vasculitis as an outpatient. No chest pain. No palpitations. No fever. PHYSICAL EXAMINATION: Pulse is 97, blood pressure 134/82, respiration 19. HEENT: Conjunctivae normal. NECK: No jugular venous distention. CARDIOVASCULAR: S1, S2 muffled. RESPIRATION: Breath sounds diminished at the bases. No rhonchi. ABDOMEN: Soft. Wound V.A.C. present. Status post debridement. LEGS: No edema. No swelling. LABS: WBC 8.5. Blood sugars noted. ASSESSMENT: 1. Status post debridement of the abdominal wall and wound V.A.C. placement for abdominal wall necrosis. 2. Diabetes mellitus, type 2. 3. Hypertension. 4. 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 RECOMMENDATIONS AND DISCUSSION: I recommend to continue current medications, continue with the monitoring, symptomatic treatment. Continue outpatient followup. Rest of the recommendations per Surgery. Further recommendations to follow. MMODL / IJN: [id number] / ANA
[2021-11-02 16:22] LABS: Glucose,Whole Blood 186 mg/dL (75-99)
[2021-11-02 20:21] LABS: Glucose,Whole Blood 192 mg/dL (75-99)
[2021-11-02] MEDS: buPROPion 75 MG TAB PO SCH (20:46)
[2021-11-02] MEDS: SERTRALINE 100 MG TAB PO SCH (20:46)
[2021-11-02] MEDS ORDERED: MELATONIN 3 MG TABLET PO PRN (21:50)
[2021-11-03 06:47] LABS: Glucose,Whole Blood 107 mg/dL (75-99)
[2021-11-03] MEDS: CHOLECALCIFEROL 25 MCG (1000 IU) TABLET PO SCH (06:49)
[2021-11-03] MEDS: GABAPENTIN 300 MG CAP PO SCH (06:49)
[2021-11-03] MEDS: ENOXAPARIN 40 MG/0.4 ML SYRINGE SQ SCH (06:50)
[2021-11-03] MEDS: DOXYCYCLINE 100 MG CAP PO SCH (06:50)
[2021-11-03] MEDS: lisinopriL 20 MG TAB PO SCH (06:50)
[2021-11-03] MEDS: INSULIN ASPART (NovoLOG) 100 UNIT/ML VIAL SQ SCH ×2 (06:53→12:07)
[2021-11-03] MEDS: LACTATED RINGERS 1,000 ML IV SCH (07:08)
[2021-11-03 07:46] VITALS: BP 144/88; PULSE 91; RESP 19; TEMP 97.8
[2021-11-03] MEDS: traMADol 50 MG TAB PO SCH (08:30)
[2021-11-03 09:01] LABS: HCT 30.7 % (39.6-50.0); HGB 9.5 g/dL (13.0-17.0); MCH 28.1 pg (27.0-32.0); MCHC 30.9 g/dL (32.0-37.0); MCV 90.8 fL (80.0-97.0); Mean Platelet Volume 10.1 fL (9.5-12.2); NRBC Per 100 WBC 0 /100 WBCS (0.0-0.0); Platelet Count 189 X 10*3/uL (140-440); RBC 3.38 X 10*6/uL (4.40-5.60); RDW 15.3 % (11.5-14.5); WBC 7.13 X 10*3/uL (4.50-10.00)
[2021-11-03 09:11] LABS: ALT 50 U/L (10-49); AST 33 U/L (14-35); African American GFR (CKD) 107.1 (60.0-200.0); Albumin 3.2 g/dL (3.8-4.9); Albumin/Globulin Ratio 0.94 (1.60-3.17); Alkaline Phosphatase 66 U/L (41-126); Blood Urea Nitrogen 15.4 mg/dL (9.0-27.0); Calcium 8.8 mg/dL (8.7-10.3); Carbon Dioxide 27.8 mmol/L (20.0-27.5); Chloride 101 mmol/L (96-109); Globulin 3.4 g/dL (1.6-3.3); Glucose 109 mg/dL (70-110); Non-African American GFR(CKD) 92.4 (60.0-200.0); Potassium 4.5 mmol/L (3.5-5.5); Sodium 137 mmol/L (135-145); Total Bilirubin <0.15 mg/dL (0.30-1.20); Total Protein 6.6 g/dL (6.2-8.2)
[2021-11-03 11:13] LABS: Glucose,Whole Blood 160 mg/dL (75-99)
--- NOTE | 2021-11-03 12:32 | P.DS ---
Providers Date of admission: 11/02/21 08:19 Expected date of discharge: 11/03/21 Attending physician: Chucho Oglesby Consults: 11/01/21 11:27 Consult Physician Routine Consulting Provider: Mustapha Gonzalez Consult Reason/Comments: Medical management Do you want consulting provider notified?: Yes Primary care physician: Adela Gonzalez Hospital Course: Discharge diagnosis 1. Abdominal wall necrosis status post debridement of abdominal wall Hospital course This is a 41-year-old male who had underwent a previous incisional hernia repair. He developed fat necrosis at the incision site. He is status post debridement of abdominal wall necrosis. Patient and will guaiac placed in the OR. He has been seen by wound care service. He'll follow up with wound care service the outpatient setting. His wound VAC is set up in the outpatient setting. Patient's pain is controlled. Tolerating diet. He is afebrile. He is having bowel movements. His up and ambulating. He still for discharge. Please refer to chart for any further details. Physician Licensed Club Manager note has been reviewed by physician. Signing provider agrees with the documented findings, assessment, and plan of care. Patient Condition at Discharge: Stable Plan - Discharge Summary Discharge Rx Participant: Yes New Discharge Prescriptions: Continue Gabapentin [Neurontin] 600 mg PO TID Dulaglutide [Trulicity] 1.5 mg SQ WEEKLY lisinopriL [Zestril] 20 mg PO DAILY Cholecalciferol [Vitamin D3 (25 Mcg = 1000 Iu)] 25 mcg PO DAILY traMADol HCL 50 mg PO TID buPROPion [Wellbutrin] 150 mg PO HS Sertraline [Zoloft] 100 mg PO HS Adalimumab [Humira(Cf) Pen] 40 mg SQ CHRISTIAN Midland-3 Fatty Acids [Midland-3] 1,000 mg PO DAILY Doxycycline (Unknown Dose) 1 tab PO DIRECTED Discharge Medication List Dulaglutide [Trulicity] 1.5 mg SQ WEEKLY 07/16/20 [History] Gabapentin [Neurontin] 600 mg PO TID 07/16/20 [History] Adalimumab [Humira(Cf) Pen] 40 mg SQ CHRISTIAN 09/22/21 [History] Cholecalciferol [Vitamin D3 (25 Mcg = 1000 Iu)] 25 mcg PO DAILY 09/22/21 [History] Midland-3 Fatty Acids [Midland-3] 1,000 mg PO DAILY 09/22/21 [History] Sertraline [Zoloft] 100 mg PO HS 09/22/21 [History] buPROPion [Wellbutrin] 150 mg PO HS 09/22/21 [History] lisinopriL [Zestril] 20 mg PO DAILY 09/22/21 [History] Doxycycline (Unknown Dose) 1 tab PO DIRECTED 10/28/21 [History] traMADol HCL 50 mg PO TID 10/28/21 [History] Follow up Appointment(s)/Referral(s): [facility] [NON-STAFF] - 11/09/21 9:15 am [facility] [NON-STAFF] - ([facility] will call you to schedule your in home nursing visits. First visit will be on 11/04/21.) Chucho Oglesby MD [STAFF PHYSICIAN] - 11/08/21 3:00 pm Activity/Diet/Wound Care/Special Instructions: [employer] Wound Vac supplier- [phone]. Please call with any questions regarding the wound vac. Discharge Disposition: HOME WITH HOME HEALTH SERVICES
--- NOTE | 2021-11-03 15:22 | P.PN ---
Subjective Progress Note Date: 11/03/21 This is a pleasant 41-year-old male who was admitted under surgical services for abdominal wall debridement and is being closely monitored. Patient is to receive wound VAC and will have outpatient home care arranged and also continue to follow at the wound care center. Encourage the patient to follow-up with primary care provider and also assistant director and behavioral school counselors for continued evaluation of possible Behcets disease or vasculitis. Patient is afebrile denies any nausea or vomiting and tolerating diet. Patient denies chest pain or shortness of breath. Patient reports he will be discharged today. Review of systems: Constitutional: No reports of fatigue, fever, or chills Cardiovascular: No reports of chest pain or palpitations Respiratory: No reports of shortness of breath or cough GI: no reports of nausea, no reports of of vomiting, reports some abdominal discomfort : No reports of dysuria or retention Neurovascular: No reports of generalized weakness All medications have been reviewed PHYSICAL EXAMINATION: GENERAL: The patient is alert and oriented x4, Well developed, well nourished. HEENT: Pupils are round and equally reacting to light. EOMI. no scleral icterus. No conjunctival pallor. Normocephalic, atraumatic. No pharyngeal erythema. No thyromegaly. CARDIOVASCULAR: S1 and S2 muffled PULMONARY: diminished breath sounds bilaterally with no wheezing or rhonchi noted. ABDOMEN: soft. mildly tender on exam. obese. non-distended, normoactive bowel sounds. No palpable organomegaly. MUSCULOSKELETAL: No joint swelling or deformity. EXTREMITIES: No cyanosis, clubbing, or pedal edema. NEUROLOGICAL: Gross neurological examination did not reveal any focal deficits. SKIN: No rashes. 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 Patient will have home care arranged and will continue with the wound VAC and close outpatient follow-up with general surgery and the wound care center. Patient encouraged and instructed to continue following with assistant director along with possible Behcets specialist out of [facility] for further evaluation. Recommend continue with current medications and close outpatient follow-up with primary care provider as well. We will continue to follow with surgical services during hospitalization. Thank you for this consultation. Patient reports to being discharged later today. The impression and plan of care has been dictated by Ernestina Hall, nurse practitioner as directed. MD Kamari I have performed a history and examination and MDM of this patient, discussed the same with the dictator, and agree with the dictator's assessment and plan as written ,documented as a scribe. Based on total visit time, I have performed more than 50% of the visit. Any additional findings or plans will be noted. Objective - Vital Signs Vital signs: Vital Signs Temp 97.8 F 11/03/21 06:55 Pulse 91 11/03/21 06:55 Resp 19 11/03/21 06:55 BP 144/88 11/03/21 06:55 Pulse Ox 99 11/03/21 06:55 FiO2 Intake & Output 11/02/21 11/03/21 11/03/21 18:59 06:59 18:59 Intake Total 540 180 Balance 540 180 Intake: Oral 540 180 Other: # Voids 3 1 - Labs CBC & Chem 7: 11/03/21 06:22 11/03/21 06:22 Labs: Abnormal Lab Results - Last 24 Hours (Table) 11/02/21 11/02/21 11/03/21 Range/Units 16:20 20:17 06:22 RBC 3.38 L (4.40-5.60) X 10*6/uL Hgb 9.5 L (13.0-17.0) g/dL Hct 30.7 L (39.6-50.0) % MCHC 30.9 L (32.0-37.0) g/dL RDW 15.3 H (11.5-14.5) % Carbon Dioxide (20.0-27.5) mmol/L Anion Gap (10.00-18.00) mmol/L POC Glucose (mg/dL) 186 H 192 H (75-99) mg/dL Total Bilirubin (0.30-1.20) mg/dL ALT (10-49) U/L Albumin (3.8-4.9) g/dL Globulin (1.6-3.3) g/dL Albumin/Globulin Ratio (1.60-3.17) g/dL 11/03/21 11/03/21 11/03/21 Range/Units 06:22 06:45 11:11 RBC (4.40-5.60) X 10*6/uL Hgb (13.0-17.0) g/dL Hct (39.6-50.0) % MCHC (32.0-37.0) g/dL RDW (11.5-14.5) % Carbon Dioxide 27.8 H (20.0-27.5) mmol/L Anion Gap 8.20 L (10.00-18.00) mmol/L POC Glucose (mg/dL) 107 H 160 H (75-99) mg/dL Total Bilirubin <0.15 L (0.30-1.20) mg/dL ALT 50 H (10-49) U/L Albumin 3.2 L (3.8-4.9) g/dL Globulin 3.4 H (1.6-3.3) g/dL Albumin/Globulin Ratio 0.94 L (1.60-3.17) g/dL
[2021-11-08] MEDS ORDERED: NON FORMULARY DRUG (Dulaglutide [Trulicity] 1.5 MG/0.5 ML Pen.Injctr) SQ SCH (09:00)
== END 2021-11-03 15:20 | disposition home health service (06) ==
LOC: OR 09:28 → 4SSUR 11:24 → OR 11-02 07:43 → 4SSUR 11-02 08:19
PROVIDERS: ADMIT Surgery; ATTEND Surgery
DX: S51.809A Unspecified open wound of unspecified forearm, initial encounter (principal); T81.31XA Disruption of external operation (surgical) wound, not elsewhere classified, initial encounter; I10 Essential (primary) hypertension; E11.622 Type 2 diabetes mellitus with other skin ulcer; L98.493 Non-pressure chronic ulcer of skin of other sites with necrosis of muscle; F32.A Depression, unspecified; F41.9 Anxiety disorder, unspecified; M35.2 Behcet's disease; H54.8 Legal blindness, as defined in USA; Z90.49 Acquired absence of other specified parts of digestive tract; Z98.890 Other specified postprocedural states; Z79.899 Other long term (current) drug therapy; Z79.891 Long term (current) use of opiate analgesic
CPT/HCPCS: 88304; 80053 ×2; 85025; 85027; 85610; 87070; 87205; 87075; 83036; 11005; G0378 ×2; J2250; J1100; J2405; J0690; J1650 ×2; J3010; J2370; J0330; J2704; J1170 ×2; J1644; J2001

== ENCOUNTER → 2021-11-16 | Outpatient (CLI) | payer BC ==
[2021-11-16 18:06] LABS: HCT 31.9 % (39.6-50.0); HGB 10.1 g/dL (13.0-17.0); MCH 27.8 pg (27.0-32.0); MCHC 31.7 g/dL (32.0-37.0); MCV 87.9 fL (80.0-97.0); Mean Platelet Volume 10.1 fL (9.5-12.2); NRBC Per 100 WBC 0 /100 WBCS (0.0-0.0); Platelet Count 298 X 10*3/uL (140-440); RBC 3.63 X 10*6/uL (4.40-5.60); RDW 15.7 % (11.5-14.5); WBC 9.82 X 10*3/uL (4.50-10.00)
[2021-11-16 18:20] LABS: Hepatitis A Antibody IgM Nonreactive (Nonreactive); Hepatitis B Core IgM Nonreactive (Nonreactive); Hepatitis B Surface Antigen Nonreactive (Nonreactive); Hepatitis C IgG Antibody Nonreactive (Nonreactive)
[2021-11-16 18:33] LABS: Albumin 3.5 g/dL (3.8-4.9); Albumin/Globulin Ratio 0.9 (1.60-3.17); Anion Gap 18.4 mmol/L (10.00-18.00); BUN/Creat Ratio 16.62 Ratio (12.00-20.00); Blood Urea Nitrogen 21.6 mg/dL (9.0-27.0); Carbon Dioxide 24.6 mmol/L (20.0-27.5); Globulin 3.9 g/dL (1.6-3.3); Non-African American GFR(CKD) 67.3 (60.0-200.0); Phosphorus 3.9 mg/dL (2.4-5.1); Potassium 4.4 mmol/L (3.5-5.5); Total Bilirubin 0.2 mg/dL (0.30-1.20); Total Protein 7.4 g/dL (6.2-8.2)
[2021-11-16 18:34] LABS: % Iron Saturation 18.64 (15.00-50.00)
[2021-11-16 20:08] LABS: DNA Double-Stranded NEGATIVE (NEGATIVE)
[2021-11-17 13:20] LABS: C-ANCA <1:20 Titer (<1:20)
[2021-11-18 11:14] LABS: Free Lambda Lt Chain Qnt, Seru 6.08 mg/dL (0.57-2.63)
== END | disposition home or self-care (01) ==
LOC: LABWHC1 11:36
PROVIDERS: ATTEND Internal Medicine
DX: N25.81 Secondary hyperparathyroidism of renal origin (principal); R80.9 Proteinuria, unspecified; D64.9 Anemia, unspecified; N39.0 Urinary tract infection, site not specified; E55.9 Vitamin D deficiency, unspecified; M10.9 Gout, unspecified; R53.83 Other fatigue
CPT/HCPCS: 36415; 80053; 80074; 82306; 82728; 83516; 83540; 83550; 83735; 83883; 83970; 84100; 84550; 85027; 86038; 86160; 86162; 86225; 86255; 86334

== ENCOUNTER → 2022-01-16 | Outpatient (CLI) | payer BC ==
--- NOTE | 2022-01-16 17:12 | XR ---
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 FINDINGS: CERVICAL spine: No predental space widening or prevertebral soft tissue swelling. Alignment of the ce rvical spine is maintained. No discrete lytic lesion. CHEST: Low lung volumes and crowded vascular markings. Some strandy atelectasis left base. No discret e clavicular or rib lesion identified. Humeri: No endosteal scalloping or discrete lytic lesion. Degenerative spurring right AC joint. Skull: No discrete lytic lesion. Pelvis: No discrete lytic lesion. Mild degenerative change of both hips. Vas deferens calcifications. Thoracic spine: 12 rib-bearing thoracic vertebral bodies. All pedicles are visualized. Slight distal convex curvature mid thoracic spine. No discrete lytic lesion. Vertebral body heights are preserved. Lumbar spine: 5 lumbar type vertebral bodies. Mild degenerative disc disease throughout. Facet arthro deborah lower lumbar spine. No discrete lytic lesion. Femurs: Mild degenerative change both hips. No endosteal scalloping or discrete lytic lesion. IMPRESSION: No suspicious lytic lesion to suggest myelomatous involvement.
== END | disposition home or self-care (01) ==
LOC: RADXRMAIN 13:38
PROVIDERS: ATTEND Internal Medicine Hematology & Oncology
DX: D47.2 Monoclonal gammopathy (principal); E11.9 Type 2 diabetes mellitus without complications
CPT/HCPCS: 77075

== ENCOUNTER → 2022-06-06 | Outpatient (CLI) | payer BC ==
[2022-06-06 23:01] LABS: HCT 36.6 % (39.6-50.0); HGB 11.9 g/dL (13.0-17.0); MCH 29.5 pg (27.0-32.0); MCHC 32.5 g/dL (32.0-37.0); MCV 90.6 fL (80.0-97.0); Mean Platelet Volume 11.4 fL (9.5-12.2); NRBC Per 100 WBC 0 /100 WBCS (0.0-0.0); Platelet Count 175 X 10*3/uL (140-440); RBC 4.04 X 10*6/uL (4.40-5.60); RDW 14.6 % (11.5-14.5); WBC 7.37 X 10*3/uL (4.50-10.00)
[2022-06-06 23:27] LABS: Appearance,Urine Clear (Clear); Bilirubin,Urine Negative (Negative); Blood,Urine Small (Negative); Color,Urine Yellow (Yellow); Ketones,Urine Negative (Negative); Nitrite,Urine Negative (Negative); Specific Gravity,Urine 1.026 (1.001-1.030); Urobilinogen,Urine 0.2 (0.2,1.0)
[2022-06-06 23:32] LABS: Ferritin 96.2 ng/mL (22.0-322.0)
[2022-06-06 23:35] LABS: Bacteria,Urine None Seen /HPF (None Seen)
[2022-06-07 11:39] LABS: % Iron Saturation 18.98 (15.00-50.00); African American GFR (CKD) 107.1 (60.0-200.0); Albumin 3.9 g/dL (3.8-4.9); Albumin/Globulin Ratio 1.11 (1.60-3.17); Anion Gap 13.8 mmol/L (10.00-18.00); Calcium 9.1 mg/dL (8.7-10.3); Carbon Dioxide 21.2 mmol/L (20.0-27.5); Globulin 3.5 g/dL (1.6-3.3); Magnesium 1.9 mg/dL (1.5-2.4); Non-African American GFR(CKD) 92.4 (60.0-200.0); Phosphorus 3.6 mg/dL (2.4-5.1); Potassium 4.7 mmol/L (3.5-5.5); Total Bilirubin 0.2 mg/dL (0.30-1.20); Total Protein 7.4 g/dL (6.2-8.2)
== END | disposition home or self-care (01) ==
LOC: LABWHC1 15:32
PROVIDERS: ATTEND Nurse Practitioner Family
DX: N25.81 Secondary hyperparathyroidism of renal origin (principal); R80.9 Proteinuria, unspecified; D64.9 Anemia, unspecified; N39.0 Urinary tract infection, site not specified; E55.9 Vitamin D deficiency, unspecified; M10.9 Gout, unspecified
CPT/HCPCS: 36415; 80053; 81001; 82043; 82306; 82570; 82728; 83540; 83550; 83735; 83970; 84100; 84550; 85027

== ENCOUNTER 2022-08-16 07:44 | Day surgery (SDC) | payer BC ==
[2022-08-16] MEDS ORDERED: ALPRAZolam 0.5 MG TAB PO PRN (07:55)
[2022-08-16] MEDS ORDERED: HYDROmorphone 0.5 MG/0.5 ML SYRINGE IVP PRN (07:55)
[2022-08-16] MEDS ORDERED: DESMOPRESSIN ACETATE 36 MCG in SODIUM CHLORIDE 0.9% 50 ML IV ONE (08:30)
[2022-08-16 08:31] VITALS: TEMP 97.7
[2022-08-16 09:27] LABS: Glucose,Whole Blood 194 mg/dL (70-110)
[2022-08-16 10:56] VITALS: RESP 16
--- NOTE | 2022-08-16 11:21 | CT ---
EXAMINATION TYPE: CT biopsy renal LT DATE OF EXAM: 08/16/2022 COMPARISON: NONE HISTORY: Proteinuria CT DLP: [id number] mGycm The procedure was explained to the patient. The risks, complications, benefits, and alternatives wer e discussed and any questions were answered. Informed consent was obtained. Patient was placed pron e on the CT table and prepped and draped in the usual sterile fashion. Utilizing CT guidance, an 18 gauge core biopsy needle access into the left renal cortex was achieved and three 18 gauge core samples were obtained. The patient was stable throughout the procedure and r emained stable upon discharge. IMPRESSION: Successful 18 gauge core biopsy of the kidney function.
[2022-08-16] MEDS ORDERED: oxyCODONE-APAP 7.5-325MG 1 EACH TAB PO PRN (11:26)
[2022-08-16 13:47] VITALS: BP 90/53; PULSE 74
== END 2022-08-16 14:14 | disposition home or self-care (01) ==
LOC: RADPROMAIN 07:44
PROVIDERS: ATTEND Internal Medicine Nephrology
DX: E11.21 Type 2 diabetes mellitus with diabetic nephropathy (principal); M32.14 Glomerular disease in systemic lupus erythematosus
CPT/HCPCS: 86900; 86901; 86850; 36415; 50200; 77012; J2597; J1170

== ENCOUNTER → 2022-09-15 | Outpatient (CLI) | payer BC ==
[2022-09-16 02:21] LABS: Immunoglobulin M 47.9 mg/dL (40.0-280.0)
[2022-09-16 02:37] LABS: Hepatitis B Core IgM Nonreactive (Nonreactive); Hepatitis C IgG Antibody Nonreactive (Nonreactive)
== END | disposition home or self-care (01) ==
LOC: LABWHC1 15:57
PROVIDERS: ATTEND Family Medicine
DX: Z11.1 Encounter for screening for respiratory tuberculosis (principal); Z11.59 Encounter for screening for other viral diseases; I77.6 Arteritis, unspecified; Z51.81 Encounter for therapeutic drug level monitoring; Z79.624 Long term (current) use of inhibitors of nucleotide synthesis
CPT/HCPCS: 36415; 82542; 82657; 82784; 85652; 86480; 86704; 86705; 86803

== ENCOUNTER → 2022-09-15 | Outpatient (CLI) | payer BC ==
--- NOTE | 2022-09-15 17:05 | XR ---
EXAMINATION TYPE: XR chest 2V DATE OF EXAM: 09/15/2022 4:56 PM COMPARISON: Chest radiographs from 06/16/2021 TECHNIQUE: XR chest 2V Frontal and lateral views of the chest. CLINICAL INDICATION:Male, 42 years old with history of L95.8 L73.2; FINDINGS: Lungs/Pleura: There is no evidence of pleural effusion, focal consolidation, or pneumothorax. Pulmonary vascularity: Unremarkable. Heart/mediastinum: Cardiomediastinal silhouette is unremarkable. Musculoskeletal: No acute osseous pathology. IMPRESSION: No acute cardiopulmonary disease/process.
== END | disposition home or self-care (01) ==
LOC: RADXRMAIN 16:28
PROVIDERS: ATTEND Dermatology Procedural Dermatology
DX: L98.5 Mucinosis of the skin (principal); L73.2 Hidradenitis suppurativa
CPT/HCPCS: 71046

== ENCOUNTER → 2022-10-05 | Outpatient (CLI) | payer BC ==
[2022-10-05 21:01] LABS: Protein, Total 7.3 g/dL (6.2-8.2)
[2022-10-05 21:05] LABS: African American GFR (CKD) 83.6 (60.0-200.0); Albumin 3.9 g/dL (3.8-4.9); Albumin/Globulin Ratio 1.11 (1.60-3.17); BUN/Creat Ratio 17.79 Ratio (12.00-20.00); Blood Urea Nitrogen 21.7 mg/dL (9.0-27.0); Calcium 9.7 mg/dL (8.7-10.3); Carbon Dioxide 27.5 mmol/L (20.0-27.5); Globulin 3.4 g/dL (1.6-3.3); Non-African American GFR(CKD) 72.2 (60.0-200.0); Potassium 4.2 mmol/L (3.5-5.5); Total Bilirubin 0.3 mg/dL (0.30-1.20); Total Protein 7.3 g/dL (6.2-8.2)
[2022-10-05 21:08] LABS: Basophils # (A) 0.06 X 10*3/uL (0.00-0.10); Basophils % (A) 0.6 %; Eosinophils % (A) 4.8 %; HCT 39.3 % (39.6-50.0); HGB 13.3 g/dL (13.0-17.0); Immature Grans, Automated 0.6 %; Lymphocytes # (A) 2.52 X 10*3/uL (0.90-5.00); Lymphocytes % (A) 24.3 %; MCH 31.4 pg (27.0-32.0); MCHC 33.8 g/dL (32.0-37.0); MCV 92.9 fL (80.0-97.0); Mean Platelet Volume 10.6 fL (9.5-12.2); Monocytes # (A) 0.87 X 10*3/uL (0.20-1.00); Monocytes % (A) 8.4 %; NRBC Per 100 WBC 0 /100 WBCS (0.0-0.0); Neutrophils # (A) 6.38 X 10*3/uL (1.80-7.70); Neutrophils % (A) 61.3 %; Platelet Count 191 X 10*3/uL (140-440); RBC 4.23 X 10*6/uL (4.40-5.60); RDW 14.1 % (11.5-14.5); WBC 10.39 X 10*3/uL (4.50-10.00)
[2022-10-06 14:07] LABS: Free Kappa Lt Chain Qnt, Serum 5.75 mg/dL (0.33-1.94); Free Lambda Lt Chain Qnt, Seru 4.47 mg/dL (0.57-2.63)
[2022-10-06 18:35] LABS: Albumin 3.75 g/dL (3.80-4.90); Gamma Globulin 1.22 g/dL (0.70-1.50)
== END | disposition home or self-care (01) ==
LOC: LABWHC1 15:41
PROVIDERS: ATTEND Internal Medicine Hematology & Oncology
DX: I77.6 Arteritis, unspecified (principal); D47.2 Monoclonal gammopathy; E11.9 Type 2 diabetes mellitus without complications
CPT/HCPCS: 36415; 80053; 82595; 83883; 84165; 85025

== ENCOUNTER → 2023-09-25 | Outpatient (CLI) | payer BC ==
[2023-09-25 19:05] LABS: Basophils # (A) 0.11 X 10*3/uL (0.00-0.10); Basophils % (A) 1.2 %; Eosinophils # (A) 0.32 X 10*3/uL (0.04-0.35); Eosinophils % (A) 3.4 %; HCT 38.2 % (39.6-50.0); HGB 12.5 g/dL (13.0-17.0); Lymphocytes # (A) 2.53 X 10*3/uL (0.90-5.00); Lymphocytes % (A) 26.9 %; MCH 29.7 pg (27.0-32.0); MCHC 32.7 g/dL (32.0-37.0); MCV 90.7 FL (80.0-97.0); Mean Platelet Volume 10.7 FL (9.5-12.2); Monocytes # (A) 0.68 X 10*3/uL (0.20-1.00); Monocytes % (A) 7.2 %; NRBC Per 100 WBC 0 X 10*3/uL (0.00-0.01); Neutrophils # (A) 5.71 X 10*3/uL (1.80-7.70); Neutrophils % (A) 60.8 %; Platelet Count 188 X 10*3/uL (140-440); RBC 4.21 X 10*6/uL (4.40-5.60); RDW 13.7 % (11.5-14.5)
[2023-09-25 22:17] LABS: ALT 31 U/L (10-49); AST 33 U/L (14-35); Albumin 3.7 g/dL (3.8-4.9); Albumin/Globulin Ratio 0.82 Ratio (1.60-3.17); Alkaline Phosphatase 56 U/L (41-126); BUN/Creat Ratio 16.36 Ratio (12.00-20.00); Carbon Dioxide 25.5 mmol/L (21.6-31.8); Chloride 101 mmol/L (96-109); Globulin 4.5 g/dL (1.6-3.3); Glucose 145 mg/dL (70-110); Potassium 4.2 mmol/L (3.5-5.5); Sodium 137 mmol/L (135-145); Total Bilirubin 0.3 mg/dL (0.3-1.2); Total Protein 8.2 g/dL (6.2-8.2)
== END | disposition home or self-care (01) ==
LOC: LABWHC1 14:28
PROVIDERS: ATTEND Dermatology MOHS-Micrographic Surgery
DX: L73.2 Hidradenitis suppurativa (principal); B35.1 Tinea unguium; Z79.899 Other long term (current) drug therapy
CPT/HCPCS: 36415; 80053; 85025; 86480

== ENCOUNTER → 2023-12-07 | Outpatient (CLI) | payer BC | END | disposition home or self-care (01) | LOC: LABWHC1 10:31 | PROVIDERS: ATTEND Family Medicine | DX: I77.6 Arteritis, unspecified (principal); E11.51 Type 2 diabetes mellitus with diabetic peripheral angiopathy without gangrene; G57.90 Unspecified mononeuropathy of unspecified lower limb; E55.9 Vitamin D deficiency, unspecified; E66.9 Obesity, unspecified ==

== ENCOUNTER → 2023-12-10 | Outpatient (CLI) | payer BC ==
[2023-12-10 15:21] LABS: HCT 39.4 % (39.6-50.0); HGB 12.9 g/dL (13.0-17.0); MCH 29.8 pg (27.0-32.0); MCHC 32.7 g/dL (32.0-37.0); Mean Platelet Volume 11.7 FL (9.5-12.2); NRBC Per 100 WBC 0 X 10*3/uL (0.00-0.01); Platelet Count 164 X 10*3/uL (140-440); RBC 4.33 X 10*6/uL (4.40-5.60); RDW 13.8 % (11.5-14.5); WBC 8.96 X 10*3/uL (4.50-10.00)
[2023-12-10 16:31] LABS: BUN/Creat Ratio 13.27 Ratio (12.00-20.00); Blood Urea Nitrogen 14.6 mg/dL (9.0-27.0); Carbon Dioxide 20.1 mmol/L (21.6-31.8); Chloride 102 mmol/L (96-109); Chol/HDL Ratio 5.34 Ratio; Glucose 162 mg/dL (70-110); LDL Cholesterol,Calculated 125.2 mg/dL (0.0-131.0); Potassium 4.3 mmol/L (3.5-5.5); Sodium 136 mmol/L (135-145)
[2023-12-10 16:32] LABS: ALT 24 U/L (10-49); AST 28 U/L (14-35); Albumin 3.7 g/dL (3.8-4.9); Albumin/Globulin Ratio 0.84 Ratio (1.60-3.17); Alkaline Phosphatase 70 U/L (41-126); Calcium 9.4 mg/dL (8.7-10.3); Globulin 4.4 g/dL (1.6-3.3); Total Bilirubin 0.4 mg/dL (0.3-1.2); Total Protein 8.1 g/dL (6.2-8.2)
== END | disposition home or self-care (01) ==
LOC: LABWHC1 10:47
PROVIDERS: ATTEND Physician Assistant
DX: E66.9 Obesity, unspecified (principal); E11.51 Type 2 diabetes mellitus with diabetic peripheral angiopathy without gangrene; G57.90 Unspecified mononeuropathy of unspecified lower limb; I77.6 Arteritis, unspecified; E55.9 Vitamin D deficiency, unspecified
CPT/HCPCS: 36415; 80053; 80061; 82306; 83036; 84443; 85027

== ENCOUNTER → 2024-09-13 | Outpatient (CLI) | payer BC ==
[2024-09-14 07:45] LABS: Chol/HDL Ratio 5.73 Ratio; LDL Cholesterol,Calculated 114.4 mg/dL (0.0-131.0)
[2024-09-14 07:46] LABS: ALT 36 U/L (10-49); AST 34 U/L (14-35); Albumin 3.6 g/dL (3.8-4.9); Albumin/Globulin Ratio 0.77 Ratio (1.60-3.17); Alkaline Phosphatase 62 U/L (41-126); Blood Urea Nitrogen 21.7 mg/dL (9.0-27.0); Calcium 9.2 mg/dL (8.7-10.3); Carbon Dioxide 26.5 mmol/L (21.6-31.8); Chloride 99 mmol/L (96-109); Globulin 4.7 g/dL (1.6-3.3); Glucose 148 mg/dL (70-110); Sodium 135 mmol/L (135-145); Total Bilirubin 0.4 mg/dL (0.3-1.2); Total Protein 8.3 g/dL (6.2-8.2)
[2024-09-14 08:33] LABS: Basophils % (A) 1.2 %; Eosinophils # (A) 0.44 X 10*3/uL (0.04-0.35); Eosinophils % (A) 5.1 %; HCT 39.8 % (39.6-50.0); Lymphocytes # (A) 2.94 X 10*3/uL (0.90-5.00); Lymphocytes % (A) 34.2 %; MCH 29.7 pg (27.0-32.0); MCHC 32.7 g/dL (32.0-37.0); MCV 91.1 FL (80.0-97.0); Mean Platelet Volume 11.3 FL (9.5-12.2); Monocytes # (A) 0.76 X 10*3/uL (0.20-1.00); Monocytes % (A) 8.8 %; NRBC Per 100 WBC 0 X 10*3/uL (0.00-0.01); Neutrophils # (A) 4.32 X 10*3/uL (1.80-7.70); Neutrophils % (A) 50.4 %; Platelet Count 127 X 10*3/uL (140-440); RBC 4.37 X 10*6/uL (4.40-5.60); RDW 13.5 % (11.5-14.5); WBC 8.59 X 10*3/uL (4.50-10.00)
== END | disposition home or self-care (01) ==
LOC: LABWHC1 10:27
PROVIDERS: ATTEND Dermatology Procedural Dermatology
DX: I10 Essential (primary) hypertension (principal); I73.9 Peripheral vascular disease, unspecified; E11.51 Type 2 diabetes mellitus with diabetic peripheral angiopathy without gangrene; L73.2 Hidradenitis suppurativa; M79.2 Neuralgia and neuritis, unspecified; F98.8 Other specified behavioral and emotional disorders with onset usually occurring in childhood and adolescence; Z79.899 Other long term (current) drug therapy
CPT/HCPCS: 36415; 80053; 80061; 83036; 84443; 85025; 86480